=== PATIENT | female | born 1950 | race Native Hawaiian/Other Pacific Islander ===

== ENCOUNTER 2016-09-17 20:17 | Inpatient (IN) | payer MEDICARE, MEDICAID ==
[2016-09-17] MEDS ORDERED: Levalbuterol 1.25 MG/3 ML Inhal Soln UD IH STA ×2 (20:25)
[2016-09-17] MEDS ORDERED: guaiFENesin 200 mg/10 ml Syrup UD PO STA (20:25)
[2016-09-17] MEDS ORDERED: Ipratropium 0.02% Inhal Soln (0.5 mg/2.5 ml) UD IH STA (20:25)
[2016-09-17 20:54] LABS: ADD MANUAL DIFF? NO
--- NOTE | 2016-09-17 20:54 | ED PDOC ---
Arrival/HPI - General Chief Complaint: Respiratory Distress Time Seen by Provider: 09/17/16 20:22 Historian: Dental Billing Specialist (son-in-law) - History of Present Illness Narrative History of Present Illness (Text): 09/17/16 20:51 66 y.o. female whose PMHx includes asthma/COPD, HTN, hyperlipidemia, and hepatitis B, who is here in the ED with complaint of chest pain that is worse when taking a deep breath, associated with mild cough and a feeling consistent with previous asthma attacks. No dizziness or abd pain or n/v or LE pain. She did have a subjective fever earlier at home but not measured. Past Medical History - Infectious Disease Hx of Infectious Diseases: None - Tetanus Immunization Tetanus Immunization: Unknown - Cardiac Hx Cardiac Disorders: Yes Hx Hypertension: Yes - Pulmonary Hx Chronic Obstructive Pulmonary Disease (COPD): Yes - Neurological HX Cerebrovascular Accident: No - HEENT Hx HEENT Disorder: No - Renal Hx Renal Failure: No - Endocrine/Metabolic Hx Diabetes Mellitus Type 1: No Hx Diabetes Mellitus Type 2: No Hx Hypothyroidism: No - Hematological/Oncological Hx Blood Disorders: Yes Hx Hepatitis B: Yes - Integumentary Hx Dermatological Disorder: No - Musculoskeletal/Rheumatological Hx Falls: No - Gastrointestinal Hx Gastroesophageal Reflux: No HX Swallowing Problems: Yes - Genitourinary/Gynecological Hx Genitourinary Disorders: No - Psychiatric Hx Psychophysiologic Disorder: No Hx Substance Use: No - Anesthesia Hx Anesthesia Reactions: No Hx Malignant Hyperthermia: No Family/Social History Family/Social History: Unknown Family HX Smoking Status: Former Smoker Hx Alcohol Use: No Hx Substance Use: No Allergies/Home Meds Allergies/Adverse Reactions: Allergies No Known Allergies Allergy (Verified 06/22/16 01:35) Review of Systems - Review of Systems Constitutional: Fevers (subjective) Eyes: Normal ENT: Normal Respiratory: SOB, Cough (mild) Cardiovascular: Chest Pain Gastrointestinal: absent: Abdominal Pain, Nausea, Vomiting Genitourinary Female: absent: Dysuria Musculoskeletal: Normal Skin: absent: Rash Neurological: absent: Headache, Dizziness, Focal Weakness Physical Exam Vital Signs Temp Pulse Resp BP Pulse Ox 09/17/16 21:39 97.7 F 09/17/16 20:34 98.9 F 100 H 22 147/94 H 98 Temperature: Afebrile Blood Pressure: Normal Pulse: Tachycardic Respiratory Rate: Normal Appearance: Positive for: Well-Appearing, Non-Toxic, Comfortable Pain Distress: None Mental Status: Positive for: Alert and Oriented X 3 - Systems Exam Head: Present: Atraumatic, Normocephalic Pupils: Present: PERRL Conjunctiva: Present: Normal Mouth: Present: Moist Mucous Membranes Pharnyx: Present: Normal. No: ERYTHEMA, EXUDATE Neck: Present: Normal Range of Motion Respiratory/Chest: Present: Wheezes (b/L), Decreased Breath Sounds. No: Good Air Exchange, Respiratory Distress, Accessory Muscle Use Cardiovascular: Present: Normal S1, S2, Tachycardic. No: Murmurs Abdomen: Present: Normal Bowel Sounds. No: Tenderness, Distention, Peritoneal Signs Back: Present: Normal Inspection Upper Extremity: Present: Normal Inspection. No: Cyanosis, Edema Lower Extremity: Present: Normal Inspection. No: Edema Neurological: Present: GCS=15, CN II-XII Intact, Speech Normal Skin: Present: Warm, Dry, Normal Color. No: Rashes Psychiatric: Present: Alert, Oriented x 3, Normal Insight, Normal Concentration Medical Decision Making ED Course and Treatment: 09/17/16 22:57 Patient with history of COPD with sob and wheezing Differential: COPD exacerbation vs. PE vs. ACS 09/17/16 22:58 Patient with noted history who is here in the ED for findings c/w previous COPD exacerbations. Given steroids and nebs but still tachycardic with tachypnea. Labs are nondiagnostic, including negative d-dimer and CE. EKG is unremarkable as is CXR. Patient with abnormal vitals still and reports persistent chest tightness - will place in the hospital on telemetry for further treatment and evaluation of chest pain and copd exacerbation. Spoke with Dr. Johnston, who said to place on the hospitalist service. Case was discussed with Dr. Merino for placement on the hospitalist service. - Lab Interpretations Lab Results: 09/17/16 20:45 09/17/16 20:45 Lab Results 09/17/16 22:27: Urine Color Yellow, Urine Appearance Cloudy, Urine pH 6.5, Ur Specific [place] <= 1.005, Urine Protein Negative, Urine Glucose (UA) Negative, Urine Ketones Negative, Urine Blood Trace-intact H, Urine Nitrate Negative, Urine Bilirubin Negative, Urine Urobilinogen 0.2, Ur Leukocyte Esterase Small H , Urine RBC 1 - 3, Urine WBC 2 - 5, Ur Epithelial Cells 1 - 3 09/17/16 20:45: Sodium 139, Potassium 4.0, Chloride 102, Carbon Dioxide 28, Anion Gap 13, BUN 13, Creatinine 0.7, Est GFR ( Amer) > 60, Est GFR (Non- Af Amer) > 60, Random Glucose 110, Calcium 10.1, Magnesium 2.1, Total Bilirubin 0.7, AST 36, ALT 35, Alkaline Phosphatase 68, Lactate Dehydrogenase 548, Total Creatine Kinase 74, Troponin I < 0.01, NT-Pro-B Natriuret Pep 67.0, Total Protein 8.6 H, Albumin 4.5, Globulin 4.1, Albumin/Globulin Ratio 1.1, Lipase 65 09/17/16 20:45: PT 11.0, INR 1.02, APTT 26.9, D-Dimer, Quantitative 0.36 09/17/16 20:45: WBC 6.4 D, RBC 4.89, Hgb 15.3, Hct 43.8, MCV 89.6, MCH 31.3, MCHC 34.9, RDW 12.5, Plt Count 223, MPV 9.3, Gran % 59.2, Lymph % (Auto) 33.0, [place] % (Auto) 6.4 H, Eos % (Auto) 1.1 L, Baso % (Auto) 0.3, Gran # 3.77, Lymph # 2.1, [place] # 0.4, Eos # 0.1, Baso # 0.02 - RAD Interpretation Radiology Orders: 09/17/16 21:21 CHEST PORTABLE [RAD] Stat - Medication Orders Current Medication Orders: Levofloxacin/Dextrose (Levaquin 750mg) 750 mg in 150 mls @ 100 mls/hr IVPB STAT STA Stop: 09/18/16 00:00 Discontinued Medications Guaifenesin (Robitussin) 400 mg PO ONCE STA Stop: 09/17/16 20:26 Last Admin: 09/17/16 21:00 Dose: 400 mg Ipratropium [place] (Atrovent) 0.5 mg IH STAT STA Stop: 09/17/16 20:26 Last Admin: 09/17/16 21:00 Dose: 0.5 mg Ipratropium [place] (Atrovent) 0.5 mg IH STAT STA Stop: 09/17/16 20:26 Levalbuterol HCl (Xopenex) 1.25 mg IH STAT STA Stop: 09/17/16 20:26 Last Admin: 09/17/16 21:00 Dose: 1.25 mg Levalbuterol HCl (Xopenex) 1.25 mg IH STAT STA Stop: 09/17/16 20:26 Methylprednisolone (Solu-Medrol) 125 mg IVP STAT STA Stop: 09/17/16 20:26 Last Admin: 09/17/16 21:00 Dose: 125 mg Disposition/Present on Arrival - Present on Arrival Any Indicators Present on Arrival: No History of DVT/PE: No History of Uncontrolled Diabetes: No Urinary Catheter: No History Surgical Site Infection Following: None - Disposition Have Diagnosis and Disposition been Completed?: Yes Diagnosis: Chest pain, Acute exacerbation of chronic obstructive pulmonary disease (COPD) Disposition: HOSPITALIZED Disposition Time: 22:40 Patient Plan: Observation, Telemetry Condition: FAIR Discharge Instructions (ExitCare): Chest Pain (ED) Referrals: Marilyn Gregg DO [Primary Care Provider] - Follow up with primary
[2016-09-17 21:08] LABS: ALB/GLOB RATIO 1.1 (1.1-1.8); ALKALINE PHOSPHATASE 68 U/L (38-133); ALT/SGPT 35 U/L (7-56); AST/SGOT 36 U/L (15-39); BILIRUBIN,TOTAL 0.7 mg/dL (0.2-1.3); BLOOD UREA NITROGEN 13 mg/dL (7-21); CALCIUM 10.1 mg/dL (8.4-10.5); CARBON DIOXIDE 28 mmol/L (21-33); CHLORIDE 102 mmol/L (98-107); GFR AFRICAN-AMERICAN > 60; GLUCOSE,RANDOM 110 mg/dL (70-110); LIPASE 65 U/L (23-300); MAGNESIUM 2.1 mg/dL (1.7-2.2); SODIUM 139 mmol/L (132-148); TOTAL PROTEIN 8.6 g/dL (5.8-8.3)
[2016-09-17 21:09] LABS: BASO # 0.02 K/mm3 (0.0-2.0); BASO % 0.3 % (0.0-3.0); EOS # 0.1 (0.0-0.7); EOS % 1.1 % (1.5-5.0); GRAN # 3.77 (1.4-6.5); GRAN % 59.2 % (50.0-68.0); HEMATOCRIT 43.8 % (36.0-48.0); LYMPH # 2.1 (1.2-3.4); MEAN CELL VOLUME 89.6 fL (80.0-105.0); MEAN CORPUSCULAR HEMOGLOBIN 31.3 pg (25.0-35.0); MEAN CORPUSCULAR HGB CONC 34.9 g/dl (31.0-37.0); MEAN PLATELET VOLUME 9.3 fl (7.0-11.0); MONO # 0.4 (0.1-0.6); MONO % 6.4 % (1.0-6.0); PLATELET COUNT 223 10^3/uL (120.0-450.0); RED CELL DISTRIBUTION WIDTH 12.5 % (11.5-14.5); WHITE BLOOD COUNT 6.4 10^3/ul (4.5-11.0)
[2016-09-17 21:18] LABS: TROPONIN I < 0.01 ng/mL
[2016-09-17 21:46] LABS: INR 1.02 (0.93-1.08); PARTIAL THROMBOPLASTIN TIME 26.9 Seconds (23.7-30.8)
[2016-09-17 22:02] LABS: D DIMER 0.36 mg/L FEU (0-0.50)
[2016-09-17] MEDS ORDERED: levoFLOXacin 750 mg in D5W 750 MG/150 ML BAG IVPB STA (22:31)
[2016-09-17 22:46] LABS: PH,URINE 6.5 (4.7-8.0); URINE BILIRUBIN NEGATIVE (NEGATIVE); URINE BLOOD TRACE-INTACT (NEGATIVE); URINE GLUCOSE (UA) NEGATIVE (NEGATIVE); URINE KETONE NEGATIVE (NEGATIVE); URINE LEUKOCYTE ESTERASE SMALL Leu/uL (NEGATIVE); URINE PROTEIN NEGATIVE mg/dL (<30 mg/dL); URINE UROBILINOGEN 0.2 E.U./dL (<1 E.U./dL)
[2016-09-17 22:49] LABS: URINE APPEARANCE CLOUDY (CLEAR); URINE COLOR YELLOW (YELLOW)
[2016-09-17] MEDS: Ipratropium 0.02% Inhal Soln (0.5 mg/2.5 ml) UD IH STA ×2 (23:04→23:06)
[2016-09-17] MEDS ORDERED: Ipratropium 0.02% Inhal Soln (0.5 mg/2.5 ml) UD IH PRN (23:27)
[2016-09-17] MEDS ORDERED: Levalbuterol 1.25 MG/3 ML Inhal Soln UD IH PRN (23:27)
[2016-09-17] MEDS ORDERED: Levalbuterol 1.25 MG/3 ML Inhal Soln UD IH SCH (23:30)
[2016-09-17] MEDS ORDERED: Ipratropium 0.02% Inhal Soln (0.5 mg/2.5 ml) UD IH SCH (23:30)
--- NOTE | 2016-09-18 01:48 | CT ---
EXAM: CT Chest Without Intravenous Contrast CLINICAL HISTORY: 66 years old, female; Signs and symptoms; Shortness of breath; Additional info: SOB and chest pain TECHNIQUE: Axial computed tomography images of the chest without intravenous contrast. This CT exam was performed using one or more of the following dose reduction techniques: automated exposure control, adjustment of the mA and/or kV according to patient size, and/or use of iterative reconstruction technique. MIP reconstructed images were created and reviewed. Coronal and sagittal reformatted images were created and reviewed. EXAM DATE/TIME: 09/17/2016 11:23 PM COMPARISON: CT - ANGIO CHEST PE PROTOCOL 05/16/2016 9:59:36 PM FINDINGS: There are diffuse emphysematous changes similar to prior. Again seen is nonoccluding intraluminal material in the right main bronchi and the bronchus intermedius. Accurate correlation is difficult due to large amount of motion on the current study however it appears decreased. Again seen is a 9 mm nodule in the right lateral lung, abutting the fissure image 89. The 9 mm nodule seen in the right costophrenic sulcus is not well-seen on the current study. There is a stable 5 mm right lung nodule image 49 the current. Small stable mediastinal lymph nodes are noted. No aortic aneurysm. No pleural or pericardial effussions. Stable scarring/platelike atelectasis in the bases. IMPRESSION: No acute findings.
[2016-09-18 02:41] VITALS: BMI 19.5
[2016-09-18] MEDS ORDERED: Pneumococcal 23-Valent Vaccine IM ONE (02:42)
[2016-09-18] MEDS ORDERED: Tuberculin 5 Units/0.1 ml Inj ID STA (05:53)
--- NOTE | 2016-09-18 05:56 | CP.PCM.HP ---
<Jonh Posada - Last Filed: 09/18/16 05:49> History of Present Illness - History of Present Illness History of Present Illness: Jonh Posada D.O. PGY-1, Internal Medicine Resident, Night Float Admission CC: chest tightness, fatigue, SOB for couple of days 66 year old Thai female with a PMH of asthma who presents to [facility] ER on 09/18 with complaints of shortness of breath, chest tightness, and fatigue for multiple days. Patient is mainly Thai speaking and her son is present for translation. Patient over the last couple of days has noticed that she has worsening shortness of breath and chest tightness worse than her usual asthma attacks. Patient states that she also has a dull, 7/10 pain in her chest, around her mediastinum, that has been present since that time, denies other symptoms, denies sputum production, denies alleviating or aggravating factors that she's noticed. Otherwise no sick contacts or recent travel noted. 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 absent: Diaphoresis, Irregular Heart Rhythm, Palpitations, Pedal Edema - Respiratory Respiratory: Dyspnea, Wheezing. absent: Hemoptysis - Gastrointestinal Gastrointestinal: absent: Abdominal Pain, Constipation, Diarrhea, Nausea, Vomiting - Genitourinary Genitourinary: absent: Dysuria, Hematuria - Musculoskeletal Musculoskeletal: absent: Arthralgias, Muscle Weakness, Myalgias - Integumentary Integumentary: absent: Pruritus, Rash, Swelling - Neurological Neurological: absent: Abnormal Gait, Abnormal Hearing, Tingling, Tremor Past Patient History - Infectious Disease Hx of Infectious Diseases: None - Tetanus Immunizations Tetanus Immunization: Unknown - Past Medical History & Family History Past Medical History?: Yes - Past Social History Smoking Status: Never Smoked - CARDIAC Hx Cardiac Disorders: Yes Hx Hypertension: Yes - PULMONARY Hx Chronic Obstructive Pulmonary Disease (COPD): Yes - NEUROLOGICAL HX Cerebrovascular Accident: No - HEENT Hx HEENT Problems: No - RENAL Hx Renal Failure: No - ENDOCRINE/METABOLIC Hx Diabetes Mellitus Type 1: No Hx Diabetes Mellitus Type 2: No Hx Hypothyroidism: No - HEMATOLOGICAL/ONCOLOGICAL Hx Blood Disorders: Yes Hx Hepatitis B: Yes - INTEGUMENTARY Hx Dermatological Problems: No - MUSCULOSKELETAL/RHEUMATOLOGICAL Hx Falls: No - GASTROINTESTINAL Hx Gastroesophageal Reflux: No HX Swallowing Problems: Yes - GENITOURINARY/GYNECOLOGICAL Hx Genitourinary Disorders: No - PSYCHIATRIC Hx Substance Use: No - SURGICAL HISTORY Hx Surgeries: No - ANESTHESIA Hx Anesthesia Reactions: No Hx Malignant Hyperthermia: No Meds Allergies/Adverse Reactions: Allergies Allergy/AdvReac Type Severity Reaction Status Date / Time No Known Allergies Allergy Verified 06/22/16 01:35 Physical Exam - Constitutional Additional comments: well developed, skinny elderly Thai female resting in bed in NAD, son at bedside - Head Exam Head Exam: ATRAUMATIC, NORMOCEPHALIC - Eye Exam Eye Exam: EOMI, PERRL. absent: Conjunctival injection, Scleral icterus - ENT Exam ENT Exam: Mucous Membranes Moist, Normal Oropharynx - Neck Exam Neck exam: Positive for: Full Rom. Negative for: Lymphadenopathy - Respiratory Exam Respiratory Exam: Decreased Breath Sounds, Wheezes (expiratory). absent: Rales , Rhonchi - Cardiovascular Exam Cardiovascular Exam: RRR, +S1, +S2. absent: Diastolic murmur, Gallop, Rubs, Systolic Murmur - GI/Abdominal Exam GI & Abdominal Exam: Normal Bowel Sounds, Soft. absent: Distended, Tenderness - Extremities Exam Extremities exam: Positive for: normal capillary refill, pedal pulses present. Negative for: calf tenderness, pedal edema, tenderness - Back Exam Back exam: absent: paraspinal tenderness, vertebral tenderness - Neurological Exam Neurological exam: Alert, CN II-XII Intact, Oriented x3 - Skin Skin Exam: Dry, Intact, Warm Results - Vital Signs Recent Vital Signs: Last Vital Signs Temp 97.4 F L 09/18/16 05:30 Pulse 100 H 09/18/16 05:30 Resp 19 09/18/16 05:30 BP 104/67 09/18/16 05:30 Pulse Ox 96 09/18/16 05:30 - Labs Result Diagrams: 09/17/16 20:45 09/17/16 20:45 Assessment & Plan - Assessment and Plan (Free Text) Assessment: 66 year old Thai female with a PMH of asthma who presents with complaints of shortness of breath, chest tightness, and fatigue for multiple days. Plan: 1. Shortness of breath with chest tightness Placed in obs Asthma attack vs cardiac origin EKG reviewed by myself, tachycardic Trops negative, will trend Continued home resp meds Repeat EKG in the AM Vitals q4h Given overseas history, will do PPD Q4h xopenex and ipratropium and xopenex Started solumedrol 40 2. HTN Continue home meds DVT/GI ppx: SCDs/famotidine Patient was seen and examined at bedside and case was discussed at length with attending physician. - Date & Time Date: 09/18/16 Time: 01:00 <Darren Merino - Last Filed: 09/18/16 06:38> Results - Vital Signs Recent Vital Signs: Last Vital Signs Temp 97.4 F L 09/18/16 05:30 Pulse 100 H 09/18/16 05:30 Resp 19 09/18/16 05:30 BP 104/67 09/18/16 05:30 Pulse Ox 96 09/18/16 05:30 - Labs Result Diagrams: 09/17/16 20:45 09/17/16 20:45 Attending/Attestation - Attestation I have personally seen and examined this patient.: Yes I have fully participated in the care of the patient.: Yes I have reviewed all pertinent clinical information: Yes Notes (Text): 09/18/16 06:38 Patient was seen in the ER. Agree with history , physical examination ,assessment and plan.
[2016-09-18 07:56] LABS: ADD MANUAL DIFF? NO
[2016-09-18 08:00] LABS: GRAN # 4.26 (1.4-6.5); GRAN % 85.5 % (50.0-68.0); HEMATOCRIT 42.4 % (36.0-48.0); LYMPH # 0.7 (1.2-3.4); LYMPH % 14.5 % (22.0-35.0); MEAN CELL VOLUME 90.4 fL (80.0-105.0); MEAN CORPUSCULAR HEMOGLOBIN 30.9 pg (25.0-35.0); MEAN CORPUSCULAR HGB CONC 34.2 g/dl (31.0-37.0); MEAN PLATELET VOLUME 9.5 fl (7.0-11.0); PLATELET COUNT 246 10^3/uL (120.0-450.0); RED CELL DISTRIBUTION WIDTH 12.8 % (11.5-14.5)
[2016-09-18] MEDS ORDERED: Arformoterol 15 mcg/2 ml Inh Sol IH SCH (08:00)
[2016-09-18] MEDS ORDERED: Budesonide 0.25 mg/2 ml Inhal Susp UD IH SCH (08:00)
[2016-09-18] MEDS: Pantoprazole 20 mg EC Tab PO SCH (08:05)
[2016-09-18] MEDS: Ipratropium 0.02% Inhal Soln (0.5 mg/2.5 ml) UD IH SCH ×4 (08:05→19:47)
[2016-09-18] MEDS: Budesonide 0.5 mg/2 ml Inhal Susp UD IH SCH ×2 (08:05→19:48)
[2016-09-18] MEDS: Levalbuterol 1.25 MG/3 ML Inhal Soln UD IH SCH ×4 (08:05→19:48)
[2016-09-18] MEDS: Arformoterol 15 mcg/2 ml Inh Sol IH SCH ×2 (08:05→19:47)
[2016-09-18 08:13] LABS: ALB/GLOB RATIO 1.1 (1.1-1.8); ALKALINE PHOSPHATASE 52 U/L (38-133); ALT/SGPT 26 U/L (7-56); AST/SGOT 39 U/L (15-39); BILIRUBIN,TOTAL 0.6 mg/dL (0.2-1.3); BLOOD UREA NITROGEN 12 mg/dL (7-21); CALCIUM 10.1 mg/dL (8.4-10.5); CARBON DIOXIDE 19 mmol/L (21-33); CHLORIDE 107 mmol/L (98-107); CHOLESTEROL 229 mg/dL (130-200); GFR AFRICAN-AMERICAN > 60; GLUCOSE,RANDOM 172 mg/dL (70-110); POTASSIUM 3.6 mmol/L (3.6-5.0); SODIUM 143 mmol/L (132-148); TOTAL PROTEIN 8.2 g/dL (5.8-8.3)
[2016-09-18 08:25] LABS: TROPONIN I < 0.01 ng/mL
--- NOTE | 2016-09-18 08:52 | RAD ---
HISTORY: Shortness of breath COMPARISON: 06/17/2016. FINDINGS: LUNGS: The lungs are hyperinflated and there is peribronchial thickening with chronic changes in both lungs. There is no focal consolidation. PLEURA: No significant pleural effusion identified, no pneumothorax apparent. CARDIOVASCULAR: Normal in size. Atherosclerotic aortic arch calcifications are present. . OSSEOUS STRUCTURES: No significant abnormalities. VISUALIZED UPPER ABDOMEN: Normal. OTHER FINDINGS: None. IMPRESSION: COPD. No active pulmonary disease.
[2016-09-18] MEDS: MethylPREDNISolone 40 mg Vial IVP SCH (09:30)
[2016-09-18] MEDS: Tiotropium 18 mcg Cap For Inhalation INH SCH (09:31)
[2016-09-18] MEDS ORDERED: Fluticasone-Salmeterol 250-50mcg Diskus IH SCH (10:00)
[2016-09-18] MEDS ORDERED: Alum-Mag Hydrox-Simethicone Susp (30 mL) PO ONE (10:07)
--- NOTE | 2016-09-18 17:04 | CARD ---
APPROVED REPORT EKG Measurement Heart [id number] <Conclusion> Normal sinus rhythm Normal ECG
--- NOTE | 2016-09-18 17:12 | CARD ---
APPROVED REPORT EKG Measurement Heart [id number] <Conclusion> Sinus tachycardia with premature atrial complexes Nonspecific ST abnormality Abnormal ECG
--- NOTE | 2016-09-18 17:17 | CON ---
DATE: 09/18/2016 REASON FOR CONSULTATION: Sinus tachycardia and shortness of breath. 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 The patient was noted to be tachycardic on the monitor. Persistent chest t ightness was reported. There is no known prior cardiac history. MEDICATIONS: Home medications include alendronate 70 mg orally weekly, Singulair 10 mg at bedtime, a tenolol 12.5 mg once a day, Reglan 10 mg b.i.d., Protonix 20 mg p.o. once a day, Advair 1 inhalation daily, Spiriva 1 inhalation daily and albuterol inhaler q. 3 hours p.r.n. Current hospital medication s include Atrovent nebulizer, Brovana 15 mcg inhalation twice a day, Daliresp 500 mg daily, Pulmicort 0.5 mg inhalation twice a day, Reglan 10 mg p.o. once a day, Singulair 10 mg once a day, Solu-Medrol 40 mg intravenously daily, Spiriva 18 mcg inhalation daily, atenolol 12.5 mg once a day, Xopenex inh aler q. 2 hours p.r.n. PHYSICAL EXAMINATION: GENERAL: The patient is an elderly female who appears emaciated and cachectic. VITAL SIGNS: Blood pressure 100/62, heart rate 80, temperature 98.3, respiration 19. HEENT: Temporal wasting. NECK: No JVD. CHEST: Bilateral rhonchi. HEART: S1, S2 regular. EXTREMITIES: Significant muscle wasting. LABORATORY DATA: CBC: WBC is 5, hemoglobin and hematocrit 14.5 and 42.4, platelet count 246,000. __ ___ was within normal limits. Three sets of troponins are negative. Total cholesterol 229, LDL chol esterol is 137, both are elevated. Lipase within normal limits. PT, PTT and D-dimer are within norm al limits. EKG revealed sinus tachycardia at a rate of 112. Occasional APCs were noted, nonspecific ST segment changes. Chest CT scan without contrast revealed nonoccluding intraluminal material in t he right main bronchi and the bronchus intermedius. correlation is difficult due to a large am ount of motion; however, it appears to be decreased. Again seen a 9 mm nodule in the right lateral tarik ng and a stable 5 mm right lung nodule. Small stable mediastinal lymph nodes are noted. No aortic a neurysm. Chest x-ray revealed overexpanded lungs, vertical heart, prominent central vasculature. No consolidation or effusion. ASSESSMENT: 1. Sinus tachycardia is a physiologic finding to the patient's exacerbation of chronic obstructive l concepcion disease. 2. Consider secondary pulmonary hypertension. 3. Hyperlipidemia. 4. Rule out underlying tuberculosis. 5. Nonocclusive intraluminal material in the right main bronchi and the bronchus intermedius of unce rtain etiology, aspiration should be considered. RECOMMENDATIONS: Continue current Daliresp. Continue current bronchodilators, Singulair, Solu-Medrol , Tenormin. Start Lipitor 10 mg once a day. Obtain an echocardiogram. Dhiraj Estrada MD cc: [id number] TT: 09/18/2016 17:16:26 Confirmation # [id number] Dictation # [id number]
[2016-09-19] MEDS: Ipratropium 0.02% Inhal Soln (0.5 mg/2.5 ml) UD IH SCH ×7 (01:24→23:40)
[2016-09-19] MEDS: Levalbuterol 1.25 MG/3 ML Inhal Soln UD IH SCH ×7 (01:24→23:40)
[2016-09-19 06:48] LABS: ADD MANUAL DIFF? NO
[2016-09-19 07:28] LABS: ALB/GLOB RATIO 1.1 (1.1-1.8); ALKALINE PHOSPHATASE 54 U/L (38-133); ALT/SGPT 28 U/L (7-56); AST/SGOT 26 U/L (15-39); BILIRUBIN,TOTAL 0.7 mg/dL (0.2-1.3); BLOOD UREA NITROGEN 22 mg/dL (7-21); CARBON DIOXIDE 26 mmol/L (21-33); CHLORIDE 105 mmol/L (98-107); GFR AFRICAN-AMERICAN > 60; GLUCOSE,RANDOM 102 mg/dL (70-110); POTASSIUM 4.6 mmol/L (3.6-5.0); SODIUM 139 mmol/L (132-148); TOTAL PROTEIN 7.2 g/dL (5.8-8.3)
[2016-09-19] MEDS: Pantoprazole 20 mg EC Tab PO SCH (07:48)
[2016-09-19 08:12] LABS: BASO # 0.01 K/mm3 (0.0-2.0); BASO % 0.1 % (0.0-3.0); GRAN # 14.52 (1.4-6.5); GRAN % 84.3 % (50.0-68.0); HEMATOCRIT 38.9 % (36.0-48.0); LYMPH # 1.9 (1.2-3.4); LYMPH % 11.1 % (22.0-35.0); MEAN CELL VOLUME 91.1 fL (80.0-105.0); MEAN CORPUSCULAR HEMOGLOBIN 30.9 pg (25.0-35.0); MEAN CORPUSCULAR HGB CONC 33.9 g/dl (31.0-37.0); MEAN PLATELET VOLUME 9.5 fl (7.0-11.0); MONO # 0.8 (0.1-0.6); MONO % 4.5 % (1.0-6.0); PLATELET COUNT 223 10^3/uL (120.0-450.0); RED CELL DISTRIBUTION WIDTH 12.8 % (11.5-14.5)
[2016-09-19 08:27] LABS: WHITE BLOOD COUNT 17.2 10^3/ul (4.5-11.0)
[2016-09-19] MEDS: Tiotropium 18 mcg Cap For Inhalation INH SCH (09:29)
[2016-09-19] MEDS: MethylPREDNISolone 40 mg Vial IVP SCH (09:30)
--- NOTE | 2016-09-19 09:59 | CP.PCM.PN ---
<JimNora - Last Filed: 09/19/16 10:09> Subjective - Date & Time of Evaluation Date of Evaluation: 09/19/16 Time of Evaluation: 09:40 - Subjective Subjective: Pt seen and evaluated at bedside. Denies current SOB and vomiting. Reports eating well with some nausea. Afebrile overnight. Objective - Vital Signs/Intake and Output Vital Signs (last 24 hours): Temp Pulse Resp BP Pulse Ox 97.3 F L 95 H 18 100/57 L 98 09/19/16 06:00 09/19/16 09:28 09/19/16 06:00 09/19/16 09:28 09/19/16 06:00 - Medications Medications: Current Medications Acetaminophen (Tylenol 325mg Tab) 650 mg PO Q6H PRN PRN Reason: Pain, Mild (1-3) Last Admin: 09/18/16 18:37 Dose: 650 mg Arformoterol Tartrate (Brovana) 15 mcg IH [id number] [facility] Last Admin: 09/18/16 19:47 Dose: 15 mcg Atenolol (Tenormin) 12.5 mg PO BID [facility] Last Admin: 09/19/16 09:28 Dose: 12.5 mg Atorvastatin Calcium (Lipitor) 10 mg PO DIN [facility] Last Admin: 09/18/16 17:33 Dose: 10 mg Benzonatate (Tessalon Perles) 100 mg PO TID PRN PRN Reason: Cough and congestion Last Admin: 09/19/16 09:27 Dose: 100 mg Budesonide (Pulmicort Respules) 0.5 mg IH [id number] [facility] Last Admin: 09/18/16 19:48 Dose: 0.5 mg Ipratropium [place] (Atrovent) 0.5 mg IH Q2H PRN PRN Reason: Shortness of Breath Ipratropium [place] (Atrovent) 0.5 mg IH [id number] [facility] Last Admin: 09/19/16 08:11 Dose: Not Given Levalbuterol HCl (Xopenex) 1.25 mg IH Q2 PRN PRN Reason: Shortness of Breath Levalbuterol HCl (Xopenex) 1.25 mg IH [id number] [facility] Last Admin: 09/19/16 04:57 Dose: Not Given Metoclopramide HCl (Reglan) 10 mg PO AC [facility] Last Admin: 09/19/16 07:48 Dose: 10 mg Montelukast Sodium (Singulair) 10 mg PO HS [facility] Last Admin: 09/18/16 21:05 Dose: 10 mg Pantoprazole Sodium (Protonix Ec Tab) 20 mg PO ACB [facility] Last Admin: 09/19/16 07:48 Dose: 20 mg Prednisone (Prednisone Tab) 40 mg PO DAILY [facility] Roflumilast (Daliresp) 500 mcg PO DAILY [facility] Last Admin: 09/19/16 09:27 Dose: 500 mcg Tiotropium [place] (Spiriva) 18 mcg INH DAILY [facility] Last Admin: 09/19/16 09:29 Dose: 18 mcg - Labs Labs: PT 11.0 Seconds (9.9-11.8) 09/17/16 20:45 INR 1.02 (0.93-1.08) 09/17/16 20:45 APTT 26.9 Seconds (23.7-30.8) 09/17/16 20:45 - Constitutional Appears: Non-toxic, No Acute Distress - Head Exam Head Exam: ATRAUMATIC, NORMOCEPHALIC - Eye Exam Eye Exam: EOMI, Normal appearance Pupil Exam: NORMAL ACCOMODATION, PERRL - ENT Exam ENT Exam: Mucous Membranes Moist, Normal Exam - Respiratory Exam Respiratory Exam: NORMAL BREATHING PATTERN. absent: Wheezes - Cardiovascular Exam Cardiovascular Exam: Tachycardia, +S1, +S2 - GI/Abdominal Exam GI & Abdominal Exam: Soft. absent: Tenderness - Extremities Exam Extremities Exam: absent: Pedal Edema, Tenderness - Neurological Exam Neurological Exam: Alert, Awake - Skin Skin Exam: Intact, Normal Color Assessment and Plan - Assessment and Plan (Free Text) Plan: 66 year old Syri[place] female with a PMH of asthma who presents with complaints of shortness of breath, chest tightness, and fatigue for multiple days. 1. Shortness of breath with chest tightness Placed in obs Asthma attack vs cardiac origin EKG NSR tachycardic Trops negative, x3 Continued home resp meds Repeat EKG NS tachycardia 112 with non specific T wave changes Vitals q4h PPD pending, quantaferon gold ordered Pulmonolgy consult Dr. Jewell, help appreciated Cardiology consult Dr. Estrada, help appreciated Echo pending Q4h xopenex and ipratropium and xopenex prednisone 40mg PO QD 2. HTN Continue home meds DVT/GI ppx: heparin 5000u q 12/famotidine/zofran <Alissa Castellon MD - Last Filed: 09/19/16 15:17> Objective - Vital Signs/Intake and Output Vital Signs (last 24 hours): Temp Pulse Resp BP Pulse Ox 97.5 F L 70 20 107/56 L 98 09/19/16 11:57 09/19/16 11:57 09/19/16 11:57 09/19/16 11:57 09/19/16 06:00 - Medications Medications: Current Medications Acetaminophen (Tylenol 325mg Tab) 650 mg PO Q6H PRN PRN Reason: Pain, Mild (1-3) Last Admin: 09/19/16 14:09 Dose: 650 mg Arformoterol Tartrate (Brovana) 15 mcg IH [id number] [facility] Last Admin: 09/19/16 11:45 Dose: 15 mcg Atenolol (Tenormin) 12.5 mg PO BID [facility] Last Admin: 09/19/16 09:28 Dose: 12.5 mg Atorvastatin Calcium (Lipitor) 10 mg PO DIN [facility] Last Admin: 09/18/16 17:33 Dose: 10 mg Benzonatate (Tessalon Perles) 100 mg PO TID PRN PRN Reason: Cough and congestion Last Admin: 09/19/16 14:10 Dose: 100 mg Budesonide (Pulmicort Respules) 0.5 mg IH [id number] [facility] Last Admin: 09/19/16 11:45 Dose: 0.5 mg Heparin Sodium (Porcine) (Heparin) 5,000 units SC Q12 [facility] PRN Reason: Protocol Last Admin: 09/19/16 11:40 Dose: 5,000 units Ipratropium [place] (Atrovent) 0.5 mg IH Q2H PRN PRN Reason: Shortness of Breath Ipratropium [place] (Atrovent) 0.5 mg IH [id number] [facility] Last Admin: 09/19/16 11:44 Dose: 0.5 mg Levalbuterol HCl (Xopenex) 1.25 mg IH Q2 PRN PRN Reason: Shortness of Breath Levalbuterol HCl (Xopenex) 1.25 mg IH [id number] [facility] Last Admin: 09/19/16 04:57 Dose: Not Given Metoclopramide HCl (Reglan) 10 mg PO AC [facility] Last Admin: 09/19/16 11:40 Dose: 10 mg Montelukast Sodium (Singulair) 10 mg PO HS [facility] Last Admin: 09/18/16 21:05 Dose: 10 mg Ondansetron HCl (Zofran Tab) 4 mg PO Q8H PRN PRN Reason: Nausea/Vomiting Pantoprazole Sodium (Protonix Ec Tab) 20 mg PO ACB [facility] Last Admin: 09/19/16 07:48 Dose: 20 mg Prednisone (Prednisone Tab) 40 mg PO DAILY [facility] Roflumilast (Daliresp) 500 mcg PO DAILY [facility] Last Admin: 09/19/16 09:27 Dose: 500 mcg Tiotropium [place] (Spiriva) 18 mcg INH DAILY [facility] Last Admin: 09/19/16 09:29 Dose: 18 mcg - Labs Labs: PT 11.0 Seconds (9.9-11.8) 09/17/16 20:45 INR 1.02 (0.93-1.08) 09/17/16 20:45 APTT 26.9 Seconds (23.7-30.8) 09/17/16 20:45 Attending/Attestation - Attestation I have personally seen and examined this patient.: Yes I have fully participated in the care of the patient.: Yes I have reviewed all pertinent clinical information, including history, physical exam and plan: Yes Notes (Text): Patient was seen and examined with medical planner .Agreed with resident assessment and plan. Patient chest pain is atypical in nature, serial troponins are nomal.Echo showed normal systolic function. Patient is not wheezing, will switch to oral Prednisone. PPD was placed yesterday, will read tomorrow, Pulmonary is consulted. once OK from Pulmonary , patient can be discharged home Management plan was discussed in detail with patient Education was provided.
[2016-09-19] MEDS: Budesonide 0.5 mg/2 ml Inhal Susp UD IH SCH ×2 (11:45→20:05)
[2016-09-19] MEDS: Arformoterol 15 mcg/2 ml Inh Sol IH SCH ×2 (11:45→20:05)
[2016-09-19 12:00] VITALS: RESP 20
--- NOTE | 2016-09-19 12:44 | CARD ---
APPROVED REPORT EXAM: Two-dimensional and M-mode echocardiogram with Doppler and color Doppler. 2D DIMENSIONS Left Atrium (2D)2.3 (1.6-4.0cm)IVSd1.2 (0.7-1.1cm) LVDd3.6 (3.9-5.9cm)PWd1.0 (0.7-1.1cm) LVDs2.3 (2.5-4.0cm)FS (%) 34.5 % LVEF (%)64.5 (>50%) M-Mode DIMENSIONS Aortic Root3.10 (2.2-3.7cm)Aortic Cusp Exc.2.10 (1.5-2.0cm) Aortic Valve AoV Peak Ehlyfdjj55.1cm/sAoV VTI14.8cmAO Peak GR.4mmHg LVOT Peak Hymowmnt03.3cm/sLVOT VTI16.20cmAO Mean GR.2mmHg Mitral Valve MV E Ieujqfwm10.1cm/sMV A Ofcovqvm091.0cm/sE/A ratio0.8 TDI Lateral E' Peak V6.55cm/sMedial E' Peak V6.78cm/sE/Lateral E'13.8 E/Medial E'13.3 Tricuspid Valve TR Peak Cpntrwls631id/sTR Peak Gr.36mmHg LEFT VENTRICLE The left ventricle is normal size. There is borderline concentric left ventricular hypertrophy. The left ventricular function is normal. The left ventricular ejection fraction is within the normal range. There is normal LV segmental wall motion. Transmitral Doppler flow pattern is Grade I-abnormal relaxation pattern. RIGHT VENTRICLE The right ventricle is normal size. There is normal right ventricular wall thickness. The right ventricular systolic function is normal. ATRIA The left atrium size is normal. The right atrium size is normal. AORTIC VALVE The aortic valve is not well visualized. MITRAL VALVE The mitral valve is normal in structure. TRICUSPID VALVE There is mild tricuspid regurgitation. There is mild pulmonary hypertension. GREAT VESSELS The aortic root is normal in size. The IVC is dilated. PERICARDIAL EFFUSION There is no pericardial effusion. <Conclusion> The left ventricle is normal size. There is borderline concentric left ventricular hypertrophy. The left ventricular function is normal. The left ventricular ejection fraction is within the normal range. There is normal LV segmental wall motion. Transmitral Doppler flow pattern is Grade I-abnormal relaxation pattern. There is mild tricuspid regurgitation. There is mild pulmonary hypertension.
--- NOTE | 2016-09-19 19:09 | CON ---
DATE: 09/19/2016 REQUESTING PHYSICIAN: Dr. Castellon. CHIEF COMPLAINT: The patient presented with epigastric pain radiating to the chest with some chest c ongestion and cough. HISTORY OF PRESENT ILLNESS: The patient is a 66-year-old female with a history of chronic obstructiv e pulmonary disease, hypertension, hyperlipidemia and hepatitis B. The patient complained of epigast shannan and chest pain that was associated with cough and stated that it was consistent with her COPD att acks or asthma attacks in the past. The patient at this time still has some epigastric discomfort, b ut no complaints of shortness of breath. No increased cough, no congestion, no chest pain. No nause ousness or vomiting or diarrhea. Note that the history was difficult to obtain because the patient s peaks very little [place]. PAST MEDICAL HISTORY: As above. ALLERGIES: She has no known allergies. CURRENT MEDICATIONS: Can be evaluated as per the nurses' intake form. SOCIAL HISTORY: The patient is a former smoker. No ETOH, no drug abuse. FAMILY HISTORY: Unable to assess. REVIEW OF SYSTEMS: Unable to assess. PHYSICAL EXAMINATION: VITAL SIGNS: Her temperature is 97.5, her pulse is 86, respirations are 20, and BP is 102/67. SKIN: Warm and dry. HEAD: Atraumatic, normocephalic. EYES: Reactive to light. EARS, NOSE AND THROAT: Seem to be within normal limits. NECK: Supple, no JVD, no thyroid enlargement, no lymph nodes. HEART: Regular rate and rhythm. Normal S1, S2. LUNGS: Reveal good breath sounds bilaterally. ABDOMEN: Soft, decreased bowel sounds. No organomegaly noted. GENITALIA AND RECTAL: Deferred. MUSCULOSKELETAL: No joint deformities. EXTREMITIES: Reveal no significant edema. NEUROLOGIC: She seemed to be grossly intact. IMAGING: As far as her x-rays are concerned, the patient had a CT scan of the chest that reveals dif fuse emphysematous changes. It states again seen is a non-occluding intraluminal material in the rig ht main bronchus and in the bronchus intermedius. It says difficult to correlate because of wall mot ion. Again, noted it states that there is a 9 mm nodule in the right lateral lung and a 9 mm nodule seen in the right costophrenic sulcus. There is a stable 5 mm right lung nodule, small stable lymph nodes and a small amount of atelectasis at the bases. LABORATORY DATA: The patient's white count is 17.2, hemoglobin is 13.2, hematocrit 38.9 with platele ts of 223,000. Sodium is 139, potassium 4.6, chloride 105, CO2 of 26 with a BUN of 22, creatinine of 0.6 and a glucose of 102. IMPRESSION: This patient has chronic obstructive pulmonary disease/emphysema and small lower lobe at electasis. She has pulmonary nodules and has nonobstructing material in the right main stem bronchus as well as the bronchus intermedius, possibly secondary to aspiration. The patient has a history of epigastric pain, etiology unclear. She has hypertension, hepatitis B and hyperlipidemia as well. PLAN: We will start Mucomyst and chest PT and continue with Brovana and Atrovent as bronchodilators. The patient is on Daliresp as well for her COPD. She is getting prednisone and Pulmicort as well a s Protonix. The patient is on Singulair as well as Reglan and is getting Tessalon Perles for her cou gh. I feel that the patient should have a repeat CT scan once discharged and followed by her primary care doctor to make sure that the material in the bronchi has cleared. If pulmonary nodules continu ed to be present, the patient should be evaluated with a PET scan as an outpatient. She is to contin ue her bronchodilator therapy and continue Protonix as well. The patient possibly should be evaluate d by GI for possible gastritis or peptic ulcer disease. Alf Jewell MD cc: [id number] TT: 09/19/2016 19:08:59 Confirmation # [id number] Dictation # [id number]
[2016-09-19] MEDS: Acetylcysteine 20% Inhal Soln (4ml) IH SCH (20:05)
[2016-09-20] MEDS: Levalbuterol 1.25 MG/3 ML Inhal Soln UD IH SCH ×3 (04:00→11:49)
[2016-09-20] MEDS: Ipratropium 0.02% Inhal Soln (0.5 mg/2.5 ml) UD IH SCH ×3 (04:00→11:48)
[2016-09-20 06:10] VITALS: O2SAT 94
[2016-09-20 06:45] LABS: ADD MANUAL DIFF? NO
[2016-09-20 06:58] LABS: ALB/GLOB RATIO 1.1 (1.1-1.8); ALKALINE PHOSPHATASE 53 U/L (38-133); ALT/SGPT 35 U/L (7-56); AST/SGOT 27 U/L (15-39); BLOOD UREA NITROGEN 24 mg/dL (7-21); CALCIUM 9.2 mg/dL (8.4-10.5); CARBON DIOXIDE 26 mmol/L (21-33); CHLORIDE 103 mmol/L (98-107); GFR AFRICAN-AMERICAN > 60; GLUCOSE,RANDOM 85 mg/dL (70-110); POTASSIUM 4.3 mmol/L (3.6-5.0); SODIUM 139 mmol/L (132-148); TOTAL PROTEIN 7.3 g/dL (5.8-8.3)
[2016-09-20 07:30] LABS: BASO # 0.01 K/mm3 (0.0-2.0); BASO % 0.1 % (0.0-3.0); GRAN # 10.59 (1.4-6.5); GRAN % 74.8 % (50.0-68.0); HEMATOCRIT 39.8 % (36.0-48.0); LYMPH # 2.7 (1.2-3.4); LYMPH % 19.4 % (22.0-35.0); MEAN CELL VOLUME 91.5 fL (80.0-105.0); MEAN CORPUSCULAR HEMOGLOBIN 30.6 pg (25.0-35.0); MEAN CORPUSCULAR HGB CONC 33.4 g/dl (31.0-37.0); MEAN PLATELET VOLUME 9.6 fl (7.0-11.0); MONO # 0.8 (0.1-0.6); MONO % 5.7 % (1.0-6.0); PLATELET COUNT 230 10^3/uL (120.0-450.0); RED CELL DISTRIBUTION WIDTH 12.8 % (11.5-14.5); WHITE BLOOD COUNT 14.2 10^3/ul (4.5-11.0)
[2016-09-20] MEDS: Acetylcysteine 20% Inhal Soln (4ml) IH SCH (07:40)
[2016-09-20] MEDS: Arformoterol 15 mcg/2 ml Inh Sol IH SCH (07:41)
[2016-09-20] MEDS: Budesonide 0.5 mg/2 ml Inhal Susp UD IH SCH (07:41)
[2016-09-20] MEDS: Pantoprazole 20 mg EC Tab PO SCH (08:24)
[2016-09-20] MEDS ORDERED: cefTRIAXone 1 gm 1 GM/100 ML BAG IVPB SCH (10:00)
[2016-09-20] MEDS: Tiotropium 18 mcg Cap For Inhalation INH SCH (10:03)
--- NOTE | 2016-09-20 11:26 | CP.PCM.DIS ---
<Nora Fernandez - Last Filed: 09/22/16 16:18> Provider - Provider Date of Admission: 09/19/16 07:10 Attending physician: Alissa Castellon MD Primary care physician: Marilyn Gregg DO Consults: Cardiology: Sean Pulmonolgy: Fanta Time Spent in preparation of Discharge (in minutes): 35 Hospital Course - Lab Results Lab Results: Most Recent Lab Values WBC 14.2 10^3/ul (4.5-11.0) H 09/20/16 06:40 RBC 4.35 10^6/uL (3.5-6.1) 09/20/16 06:40 Hgb 13.3 gm/dL (12.0-16.0) 09/20/16 06:40 Hct 39.8 % (36.0-48.0) 09/20/16 06:40 MCV 91.5 fL (80.0-105.0) 09/20/16 06:40 MCH 30.6 pg (25.0-35.0) 09/20/16 06:40 MCHC 33.4 g/dl (31.0-37.0) 09/20/16 06:40 RDW 12.8 % (11.5-14.5) 09/20/16 06:40 Plt Count 230 10^3/uL (120.0-450.0) 09/20/16 06:40 MPV 9.6 fl (7.0-11.0) 09/20/16 06:40 Gran % 74.8 % (50.0-68.0) H 09/20/16 06:40 Lymph % (Auto) 19.4 % (22.0-35.0) L 09/20/16 06:40 [place] % (Auto) 5.7 % (1.0-6.0) 09/20/16 06:40 Eos % (Auto) 0.0 % (1.5-5.0) L 09/20/16 06:40 Baso % (Auto) 0.1 % (0.0-3.0) 09/20/16 06:40 Gran # 10.59 (1.4-6.5) H 09/20/16 06:40 Lymph # 2.7 (1.2-3.4) 09/20/16 06:40 [place] # 0.8 (0.1-0.6) H 09/20/16 06:40 Eos # 0.0 (0.0-0.7) 09/20/16 06:40 Baso # 0.01 K/mm3 (0.0-2.0) 09/20/16 06:40 PT 11.0 Seconds (9.9-11.8) 09/17/16 20:45 INR 1.02 (0.93-1.08) 09/17/16 20:45 APTT 26.9 Seconds (23.7-30.8) 09/17/16 20:45 D-Dimer, Quantitative 0.36 mg/L FEU (0-0.50) 09/17/16 20:45 Sodium 139 mmol/L (132-148) 09/20/16 06:40 Potassium 4.3 mmol/L (3.6-5.0) 09/20/16 06:40 Chloride 103 mmol/L (98-107) 09/20/16 06:40 Carbon Dioxide 26 mmol/L (21-33) 09/20/16 06:40 Anion Gap 14 (10-20) 09/20/16 06:40 BUN 24 mg/dL (7-21) H 09/20/16 06:40 Creatinine 0.7 mg/dL (0.5-1.4) 09/20/16 06:40 Est GFR ( Amer) > 60 09/20/16 06:40 Est GFR (Non-Af Amer) > 60 09/20/16 06:40 Random Glucose 85 mg/dL (70-110) 09/20/16 06:40 Calcium 9.2 mg/dL (8.4-10.5) 09/20/16 06:40 Magnesium 2.1 mg/dL (1.7-2.2) 09/17/16 20:45 Total Bilirubin 1.0 mg/dL (0.2-1.3) 09/20/16 06:40 AST 27 U/L (15-39) 09/20/16 06:40 ALT 35 U/L (7-56) 09/20/16 06:40 Alkaline Phosphatase 53 U/L (38-133) 09/20/16 06:40 Lactate Dehydrogenase 548 U/L (333-699) 09/17/16 20:45 Total Creatine Kinase 74 U/L (35-230) 09/17/16 20:45 Troponin I < 0.01 ng/mL 09/18/16 11:00 NT-Pro-B Natriuret Pep 67.0 pg/mL (0-450) 09/17/16 20:45 Total Protein 7.3 g/dL (5.8-8.3) 09/20/16 06:40 Albumin 3.7 g/dL (3.0-4.8) 09/20/16 06:40 Globulin 3.5 gm/dL 09/20/16 06:40 Albumin/Globulin Ratio 1.1 (1.1-1.8) 09/20/16 06:40 Triglycerides 102 mg/dL (35-160) 09/18/16 06:30 Cholesterol 229 mg/dL (130-200) H 09/18/16 06:30 LDL Cholesterol Direct 137 mg/dL (0-129) H 09/18/16 06:30 HDL Cholesterol 50 mg/dL (29-60) 09/18/16 06:30 Lipase 65 U/L (23-300) 09/17/16 20:45 Urine Color Yellow (YELLOW) 09/17/16 22:27 Urine Appearance Cloudy (CLEAR) 09/17/16 22:27 Urine pH 6.5 (4.7-8.0) 09/17/16 22:27 Ur Specific [place] <= 1.005 (1.005-1.035) 09/17/16 22:27 Urine Protein Negative mg/dL (<30 mg/dL) 09/17/16 22:27 Urine Glucose (UA) Negative mg/dL (NEGATIVE) 09/17/16 22:27 Urine Ketones Negative mg/dL (NEGATIVE) 09/17/16 22:27 Urine Blood Trace-intact (NEGATIVE) H 09/17/16 22:27 Urine Nitrate Negative (NEGATIVE) 09/17/16 22: Urine Bilirubin Negative (NEGATIVE) 09/17/16 22:27 Urine Urobilinogen 0.2 E.U./dL (<1 E.U./dL) 09/17/16 22:27 Ur Leukocyte Esterase Small Eamon/uL (NEGATIVE) H 09/17/16 22:27 Urine RBC 1 - 3 /hpf (0-2) 09/17/16 22:27 Urine WBC 2 - 5 /hpf (0-6) 09/17/16 22:27 Ur Epithelial Cells 1 - 3 /hpf (0-5) 09/17/16 22:27 - Hospital Course Hospital Course: 66 year old Chinese female with a PMH of asthma who [place] [facility] [place] with complaints of shortness of breath, chest tightness, and fatigue for multiple days. EKG NSR with tachycardia. Admitted for chest pain and acute exacerbation of asthma. Negative troponins x 2. On the floor, pt given xopenex, ipratropium and solumedrol IV which was changed to PO methylprednisolone over course of admission and improvement of lung sounds on physical exam. PPD was administered and had a negative result, as read today. Chest CT showed: 8mm nodule in R main bronchus, 9mm in R costal region, no acute findings, non-occluding in r main bronchus and bronchus intermedius, (please see full report). Pulmonology recommended follow up outpt repeat CT for following said nodules. ECHO: normal EF, borerline LVH, mild TR , PTH. Pt discharged home with the following: Please continue your home medications with the following new medications: mucinex tablets 600 mg by mouth every 12 hours, medrol 4mg tabs by mouth with daily tapering dose of 40 mg for the first day, 20 mg once daily for second and third days, 12 mg once daily for the next two days, 8mg once daily for the next two days and 4 mg once daily for the next two days. Omeprazole 20 mg by mouth daily. Lipitor 10mg by mouth with dinner daily. Please follow-up with your primary physician within a week for outpatient chest CT 3 weeks from discharge, to follow-up that there is clearing of non- obstructing material in R main stem bronchus and R bronchus intermedius. Please return to the emergency department for worsening of symptoms. Discharge Exam - Additional Findings Additional findings: - Constitutional Appears: Non-toxic, No Acute Distress - Head Exam Head Exam: ATRAUMATIC, NORMOCEPHALIC - Eye Exam Eye Exam: EOMI, Normal appearance Pupil Exam: NORMAL ACCOMODATION, PERRL - ENT Exam ENT Exam: Mucous Membranes Moist, Normal Exam - Respiratory Exam Respiratory Exam: NORMAL BREATHING PATTERN. absent: Wheezes - Cardiovascular Exam Cardiovascular Exam: No Tachycardia present, +S1, +S2 - GI/Abdominal Exam GI & Abdominal Exam: Soft. absent: Tenderness - Extremities Exam Extremities Exam: absent: Pedal Edema, Tenderness - Neurological Exam Neurological Exam: Alert, Awake - Skin Skin Exam: Intact, Normal Color Discharge Plan - Discharge Medications Prescriptions: Atorvastatin [Lipitor] 10 mg PO DIN #14 tab Guaifenesin [Mucinex] 600 mg PO BID PRN #28 tab.er.12h PRN Reason: Cough Methylprednisolone [Medrol] See Taper PO DAILY #128 tablet Omeprazole 20 mg PO DAILY #14 capsule.dr - Follow Up Plan Condition: FAIR Disposition: HOME/ ROUTINE Instructions: Chest Pain (DC), Chest Pain (GEN), COPD (Chronic Obstructive Pulmonary Disease) (DC), Antibiotic Medication Allergy (DC) Additional Instructions: You are discharged. Please continue your home medications with the following new medications: mucinex tablets 600 mg by mouth every 12 hours, medrol 4mg tabs by mouth with daily tapering dose of 40 mg for the first day, 20 mg once daily for second and third days, 12 mg once daily for the next two days, 8mg once daily for the next two days and 4 mg once daily for the next two days. Omeprazole 20 mg by mouth daily. Lipitor 10 mg by mouth with dinner daily. Please follow-up with your primary physician within a week for outpatient chest CT 3 weeks from discharge, to follow-up that there is clearing of non- obstructing material in R main stem bronchus and R bronchus intermedius. Please return to the emergency department for worsening of symptoms. Nursing: Please do not take antibiotic Rocephin (cefriaxone) you are allergic to this medication. If you begin to experience chest pain, shortness of breath, or if symptoms return or worsen please return to the nearest emergency room or call 911 Referrals: Marilyn Gregg DO [Primary Care Provider] - <Alissa Castellon MD - Last Filed: 09/28/16 07:42> Provider - Provider Date of Admission: 09/19/16 07:10 Attending physician: Alissa Castellon MD Primary care physician: Marilyn Gregg DO Hospital Course - Lab Results Lab Results: Most Recent Lab Values WBC 14.2 10^3/ul (4.5-11.0) H 09/20/16 06:40 RBC 4.35 10^6/uL (3.5-6.1) 09/20/16 06:40 Hgb 13.3 gm/dL (12.0-16.0) 09/20/16 06:40 Hct 39.8 % (36.0-48.0) 09/20/16 06:40 MCV 91.5 fL (80.0-105.0) 09/20/16 06:40 MCH 30.6 pg (25.0-35.0) 09/20/16 06:40 MCHC 33.4 g/dl (31.0-37.0) 09/20/16 06:40 RDW 12.8 % (11.5-14.5) 09/20/16 06:40 Plt Count 230 10^3/uL (120.0-450.0) 09/20/16 06:40 MPV 9.6 fl (7.0-11.0) 09/20/16 06:40 Gran % 74.8 % (50.0-68.0) H 09/20/16 06:40 Lymph % (Auto) 19.4 % (22.0-35.0) L 09/20/16 06:40 [place] % (Auto) 5.7 % (1.0-6.0) 09/20/16 06:40 Eos % (Auto) 0.0 % (1.5-5.0) L 09/20/16 06:40 Baso % (Auto) 0.1 % (0.0-3.0) 09/20/16 06:40 Gran # 10.59 (1.4-6.5) H 09/20/16 06:40 Lymph # 2.7 (1.2-3.4) 09/20/16 06:40 [place] # 0.8 (0.1-0.6) H 09/20/16 06:40 Eos # 0.0 (0.0-0.7) 09/20/16 06:40 Baso # 0.01 K/mm3 (0.0-2.0) 09/20/16 06:40 PT 11.0 Seconds (9.9-11.8) 09/17/16 20:45 INR 1.02 (0.93-1.08) 09/17/16 20:45 APTT 26.9 Seconds (23.7-30.8) 09/17/16 20:45 D-Dimer, Quantitative 0.36 mg/L FEU (0-0.50) 09/17/16 20:45 Sodium 139 mmol/L (132-148) 09/20/16 06:40 Potassium 4.3 mmol/L (3.6-5.0) 09/20/16 06:40 Chloride 103 mmol/L (98-107) 09/20/16 06:40 Carbon Dioxide 26 mmol/L (21-33) 09/20/16 06:40 Anion Gap 14 (10-20) 09/20/16 06:40 BUN 24 mg/dL (7-21) H 09/20/16 06:40 Creatinine 0.7 mg/dL (0.5-1.4) 09/20/16 06:40 Est GFR ( Amer) > 60 09/20/16 06:40 Est GFR (Non-Af Amer) > 60 09/20/16 06:40 Random Glucose 85 mg/dL (70-110) 09/20/16 06:40 Calcium 9.2 mg/dL (8.4-10.5) 09/20/16 06:40 Magnesium 2.1 mg/dL (1.7-2.2) 09/17/16 20:45 Total Bilirubin 1.0 mg/dL (0.2-1.3) 09/20/16 06:40 AST 27 U/L (15-39) 09/20/16 06:40 ALT 35 U/L (7-56) 09/20/16 06:40 Alkaline Phosphatase 53 U/L (38-133) 09/20/16 06:40 Lactate Dehydrogenase 548 U/L (333-699) 09/17/16 20:45 Total Creatine Kinase 74 U/L (35-230) 09/17/16 20:45 Troponin I < 0.01 ng/mL 09/18/16 11:00 NT-Pro-B Natriuret Pep 67.0 pg/mL (0-450) 09/17/16 20:45 Total Protein 7.3 g/dL (5.8-8.3) 09/20/16 06:40 Albumin 3.7 g/dL (3.0-4.8) 09/20/16 06:40 Globulin 3.5 gm/dL 09/20/16 06:40 Albumin/Globulin Ratio 1.1 (1.1-1.8) 09/20/16 06:40 Triglycerides 102 mg/dL (35-160) 09/18/16 06:30 Cholesterol 229 mg/dL (130-200) H 09/18/16 06:30 LDL Cholesterol Direct 137 mg/dL (0-129) H 09/18/16 06:30 HDL Cholesterol 50 mg/dL (29-60) 09/18/16 06:30 Lipase 65 U/L (23-300) 09/17/16 20:45 Urine Color Yellow (YELLOW) 09/17/16 22: Urine Appearance Cloudy (CLEAR) 09/17/16 22:27 Urine pH 6.5 (4.7-8.0) 09/17/16 22:27 Ur Specific [place] <= 1.005 (1.005-1.035) 09/17/16 22:27 Urine Protein Negative mg/dL (<30 mg/dL) 09/17/16 22:27 Urine Glucose (UA) Negative mg/dL (NEGATIVE) 09/17/16 22: Urine Ketones Negative mg/dL (NEGATIVE) 09/17/16 22:27 Urine Blood Trace-intact (NEGATIVE) H 09/17/16 22:27 Urine Nitrate Negative (NEGATIVE) 09/17/16 22: Urine Bilirubin Negative (NEGATIVE) 09/17/16 22:27 Urine Urobilinogen 0.2 E.U./dL (<1 E.U./dL) 09/17/16 22:27 Ur Leukocyte Esterase Small [place]/uL (NEGATIVE) H 09/17/16 22:27 Urine RBC 1 - 3 /hpf (0-2) 09/17/16 22:27 Urine WBC 2 - 5 /hpf (0-6) 09/17/16 22:27 Ur Epithelial Cells 1 - 3 /hpf (0-5) 09/17/16 22:27 TB Test (QFT) Nil 0.01 IU/mL 09/19/16 12:00 TB Test Mitogen - Nil 0.17 IU/mL 09/19/16 12:00 TB Test TB - Nil 0.00 IU/mL 09/19/16 12:00 TB Test (QFT) Indeterminate (Negative) H 09/19/16 12:00 Attending/Attestation - Attestation I have personally seen and examined this patient.: Yes I have fully participated in the care of the patient.: Yes I have reviewed all pertinent clinical information, including history, physical exam and plan: Yes Notes (Text): 09/28/16 07:37 Patient was seen and examined with medical care manager .Agreed with resident assessment and plan. 66 F with PMH of COPD/HTN/ was admiited with COPD exacerbation and atypical chest pain.Patient was admitted in telemetry.Serial troponins were normal.Patient was evaluated by cardiology.Echo showed normal systolic function , no further work up was recommended. COPD was treated with Nebulization and IV Methylprednisolon. Dyspnea has improved. Patient has CT chest that shows some debris in right bronchus, and lung nodule, possible aspiration, tolerating food here,PPD was normal,Patient was evaluated by Pulmonary, repeat CT chest in 4 weeks was recommended.It was discussed in detail with patient with the help of power plant engineer. ,Patient was given Rocephin by resident last night, develop generalized rash , she was has Benadryl, once rash improved, rash improved.Patient Rocephin was added in allergy..
[2016-09-20 11:45] VITALS: TEMP 97.4
[2016-09-20] MEDS ORDERED: DiphenhydrAMINE 50 mg/ml Inj IVP STA (11:54)
[2016-09-20] MEDS ORDERED: DiphenhydrAMINE 50 mg/ml Inj ONE (11:57)
[2016-09-20 17:29] VITALS: BP 112/72; PULSE 82
== END 2016-09-20 18:05 | disposition home or self-care (01) | DRG 191 ==
LOC: ED 20:17 → ERH 23:11 → 2RNO 09-18 01:05 → OBSVTOIN 09-19 07:10
PROVIDERS: ADMIT Internal Medicine; ATTEND Internal Medicine
DX: J44.1 Chronic obstructive pulmonary disease with (acute) exacerbation (principal); J45.901 Unspecified asthma with (acute) exacerbation; R64 Cachexia; I27.2 Other secondary pulmonary hypertension; Z68.1 Body mass index [BMI] 19.9 or less, adult; I10 Essential (primary) hypertension; E78.5 Hyperlipidemia, unspecified; Z87.891 Personal history of nicotine dependence

== ENCOUNTER 2016-10-14 22:01 | Observation (INO) | payer MEDICARE, MEDICAID ==
[2016-10-14 22:12] VITALS: BMI 16.6
--- NOTE | 2016-10-14 22:36 | ED PDOC ---
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 Patient denies any nausea, vomiting, diarrhea, urinary symptoms, fever, or chills. Patient reports she last ate at 12:00 today. Patient also denies any chest pain, shortness of breath , back pain, or any other complaints. PMD: Dr. Efrain Gregg Time/Duration: Other (this afternoon) Symptom Onset: Gradual Symptom Course: Unchanged Activities at Onset: Rest, Light Context: Home Past Medical History - Provider Review Nursing Documentation Reviewed: Yes - Infectious Disease Hx of Infectious Diseases: None - Tetanus Immunization Tetanus Immunization: Unknown - Cardiac Hx Cardiac Disorders: Yes Hx Hypertension: Yes - Pulmonary Hx Chronic Obstructive Pulmonary Disease (COPD): Yes - Neurological HX Cerebrovascular Accident: No - HEENT Hx HEENT Disorder: No - Renal Hx Renal Failure: No - Endocrine/Metabolic Hx Diabetes Mellitus Type 1: No Hx Diabetes Mellitus Type 2: No Hx Hypothyroidism: No - Hematological/Oncological Hx Blood Disorders: Yes Hx Hepatitis B: Yes - Integumentary Hx Dermatological Disorder: No - Musculoskeletal/Rheumatological Hx Falls: No - Gastrointestinal Hx Gastroesophageal Reflux: No HX Swallowing Problems: Yes - Genitourinary/Gynecological Hx Genitourinary Disorders: No - Psychiatric Hx Psychophysiologic Disorder: No Hx Substance Use: No - Anesthesia Hx Anesthesia Reactions: No Hx Malignant Hyperthermia: No Family/Social History - Physician Review Nursing Documentation Reviewed: Yes Family/Social History: No Known Family HX Smoking Status: Never Smoked Hx Alcohol Use: No Hx Substance Use: No Allergies/Home Meds Allergies/Adverse Reactions: Allergies ceftriaxone Allergy (Verified 10/14/16 22:14) RASH Home Medications: Home Meds Medication Instructions Recorded Confirmed Albuterol Sulfate 0.63 mg IH PRN PRN 09/18/16 10/14/16 Alendronate Sodium [Binosto] 70 mg PO QWK 09/18/16 10/15/16 Atenolol [Tenormin] 12.5 mg PO BID 09/18/16 10/14/16 Fluticasone/Salmeterol [Advair 1 each IH DAILY 09/18/16 10/14/16 250-50 Diskus] Metoclopramide [Reglan] 10 mg PO TID 09/18/16 10/14/16 Montelukast [Singulair] 10 mg PO HS 09/18/16 10/14/16 Pantoprazole [Protonix EC Tab] 20 mg PO DAILY 09/18/16 10/14/16 Roflumilast [Daliresp] 500 mcg PO DAILY 09/18/16 10/14/16 Tiotropium [place] Inhaler 1 inhaler INH DAILY 09/18/16 10/14/16 [Spiriva Inhalation Handihaler Device] Review of Systems - Physician Review All systems were reviewed & negative as marked: Yes - Review of Systems Constitutional: Normal. absent: Fevers Eyes: Normal ENT: Normal Respiratory: Normal. absent: SOB, Cough Cardiovascular: Normal. absent: Chest Pain Gastrointestinal: Abdominal Pain. absent: Diarrhea, Nausea, Vomiting Genitourinary Female: Normal. absent: Dysuria, Frequency, Hematuria, Urine Output Changes Musculoskeletal: Normal. absent: Back Pain, Neck Pain Skin: Normal. absent: Rash Neurological: Normal. absent: Headache, Dizziness Endocrine: Normal Hemo/Lymphatic: Normal Psychiatric: Normal Physical Exam Vital Signs Reviewed: Yes Vital Signs Temp Pulse Resp BP Pulse Ox 10/15/16 04:03 65 17 109/68 97 10/15/16 02:55 76 17 114/62 94 L 10/14/16 22:12 97.5 F L 78 18 148/84 96 Temperature: Afebrile Blood Pressure: Normal Pulse: Regular Respiratory Rate: Normal Appearance: Positive for: Well-Appearing, Non-Toxic, Comfortable Pain Distress: None Mental Status: Positive for: Alert and Oriented X 3 - Systems Exam Head: Present: Atraumatic, Normocephalic Pupils: Present: PERRL Extroacular Muscles: Present: EOMI Conjunctiva: Present: Normal Mouth: Present: Moist Mucous Membranes Neck: Present: Normal Range of Motion Respiratory/Chest: Present: Clear to Auscultation, Good Air Exchange. No: Respiratory Distress, Accessory Muscle Use Cardiovascular: Present: Regular Rate and Rhythm, Normal S1, S2. No: Murmurs Abdomen: Present: Tenderness (Epigastric/upper abdominal tenderness), Normal Bowel Sounds. No: Distention, Peritoneal Signs Back: Present: Normal Inspection Upper Extremity: Present: Normal Inspection. No: Cyanosis, Edema Lower Extremity: Present: Normal Inspection. No: Edema Neurological: Present: GCS=15, CN II-XII Intact, Speech Normal Skin: Present: Warm, Dry, Normal Color. No: Rashes Psychiatric: Present: Alert, Oriented x 3, Normal Insight, Normal Concentration Medical Decision Making ED Course and Treatment: 10/14/16 22:33 Impression: 66 year old female complaining of epigastric pain since this afternoon. Plan: -- US Gallbladder and Pancreas -- EKG -- Chest X-ray -- Labs, cardiac enzymes, lipase -- IV flyids -- Pepcid -- Protonix -- Toradol -- Reassess and disposition Prior Visits: Notes and results from previous visits were reviewed. Progress Notes: Reviewed EKG, NSR at [address]-segment elevations or depressions, no T-wave inversions, normal intervals. 10/14/16 23:17 Reviewed radiology, Chest X-ray shows no active disease. 10/15/16 00:30 Reviewed sono, US Gallbladder and Pancreas shows: Unremarkable sonographic evaluation of the right upper quadrant, as detailed above. Limited evaluation of the pancreas, secondary to overlying bowel gas. 10/15/16 03:[address] Abdomen and Pelvis shows: - No evidence of significant acute process on this unenhanced exam. - See above for remaining findings. 10/15/16 03:[address] Johnston, who requests pt go to hospitalist service. 10/15/16 03:45 Case discussed with medical detailist correction officer reformatory, who is aware and agrees with plan. 10/15/16 03:[address] Merino, who is aware and agrees with plan. Accepts pt in to hospitalist service. [facility] will go to [facility] observation for abdominal pain. - Lab Interpretations Lab Results: 10/14/16 22:50 10/14/16 22:50 Lab Results 10/14/16 22:50: WBC 6.5 D, RBC 4.34, Hgb 13.7, Hct 40.2, MCV 92.6, MCH 31.6, MCHC 34.1, RDW 13.2, Plt Count 193, MPV 9.6 10/14/16 22:50: Sodium 136, Potassium 3.9, Chloride 104, Carbon Dioxide 27, Anion Gap 9 L, BUN 29 H, Creatinine 0.6, Est GFR ( Amer) > 60, Est GFR ( Non-Af Amer) > 60, Random Glucose 98, Calcium 9.2, Total Bilirubin 0.5, AST 29, ALT 41, Alkaline Phosphatase 71, Lactate Dehydrogenase 452, Total Creatine Kinase 39, Troponin I < 0.01, Total Protein 6.8, Albumin 3.6, Globulin 3.3, Albumin/Globulin Ratio 1.1, Lipase 85 10/14/16 22:50: PT 10.0, INR 0.93, APTT 24.4 I have reviewed the lab results: Yes - RAD Interpretation Narrative RAD Interpretations (Text): US Gallbladder and Pancreas shows: Liver: Unremarkable in echogenicity and size measuring 15 cm in longitudinal dimension. No mass. No intrahepatic bile duct dilation. Gallbladder: No acute findings. No gallstones. Common bile duct: No stones. No dilation, measuring 5 mm. Pancreas: Visualization of the pancreas is limited by overlying bowel gas. Right kidney: No acute findings. No obstructing stones. No solid mass. No hydronephrosis. An extrarenal pelvis is detected, correlating with prior CT from 2016. The abdominal aorta is non-aneurysmal. The IVC is patent. IMPRESSION: Unremarkable sonographic evaluation of the right upper quadrant, as detailed above. Limited evaluation of the pancreas, secondary to overlying bowel gas. CT Abdomen and Pelvis shows: LIMITATIONS: Exam is somewhat limited by mild streak/motion artifact. LOWER THORAX: No infiltrate seen in the lung bases. ABDOMEN: LIVER: No acute abnormality of the liver identified. GALLBLADDER AND BILE DUCTS: No CT evidence of acute cholecystitis. No evidence of significant biliary ductal dilatation. PANCREAS: No CT evidence of acute pancreatitis. SPLEEN: No acute abnormality of the spleen identified. ADRENALS: No acute abnormality of the adrenal glands identified. KIDNEYS AND URETERS: Bilateral extrarenal pelvises again seen. No acute abnormality of the kidneys identified. STOMACH AND BOWEL: Multiple scattered, thin, linear densities seen in the bowel lumen, most likely representing some type of ingested food material, such as a fish bones. There is no evidence of significant associated bowel obstruction or perforation. Retained stool noted throughout the colon. Bowel is otherwise unremarkable in appearance, allowing for motion. No acute abnormality of the stomach or duodenum identified. No evidence of bowel obstruction. APPENDIX: Appendix is seen, and is within normal limits in appearance. PELVIS: BLADDER: No acute abnormality of the bladder identified. REPRODUCTIVE: No acute abnormality of the reproductive organs is seen. ABDOMEN and PELVIS: INTRAPERITONEAL SPACE: No evidence of free intraperitoneal air or fluid. BONES/JOINTS: Bony structures appear demineralized. SOFT TISSUES: No acute abnormality of the visualized soft tissues is seen. VASCULATURE: No evidence of abdominal aortic aneurysm. No evidence of periaortic hemorrhage. LYMPH NODES: No evidence of diffuse lymphadenopathy. IMPRESSION: - No evidence of significant acute process on this unenhanced exam. - See above for remaining findings. Radiology Orders: 10/14/16 22:34 CHEST PORTABLE [RAD] Stat 10/14/16 22:37 GALLBLADDER & PANCREAS [US] Stat 10/15/16 00:58 ABD & PELVIS W/O PO OR IV CONT [CT] Stat Child Adolescent Psychiatrist: ED Physician, Radiologist - EKG Interpretation Interpreted by ED Physician: Yes Type: 12 lead EKG - Medication Orders Current Medication Orders: Arformoterol Tartrate (Brovana) 15 mcg IH DAILY@0800 [facility] Atenolol (Tenormin) 12.5 mg PO BID [facility] Atorvastatin Calcium (Lipitor) 10 mg PO DIN [facility] Budesonide (Pulmicort Respules) 0.5 mg IH DAILY@0800 [facility] Guaifenesin (Robitussin) 100 mg PO Q4H PRN PRN Reason: Cough Sodium Chloride (Sodium Chloride 0.9%) 1,000 mls @ 100 mls/hr IV .Q10H [facility] Last Admin: 10/14/16 22:58 Dose: 100 mls/hr Ketorolac Tromethamine (Toradol) 15 mg IVP Q8 [facility] Last Admin: 10/15/16 05:38 Dose: 15 mg Levalbuterol HCl (Xopenex) 0.63 mg IH [id number] PRN PRN Reason: Shortness of Breath Metoclopramide HCl (Reglan) 10 mg PO TID [facility] Montelukast Sodium (Singulair) 10 mg PO HS [facility] Pantoprazole Sodium (Protonix Ec Tab) 20 mg PO DAILY [facility] Roflumilast (Daliresp) 500 mcg PO DAILY [facility] Tiotropium [place] (Spiriva) 18 mcg INH DAILY [facility] Discontinued Medications Famotidine (Pepcid) 20 mg IVP STAT STA Stop: 10/14/16 22:35 Last Admin: 10/14/16 22:58 Dose: 20 mg Ketorolac Tromethamine (Toradol) 30 mg IVP ONCE ONE Stop: 10/14/16 22:35 Last Admin: 10/14/16 23:03 Dose: 30 mg Non-Formulary Medication (Albuterol Sulfate [Albuterol Sulfate]) 0.63 mg IH PRN PRN PRN Reason: Shortness of Breath Pantoprazole Sodium (Protonix Inj) 40 mg IVP ONCE STA Stop: 10/14/16 22:35 Last Admin: 10/14/16 22:57 Dose: 40 mg Pneumococcal Polyvalent Vaccine (Pneumovax 23 Vaccine) 0.5 ml IM .ONCE ONE Stop: 10/15/16 06:02 - Scribe Statement The provider has reviewed the documentation as recorded by the Sharadibleonard Olivera All medical record entries made by the Sharadibleonard were at my direction and personally dictated by me. I have reviewed the chart and agree that the record accurately reflects my personal performance of the history, physical exam, medical decision making, and the department course for this patient. I have also personally directed, reviewed, and agree with the discharge instructions and disposition. Disposition/Present on Arrival - Present on Arrival Any Indicators Present on Arrival: No History of DVT/PE: No History of Uncontrolled Diabetes: No Urinary Catheter: No History of Decub. Ulcer: No History Surgical Site Infection Following: None - Disposition Have Diagnosis and Disposition been Completed?: Yes Diagnosis: Abdominal pain Disposition: HOSPITALIZED Disposition Time: 03:55 Patient Plan: Observation Patient Problems: Current Active Problems Problem Status Onset Abdominal pain Chronic Condition: STABLE
[2016-10-14] MEDS: Sodium Chloride 0.9% 1,000 ML IV SCH (22:58)
[2016-10-14 23:05] LABS: HEMATOCRIT 40.2 % (36.0-48.0); MEAN CELL VOLUME 92.6 fL (80.0-105.0); MEAN CORPUSCULAR HEMOGLOBIN 31.6 pg (25.0-35.0); MEAN CORPUSCULAR HGB CONC 34.1 g/dl (31.0-37.0); MEAN PLATELET VOLUME 9.6 fl (7.0-11.0); RED CELL DISTRIBUTION WIDTH 13.2 % (11.5-14.5); WHITE BLOOD COUNT 6.5 10^3/ul (4.5-11.0)
[2016-10-14 23:17] LABS: INR 0.93 (0.93-1.08); PARTIAL THROMBOPLASTIN TIME 24.4 Seconds (23.7-30.8)
[2016-10-14 23:20] LABS: ALB/GLOB RATIO 1.1 (1.1-1.8); ALKALINE PHOSPHATASE 71 U/L (38-133); ALT/SGPT 41 U/L (7-56); AST/SGOT 29 U/L (15-39); BILIRUBIN,TOTAL 0.5 mg/dL (0.2-1.3); BLOOD UREA NITROGEN 29 mg/dL (7-21); CALCIUM 9.2 mg/dL (8.4-10.5); CARBON DIOXIDE 27 mmol/L (21-33); GFR AFRICAN-AMERICAN > 60; GLUCOSE,RANDOM 98 mg/dL (70-110); LIPASE 85 U/L (23-300); POTASSIUM 3.9 mmol/L (3.6-5.0); SODIUM 136 mmol/L (132-148); TOTAL PROTEIN 6.8 g/dL (5.8-8.3)
[2016-10-14 23:22] LABS: CHLORIDE 104 mmol/L (98-107)
[2016-10-14 23:31] LABS: TROPONIN I < 0.01 ng/mL
--- NOTE | 2016-10-15 00:13 | US ---
EXAM: US Abdomen Limited, Right Upper Quadrant CLINICAL HISTORY: 66 years old, female; Pain; Abdominal pain; Generalized TECHNIQUE: Real-time ultrasound of the right upper quadrant with image documentation. COMPARISON: CT - ABD PELVIS W/O PO OR IV CONT 05/16/2016 5:59:03 PM FINDINGS: Liver: Unremarkable in echogenicity and size measuring 15 cm in longitudinal dimension. No mass. No intrahepatic bile duct dilation. Gallbladder: No acute findings. No gallstones. Common bile duct: No stones. No dilation, measuring 5 mm. Pancreas: Visualization of the pancreas is limited by overlying bowel gas. Right kidney: No acute findings. No obstructing stones. No solid mass. No hydronephrosis. An extrarenal pelvis is detected, correlating with prior CT from 2016. The abdominal aorta is non-aneurysmal. The IVC is patent. IMPRESSION: Unremarkable sonographic evaluation of the right upper quadrant, as detailed above. Limited evaluation of the pancreas, secondary to overlying bowel gas.
--- NOTE | 2016-10-15 03:19 | CT ---
EXAM: CT Abdomen and Pelvis Without Intravenous Contrast CLINICAL HISTORY: 66 years old, female; Pain; Abdominal pain; Generalized TECHNIQUE: Axial computed tomography images of the abdomen and pelvis without intravenous contrast. This CT exam was performed using one or more of the following dose reduction techniques: automated exposure control, adjustment of the mA and/or kV according to patient size, and/or use of iterative reconstruction technique. Coronal and sagittal reformatted images were created and reviewed. EXAM DATE/TIME: 10/15/2016 12:58 AM COMPARISON: Prior CT abdomen and pelvis of 05/16/2016 FINDINGS: LIMITATIONS: Exam is somewhat limited by mild streak/motion artifact. LOWER THORAX: No infiltrate seen in the lung bases. ABDOMEN: LIVER: No acute abnormality of the liver identified. GALLBLADDER AND BILE DUCTS: No CT evidence of acute cholecystitis. No evidence of significant biliary ductal dilatation. PANCREAS: No CT evidence of acute pancreatitis. SPLEEN: No acute abnormality of the spleen identified. ADRENALS: No acute abnormality of the adrenal glands identified. KIDNEYS AND URETERS: Bilateral extrarenal pelvises again seen. No acute abnormality of the kidneys identified. STOMACH AND BOWEL: Multiple scattered, thin, linear densities seen in the bowel lumen, most likely representing some type of ingested food material, such as a fish bones. There is no evidence of significant associated bowel obstruction or perforation. Retained stool noted throughout the colon. Bowel is otherwise unremarkable in appearance, allowing for motion. No acute abnormality of the stomach or duodenum identified. No evidence of bowel obstruction. APPENDIX: Appendix is seen, and is within normal limits in appearance. PELVIS: BLADDER: No acute abnormality of the bladder identified. REPRODUCTIVE: No acute abnormality of the reproductive organs is seen. ABDOMEN and PELVIS: INTRAPERITONEAL SPACE: No evidence of free intraperitoneal air or fluid. BONES/JOINTS: Bony structures appear demineralized. SOFT TISSUES: No acute abnormality of the visualized soft tissues is seen. VASCULATURE: No evidence of abdominal aortic aneurysm. No evidence of periaortic hemorrhage. LYMPH NODES: No evidence of diffuse lymphadenopathy. IMPRESSION: - No evidence of significant acute process on this unenhanced exam. - See above for remaining findings.
[2016-10-15] MEDS ORDERED: ALBUTEROL SULFATE 0.63 MG IH PRN (04:44)
--- NOTE | 2016-10-15 05:13 | CP.PCM.HP ---
<Nessa Gonzales - Last Filed: 10/15/16 06:47> History of Present Illness - History of Present Illness History of Present Illness: PGY-1 h&p 66 yo female with PMH of asthma, COPD, HTN, HLD, and hepatitis B presents to ED with abd pain that began yesterday afternoon. Patient speak predominantly Kinyarwanda, shoe ironer was used. Patients that the pain is located a epigastric region. She state that she took her home medication but they did not help with the pain. She denies having similar pain in the past. She describes the pain . Patient states she had fish and vegetables for lunch, stating that the food is consistent with her normal diet. She denies nausea, vomiting , d/c, last BM was yesterday. She also reports cough with yellow sputum production for past 5- 6 days. She states her SOB and back pain is chronic. She denies fever, chills, headache, urinary symptoms. PMH: asthma, COPD, HTN, HLD, and hepatitis B, PSH: denies SH: smoked about a half a pack a day for more than 30 years, denies alcohol or drug use FH: unknown Meds: reviewed Allergies: NKDA Present on Admission - Present on Admission Any Indicators Present on Admission: No Review of Systems - Constitutional Constitutional: absent: Chills, Fatigue, Fever - EENT Nose/Mouth/Throat: absent: Nasal Congestion, Nasal Discharge, Sore Throat - Cardiovascular Cardiovascular: Dyspnea. absent: Chest Pain, Diaphoresis - Respiratory Respiratory: Cough, Dyspnea. absent: Hemoptysis - Gastrointestinal Gastrointestinal: Abdominal Pain. absent: Constipation, Diarrhea, Nausea, Vomiting - Genitourinary Genitourinary: absent: Difficulty Urinating, Dysuria, Hematuria - Musculoskeletal Musculoskeletal: absent: Arthralgias, Muscle Weakness, Myalgias - Integumentary Integumentary: Pruritus. absent: Rash, Skin Ulcer, Sores, Wounds - Neurological Neurological: Dizziness. absent: Numbness, Focal Weakness, Syncope, Tingling - Hematologic/Lymphatic Hematologic: absent: Easy Bleeding, Easy Bruising Past Patient History - Infectious Disease Hx of Infectious Diseases: None - Tetanus Immunizations Tetanus Immunization: Unknown - Past Medical History & Family History Past Medical History?: Yes - Past Social History Smoking Status: Former Smoker Alcohol: None Drugs: Denies - CARDIAC Hx Cardiac Disorders: Yes Hx Hypertension: Yes - PULMONARY Hx Chronic Obstructive Pulmonary Disease (COPD): Yes - NEUROLOGICAL HX Cerebrovascular Accident: No - HEENT Hx HEENT Problems: No - RENAL Hx Renal Failure: No - ENDOCRINE/METABOLIC Hx Diabetes Mellitus Type 1: No Hx Diabetes Mellitus Type 2: No Hx Hypothyroidism: No - HEMATOLOGICAL/ONCOLOGICAL Hx Blood Disorders: Yes Hx Hepatitis B: Yes - INTEGUMENTARY Hx Dermatological Problems: No - MUSCULOSKELETAL/RHEUMATOLOGICAL Hx Falls: No - GASTROINTESTINAL Hx Gastroesophageal Reflux: No HX Swallowing Problems: Yes - GENITOURINARY/GYNECOLOGICAL Hx Genitourinary Disorders: No - PSYCHIATRIC Hx Psychophysiologic Disorder: No Hx Substance Use: No - SURGICAL HISTORY Hx Surgeries: No - ANESTHESIA Hx Anesthesia Reactions: No Hx Malignant Hyperthermia: No Meds Allergies/Adverse Reactions: Allergies Allergy/AdvReac Type Severity Reaction Status Date / Time ceftriaxone Allergy RASH Verified 10/14/16 22:14 Physical Exam - Constitutional Appears: Well, No Acute Distress - Head Exam Head Exam: ATRAUMATIC, NORMOCEPHALIC - Eye Exam Eye Exam: Normal appearance - ENT Exam ENT Exam: Mucous Membranes Moist - Respiratory Exam Respiratory Exam: Clear to Auscultation Bilateral, NORMAL BREATHING PATTERN. absent: Decreased Breath Sounds, Rales, Rhonchi, Wheezes, Respiratory Distress - Cardiovascular Exam Cardiovascular Exam: REGULAR RHYTHM, +S1, +S2. absent: Tachycardia, Diastolic murmur, Systolic Murmur - GI/Abdominal Exam GI & Abdominal Exam: Normal Bowel Sounds, Soft, Tenderness (mild, epigatric ). absent: Distended, Firm, Guarding - Extremities Exam Extremities exam: Positive for: normal inspection. Negative for: pedal edema - Neurological Exam Neurological exam: Alert, Oriented x3 - Skin Skin Exam: Dry, Intact, Normal Color, Warm Results - Vital Signs Recent Vital Signs: Last Vital Signs Temp 97.5 F L 10/14/16 22:12 Pulse 65 10/15/16 04:03 Resp 17 10/15/16 04:03 BP 109/68 10/15/16 04:03 Pulse Ox 97 10/15/16 04:03 - Labs Result Diagrams: 10/14/16 22:50 10/14/16 22:50 Assessment & Plan - Assessment and Plan (Free Text) Assessment: 66 yo female with PMH of asthma, COPD, HTN, HLD, and hepatitis B presents to ED with abd pain and productive cough. Plan: 1. abd pain - CT abd showed multiple scattered, linear densities in bowel lumen, no acute process - gallbladder US was unremarkable - IVF @100 - toradol prn - GI consult 2. productive cough - cxr- no active disease, official read pending - robtussin PRN - cont all home medication ppx DVT- SCDs, activity as tolerated GI- protonix <Trista Merinoimchavivien - Last Filed: 10/15/16 20:00> Results - Vital Signs Recent Vital Signs: Last Vital Signs Temp 97.8 F 10/15/16 16:01 Pulse 60 10/15/16 16:01 Resp 18 10/15/16 16:01 BP 98/64 L 10/15/16 16:01 Pulse Ox 95 10/15/16 16:01 - Labs Result Diagrams: 10/14/16 22:50 10/14/16 22:50 Attending/Attestation - Attestation I have personally seen and examined this patient.: Yes I have fully participated in the care of the patient.: Yes I have reviewed all pertinent clinical information: Yes Notes (Text): 10/15/16 20:00 Patient was seen when she was in bed # 1 in the ER. Agree with history, physical examination, assessment and plan.
[2016-10-15] MEDS ORDERED: Levalbuterol 0.63 MG/3 ML Inhal Soln UD IH PRN (05:51)
[2016-10-15] MEDS ORDERED: Pneumococcal 23-Valent Vaccine IM ONE (06:01)
[2016-10-15 06:30] VITALS: RESP 18
[2016-10-15] MEDS: Budesonide 0.5 mg/2 ml Inhal Susp UD IH SCH (07:45)
[2016-10-15] MEDS: Arformoterol 15 mcg/2 ml Inh Sol IH SCH (07:45)
--- NOTE | 2016-10-15 08:37 | RAD ---
HISTORY: epigastric pain COMPARISON: 09/17/2016 FINDINGS: LUNGS: The lungs are hyperinflated and there is peribronchial thickening with chronic changes in both lungs. There is no lobar pneumonia. PLEURA: No significant pleural effusion identified, no pneumothorax apparent. CARDIOVASCULAR: Normal. OSSEOUS STRUCTURES: No significant abnormalities. VISUALIZED UPPER ABDOMEN: Normal. OTHER FINDINGS: None. IMPRESSION: No active pulmonary disease. COPD.
[2016-10-15] MEDS: Tiotropium 18 mcg Cap For Inhalation INH SCH (09:30)
[2016-10-15] MEDS: Pantoprazole 20 mg EC Tab PO SCH (09:30)
[2016-10-15] MEDS: guaiFENesin 100 mg/5 ml Syrup UD PO PRN ×2 (09:35→20:19)
[2016-10-15] MEDS ORDERED: Non Formulary Medication (Omeprazole [Omeprazole] 20 MG) PO SCH (10:00)
[2016-10-15] MEDS: Sodium Chloride 0.9% 1,000 ML IV SCH ×2 (12:00→23:00)
--- NOTE | 2016-10-15 13:25 | CP.PCM.CON ---
<Josesito Stacy - Last Filed: 10/15/16 13:13> History of Present Illness - History of Present Illness History of Present Illness: PGY4 GI Fellow Consult Note Patient is a 66yo Chinese-speaking female with PMHx significant for chronic HBV infection, not on therapy presently, COPD on chronic methylprednisolone, hyperlipidemia who presented to the ED with abdominal pain. [employer] administrator [id number] was utilized during history/examination. The patient is a very poor historian and has a history of nonadherence to outpatient therapy and follow up. She states that for the past 24 hours she has been suffering with a stabbing 10/10 epigastric pain that began suddenly yesterday afternoon. She cannot identify any clear precipitating causes and denies any alleviating/ exacerbating factors. She denies any change in bowel habits and does not note any hematochezia/melena. A CT A/P does reveal multiple densities, the most prominent being in the proximal/mid small bowel measuring approximately 4cm in length. She denies any nicolas foreign body ingestions but does admit to a diet heavy in fish. Patient cannot be sure she did not ingest fish bones. Currently, she is not nauseated and has not vomited. Separately, she has chronic HBV infection with viral load of 2,620,000 in April 2016. She has been previously seen by another spa manager who prescribed Viread (Tenofovir) given her chronic steroid use. She has not been taking this medication. Admits to occasional pruritus but denies any jaundice/ scleral icterus, new rashes/lesions or abdominal distention. PMHx: See HPI PSHx: Denies FHx: Discussed with patient and she denies any significant family history Social: Quit smoking, former 1/2ppd smoker >30yrs; denies EtOH or illicit drug use Endo: EGD - 02/2016 - Gastritis, H pylori negative Review of Systems - Constitutional Constitutional: absent: Anorexia, Chills, Fever - EENT Eyes: absent: Change in Vision Nose/Mouth/Throat: absent: Sore Throat - Cardiovascular Cardiovascular: absent: Chest Pain, Dyspnea, Edema - Respiratory Respiratory: Cough. absent: Dyspnea, Excessive Mucous Production - Gastrointestinal Gastrointestinal: Abdominal Pain. absent: Bloating, Constipation, Cramping, Diarrhea, Dyspepsia, Dysphagia, Heartburn, Hematemesis, Hematochezia, Melena, Nausea, Vomiting - Genitourinary Genitourinary: absent: Dysuria, Urinary Frequency, Urinary Urgency - Musculoskeletal Musculoskeletal: absent: Back Pain, Neck Pain - Integumentary Integumentary: absent: New Lesions, Rash - Neurological Neurological: absent: Dizziness, Numbness, Focal Weakness - Psychiatric Psychiatric: absent: Anxiety, Depression - Endocrine Endocrine: absent: Polydipsia, Polyphagia, Polyuria - Hematologic/Lymphatic Hematologic: absent: Easy Bleeding, Easy Bruising, Lymphadenopathy Past Patient History - Infectious Disease Hx of Infectious Diseases: None - Tetanus Immunizations Tetanus Immunization: Unknown - Past Medical History & Family History Past Medical History?: Yes - Past Social History Smoking Status: Never Smoked - CARDIAC Hx Cardiac Disorders: Yes Hx Hypertension: Yes - PULMONARY Hx Chronic Obstructive Pulmonary Disease (COPD): Yes - NEUROLOGICAL HX Cerebrovascular Accident: No - HEENT Hx HEENT Problems: No - RENAL Hx Renal Failure: No - ENDOCRINE/METABOLIC Hx Diabetes Mellitus Type 1: No Hx Diabetes Mellitus Type 2: No Hx Hypothyroidism: No - HEMATOLOGICAL/ONCOLOGICAL Hx Blood Disorders: Yes Hx Hepatitis B: Yes - INTEGUMENTARY Hx Dermatological Problems: No - MUSCULOSKELETAL/RHEUMATOLOGICAL Hx Falls: No - GASTROINTESTINAL Hx Gastroesophageal Reflux: No HX Swallowing Problems: Yes - GENITOURINARY/GYNECOLOGICAL Hx Genitourinary Disorders: No - PSYCHIATRIC Hx Psychophysiologic Disorder: No Hx Substance Use: No - SURGICAL HISTORY Hx Surgeries: No - ANESTHESIA Hx Anesthesia Reactions: No Hx Malignant Hyperthermia: No Meds Allergies/Adverse Reactions: Allergies Allergy/AdvReac Type Severity Reaction Status Date / Time ceftriaxone Allergy RASH Verified 10/14/16 22:14 - Medications Medications: Current Medications Arformoterol Tartrate (Brovana) 15 mcg IH DAILY@0800 [facility] Last Admin: 10/15/16 07:45 Dose: 15 mcg Atenolol (Tenormin) 12.5 mg PO BID [facility] Last Admin: 10/15/16 09:29 Dose: 12.5 mg Atorvastatin Calcium (Lipitor) 10 mg PO DIN [facility] Budesonide (Pulmicort Respules) 0.5 mg IH DAILY@0800 [facility] Last Admin: 10/15/16 07:45 Dose: 0.5 mg Guaifenesin (Robitussin) 100 mg PO Q4H PRN PRN Reason: Cough Last Admin: 10/15/16 09:35 Dose: 100 mg Sodium Chloride (Sodium Chloride 0.9%) 1,000 mls @ 100 mls/hr IV .Q10H [facility] Last Admin: 10/14/16 22:58 Dose: 100 mls/hr Ketorolac Tromethamine (Toradol) 15 mg IVP Q8 [facility] Last Admin: 10/15/16 05:38 Dose: 15 mg Levalbuterol HCl (Xopenex) 0.63 mg IH [id number] PRN PRN Reason: Shortness of Breath Metoclopramide HCl (Reglan) 10 mg PO TID [facility] Last Admin: 10/15/16 09:30 Dose: 10 mg Montelukast Sodium (Singulair) 10 mg PO HS [facility] Pantoprazole Sodium (Protonix Ec Tab) 20 mg PO DAILY [facility] Last Admin: 10/15/16 09:30 Dose: 20 mg Roflumilast (Daliresp) 500 mcg PO DAILY [facility] Last Admin: 10/15/16 09:29 Dose: 500 mcg Tenofovir Disoproxil Fumarate (Viread) 300 mg PO DAILY [facility] Tiotropium [place] (Spiriva) 18 mcg INH DAILY [facility] Last Admin: 10/15/16 09:30 Dose: 18 mcg Physical Exam - Constitutional Appears: Non-toxic, No Acute Distress - Eye Exam Eye Exam: EOMI, PERRL - ENT Exam ENT Exam: Mucous Membranes Moist - Respiratory Exam Respiratory Exam: Clear to Auscultation Bilateral. absent: Rales, Rhonchi, Wheezes - Cardiovascular Exam Cardiovascular Exam: RRR, +S1, +S2 - GI/Abdominal Exam GI & Abdominal Exam: Normal Bowel Sounds, Soft, Tenderness (mild epigastric). absent: Distended, Firm, Guarding, Organomegaly, Rigid - Extremities Exam Extremities exam: Positive for: normal inspection. Negative for: pedal edema - Neurological Exam Neurological exam: Alert, Oriented x3 - Psychiatric Exam Psychiatric exam: Normal Affect, Normal Mood - Skin Skin Exam: Dry, Warm Results - Vital Signs Recent Vital Signs: Last Vital Signs Temp 97.9 F 10/15/16 08:13 Pulse 66 10/15/16 08:13 Resp 18 10/15/16 08:13 BP 116/73 10/15/16 09:29 Pulse Ox 97 10/15/16 08:13 - Labs Result Diagrams: 10/14/16 22:50 10/14/16 22:50 Assessment & Plan - Assessment and Plan (Free Text) Assessment: Patient is a 66yo Chinese-speaking female with PMHx significant for chronic HBV infection, not on therapy presently, COPD on chronic methylprednisolone, hyperlipidemia who presented to the ED with abdominal pain. -Abdominal pain -Foreign bodies noted on CT imaging -Chronic HBV infection -COPD with chronic steroid use -Constipation -Poor adherence to medical therapy Plan: -CT scan reviewed with radiology -Multiple densities noted, likely out of reach for endoscopic intervention -Conservative management for now; serial abdominal examinations, NPO except medication, recommend repeat CT A/P without contrast tomorrow morning -Recommend surgical evaluation for foreign bodies -Initiate Tenofovir 300mg PO QD given chronic immunosuppression -Consider discontinuation of chronic steroid use -Fleet enema x1 - Date & Time Date: 10/15/16 Time: 10:30 <Zoran Gongora - Last Filed: 10/15/16 13:58> Meds - Medications Medications: Current Medications Arformoterol Tartrate (Brovana) 15 mcg IH DAILY@0800 [facility] Last Admin: 10/15/16 07:45 Dose: 15 mcg Atenolol (Tenormin) 12.5 mg PO BID [facility] Last Admin: 10/15/16 09:29 Dose: 12.5 mg Atorvastatin Calcium (Lipitor) 10 mg PO DIN [facility] Budesonide (Pulmicort Respules) 0.5 mg IH DAILY@0800 [facility] Last Admin: 10/15/16 07:45 Dose: 0.5 mg Guaifenesin (Robitussin) 100 mg PO Q4H PRN PRN Reason: Cough Last Admin: 10/15/16 09:35 Dose: 100 mg Sodium Chloride (Sodium Chloride 0.9%) 1,000 mls @ 100 mls/hr IV .Q10H [facility] Last Admin: 10/14/16 22:58 Dose: 100 mls/hr Ketorolac Tromethamine (Toradol) 15 mg IVP Q8 [facility] Last Admin: 10/15/16 13:17 Dose: 15 mg Levalbuterol HCl (Xopenex) 0.63 mg IH [id number] PRN PRN Reason: Shortness of Breath Metoclopramide HCl (Reglan) 10 mg PO TID [facility] Last Admin: 10/15/16 13:18 Dose: 10 mg Montelukast Sodium (Singulair) [address] [facility] Pantoprazole Sodium (Protonix Ec Tab) 20 mg PO DAILY [facility] Last Admin: 10/15/16 09:30 Dose: 20 mg Roflumilast (Daliresp) 500 mcg PO DAILY [facility] Last Admin: 10/15/16 09:29 Dose: 500 mcg Tenofovir Disoproxil Fumarate (Viread) 300 mg PO DAILY [facility] Last Admin: 10/15/16 13:18 Dose: 300 mg Tiotropium [place] (Spiriva) 18 mcg INH DAILY [facility] Last Admin: 10/15/16 09:30 Dose: 18 mcg Results - Vital Signs Recent Vital Signs: Last Vital Signs Temp 97.9 F 10/15/16 08:13 Pulse 66 10/15/16 08:13 Resp 18 10/15/16 08:13 BP 116/73 10/15/16 09:29 Pulse Ox 97 10/15/16 08:13 - Labs Result Diagrams: 10/14/16 22:50 10/14/16 22:50 Attending/Attestation - Attestation I have personally seen and examined this patient.: Yes I have fully participated in the care of the patient.: Yes I have reviewed all pertinent clinical information: Yes Notes (Text): Patient seen and examined with GI fellow. Agree with his note as documented above with the following additions/exceptions. This is a 66 year old female with h/o HBV (not adherent to therapy, last VL 2016 >2million, normal AST/ALT), COPD/asthma who is admitted with abdominal pain. She is noted to have linear hyperdensities on non contrast CT scan (?artifactual versus bones--she does admit to diet heavy in fish). Largest measuring 3-4cm in mid small bowel. She has no signs/symptoms of peritonitis/bowel obstruction. No fever or leukocytosis. Recommend surgical consultation. Conservative management for now , IVF hydration, pain control as needed. Serial abdominal examinations. Repeat non contrast CT in 24 hours. Repeat HBV VL and restart viread given chronic immunosuppression with steroids. 10/15/16 13:56
--- NOTE | 2016-10-15 15:47 | CP.PCM.CON ---
History of Present Illness - History of Present Illness History of Present Illness: General Surgery Consult Note for Dr. Marinelli: 66 yo female with PMHx of asthma, COPD, HTN, HLD, and hepatitis B presented to ED with abdominal pain since 5pm last evening. Hx obtained with shelter director. Pt describes the pain as dull and the most intense in the R epigastric region. Patient had rice, fish and vegetables for dinner, which is her regular diet. Pt reports the pain is 9 out of 10 and has never had something like this before. Since admission, pt got fleet enema and had 3 bowel movements, which were soft and denies any blood. She denies N/V and admits she feels hungry. PMH: asthma, COPD, HTN, HLD, and hepatitis B PSH: denies FH: unknown Meds: MAR reviewed Allergies: NKDA Review of Systems - Review of Systems Review of Systems: as per HPI otherwise negative Past Patient History - Infectious Disease Hx of Infectious Diseases: None - Tetanus Immunizations Tetanus Immunization: Unknown - Past Medical History & Family History Past Medical History?: Yes - Past Social History Smoking Status: Never Smoked - CARDIAC Hx Cardiac Disorders: Yes Hx Hypertension: Yes - PULMONARY Hx Chronic Obstructive Pulmonary Disease (COPD): Yes - NEUROLOGICAL HX Cerebrovascular Accident: No - HEENT Hx HEENT Problems: No - RENAL Hx Renal Failure: No - ENDOCRINE/METABOLIC Hx Diabetes Mellitus Type 1: No Hx Diabetes Mellitus Type 2: No Hx Hypothyroidism: No - HEMATOLOGICAL/ONCOLOGICAL Hx Blood Disorders: Yes Hx Hepatitis B: Yes - INTEGUMENTARY Hx Dermatological Problems: No - MUSCULOSKELETAL/RHEUMATOLOGICAL Hx Falls: No - GASTROINTESTINAL Hx Gastroesophageal Reflux: No HX Swallowing Problems: Yes - GENITOURINARY/GYNECOLOGICAL Hx Genitourinary Disorders: No - PSYCHIATRIC Hx Psychophysiologic Disorder: No Hx Substance Use: No - SURGICAL HISTORY Hx Surgeries: No - ANESTHESIA Hx Anesthesia Reactions: No Hx Malignant Hyperthermia: No Meds Allergies/Adverse Reactions: Allergies Allergy/AdvReac Type Severity Reaction Status Date / Time ceftriaxone Allergy RASH Verified 10/14/16 22:14 - Medications Medications: Current Medications Arformoterol Tartrate (Brovana) 15 mcg IH DAILY@0800 [facility] Last Admin: 10/15/16 07:45 Dose: 15 mcg Atenolol (Tenormin) 12.5 mg PO BID [facility] Last Admin: 10/15/16 09:29 Dose: 12.5 mg Atorvastatin Calcium (Lipitor) 10 mg PO DIN [facility] Budesonide (Pulmicort Respules) 0.5 mg IH DAILY@0800 [facility] Last Admin: 10/15/16 07:45 Dose: 0.5 mg Guaifenesin (Robitussin) 100 mg PO Q4H PRN PRN Reason: Cough Last Admin: 10/15/16 09:35 Dose: 100 mg Sodium Chloride (Sodium Chloride 0.9%) 1,000 mls @ 100 mls/hr IV .Q10H [facility] Last Admin: 10/15/16 12:00 Dose: 100 mls/hr Ketorolac Tromethamine (Toradol) 15 mg IVP Q8 [facility] Last Admin: 10/15/16 13:17 Dose: 15 mg Levalbuterol HCl (Xopenex) 0.63 mg IH [id number] PRN PRN Reason: Shortness of Breath Metoclopramide HCl (Reglan) 10 mg PO TID [facility] Last Admin: 10/15/16 13:18 Dose: 10 mg Montelukast Sodium (Singulair) 10 mg PO HS [facility] Pantoprazole Sodium (Protonix Ec Tab) 20 mg PO DAILY [facility] Last Admin: 10/15/16 09:30 Dose: 20 mg Roflumilast (Daliresp) 500 mcg PO DAILY [facility] Last Admin: 10/15/16 09:29 Dose: 500 mcg Tenofovir Disoproxil Fumarate (Viread) 300 mg PO DAILY [facility] Last Admin: 10/15/16 13:18 Dose: 300 mg Tiotropium [place] (Spiriva) 18 mcg INH DAILY [facility] Last Admin: 10/15/16 09:30 Dose: 18 mcg Physical Exam - Constitutional Appears: No Acute Distress - Head Exam Head Exam: ATRAUMATIC, NORMAL INSPECTION - Eye Exam Eye Exam: EOMI, Normal appearance, PERRL Pupil Exam: NORMAL ACCOMODATION, PERRL - ENT Exam ENT Exam: Mucous Membranes Moist, Normal Exam - Neck Exam Neck exam: Positive for: Normal Inspection - Respiratory Exam Respiratory Exam: NORMAL BREATHING PATTERN. absent: Rales, Wheezes - Cardiovascular Exam Cardiovascular Exam: REGULAR RHYTHM, +S1, +S2 - GI/Abdominal Exam GI & Abdominal Exam: Normal Bowel Sounds, Soft, Tenderness (R epigastric) - Extremities Exam Extremities exam: Positive for: normal inspection. Negative for: pedal edema, tenderness - Neurological Exam Neurological exam: Alert, CN II-XII Intact, Normal Gait, Oriented x3, Reflexes Normal - Psychiatric Exam Psychiatric exam: Normal Affect, Normal Mood - Skin Skin Exam: Dry, Intact, Normal Color, Warm Results - Vital Signs Recent Vital Signs: Last Vital Signs Temp 97.9 F 10/15/16 08:13 Pulse 66 10/15/16 08:13 Resp 18 10/15/16 08:13 BP 116/73 10/15/16 09:29 Pulse Ox 97 10/15/16 08:13 - Labs Result Diagrams: 10/14/16 22:50 10/14/16 22:50 Assessment & Plan - Assessment and Plan (Free Text) Assessment: 66F w/ PMHx of asthma, COPD, HTN, HLD, and hepatitis B c/o epigastric pain due to possible fish bone ingestion Plan: -obstructive X-ray series in AM -clear liquid diet, advance as tolerated -serial abdominal exams -unless clinical exam worsens, no surgical intervention necessary at this time -D/W Dr. Marinelli
--- NOTE | 2016-10-15 16:22 | CARD ---
APPROVED REPORT EKG Measurement Heart [id number] CT 142P80 [id number] <Conclusion> Normal sinus rhythm Normal ECG
[2016-10-16] MEDS: guaiFENesin 100 mg/5 ml Syrup UD PO PRN ×2 (05:10→14:04)
[2016-10-16 07:49] LABS: ADD MANUAL DIFF? NO
[2016-10-16 07:53] LABS: BASO # 0.01 K/mm3 (0.0-2.0); BASO % 0.2 % (0.0-3.0); EOS # 0.1 (0.0-0.7); EOS % 1.6 % (1.5-5.0); GRAN # 3.13 (1.4-6.5); GRAN % 48.7 % (50.0-68.0); HEMATOCRIT 39.8 % (36.0-48.0); LYMPH # 2.8 (1.2-3.4); LYMPH % 42.9 % (22.0-35.0); MEAN CELL VOLUME 93.4 fL (80.0-105.0); MEAN CORPUSCULAR HEMOGLOBIN 30.8 pg (25.0-35.0); MEAN CORPUSCULAR HGB CONC 32.9 g/dl (31.0-37.0); MEAN PLATELET VOLUME 9.7 fl (7.0-11.0); MONO # 0.4 (0.1-0.6); MONO % 6.6 % (1.0-6.0); PLATELET COUNT 181 10^3/uL (120.0-450.0); RED CELL DISTRIBUTION WIDTH 13.5 % (11.5-14.5); WHITE BLOOD COUNT 6.4 10^3/ul (4.5-11.0)
[2016-10-16] MEDS: Budesonide 0.5 mg/2 ml Inhal Susp UD IH SCH (07:54)
[2016-10-16] MEDS: Arformoterol 15 mcg/2 ml Inh Sol IH SCH (07:54)
[2016-10-16 08:16] LABS: ALB/GLOB RATIO 1.1 (1.1-1.8); ALKALINE PHOSPHATASE 47 U/L (38-133); ALT/SGPT 54 U/L (7-56); AST/SGOT 37 U/L (15-39); BILIRUBIN,TOTAL 0.9 mg/dL (0.2-1.3); BLOOD UREA NITROGEN 13 mg/dL (7-21); CALCIUM 8.7 mg/dL (8.4-10.5); CARBON DIOXIDE 26 mmol/L (21-33); CHLORIDE 109 mmol/L (98-107); GFR AFRICAN-AMERICAN > 60; GLUCOSE,RANDOM 76 mg/dL (70-110); POTASSIUM 3.7 mmol/L (3.6-5.0); SODIUM 139 mmol/L (132-148); TOTAL PROTEIN 6.4 g/dL (5.8-8.3)
--- NOTE | 2016-10-16 08:29 | CT ---
PROCEDURE: CT Abdomen and Pelvis without Oral or IV contrast. HISTORY: eval foreign object COMPARISON: CT and pelvis without oral or IV contrast performed 10/15/16 TECHNIQUE: Contiguous axial images of the abdomen and pelvis. No oral or IV contrast administered. Coronal and Sagittal reformats generated and reviewed. Radiation dose: Total exam DLP = 221.26 mGy-cm. This CT exam was performed using one or more of the following dose reduction techniques: Automated exposure control, adjustment of the mA and/or kV according to patient size, and/or use of iterative reconstruction technique. FINDINGS: There is limited evaluation of the solid organs without the administration of IV contrast. LOWER THORAX: Bibasilar atelectasis. Trace pleural effusions. No visible pneumothorax. Small hiatal hernia/ distal esophageal wall thickening. LIVER: Unremarkable unenhanced appearance. GALLBLADDER AND BILE DUCTS: Unremarkable unenhanced appearance. PANCREAS: Unremarkable unenhanced appearance. SPLEEN: Unremarkable unenhanced appearance. ADRENALS: Unremarkable unenhanced appearance. KIDNEYS AND URETERS: Bilateral extrarenal pelves. No hydronephrosis or obstructing renal calculus. BLADDER: The urinary bladder appears unremarkable. REPRODUCTIVE: Uterus is present. APPENDIX: Limited visualization of the presumed appendix appears within normal limits of caliber. No secondary signs of acute appendicitis. BOWEL: The stomach is nondistended. Lack of oral contrast limits evaluation for bowel pathology. 2 thin linear densities seen in the bowel lumen (right colon), most likely representing some type of ingested food material, such as a fish bones. There is no evidence of significant associated bowel obstruction or perforation. Retained stool noted throughout the colon. Bowel is otherwise unremarkable in appearance, allowing for motion. No acute abnormality of the stomach or duodenum identified. No evidence of bowel obstruction. PERITONEUM: No significant free fluid. No definite free air. LYMPH NODES: No bulky lymphadenopathy identified. VASCULATURE: Scattered atherosclerotic calcifications. No aortic aneurysm. BONES: Osseous demineralization. Degenerative changes. OTHER FINDINGS: None. IMPRESSION: 2 thin linear densities seen in the bowel lumen (right colon), most likely representing some type of ingested food material, such as a fish bones. There is no evidence of significant associated bowel obstruction or perforation. Bibasilar atelectasis. Trace pleural effusions.
--- NOTE | 2016-10-16 08:31 | CP.PCM.PN ---
<VictoriaakashJosesito reyes - Last Filed: 10/16/16 08:26> Subjective - Date & Time of Evaluation Date of Evaluation: 10/16/16 Time of Evaluation: 06:45 - Subjective Subjective: PGY4 GI Fellow Progress Note Patient seen and examined bedside this morning. [employer] [place] language interpreter [id number] used during encounter. The patient admits to persistent abdominal pain. No nausea, vomiting and is tolerating diet. She also complains of a productive cough. 12 system ROS performed and negative except where stated. Objective - Vital Signs/Intake and Output Vital Signs (last 24 hours): Temp Pulse Resp BP Pulse Ox 97.8 F 60 18 98/64 L 95 10/15/16 16:01 10/15/16 19:00 10/15/16 16:01 10/15/16 19:00 10/15/16 16:01 Intake and Output: 10/16/16 10/16/16 06:59 18:59 Intake Total 780 Balance 780 - Medications Medications: Current Medications Arformoterol Tartrate (Brovana) 15 mcg IH DAILY@0800 [facility] Last Admin: 10/16/16 07:54 Dose: 15 mcg Atenolol (Tenormin) 12.5 mg PO BID [facility] Last Admin: 10/15/16 19:00 Dose: Not Given Atorvastatin Calcium (Lipitor) 10 mg PO DIN [facility] Last Admin: 10/15/16 17:23 Dose: 10 mg Budesonide (Pulmicort Respules) 0.5 mg IH DAILY@0800 [facility] Last Admin: 10/16/16 07:54 Dose: 0.5 mg Guaifenesin (Robitussin) 100 mg PO Q4H PRN PRN Reason: Cough Last Admin: 10/16/16 05:10 Dose: 100 mg Sodium Chloride (Sodium Chloride 0.9%) 1,000 mls @ 100 mls/hr IV .Q10H [facility] Last Admin: 10/15/16 23:00 Dose: 100 mls/hr Ketorolac Tromethamine (Toradol) 15 mg IVP Q8 [facility] Last Admin: 10/16/16 05:10 Dose: 15 mg Levalbuterol HCl (Xopenex) 0.63 mg IH [id number] PRN PRN Reason: Shortness of Breath Metoclopramide HCl (Reglan) 10 mg PO TID [facility] Last Admin: 10/15/16 17:20 Dose: 10 mg Montelukast Sodium (Singulair) 10 mg PO HS [facility] Last Admin: 10/15/16 21:14 Dose: 10 mg Pantoprazole Sodium (Protonix Ec Tab) 20 mg PO DAILY [facility] Last Admin: 10/15/16 09:30 Dose: 20 mg Roflumilast (Daliresp) 500 mcg PO DAILY [facility] Last Admin: 10/15/16 09:29 Dose: 500 mcg Tenofovir Disoproxil Fumarate (Viread) 300 mg PO DAILY [facility] Last Admin: 10/15/16 13:18 Dose: 300 mg Tiotropium [place] (Spiriva) 18 mcg INH DAILY [facility] Last Admin: 10/15/16 09:30 Dose: 18 mcg - Labs Labs: 10/16/16 07:00 10/16/16 07:00 PT 10.0 Seconds (9.9-11.8) 10/14/16 22:50 INR 0.93 (0.93-1.08) 10/14/16 22:50 APTT 24.4 Seconds (23.7-30.8) 10/14/16 22:50 - Constitutional Appears: Non-toxic, No Acute Distress - Eye Exam Eye Exam: EOMI, PERRL - ENT Exam ENT Exam: Mucous Membranes Moist - Respiratory Exam Respiratory Exam: Rales. absent: Clear to Ausculation Bilateral, Rhonchi, Wheezes - Cardiovascular Exam Cardiovascular Exam: RRR, +S1, +S2 - GI/Abdominal Exam GI & Abdominal Exam: Soft, Tenderness (epigastric, mild), Normal Bowel Sounds. absent: Distended, Firm, Guarding, Rigid, Organomegaly - Extremities Exam Extremities Exam: Normal Inspection. absent: Pedal Edema - Neurological Exam Neurological Exam: Alert, Awake, Oriented x3 - Psychiatric Exam Psychiatric exam: Normal Affect, Normal Mood - Skin Skin Exam: Dry, Warm Assessment and Plan - Assessment and Plan (Free Text) Assessment: Patient is a 66yo Eritrean-speaking female with PMHx significant for chronic HBV infection, not on therapy presently, COPD on chronic methylprednisolone, hyperlipidemia who presented to the ED with abdominal pain. -Abdominal pain -Foreign bodies noted on CT imaging -Chronic HBV infection -COPD with chronic steroid use -Constipation -Poor adherence to medical therapy Plan: -Awaiting repeat non-contrast CT imaging -Obstructive plain film series performed this morning as well -Continue conservative management pending findings of above -Passed multiple BM with fleet enema -Continue Tenofovir 300mg PO QD given chronic immunosuppression -HBV viral load pending -Eval by primary medical service for ongoing cough/congestion <Darrick Blackburn - Last Filed: 10/16/16 13:08> Objective - Vital Signs/Intake and Output Vital Signs (last 24 hours): Temp Pulse Resp BP Pulse Ox 97.9 F 61 18 122/63 97 10/16/16 06:00 10/16/16 09:45 10/16/16 06:00 10/16/16 09:45 10/16/16 06:00 Intake and Output: 10/16/16 10/16/16 06:59 18:59 Intake Total 780 Balance 780 - Medications Medications: Current Medications Arformoterol Tartrate (Brovana) 15 mcg IH DAILY@0800 [facility] Last Admin: 10/16/16 07:54 Dose: 15 mcg Atenolol (Tenormin) 12.5 mg PO BID [facility] Last Admin: 10/16/16 09:45 Dose: 12.5 mg Atorvastatin Calcium (Lipitor) 10 mg PO DIN [facility] Last Admin: 10/15/16 17:23 Dose: 10 mg Budesonide (Pulmicort Respules) 0.5 mg IH DAILY@0800 [facility] Last Admin: 10/16/16 07:54 Dose: 0.5 mg Guaifenesin (Robitussin) 100 mg PO Q4H PRN PRN Reason: Cough Last Admin: 10/16/16 05:10 Dose: 100 mg Sodium Chloride (Sodium Chloride 0.9%) 1,000 mls @ 100 mls/hr IV .Q10H [facility] Last Admin: 10/16/16 11:36 Dose: Not Given Ketorolac Tromethamine (Toradol) 15 mg IVP Q8 [facility] Last Admin: 10/16/16 05:10 Dose: 15 mg Levalbuterol HCl (Xopenex) 0.63 mg IH [id number] PRN PRN Reason: Shortness of Breath Metoclopramide HCl (Reglan) 10 mg PO TID [facility] Last Admin: 10/16/16 09:51 Dose: 10 mg Montelukast Sodium (Singulair) 10 mg PO HS [facility] Last Admin: 10/15/16 21:14 Dose: 10 mg Pantoprazole Sodium (Protonix Ec Tab) 20 mg PO DAILY [facility] Last Admin: 10/16/16 09:46 Dose: 20 mg Roflumilast (Daliresp) 500 mcg PO DAILY [facility] Last Admin: 10/16/16 09:45 Dose: 500 mcg Tenofovir Disoproxil Fumarate (Viread) 300 mg PO DAILY [facility] Last Admin: 10/16/16 09:46 Dose: 300 mg Tiotropium [place] (Spiriva) 18 mcg INH DAILY [facility] Last Admin: 10/16/16 09:44 Dose: 18 mcg - Labs Labs: 10/16/16 07:00 10/16/16 07:00 PT 10.0 Seconds (9.9-11.8) 10/14/16 22:50 INR 0.93 (0.93-1.08) 10/14/16 22:50 APTT 24.4 Seconds (23.7-30.8) 10/14/16 22:50 Attending/Attestation - Attestation I have personally seen and examined this patient.: Yes I have fully participated in the care of the patient.: Yes I have reviewed all pertinent clinical information, including history, physical exam and plan: Yes Notes (Text): 10/16/16 13:03 I have seen and examined patient with GI fellow. No acute events overnight, she still continues to endorse generalized abdominal pain but denies nausea, vomiting, diarrhea, fever/chills. Tolerating PO liquids without difficulty. Chronic HBV COPD Abdominal pain, repeat imaging suggestive of radiolucent linear foreign body in right colon, previous imaging showed foreign body in small bowel. ?fishbone given clinical history of recent fish consumption. - Since potential bones have passed ileocecal valve, there is less risk for colonic trauma and perforation - Would therefore advance diet slowly as tolerated and continue to observe - Repeat AXR tomorrow - Tenofovir has already been started, eAg negative with prior high viral load, awaiting additional HBV studies. No evidence of liver lesions on imaging, though not dedicated liver studies. - LFTs normal, continue to monitor
--- NOTE | 2016-10-16 09:27 | RAD ---
HISTORY: abdominal pain, swallowed fish bone COMPARISON: No prior. FINDINGS: BOWEL: There is nonspecific bowel gas pattern. There is no evidence of bowel dilatation. There is no free intraperitoneal air. There is no radiopaque foreign body. BONES: Normal. OTHER FINDINGS: The visualized lungs are clear. IMPRESSION: Nonspecific bowel gas pattern. No free intraperitoneal air. No evidence of radiopaque foreign body.
--- NOTE | 2016-10-16 09:36 | CP.PCM.PN ---
Subjective - Date & Time of Evaluation Date of Evaluation: 10/16/16 Time of Evaluation: 07:00 - Subjective Subjective: Surgery: Dr. Marinelli Pt S&E. Pt continues to have epigastric pain. +flatus and BM. - N/V. Objective - Vital Signs/Intake and Output Vital Signs (last 24 hours): Temp Pulse Resp BP Pulse Ox 97.9 F 61 18 122/63 97 10/16/16 06:00 10/16/16 06:00 10/16/16 06:00 10/16/16 06:00 10/16/16 06:00 Intake and Output: 10/16/16 10/16/16 06:59 18:59 Intake Total 780 Balance 780 - Medications Medications: Current Medications Arformoterol Tartrate (Brovana) 15 mcg IH DAILY@0800 [facility] Last Admin: 10/16/16 07:54 Dose: 15 mcg Atenolol (Tenormin) 12.5 mg PO BID [facility] Last Admin: 10/15/16 19:00 Dose: Not Given Atorvastatin Calcium (Lipitor) 10 mg PO DIN [facility] Last Admin: 10/15/16 17:23 Dose: 10 mg Budesonide (Pulmicort Respules) 0.5 mg IH DAILY@0800 [facility] Last Admin: 10/16/16 07:54 Dose: 0.5 mg Guaifenesin (Robitussin) 100 mg PO Q4H PRN PRN Reason: Cough Last Admin: 10/16/16 05:10 Dose: 100 mg Sodium Chloride (Sodium Chloride 0.9%) 1,000 mls @ 100 mls/hr IV .Q10H [facility] Last Admin: 10/15/16 23:00 Dose: 100 mls/hr Ketorolac Tromethamine (Toradol) 15 mg IVP Q8 [facility] Last Admin: 10/16/16 05:10 Dose: 15 mg Levalbuterol HCl (Xopenex) 0.63 mg IH [id number] PRN PRN Reason: Shortness of Breath Metoclopramide HCl (Reglan) 10 mg PO TID [facility] Last Admin: 10/15/16 17:20 Dose: 10 mg Montelukast Sodium (Singulair) 10 mg PO HS [facility] Last Admin: 10/15/16 21:14 Dose: 10 mg Pantoprazole Sodium (Protonix Ec Tab) 20 mg PO DAILY [facility] Last Admin: 10/15/16 09:30 Dose: 20 mg Roflumilast (Daliresp) 500 mcg PO DAILY [facility] Last Admin: 10/15/16 09:29 Dose: 500 mcg Tenofovir Disoproxil Fumarate (Viread) 300 mg PO DAILY [facility] Last Admin: 10/15/16 13:18 Dose: 300 mg Tiotropium [place] (Spiriva) 18 mcg INH DAILY [facility] Last Admin: 10/15/16 09:30 Dose: 18 mcg - Labs Labs: 10/16/16 07:00 10/16/16 07:00 PT 10.0 Seconds (9.9-11.8) 10/14/16 22:50 INR 0.93 (0.93-1.08) 10/14/16 22:50 APTT 24.4 Seconds (23.7-30.8) 10/14/16 22:50 - Head Exam Head Exam: ATRAUMATIC, NORMAL INSPECTION - ENT Exam ENT Exam: Mucous Membranes Moist - Respiratory Exam Respiratory Exam: NORMAL BREATHING PATTERN - Cardiovascular Exam Cardiovascular Exam: REGULAR RHYTHM, +S1, +S2. absent: Bradycardia, Tachycardia - GI/Abdominal Exam GI & Abdominal Exam: Soft, Tenderness (epigastric), Normal Bowel Sounds - Extremities Exam Extremities Exam: Normal Inspection. absent: Pedal Edema Assessment and Plan - Assessment and Plan (Free Text) Assessment: 66F w/ abdominal pain Plan: -f/u CT -continue diet per GI -no surgical intervention necessary at this time -d/w Dr.Miller Banks PGY1
[2016-10-16] MEDS: Tiotropium 18 mcg Cap For Inhalation INH SCH (09:44)
[2016-10-16] MEDS: Pantoprazole 20 mg EC Tab PO SCH (09:46)
[2016-10-16] MEDS: Sodium Chloride 0.9% 1,000 ML IV SCH (11:36)
[2016-10-16 16:38] VITALS: BP 115/65; PULSE 60; TEMP 98.3; O2SAT 100
--- NOTE | 2016-10-16 18:46 | CP.PCM.DIS ---
<Az Mathis - Last Filed: 10/25/16 20:46> Provider - Provider Date of Admission: 10/15/16 03:52 Attending physician: Alissa Castellon MD Primary care physician: Marilyn Gregg DO Consults: GI: Alexey Surgery: Marinelli Time Spent in preparation of Discharge (in minutes): 45 Hospital Course - Lab Results Lab Results: Most Recent Lab Values WBC 6.4 10^3/ul (4.5-11.0) 10/16/16 07:00 RBC 4.26 10^6/uL (3.5-6.1) 10/16/16 07:00 Hgb 13.1 gm/dL (12.0-16.0) 10/16/16 07:00 Hct 39.8 % (36.0-48.0) 10/16/16 07:00 MCV 93.4 fL (80.0-105.0) 10/16/16 07:00 MCH 30.8 pg (25.0-35.0) 10/16/16 07:00 MCHC 32.9 g/dl (31.0-37.0) 10/16/16 07:00 RDW 13.5 % (11.5-14.5) 10/16/16 07:00 Plt Count 181 10^3/uL (120.0-450.0) 10/16/16 07:00 MPV 9.7 fl (7.0-11.0) 10/16/16 07:00 Gran % 48.7 % (50.0-68.0) L 10/16/16 07:00 Lymph % (Auto) 42.9 % (22.0-35.0) H 10/16/16 07:00 Clarke % (Auto) 6.6 % (1.0-6.0) H 10/16/16 07:00 Eos % (Auto) 1.6 % (1.5-5.0) 10/16/16 07:00 Baso % (Auto) 0.2 % (0.0-3.0) 10/16/16 07:00 Gran # 3.13 (1.4-6.5) 10/16/16 07:00 Lymph # 2.8 (1.2-3.4) 10/16/16 07:00 Clarke # 0.4 (0.1-0.6) 10/16/16 07:00 Eos # 0.1 (0.0-0.7) 10/16/16 07:00 Baso # 0.01 K/mm3 (0.0-2.0) 10/16/16 07:00 PT 10.0 Seconds (9.9-11.8) 10/14/16 22:50 INR 0.93 (0.93-1.08) 10/14/16 22:50 APTT 24.4 Seconds (23.7-30.8) 10/14/16 22:50 Sodium 139 mmol/L (132-148) 10/16/16 07:00 Potassium 3.7 mmol/L (3.6-5.0) 10/16/16 07:00 Chloride 109 mmol/L (98-107) H 10/16/16 07:00 Carbon Dioxide 26 mmol/L (21-33) 10/16/16 07:00 Anion Gap 8 (10-20) L 10/16/16 07:00 BUN 13 mg/dL (7-21) 10/16/16 07:00 Creatinine 0.6 mg/dL (0.5-1.4) 10/16/16 07:00 Est GFR ( Amer) > 60 10/16/16 07:00 Est GFR (Non-Af Amer) > 60 10/16/16 07:00 Random Glucose 76 mg/dL (70-110) 10/16/16 07:00 Calcium 8.7 mg/dL (8.4-10.5) 10/16/16 07:00 Total Bilirubin 0.9 mg/dL (0.2-1.3) 10/16/16 07:00 AST 37 U/L (15-39) 10/16/16 07:00 ALT 54 U/L (7-56) 10/16/16 07:00 Alkaline Phosphatase 47 U/L (38-133) 10/16/16 07:00 Lactate Dehydrogenase 452 U/L (333-699) 10/14/16 22:50 Total Creatine Kinase 39 U/L (35-230) 10/14/16 22:50 Troponin I < 0.01 ng/mL 10/14/16 22:50 Total Protein 6.4 g/dL (5.8-8.3) 10/16/16 07:00 Albumin 3.4 g/dL (3.0-4.8) 10/16/16 07:00 Globulin 3.1 gm/dL 10/16/16 07:00 Albumin/Globulin Ratio 1.1 (1.1-1.8) 10/16/16 07:00 Lipase 85 U/L (23-300) 10/14/16 22:50 Alpha Fetoprotein 1.6 ng/mL (0.0-7.5) 10/16/16 07:00 - Hospital Course Hospital Course: Upon Admission: 66yo F with PMHx of Asthma, COPD, HTN, HLD, Hep B here for evaluation of Abdominal pain. CT Abd with evidence of foreign body in small bowel. Patient reports recent fish consumption with possible fish bone ingestion. GI consult was obtained who recommended conservative management, surgical evaluation. Patient was started on Tenofovir for Hep B and chronic immunosuppression. Surgery consult was obtained and recommended repeat imaging to confirm passage of foreign body. CT Abd/Pelvis was obtained the next morning which showed passage of foreign body, no free air. Patient c/o cough which was worse in the AM. This was likely due to GERD and the patient was started on PPI and educated on using pillows at night and ways on decreasing aspiration risk. Speech and swallow eval was also obtained, who recommended having family inspect food prior to intake to ensure no foreign body ingestion due to decreased patient vision. Patient's abdominal pain improved and she was cleared for discharge with close out-patient follow up. 1. Abdominal Pain 2. Cough Upon Discharge: Patient is cleared for discharge as per Dr. Castellon 1. Follow up with your Primary care physician in 3 days. 2. Follow up with the GI doctor within one week. Dr. Antoine. Call for appointment 3. Have family help inspect meals to ensure no foreign material. Soft, heart healthy diet recommended 4. Use pillows at night to help decrease aspiration risk. 5. Resume home meds as per new list 6. Take new medications as directed. 7. Return to the ER with any concerning symptoms New Prescriptions: 1. Tenofovir 300mg PO Daily #30/3 2. Protonix 40mg PO daily #30/3 3. Robitussin prn cough Discharge Exam - Head Exam Head Exam: ATRAUMATIC, NORMAL INSPECTION, NORMOCEPHALIC - Eye Exam Eye Exam: EOMI, Normal appearance, PERRL. absent: Scleral icterus Pupil Exam: PERRL - ENT Exam ENT Exam: Mucous Membranes Moist - Respiratory Exam Respiratory Exam: Clear to PA & Lateral, UNREMARKABLE. absent: Accessory Muscle Use, Rhonchi, Wheezes, Respiratory Distress, Stridor - Cardiovascular Exam Cardiovascular Exam: RRR, +S1, +S2. absent: JVD - GI/Abdominal Exam GI & Abdominal Exam: Normal Bowel Sounds, Soft, Unremarkable. absent: Distended , Firm, Guarding, Rebound, Rigid, Tenderness - Extremities Exam Extremities exam: normal inspection - Back Exam Back exam: NORMAL INSPECTION - Neurological Exam Neurological exam: Alert, Normal Gait, Oriented x3 - Psychiatric Exam Psychiatric exam: Normal Affect, Normal Mood - Skin Skin Exam: Dry, Intact, Normal Color, Warm Discharge Plan - Discharge Medications Prescriptions: guaiFENesin [Robitussin] 100 mg PO Q4H PRN #1 bottle PRN Reason: Cough Pantoprazole Sodium [Protonix] 40 mg PO DAILY #30 ect Tenofovir [Viread] 300 mg PO DAILY #30 tab - Follow Up Plan Condition: STABLE Disposition: HOME/ ROUTINE Instructions: Acute Abdominal Pain (DC), Foreign Body Ingestion (GEN) Additional Instructions: Patient is cleared for discharge as per Dr. Castellon 1. Follow up with your Primary care physician in 3 days. 2. Follow up with the GI doctor within one week. Dr. Antoine. Call for appointment 3. Have family help inspect meals to ensure no foreign material. Soft, heart healthy diet recommended 4. Use pillows at night to help decrease aspiration risk. 5. Resume home meds as per new list 6. Take new medications as directed. 7. Return to the ER with any concerning symptoms New Prescriptions: 1. Tenofovir 300mg PO Daily #30/3 2. Protonix 40mg PO daily #30/3 3. Robitussin prn cough Referrals: Marilyn Gregg DO [Primary Care Provider] - Lupillo Antoine MD [Staff Provider] - <Alissa Castellon MD - Last Filed: 10/27/16 07:52> Provider - Provider Date of Admission: 10/15/16 03:52 Attending physician: Alissa Castellon MD Primary care physician: Marilyn Gregg DO Hospital Course - Lab Results Lab Results: Most Recent Lab Values WBC 6.4 10^3/ul (4.5-11.0) 10/16/16 07:00 RBC 4.26 10^6/uL (3.5-6.1) 10/16/16 07:00 Hgb 13.1 gm/dL (12.0-16.0) 10/16/16 07:00 Hct 39.8 % (36.0-48.0) 10/16/16 07:00 MCV 93.4 fL (80.0-105.0) 10/16/16 07:00 MCH 30.8 pg (25.0-35.0) 10/16/16 07:00 MCHC 32.9 g/dl (31.0-37.0) 10/16/16 07:00 RDW 13.5 % (11.5-14.5) 10/16/16 07:00 Plt Count 181 10^3/uL (120.0-450.0) 10/16/16 07:00 MPV 9.7 fl (7.0-11.0) 10/16/16 07:00 Gran % 48.7 % (50.0-68.0) L 10/16/16 07:00 Lymph % (Auto) 42.9 % (22.0-35.0) H 10/16/16 07:00 Clarke % (Auto) 6.6 % (1.0-6.0) H 10/16/16 07:00 Eos % (Auto) 1.6 % (1.5-5.0) 10/16/16 07:00 Baso % (Auto) 0.2 % (0.0-3.0) 10/16/16 07:00 Gran # 3.13 (1.4-6.5) 10/16/16 07:00 Lymph # 2.8 (1.2-3.4) 10/16/16 07:00 Clarke # 0.4 (0.1-0.6) 10/16/16 07:00 Eos # 0.1 (0.0-0.7) 10/16/16 07:00 Baso # 0.01 K/mm3 (0.0-2.0) 10/16/16 07:00 PT 10.0 Seconds (9.9-11.8) 10/14/16 22:50 INR 0.93 (0.93-1.08) 10/14/16 22:50 APTT 24.4 Seconds (23.7-30.8) 10/14/16 22:50 Sodium 139 mmol/L (132-148) 10/16/16 07:00 Potassium 3.7 mmol/L (3.6-5.0) 10/16/16 07:00 Chloride 109 mmol/L (98-107) H 10/16/16 07:00 Carbon Dioxide 26 mmol/L (21-33) 10/16/16 07:00 Anion Gap 8 (10-20) L 10/16/16 07:00 BUN 13 mg/dL (7-21) 10/16/16 07:00 Creatinine 0.6 mg/dL (0.5-1.4) 10/16/16 07:00 Est GFR ( Amer) > 60 10/16/16 07:00 Est GFR (Non-Af Amer) > 60 10/16/16 07:00 Random Glucose 76 mg/dL (70-110) 10/16/16 07:00 Calcium 8.7 mg/dL (8.4-10.5) 10/16/16 07:00 Total Bilirubin 0.9 mg/dL (0.2-1.3) 10/16/16 07:00 AST 37 U/L (15-39) 10/16/16 07:00 ALT 54 U/L (7-56) 10/16/16 07:00 Alkaline Phosphatase 47 U/L (38-133) 10/16/16 07:00 Lactate Dehydrogenase 452 U/L (333-699) 10/14/16 22:50 Total Creatine Kinase 39 U/L (35-230) 10/14/16 22:50 Troponin I < 0.01 ng/mL 10/14/16 22:50 Total Protein 6.4 g/dL (5.8-8.3) 10/16/16 07:00 Albumin 3.4 g/dL (3.0-4.8) 10/16/16 07:00 Globulin 3.1 gm/dL 10/16/16 07:00 Albumin/Globulin Ratio 1.1 (1.1-1.8) 10/16/16 07:00 Lipase 85 U/L (23-300) 10/14/16 22:50 Alpha Fetoprotein 1.6 ng/mL (0.0-7.5) 10/16/16 07:00 Attending/Attestation - Attestation I have personally seen and examined this patient.: Yes I have fully participated in the care of the patient.: Yes I have reviewed all pertinent clinical information, including history, physical exam and plan: Yes Notes (Text): 10/27/16 07:51 Patient was seen and examined with medical care administrator .Agreed with resident assessment and plan. Patient is tolerating diet, does has epigatric tenderness, on PPI, if no improvement, will need EGD as out patient as per GI.Patient COPD is stable, at base line. Management plan was discussed in detail with patient Education was provided.
[2016-10-20 00:41] LABS: HEPATITIS B VIRUS DNA 2.32 log IU/mL (<1.30)
== END 2016-10-16 16:50 | disposition home or self-care (01) ==
LOC: ED 22:01 → ERH 10-15 03:52 → 3RSO 10-15 05:10
PROVIDERS: ADMIT Internal Medicine; ATTEND Internal Medicine
DX: R10.13 Epigastric pain (principal); J44.9 Chronic obstructive pulmonary disease, unspecified; I10 Essential (primary) hypertension; B18.1 Chronic viral hepatitis B without delta-agent; E78.5 Hyperlipidemia, unspecified; J45.909 Unspecified asthma, uncomplicated; K59.00 Constipation, unspecified; Z87.891 Personal history of nicotine dependence; Z79.52 Long term (current) use of systemic steroids
CPT/HCPCS: 36415; 71010; 74020; 74176; 76705; 80053; 82105; 82550; 83615; 83690; 84484; 85025; 85027; 85610; 85730; 87517; 92610; 93005; 94640; 96361; 96374; 96375; 96376; 99284; C9113; G0378; G8996; G8997; G8998; J1885; J7040

== ENCOUNTER 2016-10-24 16:25 | Inpatient (IN) | payer MEDICARE, MEDICAID ==
[2016-10-24 16:26] VITALS: BMI 16.6
[2016-10-24] MEDS ORDERED: levoFLOXacin 500 mg in D5W 500 MG/100 ML BAG IVPB STA (16:53)
[2016-10-24] MEDS ORDERED: Albuterol-Ipratrop 3 mg / 0.5 (3 ml) UD IH STA (16:53)
[2016-10-24] MEDS ORDERED: Sodium Chloride 0.9% 500 ML IV ONE (16:53)
--- NOTE | 2016-10-24 16:58 | ED PDOC ---
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 She has had a headache. Nausea and vomiting began today. Fever. There is chest discomfort. No abdominal pain. No diarrhea. No travel. Patient is tachycardic and tachypnea And appears ill. Past Medical History - Infectious Disease Hx of Infectious Diseases: None - Tetanus Immunization Tetanus Immunization: Unknown - Cardiac Hx Hypertension: Yes - Pulmonary Hx Chronic Obstructive Pulmonary Disease (COPD): Yes - Neurological HX Cerebrovascular Accident: No - HEENT Hx HEENT Disorder: No - Renal Hx Renal Failure: No - Endocrine/Metabolic Hx Diabetes Mellitus Type 1: No Hx Diabetes Mellitus Type 2: No Hx Hypothyroidism: No - Hematological/Oncological Hx Blood Disorders: Yes Hx Hepatitis B: Yes - Integumentary Hx Dermatological Disorder: No - Musculoskeletal/Rheumatological Hx Falls: No - Gastrointestinal Hx Gastroesophageal Reflux: No HX Swallowing Problems: Yes - Genitourinary/Gynecological Hx Genitourinary Disorders: No - Psychiatric Hx Psychophysiologic Disorder: No Hx Substance Use: No - Anesthesia Hx Anesthesia Reactions: No Hx Malignant Hyperthermia: No Family/Social History - Physician Review Nursing Documentation Reviewed: Yes Family/Social History: Unknown Family HX Smoking Status: Former Smoker (Quit smoking 5 years ago) Hx Alcohol Use: No Hx Substance Use: No Allergies/Home Meds Allergies/Adverse Reactions: Allergies ceftriaxone Allergy (Verified 10/24/16 16:33) RASH Home Medications: Home Meds Medication Instructions Recorded Confirmed Albuterol Sulfate 0.63 mg IH PRN PRN 09/18/16 10/24/16 Alendronate Sodium [Binosto] 70 mg PO QWK 09/18/16 10/24/16 Atenolol [Tenormin] 12.5 mg PO BID 09/18/16 10/24/16 Fluticasone/Salmeterol [Advair 1 each IH DAILY 09/18/16 10/24/16 250-50 Diskus] Montelukast [Singulair] 10 mg PO HS 09/18/16 10/24/16 Roflumilast [Daliresp] 500 mcg PO DAILY 09/18/16 10/24/16 Tiotropium [place] Inhaler 1 inhaler INH DAILY 09/18/16 10/24/16 [Spiriva Inhalation Handihaler Device] Cefuroxime Axetil [Cefuroxime] 1 tab PO BID 10/24/16 10/24/16 Review of Systems - Review of Systems Systems not reviewed;Unavailable: Acuity of Condition Physical Exam Vital Signs Temp Pulse Resp BP Pulse Ox 10/24/16 20:26 118 H 111/64 10/24/16 19:48 98.5 F 123 H 19 109/65 98 10/24/16 18:50 120 H 20 122/67 98 10/24/16 18:38 130 H 22 132/63 97 10/24/16 17:28 98.3 F 122 H 24 126/76 99 10/24/16 17:11 98.8 F 10/24/16 16:40 24 10/24/16 16:28 98.2 F 137 H 25 H 136/68 97 Temperature: Afebrile Blood Pressure: Normal Pulse: Tachycardic Respiratory Rate: Tachypneic Appearance: Positive for: Well-Appearing, Non-Toxic, Ill-Appearing, Unkept, Uncomfortable Pain Distress: None Mental Status: Positive for: other (Awake alert cooperative and uncomfortable) - Systems Exam Head: Present: Atraumatic, Normocephalic Pupils: Present: PERRL Extroacular Muscles: Present: EOMI Conjunctiva: Present: Normal Mouth: Present: Moist Mucous Membranes Pharnyx: No: ERYTHEMA, EXUDATE, TONSILS ENLARGED Neck: Present: Normal Range of Motion. No: MIDLINE TENDERNESS, Paraspinal Tenderness Respiratory/Chest: Present: Respiratory Distress, Accessory Muscle Use, Wheezes , Decreased Breath Sounds, Rales, Retracting, Rhonchi, Tachypneic Cardiovascular: Present: Regular Rate and Rhythm, Tachycardic Abdomen: Present: Normal Bowel Sounds. No: Tenderness, Distention, Peritoneal Signs, Rebound, Guarding Back: Present: Normal Inspection. No: CVA Tenderness, Midline Tenderness, Paraspinal Tenderness Upper Extremity: Present: Normal Inspection. No: Cyanosis, Edema Lower Extremity: Present: Normal Inspection. No: Edema Neurological: Present: GCS=15, CN II-XII Intact, Speech Normal, Motor Func Grossly Intact Skin: Present: Warm, Dry, Normal Color. No: Rashes Psychiatric: Present: Alert Medical Decision Making ED Course and Treatment: 10/24/16 16:57 EKG shows sinus tachycardia rate approximately [address] or T-wave changes similar to EKG of 10/14/2016 10/24/16 19:54 Discussed with for possible ICU admission. He will treat the patient in the emergency department and make that disposition. 10/24/16 20:31 was here and evaluated the patient and declines ICU admission. He will admit to telemetry for the hospitalist. - Lab Interpretations Lab Results: 10/24/16 16:45 10/24/16 16:45 Lab Results 10/24/16 17:50: Urine Color Yellow, Urine Appearance Sl cloudy, Urine pH 6.5, Ur Specific [place] 1.010, Urine Protein Negative, Urine Glucose (UA) Negative, Urine Ketones Negative, Urine Blood Trace-intact H, Urine Nitrate Negative, Urine Bilirubin Negative, Urine Urobilinogen 0.2, Ur Leukocyte Esterase Large H , Urine RBC 2 - 5, Urine WBC 15 - 20, Ur Epithelial Cells 4 - 5, Urine Bacteria Mod 10/24/16 17:45: pCO2 36, pO2 86.0, HCO3 19.0 L, ABG pH 7.33 L, ABG Total CO2 20.1 L, ABG O2 Saturation 98.5 H, ABG O2 Content 15.2, ABG Base Excess -6.3 L, ABG Hemoglobin 11.2 L, ABG Carboxyhemoglobin 1.7 H, POC ABG HHb (Measured) 1.5, ABG Methemoglobin 1.0, ABG O2 Capacity 15.4 L, Hgb O2 Saturation 95.8, FiO2 21.0 10/24/16 16:45: Sodium 139, Chloride 103, Potassium 4.6, Carbon Dioxide 28, Anion Gap 13, BUN 9, Creatinine 0.7, Est GFR ( Amer) > 60, Est GFR (Non- Af Amer) > 60, Random Glucose 132 H, Calcium 9.7, Total Bilirubin 0.5, AST 40 H , ALT 37, Alkaline Phosphatase 51, Lactate Dehydrogenase 500, Total Creatine Kinase 53, Troponin I < 0.01, NT-Pro-B Natriuret Pep 29.7, Total Protein 7.5, Albumin 4.0, Globulin 3.5, Albumin/Globulin Ratio 1.1, Lipase 72 10/24/16 16:45: pO2 33, VBG pH 7.27 L, VBG pCO2 65.0 H, VBG HCO3 30.8 H, VBG Total CO2 32.9 H, VBG O2 Sat (Calc) 63.0, VBG Base Excess 1.9, VBG Potassium 4.8 , Sodium 139.0, Chloride 107.0, Glucose 125 H, Lactate 2.7 H, FiO2 21.0, Venous Blood Potassium 4.8 10/24/16 16:45: PT 10.2, INR 0.94, APTT 25.9, D-Dimer, Quantitative 0.29 10/24/16 16:45: WBC 6.4, RBC 4.45, Hgb 14.1, Hct 41.5, MCV 93.3, MCH 31.7, MCHC 34.0, RDW 12.6, Plt Count 201, MPV 9.6, Gran % 58.0, Lymph % (Auto) 34.6, Becker % (Auto) 6.0, Eos % (Auto) 1.1 L, Baso % (Auto) 0.3, Gran # 3.68, Lymph # 2.2, Becker # 0.4, Eos # 0.1, Baso # 0.02 - RAD Interpretation Radiology Orders: 10/24/16 16:52 CHEST PORTABLE [RAD] Stat 10/24/16 20:27 ABD & PELVIS IV CONTRAST ONLY [CT] Stat Chest 1 view shows no infiltrate effusion cardiomegaly or pneumothorax Childbirth Educator: ED Physician - Medication Orders Current Medication Orders: Sodium Chloride (Sodium Chloride 0.9%) 2,000 mls @ 500 mls/hr IV ONCE ONE Stop: 10/24/16 21:29 Last Admin: 10/24/16 17:49 Dose: Sodium Chloride (Sodium Chloride 0.9%) 1,000 mls @ 100 mls/hr IV .Q10H ELISEO Morphine Sulfate (Morphine) 4 mg IVP Q3H PRN PRN Reason: Pain, severe (8-10) Discontinued Medications Albuterol/Ipratropium (Duoneb 3 Mg/0.5 Mg (3 Ml) Ud) 3 ml IH ONCE STA Stop: 10/24/16 16:54 Last Admin: 10/24/16 17:05 Dose: 3 ml Sodium Chloride (Sodium Chloride 0.9%) 500 mls @ 500 mls/hr IV ONCE ONE Stop: 10/24/16 17:52 Last Admin: 10/24/16 17:09 Dose: 500 mls/hr Levofloxacin/Dextrose (Levaquin 500mg) 500 mg in 100 mls @ 100 mls/hr IVPB STAT STA Stop: 10/24/16 17:52 Last Admin: 10/24/16 17:10 Dose: 100 mls/hr Sodium Chloride 1,500 ml/ IV (SUPPLIES) 1,500 mls @ 2,721.54 mls/hr IV ONCE ONE PRN Reason: 60 ML/KG/HR Stop: 10/24/16 17:41 Last Admin: 10/24/16 17:30 Dose: 2,721.54 mls/hr Morphine Sulfate (Morphine) 2 mg IVP STAT STA Stop: 10/24/16 20:27 Ondansetron HCl (Zofran Inj) 4 mg IVP ONCE ONE Stop: 10/24/16 16:54 Last Admin: 10/24/16 17:10 Dose: 4 mg Disposition/Present on Arrival - Present on Arrival Any Indicators Present on Arrival: No History of DVT/PE: No History of Uncontrolled Diabetes: No Urinary Catheter: No History of Decub. Ulcer: No History Surgical Site Infection Following: None - Disposition Have Diagnosis and Disposition been Completed?: Yes Diagnosis: Sepsis, Tachycardia, Acute exacerbation of chronic obstructive pulmonary disease (COPD), Urinary tract infection, Bronchitis Disposition: HOSPITALIZED Disposition Time: 07:30 Patient Plan: Admission, Telemetry Patient Problems: Current Active Problems Problem Status Onset Acute exacerbation of chronic obstructive pulmonary disease (COPD) Acute Bronchitis Acute Sepsis Acute Tachycardia Acute Urinary tract infection Acute Condition: CRITICAL Discharge Instructions (ExitCare): Sepsis (ED)
[2016-10-24 17:17] LABS: ADD MANUAL DIFF? NO
[2016-10-24 17:22] LABS: BASO # 0.02 K/mm3 (0.0-2.0); BASO % 0.3 % (0.0-3.0); EOS # 0.1 (0.0-0.7); EOS % 1.1 % (1.5-5.0); GRAN # 3.68 (1.4-6.5); HEMATOCRIT 41.5 % (36.0-48.0); LYMPH # 2.2 (1.2-3.4); LYMPH % 34.6 % (22.0-35.0); MEAN CELL VOLUME 93.3 fL (80.0-105.0); MEAN CORPUSCULAR HEMOGLOBIN 31.7 pg (25.0-35.0); MEAN PLATELET VOLUME 9.6 fl (7.0-11.0); MONO # 0.4 (0.1-0.6); PLATELET COUNT 201 10^3/uL (120.0-450.0); RED CELL DISTRIBUTION WIDTH 12.6 % (11.5-14.5); WHITE BLOOD COUNT 6.4 10^3/ul (4.5-11.0)
--- NOTE | 2016-10-24 17:23 | RAD ---
HISTORY: Shortness of breath. COMPARISON: 10/14/2016. FINDINGS: LUNGS: Hyperinflation, manifestations of COPD. No active pulmonary disease. PLEURA: No significant pleural effusion identified, no pneumothorax apparent. CARDIOVASCULAR: No radiographic findings to suggest acute or significant cardiovascular disease. OSSEOUS STRUCTURES: No significant abnormalities. VISUALIZED UPPER ABDOMEN: Normal. OTHER FINDINGS: None. IMPRESSION: No active disease. No significant interval change compared to the prior examination(s).
[2016-10-24 17:25] LABS: VENOUS BLOOD GAS BASE EXCESS 1.9 mmol/L (0.0-2.0); VENOUS BLOOD PH 7.27 (7.32-7.43)
[2016-10-24] MEDS ORDERED: Sodium Chloride 0.9% 2,000 ML IV ONE (17:30)
[2016-10-24 17:33] LABS: ALB/GLOB RATIO 1.1 (1.1-1.8); ALKALINE PHOSPHATASE 51 U/L (38-133); ALT/SGPT 37 U/L (7-56); AST/SGOT 40 U/L (15-39); BILIRUBIN,TOTAL 0.5 mg/dL (0.2-1.3); BLOOD UREA NITROGEN 9 mg/dL (7-21); CALCIUM 9.7 mg/dL (8.4-10.5); CARBON DIOXIDE 28 mmol/L (21-33); CHLORIDE 103 mmol/L (98-107); GFR AFRICAN-AMERICAN > 60; GLUCOSE,RANDOM 132 mg/dL (70-110); LIPASE 72 U/L (23-300); POTASSIUM 4.6 mmol/L (3.6-5.0); SODIUM 139 mmol/L (132-148); TOTAL PROTEIN 7.5 g/dL (5.8-8.3)
[2016-10-24 17:38] LABS: INR 0.94 (0.93-1.08); PARTIAL THROMBOPLASTIN TIME 25.9 Seconds (23.7-30.8)
[2016-10-24 17:39] LABS: D DIMER 0.29 mg/L FEU (0-0.50)
[2016-10-24 17:53] LABS: ARTERIAL BLOOD GAS O2 CAPACITY 15.4 mL/dl (16-24); ARTERIAL BLOOD GAS O2 CONTENT 15.2 ML/dl (15-23); ARTERIAL BLOOD GAS PH 7.33 (7.35-7.45); ARTERIAL BLOOD HGB O2 SAT 95.8 % (95.0-98.0); CARBOXYHEMOGLOBIN 1.7 % (0.5-1.5); HHB 1.5 % (0-5)
[2016-10-24 18:14] LABS: PH,URINE 6.5 (4.7-8.0); URINE BILIRUBIN NEGATIVE (NEGATIVE); URINE BLOOD TRACE-INTACT (NEGATIVE); URINE GLUCOSE (UA) NEGATIVE (NEGATIVE); URINE KETONE NEGATIVE (NEGATIVE); URINE LEUKOCYTE ESTERASE LARGE Leu/uL (NEGATIVE); URINE PROTEIN NEGATIVE mg/dL (<30 mg/dL); URINE UROBILINOGEN 0.2 E.U./dL (<1 E.U./dL)
[2016-10-24 18:15] LABS: URINE APPEARANCE SL CLOUDY (CLEAR); URINE COLOR YELLOW (YELLOW)
[2016-10-24 18:33] LABS: URINE BACTERIA MOD (NEG); URINE WBC 15 - 20 /hpf (0-6)
[2016-10-24 19:00] LABS: TROPONIN I < 0.01 ng/mL
[2016-10-24 20:24] LABS: VENOUS BLOOD GAS BASE EXCESS -2.4 mmol/L (0.0-2.0); VENOUS BLOOD PH 7.35 (7.32-7.43)
[2016-10-24] MEDS ORDERED: Morphine 4 mg/ml ISec IVP PRN ×2 (20:26→21:51)
[2016-10-24] MEDS ORDERED: Morphine 2 mg/ml ISec IVP STA (20:26)
[2016-10-24] MEDS: Sodium Chloride 0.9% 1,000 ML IV SCH (20:36)
[2016-10-24] MEDS ORDERED: Iohexol 350 MG/100 ML VIAL ONE (20:52)
--- NOTE | 2016-10-24 21:24 | CP.PCM.HP ---
History of Present Illness - History of Present Illness History of Present Illness: CC: Abdominal pain x 2 days HPI: 66 y/o female with a PMHx COPD, Htn, Dyslipidemia, OA, Hepatitis B comes to the ED with the complaint of epigastric abdominal pain for the past 2 days. Patient reports a sharp stabbing sensation in her upper epigastric area which has not improved and remained constant over the past 2 days so she asked her daughter to bring her in to the ED. Patient also reports multiple episodes of nonbilious nonbloody vomitus as well. She states being diaphoretic at times and feeling chills at other times; denies fevers, diarrhea, headache, light headedness, dizziness, palpitations, or shortness of breath. she does also report some chest discomfort in the center of her chest after vomiting which has improved since she's been in the ED. She reports having a dry cough with an occasional clear sputum production as well. Patient speaks Greek and her daughter was not present at bedside, so language line was used for translation PMHx: Htn COPD OA Hepatitis B ( Recently admitted to the hospital 10/15/16 for foreign body ingestion of fish bones. She was monitored and no intervention was performed and she was discharged home.) Allergies: Ceftriaxone Fam Hx: reviewed and noncontributory Soc Hx: previous history of 1 ppd x 30yrs; denies etoh use; lives at home with her family Home Meds: Spiriva Advair 250/50 Lipitor 10 Robitussin prn Singulair Atenolol 12.5mg po bid Alendronate Qweekly Daliresp Tenofovir Protonix Present on Admission - Present on Admission Any Indicators Present on Admission: No Review of Systems - Review of Systems Review of Systems: As per HPI otherwise negative for a 12 point ROS Past Patient History - Infectious Disease Hx of Infectious Diseases: None - Tetanus Immunizations Tetanus Immunization: Unknown - Past Medical History & Family History Past Medical History?: Yes - Past Social History Smoking Status: Former Smoker (Quit smoking 5 years ago) Alcohol: None Drugs: Denies Home Situation {Lives}: With Family - CARDIAC Hx Hypertension: Yes - PULMONARY Hx Chronic Obstructive Pulmonary Disease (COPD): Yes - NEUROLOGICAL HX Cerebrovascular Accident: No - HEENT Hx HEENT Problems: No - RENAL Hx Renal Failure: No - ENDOCRINE/METABOLIC Hx Diabetes Mellitus Type 1: No Hx Diabetes Mellitus Type 2: No Hx Hypothyroidism: No - HEMATOLOGICAL/ONCOLOGICAL Hx Blood Disorders: Yes Hx Hepatitis B: Yes - INTEGUMENTARY Hx Dermatological Problems: No - MUSCULOSKELETAL/RHEUMATOLOGICAL Hx Falls: No - GASTROINTESTINAL Hx Gastroesophageal Reflux: No HX Swallowing Problems: Yes - GENITOURINARY/GYNECOLOGICAL Hx Genitourinary Disorders: No - PSYCHIATRIC Hx Psychophysiologic Disorder: No Hx Substance Use: No - SURGICAL HISTORY Hx Surgeries: No - ANESTHESIA Hx Anesthesia Reactions: No Hx Malignant Hyperthermia: No Meds Allergies/Adverse Reactions: Allergies Allergy/AdvReac Type Severity Reaction Status Date / Time ceftriaxone Allergy RASH Verified 10/24/16 16:33 Physical Exam - Constitutional Appears: Well, Non-toxic - Head Exam Head Exam: ATRAUMATIC, NORMOCEPHALIC - Eye Exam Eye Exam: EOMI - ENT Exam ENT Exam: Mucous Membranes Dry - Neck Exam Neck exam: Positive for: Full Rom. Negative for: Tenderness - Respiratory Exam Respiratory Exam: Rhonchi, Wheezes (bilateral expiratory wheezes and ronchi), NORMAL BREATHING PATTERN. absent: Decreased Breath Sounds, Respiratory Distress - Cardiovascular Exam Cardiovascular Exam: Tachycardia, +S1, +S2 - GI/Abdominal Exam GI & Abdominal Exam: Soft, Tenderness (diffusely tender to palpation; greatest in the epigastric area). absent: Guarding, Rebound - Rectal Exam Rectal Exam: Deferred - Extremities Exam Extremities exam: Positive for: normal inspection - Back Exam Back exam: CVA tenderness (L), NORMAL INSPECTION - Neurological Exam Neurological exam: Alert, Oriented x3 - Psychiatric Exam Psychiatric exam: Normal Affect, Normal Mood - Skin Skin Exam: Dry, Intact, Normal Color, Warm Results - Vital Signs Recent Vital Signs: Last Vital Signs Temp 98.4 F 10/24/16 20:51 Pulse 113 H 10/24/16 20:56 Resp 19 10/24/16 20:51 BP 111/64 10/24/16 20:51 Pulse Ox 100 10/24/16 20:51 - Labs Result Diagrams: 10/24/16 16:45 10/24/16 16:45 - EKG Data EKG Interpreted by: Myself (ST @ 134 bpm; no ST elevations or depression noted) - Imaging and Cardiology CT scan - abdomen Status: Pending (possible colitis; non-acute findings), Report reviewed by me Assessment & Plan - Assessment and Plan (Free Text) Assessment: 66 y/o female with a PMHx COPD, Htn, OA, Hep B and recent foreign body ingestion of fish bones returns to the ED with a 2 day history of abdominal pain. At this time she has acute cystitis; will further work her up given recent ingestion of fish bones and obtain a CT Scan of her abdomen and admit her to telemetry for further monitoring and care. Plan: 1) Abdominal pain - will obtain a CT of her abd/pelvis to assess whether the patient may have ingested more foreign bodies or has some remaining from previously; will treat with morphine 2mg IVP Q3 prn pain for now. 2) Acute cystitis - will continue with levaquin IV since it was already given in the ED; follow up urine cultures and CT Abd/pelvis to evaluate for any renal/ bladder involvement; zofran prn n/v 3) COPD - stable; will c/w duoneb Q6h prn, robitussin for cough and consider adding solumedrol if the patient experiences hypoxia due to chronically being on steroids 4) Hep B - c/w tenofovir for now, if abdominal pain/n/v persist, will put it on hold as these are all also common side effects 5) Htn - c/w po tenormin 5) GI/DVT ppx - protonix po daily/SCD's I was initially asked to evaluate the patient for the ICU, however she does not require aggressive ICU level care. I disagree with the ED Physician's assessment of the patient being in critical condition as she has maintained a normotensive blood pressure throughout her stay in the ED, remains AAOx3 and only complains of moderate abdominal pain. She does not even classify as having met SIRS criteria, let alone Sepsis, which is why I was asked to see the patient. She does remain tachycardic and I suspect this is due to a combination of factors including the patient not being treated adequately for pain control and still requiring some IVF hydration. She will be admitted to telemetry for further care and monitoring after a CT Abd/pelvis is performed to ensure she does not have any ominous sequela of her recent foreign body ingestion. I will follow up the CT abd/pelvis findings.
[2016-10-24] MEDS ORDERED: Albuterol-Ipratrop 3 mg / 0.5 (3 ml) UD IH PRN (21:44)
--- NOTE | 2016-10-24 21:48 | CT ---
EXAM: CT Abdomen and Pelvis With Intravenous Contrast CLINICAL HISTORY: 66 years old, female; Pain; Abdominal pain; Patient HX: Possible perforation/foreign bodies/renal stone TECHNIQUE: Axial computed tomography images of the abdomen and pelvis with intravenous contrast. This CT exam was performed using one or more of the following dose reduction techniques: automated exposure control, adjustment of the mA and/or kV according to patient size, and/or use of iterative reconstruction technique. Coronal and sagittal reformatted images were created and reviewed. CONTRAST: 96 mL of PMNIPAQUE 350 administered intravenously. COMPARISON: CT - ABD PELVIS W/O PO OR IV CONT 10/16/2016 7:28:58 AM FINDINGS: Limitations: Motion artifact - mild. Lower thorax: Mild peripheral atelectasis/scarring. Mild mucous plugging RIGHT lower lobe. ABDOMEN: Liver: Unremarkable. No mass. Gallbladder and bile ducts: No calcified stones. No ductal dilation. Pancreas: No ductal dilation. No mass. Spleen: No splenomegaly. Adrenals: No mass. Kidneys and ureters: No mass. Bilateral extrarenal pelves. No hydronephrosis. Stomach and bowel: Apparent mild mural thickening of ascending, transverse, descending, sigmoid colon. No associated inflammatory stranding. No obstruction. Appendix: Normal caliber. No inflammation. PELVIS: Bladder: Unremarkable. Reproductive: Unremarkable as visualized. ABDOMEN and PELVIS: Intraperitoneal space: No significant fluid collection. No free air. Bones/joints: Mild degenerative changes of spine. No acute fracture. Soft tissues: Unremarkable. Vasculature: Minimal atherosclerotic disease. No aneurysm. Lymph nodes: No pathologically enlarged lymph nodes. IMPRESSION: 1. Possible colitis. Clinical correlation is needed. 2. Incidental/non-acute findings are described above.
[2016-10-24] MEDS ORDERED: Promethazine/Cod 6.25mg-10mg/5ml Syr UD PO PRN (21:51)
[2016-10-25] MEDS: Sodium Chloride 0.9% 1,000 ML IV SCH ×2 (06:40→14:43)
[2016-10-25 07:28] LABS: ADD MANUAL DIFF? NO
[2016-10-25 07:33] LABS: BASO # 0.01 K/mm3 (0.0-2.0); BASO % 0.2 % (0.0-3.0); EOS # 0.1 (0.0-0.7); EOS % 1.5 % (1.5-5.0); LYMPH # 1.8 (1.2-3.4); LYMPH % 32.7 % (22.0-35.0); MEAN CELL VOLUME 93.9 fL (80.0-105.0); MEAN PLATELET VOLUME 9.2 fl (7.0-11.0); MONO # 0.4 (0.1-0.6); MONO % 7.6 % (1.0-6.0); PLATELET COUNT 184 10^3/uL (120.0-450.0); RED CELL DISTRIBUTION WIDTH 12.8 % (11.5-14.5); WHITE BLOOD COUNT 5.5 10^3/ul (4.5-11.0)
[2016-10-25 07:45] LABS: ALB/GLOB RATIO 1.1 (1.1-1.8); ALKALINE PHOSPHATASE 44 U/L (38-133); ALT/SGPT 39 U/L (7-56); AST/SGOT 28 U/L (15-39); BILIRUBIN,TOTAL 0.4 mg/dL (0.2-1.3); BLOOD UREA NITROGEN 5 mg/dL (7-21); CALCIUM 8.3 mg/dL (8.4-10.5); CARBON DIOXIDE 24 mmol/L (21-33); CHLORIDE 111 mmol/L (95-110); GFR AFRICAN-AMERICAN > 60; GLUCOSE,RANDOM 82 mg/dL (70-110); POTASSIUM 3.4 mmol/L (3.6-5.0); SODIUM 142 mmol/L (132-148); TOTAL PROTEIN 6.3 g/dL (5.8-8.3)
[2016-10-25] MEDS: Pantoprazole 40 mg EC Tab PO SCH (09:39)
[2016-10-25] MEDS: levoFLOXacin 750 mg in D5W 150 ML BAG IVPB SCH (09:44)
--- NOTE | 2016-10-25 10:06 | CARD ---
APPROVED REPORT EKG Measurement Heart [id number] <Conclusion> Sinus tachycardia No change except the rate is faster
[2016-10-25] MEDS ORDERED: Potassium Chloride 20 mEq ER Tab PO ONE (11:04)
--- NOTE | 2016-10-25 11:07 | CP.PCM.PN ---
<Benson Huerta - Last Filed: 10/25/16 11:16> Subjective - Date & Time of Evaluation Date of Evaluation: 10/25/16 Time of Evaluation: 11:05 - Subjective Subjective: Medicine progress note. Attending: Dr. Fountain Pt seen and examined at bedside. No acute distress. Pt does complain of non productive cough. She has no appetite currently, will sometimes have chest discomfort. No fevers, will change diet to clear liquid. Objective - Vital Signs/Intake and Output Vital Signs (last 24 hours): Temp Pulse Resp BP Pulse Ox 97.6 F 67 18 107/68 100 10/25/16 06:00 10/25/16 06:00 10/25/16 06:00 10/25/16 06:00 10/25/16 06:00 Intake and Output: 10/25/16 10/25/16 06:59 18:59 Intake Total 1140 Balance 1140 - Medications Medications: Current Medications Acetaminophen (Tylenol 325mg Tab) 650 mg PO Q6H PRN PRN Reason: Fever >100.4 F Last Admin: 10/25/16 00:17 Dose: 650 mg Albuterol/Ipratropium (Duoneb 3 Mg/0.5 Mg (3 Ml) Ud) 3 ml IH Q6H PRN PRN Reason: Shortness of Breath Atenolol (Tenormin) 12.5 mg PO BID [facility] Last Admin: 10/25/16 09:43 Dose: 12.5 mg Atorvastatin Calcium (Lipitor) 10 mg PO DIN [facility] Sodium Chloride (Sodium Chloride 0.9%) 1,000 mls @ 75 mls/hr IV .[id number] [facility] Metronidazole (Flagyl) 500 mg in 100 mls @ 100 mls/hr IVPB Q8 ELISEO PRN Reason: Protocol Levofloxacin/Dextrose (Levaquin 750mg) 750 mg IVPB DAILY [facility] Last Admin: 10/25/16 09:44 Dose: 750 mg Morphine Sulfate (Morphine) 3 mg IVP Q3H PRN PRN Reason: Pain, severe (8-10) Ondansetron HCl (Zofran Inj) 4 mg IVP Q6H PRN PRN Reason: Nausea/Vomiting Last Admin: 10/25/16 00:17 Dose: 4 mg Pantoprazole Sodium (Protonix Ec Tab) 40 mg PO DAILY [facility] Last Admin: 10/25/16 09:39 Dose: 40 mg Potassium Chloride (K-Dur 20 Meq Er Tab) 20 meq PO ONCE ONE Stop: 10/25/16 11:05 Promethazine HCl/Codeine (Phenergan/Codeine Oral Syrup) 5 ml PO Q6H PRN PRN Reason: Cough Tenofovir Disoproxil Fumarate (Viread) 300 mg PO DAILY [facility] Last Admin: 10/25/16 09:39 Dose: 300 mg - Labs Labs: 10/25/16 07:26 10/25/16 07:26 PT 10.2 Seconds (9.9-11.8) 10/24/16 16:45 INR 0.94 (0.93-1.08) 10/24/16 16:45 APTT 25.9 Seconds (23.7-30.8) 10/24/16 16:45 - Constitutional Appears: Non-toxic, No Acute Distress - Head Exam Head Exam: ATRAUMATIC, NORMAL INSPECTION, NORMOCEPHALIC - Eye Exam Eye Exam: EOMI - ENT Exam ENT Exam: Mucous Membranes Moist - Neck Exam Neck Exam: Full ROM, Normal Inspection - Respiratory Exam Respiratory Exam: Rhonchi, Wheezes. absent: Respiratory Distress - Cardiovascular Exam Cardiovascular Exam: +S1, +S2 - GI/Abdominal Exam GI & Abdominal Exam: Soft, Tenderness, Normal Bowel Sounds Additional comments: Moderate Tenderness in epigastric area. - Extremities Exam Extremities Exam: Full ROM, Normal Inspection - Back Exam Back Exam: NORMAL INSPECTION - Neurological Exam Neurological Exam: Alert, Awake, Oriented x3 - Psychiatric Exam Psychiatric exam: Flat Affect - Skin Skin Exam: Dry, Intact, Normal Color, Warm Assessment and Plan - Assessment and Plan (Free Text) Assessment: This is a 66 yo female with past medical hx of HTN, COPD, OA, hepatitis B presenting with cc of epigastric/abd pain with vomiting 1. Abdominal pain secondary to colitis -continue morphine 3 q 3 -continue NS 100 cc/hr -ct abdomen/pelvis shows colitis with ascending transverse, descending, sigmoid involvement -will add flagyl tid IV -blood, urine, sputum cultures pending -dc tele -due to some chest discomfort, will f/u cardiac enzymes as well 2. Cystitis/UTI -continue levaquin 750 mg daily 3. COPD -continue duonebs q 6 4. hx of Hep B -tenofovir 300 daily 5. hx of HLD -continue lipitor 10 daily 6. hx of HTN -continue atenolol 12.5 bid 7. GI/DVT ppx -zofran 4 q 6 -protonix [address] Fountain <Silvana Fountain - Last Filed: 10/25/16 13:34> Objective - Vital Signs/Intake and Output Vital Signs (last 24 hours): Temp Pulse Resp BP Pulse Ox 98.6 F 82 18 108/67 100 10/25/16 12:00 10/25/16 12:00 10/25/16 12:00 10/25/16 12:00 10/25/16 06:00 - Medications Medications: Current Medications Acetaminophen (Tylenol 325mg Tab) 650 mg PO Q6H PRN PRN Reason: Fever >100.4 F Last Admin: 10/25/16 00:17 Dose: 650 mg Albuterol/Ipratropium (Duoneb 3 Mg/0.5 Mg (3 Ml) Ud) 3 ml IH Q6H PRN PRN Reason: Shortness of Breath Arformoterol Tartrate (Brovana) 15 mcg IH [id number] [facility] Atenolol (Tenormin) 12.5 mg PO BID [facility] Last Admin: 10/25/16 09:43 Dose: 12.5 mg Atorvastatin Calcium (Lipitor) 10 mg PO DIN [facility] Budesonide (Pulmicort Respules) 0.25 mg IH [id number] [facility] Sodium Chloride (Sodium Chloride 0.9%) 1,000 mls @ 75 mls/hr IV .[id number] [facility] Metronidazole (Flagyl) 500 mg in 100 mls @ 100 mls/hr IVPB Q8 ELISEO PRN Reason: Protocol Levofloxacin/Dextrose (Levaquin 750mg) 750 mg IVPB DAILY [facility] Last Admin: 10/25/16 09:44 Dose: 750 mg Montelukast Sodium (Singulair) 10 mg PO HS [facility] Morphine Sulfate (Morphine) 3 mg IVP Q3H PRN PRN Reason: Pain, severe (8-10) Last Admin: 10/25/16 11:46 Dose: 3 mg Ondansetron HCl (Zofran Inj) 4 mg IVP Q6H PRN PRN Reason: Nausea/Vomiting Last Admin: 10/25/16 00:17 Dose: 4 mg Pantoprazole Sodium (Protonix Ec Tab) 40 mg PO DAILY [facility] Last Admin: 10/25/16 09:39 Dose: 40 mg Tenofovir Disoproxil Fumarate (Viread) 300 mg PO DAILY [facility] Last Admin: 10/25/16 09:39 Dose: 300 mg - Labs Labs: PT 10.2 Seconds (9.9-11.8) 10/24/16 16:45 INR 0.94 (0.93-1.08) 10/24/16 16:45 APTT 25.9 Seconds (23.7-30.8) 10/24/16 16:45 Attending/Attestation - Attestation I have personally seen and examined this patient.: Yes I have fully participated in the care of the patient.: Yes I have reviewed all pertinent clinical information, including history, physical exam and plan: Yes Notes (Text): 10/25/16 13:29 Patient seen and examined at bedside. Danish speaking and translation used. She reports two primary complaints, abdominal pain which has been ongoing for 7- 10 days but she feels slightly better today morning. Reports one episode of diarrhea and 1 vomiting at home. Secondly, she has been experiencing ongoing cough with some difficulty breathing for few weeks. She felt warm and sweaty at home but did not record her temperature.Admits to poor appetite. Overall poor historian. Plan to re-start her COPD medications, widen her empiric antibiotic coverage to cover and GI source and quintanilla-culture her as well. Previous admissions and notes reviewed. Repeat CT Chest with contrast, maintain aspiration precautions. Obtain GI input considering her ongoing abdominal symptoms with colitis on imaging and recent history of foreign body ingestion as well. Reviewed and agree with the plan outlined by the resident.
[2016-10-25] MEDS: metroNIDAZOLE IV 500 mg/100 ml 500 MG/100 ML BAG IVPB SCH ×2 (14:42→21:02)
[2016-10-25] MEDS ORDERED: Iodixanol 320 MG/ML 100 ML BOTTLE IV ONE (17:38)
[2016-10-25] MEDS: Arformoterol 15 mcg/2 ml Inh Sol IH SCH (20:12)
[2016-10-25] MEDS: Budesonide 0.25 mg/2 ml Inhal Susp UD IH SCH (20:12)
[2016-10-26] MEDS: Sodium Chloride 0.9% 1,000 ML IV SCH ×2 (00:47→18:05)
[2016-10-26] MEDS: metroNIDAZOLE IV 500 mg/100 ml 500 MG/100 ML BAG IVPB SCH ×2 (05:00→13:01)
[2016-10-26 06:21] LABS: ADD MANUAL DIFF? NO
[2016-10-26 06:30] LABS: BASO # 0.02 K/mm3 (0.0-2.0); BASO % 0.3 % (0.0-3.0); EOS # 0.1 (0.0-0.7); EOS % 0.8 % (1.5-5.0); GRAN # 3.66 (1.4-6.5); GRAN % 58.9 % (50.0-68.0); HEMATOCRIT 35.4 % (36.0-48.0); LYMPH % 31.6 % (22.0-35.0); MEAN CELL VOLUME 93.4 fL (80.0-105.0); MEAN CORPUSCULAR HEMOGLOBIN 31.1 pg (25.0-35.0); MEAN CORPUSCULAR HGB CONC 33.3 g/dl (31.0-37.0); MEAN PLATELET VOLUME 9.4 fl (7.0-11.0); MONO # 0.5 (0.1-0.6); MONO % 8.4 % (1.0-6.0); PLATELET COUNT 179 10^3/uL (120.0-450.0); RED CELL DISTRIBUTION WIDTH 12.7 % (11.5-14.5); WHITE BLOOD COUNT 6.2 10^3/ul (4.5-11.0)
[2016-10-26 07:01] LABS: ALB/GLOB RATIO 1.1 (1.1-1.8); ALKALINE PHOSPHATASE 40 U/L (38-133); ALT/SGPT 41 U/L (7-56); AST/SGOT 37 U/L (15-39); BILIRUBIN,TOTAL 0.6 mg/dL (0.2-1.3); BLOOD UREA NITROGEN 6 mg/dL (7-21); CALCIUM 8.7 mg/dL (8.4-10.5); CARBON DIOXIDE 23 mmol/L (21-33); CHLORIDE 109 mmol/L (98-107); GFR AFRICAN-AMERICAN > 60; GLUCOSE,RANDOM 79 mg/dL (70-110); MAGNESIUM 1.8 mg/dL (1.7-2.2); PHOSPHOROUS 2.3 mg/dL (2.5-4.5); POTASSIUM 3.6 mmol/L (3.6-5.0); SODIUM 138 mmol/L (132-148)
[2016-10-26] MEDS: Budesonide 0.25 mg/2 ml Inhal Susp UD IH SCH ×2 (08:21→20:39)
[2016-10-26] MEDS: Arformoterol 15 mcg/2 ml Inh Sol IH SCH ×2 (08:21→20:39)
--- NOTE | 2016-10-26 08:34 | CT ---
PROCEDURE: CT Chest with contrast HISTORY: cough, dyspnea COMPARISON: None. TECHNIQUE: Contiguous axial images were obtained through the chest with intravenous contrast enhancement. Sagittal and coronal reconstructions were performed. IV contrast: Radiation dose (DLP): mGy-cm. This CT exam was performed using one or more of the following dose reduction techniques: Automated exposure control, adjustment of the mA and/or kV according to patient size, and/or use of iterative reconstruction technique. FINDINGS: LUNGS: Minimal bibasilar pleural effusions, right greater than left with scattered atelectatic changes, right greater than left with an 8 millimeter pleural based nodule along the right lateral lung base. Scattered emphysema. MEDIASTINUM: Unremarkable thoracic aorta. No aneurysm or dissection. Normal sized heart. Main pulmonary artery unremarkable. No vascular congestion. No lymphadenopathy. PLEURA: See above. BONES: No fracture. No destructive lesion. UPPER ABDOMEN: Grossly unremarkable. OTHER FINDINGS: None. IMPRESSION: No evidence of pulmonary embolism. Small bilateral pleural effusions with subsegmental atelectatic changes and an 8 millimeter pleural based nodule in the right lateral lung base. Recommend six-month CT scan chest followup.
[2016-10-26] MEDS ORDERED: Potassium & Sodium Phosphate PO ONE (08:51)
[2016-10-26] MEDS: Pantoprazole 40 mg EC Tab PO SCH (09:23)
[2016-10-26] MEDS ORDERED: guaiFENesin 100 mg/5 ml Syrup UD PO PRN (09:24)
[2016-10-26] MEDS: levoFLOXacin 750 mg in D5W 150 ML BAG IVPB SCH (09:25)
--- NOTE | 2016-10-26 09:27 | CP.PCM.CON ---
<Claudia Mena - Last Filed: 10/26/16 11:08> History of Present Illness - History of Present Illness History of Present Illness: Gastroenterology Fellow/PGY4 Consult Note 66 year old female with past medical history of COPD, Hyperlipidemia, Hypertension, and chronic Hepatitis B, Genotype C, VL >2million 04/2016, prior noncompliance, and recent re-initiation of Tenofovir on 10/15/16 after recent discharge 10/16/16 for abdominal pain with GI consultation and diagnosis of fish bone ingestion without bowel perforation, and repeat CT A/P confirming evacuation of most of the bones. Patient is presenting with similar diffuse, constant, abdominal pain, pain scale 10/10 on admission, currently improved to 7 /10. Associated two food vomitus episodes on day prior to admission. Denies diarrhea, constipation, fever, chill, sweats, hematochezia, or hematemesis. Notes two small, soft, formed stools yesterday. Tolerating clear liquids. Prior EGD 02/2010 showed mild chronic Gastritis, H. pylori negative. No prior colonoscopy. Family-denies colon cancer, stomach cancer Social- 05/18 ppd x >30 years, quit 7-8 years ago, denies alcohol or illicit drug use Surgery- none Review of Systems - Review of Systems Review of Systems: A 12-point review of systems negative except for as above Past Patient History - Infectious Disease Hx of Infectious Diseases: None - Tetanus Immunizations Tetanus Immunization: Unknown - Past Medical History & Family History Past Medical History?: Yes - Past Social History Smoking Status: Former Smoker - CARDIAC Hx Cardiac Disorders: No - PULMONARY Hx Respiratory Disorders: Yes Hx Chronic Obstructive Pulmonary Disease (COPD): Yes - NEUROLOGICAL Hx Neurological Disorder: No - HEENT Hx HEENT Problems: No - RENAL Hx Chronic Kidney Disease: Yes (kidney stones) - ENDOCRINE/METABOLIC Hx Endocrine Disorders: No - HEMATOLOGICAL/ONCOLOGICAL Hx Blood Disorders: Yes Hx Hepatitis B: Yes - INTEGUMENTARY Hx Dermatological Problems: No - MUSCULOSKELETAL/RHEUMATOLOGICAL Hx Musculoskeletal Disorders: Yes Hx Back Pain: Yes Hx Falls: No - GASTROINTESTINAL Hx Gastrointestinal Disorders: No - GENITOURINARY/GYNECOLOGICAL Hx Genitourinary Disorders: No - PSYCHIATRIC Hx Psychophysiologic Disorder: No - SURGICAL HISTORY Hx Surgeries: No - ANESTHESIA Hx Anesthesia Reactions: No Hx Malignant Hyperthermia: No Meds Allergies/Adverse Reactions: Allergies Allergy/AdvReac Type Severity Reaction Status Date / Time ceftriaxone Allergy RASH Verified 10/24/16 16:33 - Medications Medications: Current Medications Acetaminophen (Tylenol 325mg Tab) 650 mg PO Q6H PRN PRN Reason: Fever >100.4 F Last Admin: 10/25/16 00:17 Dose: 650 mg Albuterol/Ipratropium (Duoneb 3 Mg/0.5 Mg (3 Ml) Ud) 3 ml IH Q6H PRN PRN Reason: Shortness of Breath Arformoterol Tartrate (Brovana) 15 mcg IH [id number] [facility] Last Admin: 10/26/16 08:21 Dose: 15 mcg Atenolol (Tenormin) 12.5 mg PO BID [facility] Last Admin: 10/25/16 17:48 Dose: 12.5 mg Atorvastatin Calcium (Lipitor) 10 mg PO DIN [facility] Last Admin: 10/25/16 17:48 Dose: 10 mg Budesonide (Pulmicort Respules) 0.25 mg IH [id number] [facility] Last Admin: 10/26/16 08:21 Dose: 0.25 mg Sodium Chloride (Sodium Chloride 0.9%) 1,000 mls @ 75 mls/hr IV .[id number] [facility] Last Admin: 10/26/16 00:47 Dose: 75 mls/hr Metronidazole (Flagyl) 500 mg in 100 mls @ 100 mls/hr IVPB Q8 ELISEO PRN Reason: Protocol Last Admin: 10/26/16 05:00 Dose: 100 mls/hr Levofloxacin/Dextrose (Levaquin 750mg) 750 mg IVPB DAILY [facility] Last Admin: 10/25/16 09:44 Dose: 750 mg Montelukast Sodium (Singulair) 10 mg PO HS [facility] Last Admin: 10/25/16 21:02 Dose: 10 mg Morphine Sulfate (Morphine) 3 mg IVP Q3H PRN PRN Reason: Pain, severe (8-10) Last Admin: 10/25/16 11:46 Dose: 3 mg Ondansetron HCl (Zofran Inj) 4 mg IVP Q6H PRN PRN Reason: Nausea/Vomiting Last Admin: 10/25/16 00:17 Dose: 4 mg Pantoprazole Sodium (Protonix Ec Tab) 40 mg PO DAILY [facility] Last Admin: 06/11/17 09:39 Dose: 40 mg Tenofovir Disoproxil Fumarate (Viread) 300 mg PO DAILY [facility] Last Admin: 10/25/16 09:39 Dose: 300 mg Physical Exam - Constitutional Appears: Non-toxic, No Acute Distress - Head Exam Head Exam: ATRAUMATIC, NORMOCEPHALIC - Eye Exam Eye Exam: EOMI, PERRL Pupil Exam: PERRL. absent: Miosis, Mydriatic - ENT Exam ENT Exam: Mucous Membranes Moist, Normal Oropharynx - Neck Exam Neck exam: Positive for: Full Rom, Normal Inspection - Respiratory Exam Respiratory Exam: Clear to Auscultation Bilateral. absent: Rales, Rhonchi, Wheezes - Cardiovascular Exam Cardiovascular Exam: RRR, +S1, +S2. absent: Gallop, Rubs - GI/Abdominal Exam GI & Abdominal Exam: Normal Bowel Sounds, Soft, Tenderness. absent: Distended, Firm, Guarding, Organomegaly, Rebound, Rigid Additional comments: diffuse discomfort to palpation - Extremities Exam Extremities exam: Positive for: full ROM. Negative for: pedal edema - Neurological Exam Neurological exam: Alert - Psychiatric Exam Psychiatric exam: Normal Affect, Normal Mood - Skin Skin Exam: Dry, Intact, Normal Color, Warm Results - Vital Signs Recent Vital Signs: Last Vital Signs Temp 98.8 F 10/26/16 05:23 Pulse 67 10/26/16 05:23 Resp 20 10/26/16 05:23 BP 106/64 10/26/16 05:23 Pulse Ox 98 10/26/16 05:23 - Labs Result Diagrams: 10/26/16 05:30 10/26/16 05:30 Labs: Laboratory Results - last 24 hr 10/25/16 10/26/16 10/26/16 17:50 05:30 05:30 WBC 6.2 RBC 3.79 Hgb 11.8 L Hct 35.4 L MCV 93.4 MCH 31.1 MCHC 33.3 RDW 12.7 Plt Count 179 MPV 9.4 Gran % 58.9 Lymph % (Auto) 31.6 Jewell % (Auto) 8.4 H Eos % (Auto) 0.8 L Baso % (Auto) 0.3 Gran # 3.66 Lymph # 2.0 Jewell # 0.5 Eos # 0.1 Baso # 0.02 Sodium 138 Potassium 3.6 Chloride 109 H Carbon Dioxide 23 Anion Gap 10 BUN 6 L Creatinine 0.6 Est GFR ( Amer) > 60 Est GFR (Non-Af Amer) > 60 Random Glucose 79 Calcium 8.7 Phosphorus 2.3 L Magnesium 1.8 Total Bilirubin 0.6 AST 37 ALT 41 Alkaline Phosphatase 40 Troponin I < 0.01 D Total Protein 6.0 Albumin 3.1 Globulin 2.9 Albumin/Globulin Ratio 1.1 Assessment & Plan - Assessment and Plan (Free Text) Assessment: 66 year old female with past medical history of COPD, Hyperlipidemia, Hypertension, and chronic Hepatitis B, Genotype C, VL >2million 04/2016, prior noncompliance, and recent re-initiation of Tenofovir on 10/15/16 after recent discharge 10/16/16 for abdominal pain with GI consultation and diagnosis of fish bone ingestion without bowel perforation, and repeat CT A/P confirming evacuation of most of the bones. Re-admission for similar diffuse abdominal pain with CT A/P IV contrast showing mild mural thickening of ascending, descending, transverse, and sigmoid colon. Active treatment of pancolitis and cystitis. Prior EGD 02/2010 showed mild chronic Gastritis, H. pylori negative. No prior colonoscopy. Plan: >like inflammatory changes secondary to recent ingestion and evacuation of multiple fish bones >rule out infectious diarrhea >Cdiff, stool culture, fecal leukocytes ordered >continue Flagyl >on Levofloxacin- cystitis >serial abdominal exams >will follow clinical course >will benefit from elective outpatient colonoscopy in 6-8 weeks <Lupillo Antoine - Last Filed: 10/26/16 12:07> Meds - Medications Medications: Current Medications Acetaminophen (Tylenol 325mg Tab) 650 mg PO Q6H PRN PRN Reason: Fever >100.4 F Last Admin: 10/25/16 00:17 Dose: 650 mg Albuterol/Ipratropium (Duoneb 3 Mg/0.5 Mg (3 Ml) Ud) 3 ml IH Q6H PRN PRN Reason: Shortness of Breath Arformoterol Tartrate (Brovana) 15 mcg IH [id number] [facility] Last Admin: 10/26/16 08:21 Dose: 15 mcg Atenolol (Tenormin) 12.5 mg PO BID [facility] Last Admin: 10/26/16 09:23 Dose: 12.5 mg Atorvastatin Calcium (Lipitor) 10 mg PO DIN [facility] Last Admin: 10/25/16 17:48 Dose: 10 mg Budesonide (Pulmicort Respules) 0.25 mg IH [id number] [facility] Last Admin: 10/26/16 08:21 Dose: 0.25 mg Guaifenesin (Robitussin) 100 mg PO Q4H PRN PRN Reason: Cough Last Admin: 10/26/16 09:38 Dose: 100 mg Sodium Chloride (Sodium Chloride 0.9%) 1,000 mls @ 75 mls/hr IV .[id number] [facility] Last Admin: 10/26/16 00:47 Dose: 75 mls/hr Metronidazole (Flagyl) 500 mg in 100 mls @ 100 mls/hr IVPB Q8 ELISEO PRN Reason: Protocol Last Admin: 10/26/16 05:00 Dose: 100 mls/hr Levofloxacin (Levaquin) 750 mg PO DAILY [facility] Last Admin: 10/26/16 11:28 Dose: 750 mg Montelukast Sodium (Singulair) 10 mg PO HS [facility] Last Admin: 10/25/16 21:02 Dose: 10 mg Morphine Sulfate (Morphine) 3 mg IVP Q3H PRN PRN Reason: Pain, severe (8-10) Last Admin: 10/25/16 11:46 Dose: 3 mg Ondansetron HCl (Zofran Inj) 4 mg IVP Q6H PRN PRN Reason: Nausea/Vomiting Last Admin: 10/25/16 00:17 Dose: 4 mg Pantoprazole Sodium (Protonix Ec Tab) 40 mg PO DAILY [facility] Last Admin: 10/26/16 09:23 Dose: 40 mg Tenofovir Disoproxil Fumarate (Viread) 300 mg PO DAILY [facility] Last Admin: 10/26/16 09:23 Dose: 300 mg Results - Vital Signs Recent Vital Signs: Last Vital Signs Temp 98.8 F 10/26/16 05:23 Pulse 67 10/26/16 09:23 Resp 20 10/26/16 05:23 BP 106/64 10/26/16 09:23 Pulse Ox 98 10/26/16 05:23 - Labs Result Diagrams: 10/26/16 05:30 10/26/16 05:30 Labs: Laboratory Results - last 24 hr 10/25/16 10/26/16 10/26/16 17:50 05:30 05:30 WBC 6.2 RBC 3.79 Hgb 11.8 L Hct 35.4 L MCV 93.4 MCH 31.1 MCHC 33.3 RDW 12.7 Plt Count 179 MPV 9.4 Gran % 58.9 Lymph % (Auto) 31.6 Jewell % (Auto) 8.4 H Eos % (Auto) 0.8 L Baso % (Auto) 0.3 Gran # 3.66 Lymph # 2.0 Jewell # 0.5 Eos # 0.1 Baso # 0.02 Sodium 138 Potassium 3.6 Chloride 109 H Carbon Dioxide 23 Anion Gap 10 BUN 6 L Creatinine 0.6 Est GFR ( Amer) > 60 Est GFR (Non-Af Amer) > 60 Random Glucose 79 Calcium 8.7 Phosphorus 2.3 L Magnesium 1.8 Total Bilirubin 0.6 AST 37 ALT 41 Alkaline Phosphatase 40 Troponin I < 0.01 D Total Protein 6.0 Albumin 3.1 Globulin 2.9 Albumin/Globulin Ratio 1.1 Attending/Attestation - Attestation I have personally seen and examined this patient.: Yes I have fully participated in the care of the patient.: Yes I have reviewed all pertinent clinical information: Yes Notes (Text): 10/26/16 12:04 66 year old female with h/o COPD, HTN, HLD, HBV recently admitted with abdominal pain after ingestion of fish bones, now readdmitted with pain. 1. Abdominal pain 2. Colitis 3. Chronic hepatitis B Plan: -colitis possibly 2/2 foreign body, which appears to have passed -r/o infectious colitis with stool studies -continue antibiotics -hydration -outpatient colonoscopy in 6-8 weeks -continue tenofovir for hbv
[2016-10-26] MEDS ORDERED: levoFLOXacin 750 MG TAB PO SCH (10:00)
--- NOTE | 2016-10-26 11:01 | CP.PCM.PN ---
<Benson Huerta - Last Filed: 10/26/16 11:46> Subjective - Date & Time of Evaluation Date of Evaluation: 10/26/16 Time of Evaluation: 11:00 - Subjective Subjective: Med progress note. Attending: Dr. De La Cruz Pt seen and examined at bedside. No acute distress. Pt still has cough, but no rhonchi on exam. Pt only speaks afghan. No fevers, chills, vomiting, diarrhea. GI work up in progress. Objective - Vital Signs/Intake and Output Vital Signs (last 24 hours): Temp Pulse Resp BP Pulse Ox 98.8 F 67 20 106/64 98 10/26/16 05:23 10/26/16 09:23 10/26/16 05:23 10/26/16 09:23 10/26/16 05:23 Intake and Output: 10/26/16 10/26/16 06:59 18:59 Intake Total 1530 Output Total 3 Balance 1527 - Medications Medications: Current Medications Acetaminophen (Tylenol 325mg Tab) 650 mg PO Q6H PRN PRN Reason: Fever >100.4 F Last Admin: 10/25/16 00:17 Dose: 650 mg Albuterol/Ipratropium (Duoneb 3 Mg/0.5 Mg (3 Ml) Ud) 3 ml IH Q6H PRN PRN Reason: Shortness of Breath Arformoterol Tartrate (Brovana) 15 mcg IH [id number] [facility] Last Admin: 10/26/16 08:21 Dose: 15 mcg Atenolol (Tenormin) 12.5 mg PO BID [facility] Last Admin: 10/26/16 09:23 Dose: 12.5 mg Atorvastatin Calcium (Lipitor) 10 mg PO DIN [facility] Last Admin: 10/25/16 17:48 Dose: 10 mg Budesonide (Pulmicort Respules) 0.25 mg IH [id number] [facility] Last Admin: 10/26/16 08:21 Dose: 0.25 mg Guaifenesin (Robitussin) 100 mg PO Q4H PRN PRN Reason: Cough Last Admin: 10/26/16 09:38 Dose: 100 mg Sodium Chloride (Sodium Chloride 0.9%) 1,000 mls @ 75 mls/hr IV .[id number] [facility] Last Admin: 10/26/16 00:47 Dose: 75 mls/hr Metronidazole (Flagyl) 500 mg in 100 mls @ 100 mls/hr IVPB Q8 ELISEO PRN Reason: Protocol Last Admin: 10/26/16 05:00 Dose: 100 mls/hr Levofloxacin (Levaquin) 750 mg PO DAILY [facility] Montelukast Sodium (Singulair) 10 mg PO HS [facility] Last Admin: 10/25/16 21:02 Dose: 10 mg Morphine Sulfate (Morphine) 3 mg IVP Q3H PRN PRN Reason: Pain, severe (8-10) Last Admin: 10/25/16 11:46 Dose: 3 mg Ondansetron HCl (Zofran Inj) 4 mg IVP Q6H PRN PRN Reason: Nausea/Vomiting Last Admin: 10/25/16 00:17 Dose: 4 mg Pantoprazole Sodium (Protonix Ec Tab) 40 mg PO DAILY [facility] Last Admin: 10/26/16 09:23 Dose: 40 mg Tenofovir Disoproxil Fumarate (Viread) 300 mg PO DAILY [facility] Last Admin: 10/26/16 09:23 Dose: 300 mg - Labs Labs: 10/26/16 05:30 10/26/16 05:30 PT 10.2 Seconds (9.9-11.8) 10/24/16 16:45 INR 0.94 (0.93-1.08) 10/24/16 16:45 APTT 25.9 Seconds (23.7-30.8) 10/24/16 16:45 - Constitutional Appears: Non-toxic, No Acute Distress - Head Exam Head Exam: ATRAUMATIC, NORMAL INSPECTION, NORMOCEPHALIC - Eye Exam Eye Exam: EOMI - ENT Exam ENT Exam: Mucous Membranes Moist - Neck Exam Neck Exam: Full ROM, Normal Inspection - Respiratory Exam Respiratory Exam: NORMAL BREATHING PATTERN. absent: Rales, Rhonchi, Respiratory Distress - Cardiovascular Exam Cardiovascular Exam: +S1, +S2 - GI/Abdominal Exam GI & Abdominal Exam: Tenderness Additional comments: Tenderness epigastric area - Extremities Exam Extremities Exam: Full ROM, Normal Inspection - Back Exam Back Exam: NORMAL INSPECTION - Neurological Exam Neurological Exam: Alert, Awake - Psychiatric Exam Psychiatric exam: Flat Affect - Skin Skin Exam: Dry, Intact, Normal Color, Warm Assessment and Plan - Assessment and Plan (Free Text) Assessment: This is a 66 yo female with past medical hx of HTN, COPD, OA, hepatitis B presenting with cc of epigastric/abd pain with vomiting 1. Abdominal pain secondary to colitis -continue morphine 3 q 3 -continue NS 75 cc/hr -ct abdomen/pelvis shows colitis with ascending transverse, descending, sigmoid involvement -will add flagyl tid IV -blood, urine, sputum cultures pending -dc tele -due to some chest discomfort, will f/u cardiac enzymes as well -cardiac enzymes have been neg -will f/u stool studies including c diff -will benefit from outpatient colonoscopy 2. Cystitis/UTI -continue levaquin 750 mg daily>> changed to PO 3. COPD -continue duonebs q 6 -will add brovana -continue pulmicort -continue singulair 10 daily -chest ct shows small b/l pleural effusions, nodule (please see full report) 4. hx of Hep B -tenofovir 300 daily 5. hx of HLD -continue lipitor 10 daily 6. hx of HTN -continue atenolol 12.5 bid 7. GI/DVT ppx -zofran 4 q 6 -protonix [address] De La Cruz <Joel De La Cruz - Last Filed: 10/27/16 17:15> Objective - Vital Signs/Intake and Output Vital Signs (last 24 hours): Temp Pulse Resp BP Pulse Ox 98 F 73 18 110/67 96 10/27/16 16:00 10/27/16 16:00 10/27/16 16:00 10/27/16 16:00 10/27/16 16:00 Intake and Output: 10/27/16 10/27/16 06:59 18:59 Intake Total 2019 300 Balance 2019 300 - Medications Medications: Current Medications Acetaminophen (Tylenol 325mg Tab) 650 mg PO Q6H PRN PRN Reason: Fever >100.4 F Last Admin: 10/26/16 13:04 Dose: 650 mg Albuterol/Ipratropium (Duoneb 3 Mg/0.5 Mg (3 Ml) Ud) 3 ml IH Q6H PRN PRN Reason: Shortness of Breath Arformoterol Tartrate (Brovana) 15 mcg IH [id number] [facility] Last Admin: 10/27/16 08:26 Dose: 15 mcg Atenolol (Tenormin) 12.5 mg PO BID [facility] Last Admin: 10/27/16 10:04 Dose: 12.5 mg Atorvastatin Calcium (Lipitor) 10 mg PO DIN [facility] Last Admin: 10/26/16 18:04 Dose: 10 mg Budesonide (Pulmicort Respules) 0.25 mg IH [id number] [facility] Last Admin: 10/27/16 08:30 Dose: 0.25 mg Guaifenesin (Robitussin) 100 mg PO Q4H PRN PRN Reason: Cough Last Admin: 10/26/16 09:38 Dose: 100 mg Sodium Chloride (Sodium Chloride 0.9%) 1,000 mls @ 100 mls/hr IV .Q10H [facility] Last Admin: 10/27/16 05:57 Dose: 100 mls/hr Metronidazole (Flagyl) 500 mg PO Q8 ELISEO PRN Reason: Protocol Last Admin: 10/27/16 14:13 Dose: 500 mg Montelukast Sodium (Singulair) 10 mg PO HS [facility] Last Admin: 10/26/16 22:16 Dose: 10 mg Morphine Sulfate (Morphine) 3 mg IVP Q3H PRN PRN Reason: Pain, severe (8-10) Last Admin: 10/25/16 11:46 Dose: 3 mg Ondansetron HCl (Zofran Inj) 4 mg IVP Q6H PRN PRN Reason: Nausea/Vomiting Last Admin: 10/25/16 00:17 Dose: 4 mg Pantoprazole Sodium (Protonix Ec Tab) 40 mg PO DAILY [facility] Last Admin: 10/27/16 10:04 Dose: 40 mg Sucralfate (Carafate Oral Susp) 1 gm PO BID [facility] Last Admin: 10/27/16 10:09 Dose: 1 gm Tenofovir Disoproxil Fumarate (Viread) 300 mg PO DAILY [facility] Last Admin: 10/27/16 10:09 Dose: 300 mg - Labs Labs: 10/27/16 06:00 10/27/16 06:59 PT 10.2 Seconds (9.9-11.8) 10/24/16 16:45 INR 0.94 (0.93-1.08) 10/24/16 16:45 APTT 25.9 Seconds (23.7-30.8) 10/24/16 16:45 Attending/Attestation - Attestation I have personally seen and examined this patient.: Yes I have fully participated in the care of the patient.: Yes I have reviewed all pertinent clinical information, including history, physical exam and plan: Yes Notes (Text): 10/27/16 17:13 Attending note; Patient seen and examined with resident. Patient is a 66-year-old female with a history of hepatitis B and treatment, chronic gastritis, COPD is admitted with abdominal pain. CT showed mild colitis. C. difficile is positive. Started on by mouth Flagyl. COPD; stable. Needs follow-up as outpatient. Case discussed with GI in detail. Possible discharge home if clinically stable.
[2016-10-27] MEDS: Sodium Chloride 0.9% 1,000 ML IV SCH (05:57)
--- NOTE | 2016-10-27 06:59 | CP.PCM.PN ---
<Jaquelin Riojas - Last Filed: 10/27/16 11:51> Subjective - Date & Time of Evaluation Date of Evaluation: 10/27/16 Time of Evaluation: 06:57 - Subjective Subjective: GI progress note Pt is seen and examined at bedside. No acute events overnight per nurse. Pres[employer] Benefit Specialist is used to communicate with patient. Patient is noted to have 2 bowel movements overnight loose in nature. She is still complaining of epigastric abdominal pain. Patient is tolerating diet. 12 point ROS are negative except for the above mentioned. Objective - Vital Signs/Intake and Output Vital Signs (last 24 hours): Temp Pulse Resp BP Pulse Ox 98 F 64 19 123/62 98 10/26/16 12:00 10/26/16 18:05 10/26/16 12:00 10/26/16 18:05 10/26/16 05:23 Intake and Output: 10/26/16 10/27/16 18:59 06:59 Intake Total 420 Balance 420 - Medications Medications: Current Medications Acetaminophen (Tylenol 325mg Tab) 650 mg PO Q6H PRN PRN Reason: Fever >100.4 F Last Admin: 10/26/16 13:04 Dose: 650 mg Albuterol/Ipratropium (Duoneb 3 Mg/0.5 Mg (3 Ml) Ud) 3 ml IH Q6H PRN PRN Reason: Shortness of Breath Arformoterol Tartrate (Brovana) 15 mcg IH [id number] [facility] Last Admin: 10/26/16 20:39 Dose: 15 mcg Atenolol (Tenormin) 12.5 mg PO BID [facility] Last Admin: 10/26/16 18:05 Dose: 12.5 mg Atorvastatin Calcium (Lipitor) 10 mg PO DIN [facility] Last Admin: 10/26/16 18:04 Dose: 10 mg Budesonide (Pulmicort Respules) 0.25 mg IH [id number] [facility] Last Admin: 10/26/16 20:39 Dose: 0.25 mg Guaifenesin (Robitussin) 100 mg PO Q4H PRN PRN Reason: Cough Last Admin: 10/26/16 09:38 Dose: 100 mg Sodium Chloride (Sodium Chloride 0.9%) 1,000 mls @ 100 mls/hr IV .Q10H [facility] Last Admin: 06/13/17 05:57 Dose: 100 mls/hr Metronidazole (Flagyl) 500 mg PO Q8 [facility] PRN Reason: Protocol Last Admin: 10/27/16 05:55 Dose: 500 mg Montelukast Sodium (Singulair) 10 mg PO HS [facility] Last Admin: 10/26/16 22:16 Dose: 10 mg Morphine Sulfate (Morphine) 3 mg IVP Q3H PRN PRN Reason: Pain, severe (8-10) Last Admin: 10/25/16 11:46 Dose: 3 mg Ondansetron HCl (Zofran Inj) 4 mg IVP Q6H PRN PRN Reason: Nausea/Vomiting Last Admin: 10/25/16 00:17 Dose: 4 mg Pantoprazole Sodium (Protonix Ec Tab) 40 mg PO DAILY [facility] Last Admin: 10/26/16 09:23 Dose: 40 mg Tenofovir Disoproxil Fumarate (Viread) 300 mg PO DAILY [facility] Last Admin: 10/26/16 09:23 Dose: 300 mg - Labs Labs: 10/26/16 05:30 10/26/16 05:30 PT 10.2 Seconds (9.9-11.8) 10/24/16 16:45 INR 0.94 (0.93-1.08) 10/24/16 16:45 APTT 25.9 Seconds (23.7-30.8) 10/24/16 16:45 - Constitutional Appears: Non-toxic, No Acute Distress - Head Exam Head Exam: ATRAUMATIC - ENT Exam ENT Exam: Mucous Membranes Moist - Respiratory Exam Respiratory Exam: Clear to Ausculation Bilateral. absent: Accessory Muscle Use , Rales, Rhonchi, Wheezes, Respiratory Distress - Cardiovascular Exam Cardiovascular Exam: REGULAR RHYTHM, +S1, +S2. absent: Gallop, Rubs, Murmur - GI/Abdominal Exam GI & Abdominal Exam: Soft, Normal Bowel Sounds. absent: Distended, Firm, Guarding, Rigid, Tenderness, Organomegaly - Extremities Exam Extremities Exam: absent: Pedal Edema, Tenderness - Neurological Exam Neurological Exam: Alert, Awake - Skin Skin Exam: Dry, Intact, Normal Color, Warm Assessment and Plan - Assessment and Plan (Free Text) Assessment: 66 year old female with h/o COPD, HTN, HLD, HBV Genotype C currently on tenofovir had recent admission with abdominal pain after ingestion of fish bones on 10/16/16, now re-admitted with diffuse abdominal pain. 1. Pancolitis likely due to recent passage of foreign body vs. c diff infection - C diff antigen positive, toxin negative. Patient on isolation. - WBC count WNL, pt afebrile during admission - Currently on flagyl - IV hydration - Outpatient colonoscopy and endoscopy in 6-8 weeks 2. Chronic hepatitis B - Continue tenofovir 3. Cystitis - UA positive on presentation - Urine cultures negative. Procal is also negative - Currently on levaquin. - Continue management per primary medicine team Case discussed with attending, Dr. Antoine. <Lupillo Antoine - Last Filed: 10/27/16 12:11> Objective - Vital Signs/Intake and Output Vital Signs (last 24 hours): Temp Pulse Resp BP Pulse Ox 97.6 F 78 20 120/78 96 10/27/16 08:32 10/27/16 10:04 10/27/16 08:32 10/27/16 10:04 10/27/16 08:32 Intake and Output: 10/27/16 10/27/16 06:59 18:59 Intake Total 2019 Balance 2020 - Medications Medications: Current Medications Acetaminophen (Tylenol 325mg Tab) 650 mg PO Q6H PRN PRN Reason: Fever >100.4 F Last Admin: 10/26/16 13:04 Dose: 650 mg Albuterol/Ipratropium (Duoneb 3 Mg/0.5 Mg (3 Ml) Ud) 3 ml IH Q6H PRN PRN Reason: Shortness of Breath Arformoterol Tartrate (Brovana) 15 mcg IH [id number] [facility] Last Admin: 10/27/16 08:26 Dose: 15 mcg Atenolol (Tenormin) 12.5 mg PO BID [facility] Last Admin: 10/27/16 10:04 Dose: 12.5 mg Atorvastatin Calcium (Lipitor) 10 mg PO DIN [facility] Last Admin: 10/26/16 18:04 Dose: 10 mg Budesonide (Pulmicort Respules) 0.25 mg IH [id number] [facility] Last Admin: 10/27/16 08:30 Dose: 0.25 mg Guaifenesin (Robitussin) 100 mg PO Q4H PRN PRN Reason: Cough Last Admin: 10/26/16 09:38 Dose: 100 mg Sodium Chloride (Sodium Chloride 0.9%) 1,000 mls @ 100 mls/hr IV .Q10H [facility] Last Admin: 10/27/16 05:57 Dose: 100 mls/hr Metronidazole (Flagyl) 500 mg PO Q8 [facility] PRN Reason: Protocol Last Admin: 10/27/16 05:55 Dose: 500 mg Montelukast Sodium (Singulair) 10 mg PO HS [facility] Last Admin: 10/26/16 22:16 Dose: 10 mg Morphine Sulfate (Morphine) 3 mg IVP Q3H PRN PRN Reason: Pain, severe (8-10) Last Admin: 10/25/16 11:46 Dose: 3 mg Ondansetron HCl (Zofran Inj) 4 mg IVP Q6H PRN PRN Reason: Nausea/Vomiting Last Admin: 10/25/16 00:17 Dose: 4 mg Pantoprazole Sodium (Protonix Ec Tab) 40 mg PO DAILY [facility] Last Admin: 10/27/16 10:04 Dose: 40 mg Sucralfate (Carafate Oral Susp) 1 gm PO BID [facility] Last Admin: 10/27/16 10:09 Dose: 1 gm Tenofovir Disoproxil Fumarate (Viread) 300 mg PO DAILY [facility] Last Admin: 10/27/16 10:09 Dose: 300 mg - Labs Labs: 10/27/16 06:00 10/27/16 06:59 PT 10.2 Seconds (9.9-11.8) 10/24/16 16:45 INR 0.94 (0.93-1.08) 10/24/16 16:45 APTT 25.9 Seconds (23.7-30.8) 10/24/16 16:45 Attending/Attestation - Attestation I have personally seen and examined this patient.: Yes I have fully participated in the care of the patient.: Yes I have reviewed all pertinent clinical information, including history, physical exam and plan: Yes Notes (Text): 10/27/16 12:09 66 year old female with abdominal pain, colitis, and diarrhea. 1. Clostridium difficile diarrhea 2. Colitis 3. Abdominal pain Plan: -agree with treatment for C. diff, with either flagyl or vancomycin for 10-14 days -continue PPI for abdominal pain/dyspepsia -advised to get outpatient egd/colonoscopy in 6-8 weeks -diet as tolerated -ok to discharge from GI standpoint
[2016-10-27 07:16] LABS: ADD MANUAL DIFF? NO; BASO # 0.02 K/mm3 (0.0-2.0); BASO % 0.3 % (0.0-3.0); EOS % 0.5 % (1.5-5.0); GRAN # 3.57 (1.4-6.5); HEMATOCRIT 35.4 % (36.0-48.0); LYMPH # 1.7 (1.2-3.4); LYMPH % 29.6 % (22.0-35.0); MEAN CELL VOLUME 90.1 fL (80.0-105.0); MEAN CORPUSCULAR HEMOGLOBIN 30.5 pg (25.0-35.0); MEAN CORPUSCULAR HGB CONC 33.9 g/dl (31.0-37.0); MEAN PLATELET VOLUME 9.5 fl (7.0-11.0); MONO # 0.4 (0.1-0.6); MONO % 7.6 % (1.0-6.0); PLATELET COUNT 181 10^3/uL (120.0-450.0); RED CELL DISTRIBUTION WIDTH 12.4 % (11.5-14.5); WHITE BLOOD COUNT 5.8 10^3/ul (4.5-11.0)
[2016-10-27 07:45] LABS: ALB/GLOB RATIO 1.1 (1.1-1.8); ALKALINE PHOSPHATASE 38 U/L (38-133); ALT/SGPT 39 U/L (7-56); AST/SGOT 35 U/L (15-39); BILIRUBIN,TOTAL 0.9 mg/dL (0.2-1.3); BLOOD UREA NITROGEN 5 mg/dL (7-21); CALCIUM 8.7 mg/dL (8.4-10.5); CARBON DIOXIDE 22 mmol/L (21-33); CHLORIDE 108 mmol/L (98-107); GFR AFRICAN-AMERICAN > 60; GLUCOSE,RANDOM 75 mg/dL (70-110); MAGNESIUM 1.7 mg/dL (1.7-2.2); PHOSPHOROUS 2.7 mg/dL (2.5-4.5); POTASSIUM 3.4 mmol/L (3.6-5.0); SODIUM 138 mmol/L (132-148); TOTAL PROTEIN 6.1 g/dL (5.8-8.3)
[2016-10-27] MEDS: Arformoterol 15 mcg/2 ml Inh Sol IH SCH (08:26)
[2016-10-27] MEDS: Budesonide 0.25 mg/2 ml Inhal Susp UD IH SCH (08:30)
[2016-10-27 08:34] VITALS: O2SAT 96
[2016-10-27] MEDS ORDERED: Potassium Chloride 20 mEq ER Tab PO ONE (09:54)
[2016-10-27] MEDS: Pantoprazole 40 mg EC Tab PO SCH (10:04)
[2016-10-27] MEDS: Sucralfate 1 gm/10 ml Oral Susp UD PO SCH ×2 (10:09→18:33)
--- NOTE | 2016-10-27 15:21 | CP.PCM.DIS ---
<Benson Huerta - Last Filed: 10/27/16 15:25> Provider - Provider Date of Admission: 10/25/16 12:27 Attending physician: Joel De La Cruz MD Consults: Bri Antoine Time Spent in preparation of Discharge (in minutes): 45 Hospital Course - Lab Results Lab Results: Most Recent Lab Values WBC 5.8 10^3/ul (4.5-11.0) 10/27/16 06:00 RBC 3.93 10^6/uL (3.5-6.1) 10/27/16 06:00 Hgb 12.0 gm/dL (12.0-16.0) 10/27/16 06:00 Hct 35.4 % (36.0-48.0) L 10/27/16 06:00 MCV 90.1 fL (80.0-105.0) 10/27/16 06:00 MCH 30.5 pg (25.0-35.0) 10/27/16 06:00 MCHC 33.9 g/dl (31.0-37.0) 10/27/16 06:00 RDW 12.4 % (11.5-14.5) 10/27/16 06:00 Plt Count 181 10^3/uL (120.0-450.0) 10/27/16 06:00 MPV 9.5 fl (7.0-11.0) 10/27/16 06:00 Gran % 62.0 % (50.0-68.0) 10/27/16 06:00 Lymph % (Auto) 29.6 % (22.0-35.0) 10/27/16 06:00 [place] % (Auto) 7.6 % (1.0-6.0) H 10/27/16 06:00 Eos % (Auto) 0.5 % (1.5-5.0) L 10/27/16 06:00 Baso % (Auto) 0.3 % (0.0-3.0) 10/27/16 06:00 Gran # 3.57 (1.4-6.5) 10/27/16 06:00 Lymph # 1.7 (1.2-3.4) 10/27/16 06:00 [place] # 0.4 (0.1-0.6) 10/27/16 06:00 Eos # 0.0 (0.0-0.7) 10/27/16 06:00 Baso # 0.02 K/mm3 (0.0-2.0) 10/27/16 06:00 PT 10.2 Seconds (9.9-11.8) 10/24/16 16:45 INR 0.94 (0.93-1.08) 10/24/16 16:45 APTT 25.9 Seconds (23.7-30.8) 10/24/16 16:45 D-Dimer, Quantitative 0.29 mg/L FEU (0-0.50) 10/24/16 16:45 pCO2 36 mm/Hg (35-45) 10/24/16 17:45 pO2 61 mm/Hg (30-55) H 10/24/16 20:15 HCO3 19.0 mmol/L (21-28) L 10/24/16 17:45 ABG pH 7.33 (7.35-7.45) L 10/24/16 17:45 ABG Total CO2 20.1 mmol.L (22-28) L 10/24/16 17:45 ABG O2 Saturation 98.5 % (95-98) H 10/24/16 17:45 ABG O2 Content 15.2 ML/dl (15-23) 10/24/16 17:45 ABG Base Excess -6.3 mmol/L (-2.0-3.0) L 10/24/16 17:45 ABG Hemoglobin 11.2 g/dL (11.7-17.4) L 10/24/16 17:45 ABG Carboxyhemoglobin 1.7 % (0.5-1.5) H 10/24/16 17:45 POC ABG HHb (Measured) 1.5 % (0-5) 10/24/16 17:45 ABG Methemoglobin 1.0 % (0.0-3.0) 10/24/16 17:45 ABG O2 Capacity 15.4 mL/dl (16-24) L 10/24/16 17:45 VBG pH 7.35 (7.32-7.43) 10/24/16 20:15 VBG pCO2 42.0 (40-60) 10/24/16 20:15 VBG HCO3 23.2 mmol/l (21-28) 10/24/16 20:15 VBG Total CO2 24.5 mmol.L (22-28) 10/24/16 20:15 VBG O2 Sat (Calc) 94.7 % (40-65) H 10/24/16 20:15 VBG Base Excess -2.4 mmol/L (0.0-2.0) L 10/24/16 20:15 VBG Potassium 3.8 mmol/L (3.6-5.2) 10/24/16 20:15 Hgb O2 Saturation 95.8 % (95.0-98.0) 10/24/16 17:45 Sodium 144.0 mmol/L (132-148) 10/24/16 20:15 Chloride 113.0 mmol/L (98-107) H 10/24/16 20:15 Glucose 111 mg/dl (65-105) H 10/24/16 20:15 Lactate 2.4 mmol/L (0.7-2.1) H 10/24/16 20:15 FiO2 21.0 % 10/24/16 20:15 Sodium 138 mmol/L (132-148) 10/27/16 06:59 Potassium 3.4 mmol/L (3.6-5.0) L 10/27/16 06:59 Chloride 108 mmol/L (98-107) H 10/27/16 06:59 Carbon Dioxide 22 mmol/L (21-33) 10/27/16 06:59 Anion Gap 11 (10-20) 10/27/16 06:59 BUN 5 mg/dL (7-21) L 10/27/16 06:59 Creatinine 0.6 mg/dL (0.5-1.4) 10/27/16 06:59 Est GFR ( Amer) > 60 10/27/16 06:59 Est GFR (Non-Af Amer) > 60 10/27/16 06:59 Random Glucose 75 mg/dL (70-110) 10/27/16 06:59 Calcium 8.7 mg/dL (8.4-10.5) 10/27/16 06:59 Phosphorus 2.7 mg/dL (2.5-4.5) 10/27/16 06:59 Magnesium 1.7 mg/dL (1.7-2.2) 10/27/16 06:59 Total Bilirubin 0.9 mg/dL (0.2-1.3) 10/27/16 06:59 AST 35 U/L (15-39) 10/27/16 06:59 ALT 39 U/L (7-56) 10/27/16 06:59 Alkaline Phosphatase 38 U/L (38-133) 10/27/16 06:59 Lactate Dehydrogenase 500 U/L (333-699) 10/24/16 16:45 Total Creatine Kinase 53 U/L (35-230) 10/24/16 16:45 Troponin I < 0.01 ng/mL D 10/25/16 17:50 C-React Prot High Sens 3.58 mg/L (1.00-3.00) H 10/25/16 11:10 NT-Pro-B Natriuret Pep 29.7 pg/mL (0-450) 10/24/16 16:45 Total Protein 6.1 g/dL (5.8-8.3) 10/27/16 06:59 Albumin 3.2 g/dL (3.0-4.8) 10/27/16 06:59 Globulin 2.9 gm/dL 10/27/16 06:59 Albumin/Globulin Ratio 1.1 (1.1-1.8) 10/27/16 06:59 Lipase 72 U/L (23-300) 10/24/16 16:45 Procalcitonin < 0.05 NG/ML (0.19-0.49) L 10/26/16 09:30 Venous Blood Potassium 3.8 mmol/L (3.6-5.2) 10/24/16 20:15 Urine Color Yellow (YELLOW) 10/24/16 17:50 Urine Appearance Sl cloudy (CLEAR) 10/24/16 17:50 Urine pH 6.5 (4.7-8.0) 10/24/16 17:50 Ur Specific [place] 1.010 (1.005-1.035) 10/24/16 17:50 Urine Protein Negative mg/dL (<30 mg/dL) 10/24/16 17:50 Urine Glucose (UA) Negative mg/dL (NEGATIVE) 10/24/16 17:50 Urine Ketones Negative mg/dL (NEGATIVE) 10/24/16 17:50 Urine Blood Trace-intact (NEGATIVE) H 10/24/16 17:50 Urine Nitrate Negative (NEGATIVE) 10/24/16 17:50 Urine Bilirubin Negative (NEGATIVE) 10/24/16 17:50 Urine Urobilinogen 0.2 E.U./dL (<1 E.U./dL) 10/24/16 17:50 Ur Leukocyte Esterase Large Eamon/uL (NEGATIVE) H 10/24/16 17:50 Urine RBC 2 - 5 /hpf (0-2) 10/24/16 17:50 Urine WBC 15 - 20 /hpf (0-6) 10/24/16 17:50 Ur Epithelial Cells 4 - 5 /hpf (0-5) 10/24/16 17:50 Urine Bacteria Mod (NEG) 10/24/16 17:50 - Hospital Course Hospital Course: Attending: Dr. De La Cruz Admit date 10/24/16 DC date 10/27/16 Discharge dx 1. C diff colitis 2. UTI 3. COPD 4. Hep B 5. HLD 6. HTN Procedures- none No complications Consults 1. Pulm- [place] 2.GI- [place] HPI: see h/p Labs: see lab data Hospital course 66 year old female with a PMHx COPD, Htn, Dyslipidemia, OA, Hepatitis B comes to the ED with the complaint of epigastric abdominal pain for the past 2 days. Patient reports a sharp stabbing sensation in her upper epigastric area which has not improved and remained constant over the past 2 days so she asked her daughter to bring her in to the ED. Patient also reports multiple episodes of nonbilious nonbloody vomitus as well. She states being diaphoretic at times and feeling chills at other times; denies fevers, diarrhea, headache, light headedness, dizziness, palpitations, or shortness of breath. she does also report some chest discomfort in the center of her chest after vomiting which has improved since she's been in the ED. She reports having a dry cough with an occasional clear sputum production as well. 1. Abdominal pain secondary to colitis -morphine 3 q 3 -NS 75 cc/hr -ct abdomen/pelvis shows colitis with ascending transverse, descending, sigmoid involvement -will add flagyl tid IV -blood, urine, sputum cultures negative -tele initially, then discontinued -due to some chest discomfort, will f/u cardiac enzymes as well -cardiac enzymes have been neg -will f/u stool studies including c diff -will benefit from outpatient colonoscopy -c diff was positive, started on oral vanco 2. Cystitis/UTI -continue levaquin 750 mg daily>> changed to PO 3. COPD -duonebs q 6 -brovana -pulmicort -singulair 10 daily -chest ct shows small b/l pleural effusions, nodule (please see full report) 4. hx of Hep B -tenofovir 300 daily 5. hx of HLD -continue lipitor 10 daily 6. hx of HTN -continue atenolol 12.5 bid 7. GI/DVT ppx -zofran 4 q 6 -protonix 40 daily DC instructions Please return if condition worsens. Please f/u with pulm and PMD. Please take PO vanco 250 mg tid for 14 addn days. Please take all meds as prescribed. DC meds 1. albuterol 2. atenolol 3. lipitor 4. advair 5. robitussin 6. singulair 7. protonix 8. daliresp 9. viread 10. spiriva 11. vancomycin - Date & Time of H&P Date of H&P: 10/24/16 Time of H&P: 21:05 Discharge Exam - Head Exam Head Exam: ATRAUMATIC Discharge Plan - Discharge Medications Prescriptions: Vancomycin HCl [Vancocin HCl] 250 mg PO TID #42 capsule - Follow Up Plan Condition: CRITICAL Disposition: HOME/ ROUTINE Instructions: Clostridium Difficile Infection (GEN) Additional Instructions: 1. Follow-up with PMD Dr. Gregg in 3 days. 2. Follow-up with pulmonary . 3. Follow-up with GI Dr. Antoine for repeat endoscopy/colonoscopy. Continue Protonix. 4. Complete by mouth vancomycin for C. difficile colitis. Contact precautions. <Joel De La Cruz - Last Filed: 10/27/16 17:18> Provider - Provider Date of Admission: 10/25/16 12:27 Attending physician: Joel De La Cruz MD Hospital Course - Lab Results Lab Results: Most Recent Lab Values WBC 5.8 10^3/ul (4.5-11.0) 10/27/16 06:00 RBC 3.93 10^6/uL (3.5-6.1) 10/27/16 06:00 Hgb 12.0 gm/dL (12.0-16.0) 10/27/16 06:00 Hct 35.4 % (36.0-48.0) L 10/27/16 06:00 MCV 90.1 fL (80.0-105.0) 10/27/16 06:00 MCH 30.5 pg (25.0-35.0) 10/27/16 06:00 MCHC 33.9 g/dl (31.0-37.0) 10/27/16 06:00 RDW 12.4 % (11.5-14.5) 10/27/16 06:00 Plt Count 181 10^3/uL (120.0-450.0) 10/27/16 06:00 MPV 9.5 fl (7.0-11.0) 10/27/16 06:00 Gran % 62.0 % (50.0-68.0) 10/27/16 06:00 Lymph % (Auto) 29.6 % (22.0-35.0) 10/27/16 06:00 [place] % (Auto) 7.6 % (1.0-6.0) H 10/27/16 06:00 Eos % (Auto) 0.5 % (1.5-5.0) L 10/27/16 06:00 Baso % (Auto) 0.3 % (0.0-3.0) 10/27/16 06:00 Gran # 3.57 (1.4-6.5) 10/27/16 06:00 Lymph # 1.7 (1.2-3.4) 10/27/16 06:00 [place] # 0.4 (0.1-0.6) 10/27/16 06:00 Eos # 0.0 (0.0-0.7) 10/27/16 06:00 Baso # 0.02 K/mm3 (0.0-2.0) 10/27/16 06:00 PT 10.2 Seconds (9.9-11.8) 10/24/16 16:45 INR 0.94 (0.93-1.08) 10/24/16 16:45 APTT 25.9 Seconds (23.7-30.8) 10/24/16 16:45 D-Dimer, Quantitative 0.29 mg/L FEU (0-0.50) 10/24/16 16:45 pCO2 36 mm/Hg (35-45) 10/24/16 17:45 pO2 61 mm/Hg (30-55) H 10/24/16 20:15 HCO3 19.0 mmol/L (21-28) L 10/24/16 17:45 ABG pH 7.33 (7.35-7.45) L 10/24/16 17:45 ABG Total CO2 20.1 mmol.L (22-28) L 10/24/16 17:45 ABG O2 Saturation 98.5 % (95-98) H 10/24/16 17:45 ABG O2 Content 15.2 ML/dl (15-23) 10/24/16 17:45 ABG Base Excess -6.3 mmol/L (-2.0-3.0) L 10/24/16 17:45 ABG Hemoglobin 11.2 g/dL (11.7-17.4) L 10/24/16 17:45 ABG Carboxyhemoglobin 1.7 % (0.5-1.5) H 10/24/16 17:45 POC ABG HHb (Measured) 1.5 % (0-5) 10/24/16 17:45 ABG Methemoglobin 1.0 % (0.0-3.0) 10/24/16 17:45 ABG O2 Capacity 15.4 mL/dl (16-24) L 10/24/16 17:45 VBG pH 7.35 (7.32-7.43) 10/24/16 20:15 VBG pCO2 42.0 (40-60) 10/24/16 20:15 VBG HCO3 23.2 mmol/l (21-28) 10/24/16 20:15 VBG Total CO2 24.5 mmol.L (22-28) 10/24/16 20:15 VBG O2 Sat (Calc) 94.7 % (40-65) H 10/24/16 20:15 VBG Base Excess -2.4 mmol/L (0.0-2.0) L 10/24/16 20:15 VBG Potassium 3.8 mmol/L (3.6-5.2) 10/24/16 20:15 Hgb O2 Saturation 95.8 % (95.0-98.0) 10/24/16 17:45 Sodium 144.0 mmol/L (132-148) 10/24/16 20:15 Chloride 113.0 mmol/L (98-107) H 10/24/16 20:15 Glucose 111 mg/dl (65-105) H 10/24/16 20:15 Lactate 2.4 mmol/L (0.7-2.1) H 10/24/16 20:15 FiO2 21.0 % 10/24/16 20:15 Sodium 138 mmol/L (132-148) 10/27/16 06:59 Potassium 3.4 mmol/L (3.6-5.0) L 10/27/16 06:59 Chloride 108 mmol/L (98-107) H 10/27/16 06:59 Carbon Dioxide 22 mmol/L (21-33) 10/27/16 06:59 Anion Gap 11 (10-20) 10/27/16 06:59 BUN 5 mg/dL (7-21) L 10/27/16 06:59 Creatinine 0.6 mg/dL (0.5-1.4) 10/27/16 06:59 Est GFR ( Amer) > 60 10/27/16 06:59 Est GFR (Non-Af Amer) > 60 10/27/16 06:59 Random Glucose 75 mg/dL (70-110) 10/27/16 06:59 Calcium 8.7 mg/dL (8.4-10.5) 10/27/16 06:59 Phosphorus 2.7 mg/dL (2.5-4.5) 10/27/16 06:59 Magnesium 1.7 mg/dL (1.7-2.2) 10/27/16 06:59 Total Bilirubin 0.9 mg/dL (0.2-1.3) 10/27/16 06:59 AST 35 U/L (15-39) 10/27/16 06:59 ALT 39 U/L (7-56) 10/27/16 06:59 Alkaline Phosphatase 38 U/L (38-133) 10/27/16 06:59 Lactate Dehydrogenase 500 U/L (333-699) 10/24/16 16:45 Total Creatine Kinase 53 U/L (35-230) 10/24/16 16:45 Troponin I < 0.01 ng/mL D 10/25/16 17:50 C-React Prot High Sens 3.58 mg/L (1.00-3.00) H 10/25/16 11:10 NT-Pro-B Natriuret Pep 29.7 pg/mL (0-450) 10/24/16 16:45 Total Protein 6.1 g/dL (5.8-8.3) 10/27/16 06:59 Albumin 3.2 g/dL (3.0-4.8) 10/27/16 06:59 Globulin 2.9 gm/dL 10/27/16 06:59 Albumin/Globulin Ratio 1.1 (1.1-1.8) 10/27/16 06:59 Lipase 72 U/L (23-300) 10/24/16 16:45 Procalcitonin < 0.05 NG/ML (0.19-0.49) L 10/26/16 09:30 Venous Blood Potassium 3.8 mmol/L (3.6-5.2) 10/24/16 20:15 Urine Color Yellow (YELLOW) 10/24/16 17:50 Urine Appearance Sl cloudy (CLEAR) 10/24/16 17:50 Urine pH 6.5 (4.7-8.0) 10/24/16 17:50 Ur Specific [place] 1.010 (1.005-1.035) 10/24/16 17:50 Urine Protein Negative mg/dL (<30 mg/dL) 10/24/16 17:50 Urine Glucose (UA) Negative mg/dL (NEGATIVE) 10/24/16 17:50 Urine Ketones Negative mg/dL (NEGATIVE) 10/24/16 17:50 Urine Blood Trace-intact (NEGATIVE) H 10/24/16 17:50 Urine Nitrate Negative (NEGATIVE) 10/24/16 17:50 Urine Bilirubin Negative (NEGATIVE) 10/24/16 17:50 Urine Urobilinogen 0.2 E.U./dL (<1 E.U./dL) 10/24/16 17:50 Ur Leukocyte Esterase Large Eamon/uL (NEGATIVE) H 10/24/16 17:50 Urine RBC 2 - 5 /hpf (0-2) 10/24/16 17:50 Urine WBC 15 - 20 /hpf (0-6) 10/24/16 17:50 Ur Epithelial Cells 4 - 5 /hpf (0-5) 10/24/16 17:50 Urine Bacteria Mod (NEG) 10/24/16 17:50 Attending/Attestation - Attestation I have personally seen and examined this patient.: Yes I have fully participated in the care of the patient.: Yes I have reviewed all pertinent clinical information, including history, physical exam and plan: Yes Notes (Text): 10/27/16 17:15 Attending note; Patient seen and examined with resident. Patient is a 66-year-old female with a history of hepatitis B and treatment, chronic gastritis, COPD is admitted with abdominal pain. CT showed mild colitis. C. difficile is positive. Patient will be discharged home with by mouth vancomycin. Patient needs follow-up with GI Dr. Antoine for outpatient EGD and colonoscopy. Continue Protonix. COPD; stable. Needs follow-up as outpatient. Follow-up with pulmonary as outpatient. Case discussed with GI in detail. Follow-up with PMD Dr. Gregg. Diagnosis and plan discussed with family in detail. Diagnosis; Gastritis C. difficile colitis Hepatitis B COPD
[2016-10-27 16:51] VITALS: BP 110/67; PULSE 73; RESP 18; TEMP 98
== END 2016-10-27 19:07 | disposition home or self-care (01) | DRG 372 ==
LOC: ED 16:25 → ERH 20:28 → 2RNO 22:50 → OBSVTOIN 10-25 12:27 → 5RSO 10-26 13:43
PROVIDERS: ADMIT Hospitalist; ATTEND Internal Medicine
DX: A04.7 Enterocolitis due to Clostridium difficile (principal); J44.1 Chronic obstructive pulmonary disease with (acute) exacerbation; N30.00 Acute cystitis without hematuria; J90 Pleural effusion, not elsewhere classified; B18.1 Chronic viral hepatitis B without delta-agent; I10 Essential (primary) hypertension; E78.5 Hyperlipidemia, unspecified; M19.90 Unspecified osteoarthritis, unspecified site; K29.50 Unspecified chronic gastritis without bleeding; Z87.891 Personal history of nicotine dependence

== ENCOUNTER 2016-11-08 21:44 | Observation (INO) | payer MEDICARE, MEDICAID ==
[2016-11-08 21:57] VITALS: BMI 19.5
[2016-11-08] MEDS ORDERED: Morphine 2 mg/ml ISec IVP STA (22:11)
[2016-11-08] MEDS ORDERED: Sodium Chloride 0.9% 1,000 ML IV STA (22:11)
--- NOTE | 2016-11-08 22:44 | ED PDOC ---
Arrival/HPI - General Chief Complaint: Abdominal Pain Time Seen by Provider: 11/08/16 21:54 Historian: Patient, Parent - History of Present Illness Narrative History of Present Illness (Text): 11/08/16 22:17 66 year old female, whose past medical history includes COPD, hypertension, dislipidemia, OA, and hepatitis B, who presents to the ED accompanied by her son complaining of upper abdominal pain since 16:00 yesterday. Patient also reports associated diarrhea. Son notes patient was recently discharged from the hospital 2 weeks prior. Patient denies any fever, chills, chest pain, urinary symptoms, back pain, neck pain, headache, dizziness, or any other complaints. PMD: Dr. Gregg Time/Duration: 24 hours (Began yesterday at 16:00 ) Symptom Onset: Gradual Symptom Course: Unchanged Activities at Onset: Rest, Light Context: Home Past Medical History - Provider Review Nursing Documentation Reviewed: Yes - Infectious Disease Hx of Infectious Diseases: None - Tetanus Immunization Tetanus Immunization: Unknown - Reproductive Menopause: Yes - Cardiac Hx Cardiac Disorders: No - Pulmonary Hx Respiratory Disorders: Yes Hx Chronic Obstructive Pulmonary Disease (COPD): Yes - Neurological Hx Neurological Disorder: No - HEENT Hx HEENT Disorder: No - Renal Hx Renal Disorder: Yes (kidney stones) - Endocrine/Metabolic Hx Endocrine Disorders: No - Hematological/Oncological Hx Blood Disorders: Yes Hx Hepatitis B: Yes - Integumentary Hx Dermatological Disorder: No - Musculoskeletal/Rheumatological Hx Musculoskeletal Disorders: Yes Hx Back Pain: Yes Hx Falls: No - Gastrointestinal Hx Gastrointestinal Disorders: No - Genitourinary/Gynecological Hx Genitourinary Disorders: No - Psychiatric Hx Psychophysiologic Disorder: No Hx Substance Use: No - Anesthesia Hx Anesthesia Reactions: No Hx Malignant Hyperthermia: No Family/Social History - Physician Review Nursing Documentation Reviewed: Yes Family/Social History: Unknown Family HX Smoking Status: Former Smoker Hx Alcohol Use: No Hx Substance Use: No Allergies/Home Meds Allergies/Adverse Reactions: Allergies ceftriaxone Allergy (Verified 11/08/16 21:57) RASH Home Medications: Home Meds Medication Instructions Recorded Confirmed Albuterol Sulfate 0.63 mg IH PRN PRN 09/18/16 11/08/16 Roflumilast [Daliresp] 500 mcg PO DAILY 09/18/16 11/08/16 Tiotropium Jolo Inhaler 1 inhaler INH DAILY 09/18/16 11/08/16 [Spiriva Inhalation Handihaler Device] Review of Systems - Physician Review All systems were reviewed & negative as marked: Yes - Review of Systems Constitutional: absent: Fevers Cardiovascular: absent: Chest Pain Gastrointestinal: Abdominal Pain, Diarrhea. absent: Vomiting Genitourinary Female: absent: Dysuria, Frequency, Hematuria, Urine Output Changes Musculoskeletal: absent: Back Pain, Neck Pain Neurological: absent: Headache, Dizziness Physical Exam Vital Signs Reviewed: Yes Vital Signs Temp Pulse Resp BP Pulse Ox 11/09/16 01:03 88 18 132/74 99 11/08/16 21:57 97.6 F 90 18 137/77 95 11/08/16 21:56 97.6 F 90 18 137/77 95 Temperature: Afebrile Blood Pressure: Normal Pulse: Regular Respiratory Rate: Normal Appearance: Positive for: Well-Appearing, Non-Toxic, Comfortable Pain Distress: None Mental Status: Positive for: Alert and Oriented X 3 - Systems Exam Head: Present: Atraumatic, Normocephalic Pupils: Present: PERRL Extroacular Muscles: Present: EOMI Conjunctiva: Present: Normal Mouth: Present: Moist Mucous Membranes Neck: Present: Normal Range of Motion Respiratory/Chest: Present: Wheezes, Decreased Breath Sounds Cardiovascular: Present: Regular Rate and Rhythm, Normal S1, S2. No: Murmurs Abdomen: Present: Normal Bowel Sounds. No: Tenderness, Distention, Peritoneal Signs Back: Present: Normal Inspection Upper Extremity: Present: Normal Inspection. No: Cyanosis, Edema Lower Extremity: Present: Normal Inspection. No: Edema Neurological: Present: GCS=15, CN II-XII Intact, Speech Normal Skin: Present: Warm, Dry, Normal Color. No: Rashes Psychiatric: Present: Alert, Oriented x 3, Normal Insight, Normal Concentration Medical Decision Making ED Course and Treatment: 11/08/16 22:17 Impression: 66 year old female complaining of abdominal pain and diarrhea. Differential Diagnosis included but are not limited to: Plan: -- CT Abdomen and Pelvis -- EKG -- Labs -- urinalysis -- Morphine -- Zofran -- IV fluids -- Reassess and disposition Prior Visits: Notes and results from previous visits were reviewed. On 10/24/16, patient presents to the emergency department with a cough, was discharged 10/27/16. Progress Notes: EKG: Ordered, reviewed, and independently interpreted the EKG. Rate : 80 BPM Rhythm : NSR Interpretation : No ST/T wave changes. Comparison : No acute change from previous EKG on 10/24/2016. 11/09/16 23:[address] Johnston, requests pt go to hospitalist service. 11/09/16 00:32 Reviewed radiology, CT Abdomen and Pelvis shows: 1. Mild colitis vs underdistention. Favor underdistention. Clinical correlation is needed. 2. Liver lesion, indeterminate. Recommend nonemergent MRI. 3. Incidental/non-acute findings are described above. 11/09/16 00:33 Case discussed with territory sales manager medical, who is aware and agrees with plan. 11/09/16 00:[address] Merino, who is aware and agrees with plan. Accepts patient into hospitalist service. Pt will go to [facility] observation for colitis. Pt is no acute distress. Discussed results and hospital observation with pt and family, who are aware and verbalize understanding. - Lab Interpretations Lab Results: 11/08/16 22:47 11/08/16 22:47 Lab Results 11/08/16 22:47: Sodium 138, Potassium 4.0, Chloride 106, Carbon Dioxide 24, Anion Gap 12, BUN 10, Creatinine 0.7, Est GFR ( Amer) > 60, Est GFR (Non- Af Amer) > 60, Random Glucose 102, Calcium 9.5, Total Bilirubin 0.4, AST 50 H, ALT 53, Alkaline Phosphatase 76, Lactate Dehydrogenase 541, Total Creatine Kinase 67, Troponin I < 0.01, Total Protein 7.5, Albumin 4.0, Globulin 3.5, Albumin/Globulin Ratio 1.1, Amylase 108, Lipase 130 11/08/16 22:47: Urine Color Light yellow, Urine Appearance Clear, Urine pH 6.5, Ur Specific [place] <= 1.005, Urine Protein Negative, Urine Glucose (UA) Negative, Urine Ketones Negative, Urine Blood Trace-lysed H, Urine Nitrate Negative, Urine Bilirubin Negative, Urine Urobilinogen 0.2, Ur Leukocyte Esterase Moderate H, Urine RBC 0 - 2, Urine WBC 2 - 5, Ur Epithelial Cells 0 - 2 11/08/16 22:47: PT 10.7, INR 0.99, APTT 25.2 11/08/16 22:47: WBC 7.6 D, RBC 4.37, Hgb 13.6, Hct 40.0, MCV 91.5, MCH 31.1, MCHC 34.0, RDW 12.7, Plt Count 288, MPV 9.0, Gran % 44.6 L, Lymph % (Auto) 43.1 H, [place] % (Auto) 10.1 H, Eos % (Auto) 1.8, Baso % (Auto) 0.4, Gran # 3.40, Lymph # 3.3, [place] # 0.8 H, Eos # 0.1, Baso # 0.03 I have reviewed the lab results: Yes - RAD Interpretation Narrative RAD Interpretations (Text): CT Abdomen and Pelvis shows: Limitations: Motion artifact - mild. Lower thorax: Minimal atelectasis/scarring. ABDOMEN: Liver: 0.9 x 1.2 x 1.0 cm enhancing lesion within LEFT lobe. Gallbladder and bile ducts: No calcified stones. No ductal dilation. Pancreas: No ductal dilation. No mass. Spleen: No splenomegaly. Adrenals: No mass. Kidneys and ureters: No mass. Bilateral extrarenal pelvises. No hydronephrosis. Stomach and bowel: Underdistention of stomach, limiting evaluation. Segmental areas of mild mural thickening vs underdistention of large bowel. No associated inflammatory stranding. Appendix: Normal caliber. No inflammation. PELVIS: Bladder: Unremarkable. Reproductive: Unremarkable as visualized. ABDOMEN and PELVIS: Intraperitoneal space: No significant fluid collection. No free air. Bones/joints: No acute fracture. Mild degenerative changes of spine. Soft tissues: Probable sebaceous cysts within anterior pelvic wall. Vasculature: Minimal atherosclerotic disease. No aneurysm. Lymph nodes: No pathologically enlarged lymph nodes. IMPRESSION: 1. Mild colitis vs underdistention. Favor underdistention. Clinical correlation is needed. 2. Liver lesion, indeterminate. Recommend nonemergent MRI. 3. Incidental/non-acute findings are described above. Radiology Orders: 11/08/16 23:23 ABD & PELVIS IV CONTRAST ONLY [CT] Stat Vat Tender: Radiologist - EKG Interpretation Interpreted by ED Physician: Yes Type: 12 lead EKG - Medication Orders Current Medication Orders: Acetaminophen (Tylenol 325mg Tab) 650 mg PO Q6H PRN PRN Reason: Fever >100.4 F Albuterol Sulfate (Albuterol 0.083% Inhal [place] (2.5 Mg/3 Ml) Ud) 2.5 mg IH Q2H PRN PRN Reason: Shortness of Breath Atenolol (Tenormin) 12.5 mg PO BID [facility] Last Admin: 11/09/16 17:55 Dose: 12.5 mg Atorvastatin Calcium (Lipitor) 10 mg PO DIN [facility] Last Admin: 11/09/16 17:51 Dose: 10 mg Famotidine (Pepcid) 20 mg PO BID [facility] Last Admin: 11/09/16 17:52 Dose: 20 mg Metronidazole (Flagyl) 500 mg in 100 mls @ 100 mls/hr IVPB Q8 ELISEO PRN Reason: Protocol Last Admin: 11/09/16 22:00 Dose: 100 mls/hr Sodium Chloride (Sodium Chloride 0.9%) 1,000 mls @ 100 mls/hr IV .Q10H [facility] Last Admin: 11/09/16 20:45 Dose: 100 mls/hr Lactobacillus Acidophilus (Bacid Acidophilus) 1 cap PO BID [facility] Last Admin: 11/09/16 17:51 Dose: 1 cap Pantoprazole Sodium (Protonix Ec Tab) 40 mg PO 0600 [facility] Roflumilast (Daliresp) 500 mcg PO DAILY [facility] Last Admin: 11/09/16 09:25 Dose: 500 mcg Tenofovir Disoproxil Fumarate (Viread) 300 mg PO DAILY [facility] Last Admin: 11/09/16 09:25 Dose: 300 mg Tiotropium Jolo (Spiriva) 18 mcg INH DAILY [facility] Last Admin: 11/09/16 09:25 Dose: 18 mcg Vancomycin HCl (Vancocin 25 Mg/Ml (Oral Use)) 250 mg PO QID [facility] PRN Reason: Protocol Last Admin: 11/09/16 22:30 Dose: 250 mg Discontinued Medications Al Hydrox/Mg Hydrox/Simethicone (Maalox Plus 30 Ml) 30 ml PO ONCE ONE Stop: 11/09/16 18:57 Last Admin: 11/09/16 20:01 Dose: 30 ml Atenolol (Tenormin) 25 mg PO BID [facility] Sodium Chloride (Sodium Chloride 0.9%) 1,000 mls @ 80 mls/hr IV .[id number] STA Stop: 11/09/16 10:40 Last Admin: 11/08/16 22:42 Dose: 80 mls/hr Iohexol (Omnipaque 350 100 Ml) Confirm Administered Dose 350 mg .ROUTE .STK-MED ONE Stop: 11/08/16 23:38 Morphine Sulfate (Morphine) 2 mg IVP STAT STA Stop: 11/08/16 22:12 Last Admin: 11/08/16 22:45 Dose: 2 mg Ondansetron HCl (Zofran Inj) 4 mg IVP STAT STA Stop: 11/08/16 22:12 Last Admin: 11/08/16 22:45 Dose: 4 mg Pantoprazole Sodium (Protonix Ec Tab) 40 mg PO DAILY ELISEO Last Admin: 11/09/16 09:25 Dose: 40 mg - Scribe Statement The provider has reviewed the documentation as recorded by the Mary Burns training under Rocío Olivera All medical record entries made by the Sharadibleonard were at my direction and personally dictated by me. I have reviewed the chart and agree that the record accurately reflects my personal performance of the history, physical exam, medical decision making, and the department course for this patient. I have also personally directed, reviewed, and agree with the discharge instructions and disposition. Disposition/Present on Arrival - Present on Arrival Any Indicators Present on Arrival: No History of DVT/PE: No History of Uncontrolled Diabetes: No Urinary Catheter: No History of Decub. Ulcer: No History Surgical Site Infection Following: None - Disposition Have Diagnosis and Disposition been Completed?: Yes Diagnosis: Abdominal pain Disposition: HOSPITALIZED Disposition Time: 00:35 Condition: GOOD
[2016-11-08 22:53] LABS: ADD MANUAL DIFF? NO
[2016-11-08 22:56] LABS: BASO # 0.03 K/mm3 (0.0-2.0); BASO % 0.4 % (0.0-3.0); EOS # 0.1 (0.0-0.7); EOS % 1.8 % (1.5-5.0); GRAN % 44.6 % (50.0-68.0); LYMPH # 3.3 (1.2-3.4); LYMPH % 43.1 % (22.0-35.0); MEAN CELL VOLUME 91.5 fL (80.0-105.0); MEAN CORPUSCULAR HEMOGLOBIN 31.1 pg (25.0-35.0); MONO # 0.8 (0.1-0.6); MONO % 10.1 % (1.0-6.0); PLATELET COUNT 288 10^3/uL (120.0-450.0); RED CELL DISTRIBUTION WIDTH 12.7 % (11.5-14.5); WHITE BLOOD COUNT 7.6 10^3/ul (4.5-11.0)
[2016-11-08 22:57] LABS: PH,URINE 6.5 (4.7-8.0); URINE APPEARANCE CLEAR (CLEAR); URINE BILIRUBIN NEGATIVE (NEGATIVE); URINE BLOOD TRACE-LYSED (NEGATIVE); URINE COLOR LIGHT YELLOW (YELLOW); URINE GLUCOSE (UA) NEGATIVE (NEGATIVE); URINE KETONE NEGATIVE (NEGATIVE); URINE LEUKOCYTE ESTERASE MODERATE Leu/uL (NEGATIVE); URINE PROTEIN NEGATIVE mg/dL (<30 mg/dL); URINE UROBILINOGEN 0.2 E.U./dL (<1 E.U./dL)
[2016-11-08 23:08] LABS: INR 0.99 (0.93-1.08); PARTIAL THROMBOPLASTIN TIME 25.2 Seconds (23.7-30.8)
[2016-11-08 23:11] LABS: ALB/GLOB RATIO 1.1 (1.1-1.8); ALKALINE PHOSPHATASE 76 U/L (38-133); ALT/SGPT 53 U/L (7-56); AMYLASE 108 U/L (35-125); AST/SGOT 50 U/L (15-39); BILIRUBIN,TOTAL 0.4 mg/dL (0.2-1.3); BLOOD UREA NITROGEN 10 mg/dL (7-21); CALCIUM 9.5 mg/dL (8.4-10.5); CARBON DIOXIDE 24 mmol/L (21-33); CHLORIDE 106 mmol/L (98-107); GFR AFRICAN-AMERICAN > 60; GLUCOSE,RANDOM 102 mg/dL (70-110); LIPASE 130 U/L (23-300); SODIUM 138 mmol/L (132-148); TOTAL PROTEIN 7.5 g/dL (5.8-8.3)
[2016-11-08 23:22] LABS: TROPONIN I < 0.01 ng/mL
[2016-11-08] MEDS ORDERED: Iohexol 350 MG/100 ML VIAL ONE (23:37)
[2016-11-08 23:45] LABS: URINE EPITHELIAL CELLS 0 - 2 /hpf (0-5); URINE RBC 0 - 2 /hpf (0-2)
--- NOTE | 2016-11-09 00:19 | CT ---
EXAM: CT Abdomen and Pelvis With Intravenous Contrast CLINICAL HISTORY: 66 years old, female; Pain; Abdominal pain; Generalized; Additional info: Abd pain TECHNIQUE: Axial computed tomography images of the abdomen and pelvis with intravenous contrast. This CT exam was performed using one or more of the following dose reduction techniques: automated exposure control, adjustment of the mA and/or kV according to patient size, and/or use of iterative reconstruction technique. Coronal and sagittal reformatted images were created and reviewed. CONTRAST: 96 mL of OMNI 350 administered intravenously. COMPARISON: CT - ABD PELVIS IV CONTRAST ONLY 10/24/2016 8:57:03 PM FINDINGS: Limitations: Motion artifact - mild. Lower thorax: Minimal atelectasis/scarring. ABDOMEN: Liver: 0.9 x 1.2 x 1.0 cm enhancing lesion within LEFT lobe. Gallbladder and bile ducts: No calcified stones. No ductal dilation. Pancreas: No ductal dilation. No mass. Spleen: No splenomegaly. Adrenals: No mass. Kidneys and ureters: No mass. Bilateral extrarenal pelvises. No hydronephrosis. Stomach and bowel: Underdistention of stomach, limiting evaluation. Segmental areas of mild mural thickening vs underdistention of large bowel. No associated inflammatory stranding. Appendix: Normal caliber. No inflammation. PELVIS: Bladder: Unremarkable. Reproductive: Unremarkable as visualized. ABDOMEN and PELVIS: Intraperitoneal space: No significant fluid collection. No free air. Bones/joints: No acute fracture. Mild degenerative changes of spine. Soft tissues: Probable sebaceous cysts within anterior pelvic wall. Vasculature: Minimal atherosclerotic disease. No aneurysm. Lymph nodes: No pathologically enlarged lymph nodes. IMPRESSION: 1. Mild colitis vs underdistention. Favor underdistention. Clinical correlation is needed. 2. Liver lesion, indeterminate. Recommend nonemergent MRI. 3. Incidental/non-acute findings are described above.
[2016-11-09] MEDS ORDERED: Albuterol 0.083% Inhal Sol (2.5 mg/3 mL) UD IH PRN (00:35)
--- NOTE | 2016-11-09 00:43 | CP.PCM.HP ---
<LashaeEyaldavid,Manfred - Last Filed: 11/09/16 01:07> History of Present Illness - History of Present Illness History of Present Illness: CC: Diarrhea and abdominal pain 66 y/o female with a PMHx COPD, Htn, Dyslipidemia, OA, Hepatitis B comes to the ED with a history of diarrhea and abdominal pain since discharge from the hospital when she was diagnosed for c diff colitis. She states she has had 2 episodes of diarrhea daily since leaving the hospital. She denies all other symptoms; no blood in stool, no fevers/chills, BESS, chest pain, SOB, N/V, dysuria /freq/urg, or lower extremity pain/swelling. Patient states that her diarrhea has been getting better but has not gone away. PMHx:Htn COPD OA Hepatitis B, recently here for C. Diff colitis d/c on oral vanco only Allergies:Ceftriaxone Fam Hx: reviewed and noncontributory Soc Hx: previous history of 1 ppd x 30yrs; denies etoh use; lives at home with her family Home Meds: Spiriva Advair 250/50 Lipitor 10 Robitussin prn Singulair Atenolol 12.5mg po bid Alendronate Qweekly Daliresp Tenofovir Protonix Present on Admission - Present on Admission Any Indicators Present on Admission: No History of DVT/PE: No History of Uncontrolled Diabetes: No Urinary Catheter: No Decubitus Ulcer Present: No Past Patient History - Infectious Disease Hx of Infectious Diseases: None - Tetanus Immunizations Tetanus Immunization: Unknown - Past Medical History & Family History Past Medical History?: Yes - Past Social History Smoking Status: Former Smoker - CARDIAC Hx Cardiac Disorders: No - PULMONARY Hx Respiratory Disorders: Yes Hx Chronic Obstructive Pulmonary Disease (COPD): Yes - NEUROLOGICAL Hx Neurological Disorder: No - HEENT Hx HEENT Problems: No - RENAL Hx Chronic Kidney Disease: Yes (kidney stones) - ENDOCRINE/METABOLIC Hx Endocrine Disorders: No - HEMATOLOGICAL/ONCOLOGICAL Hx Blood Disorders: Yes Hx Hepatitis B: Yes - INTEGUMENTARY Hx Dermatological Problems: No - MUSCULOSKELETAL/RHEUMATOLOGICAL Hx Musculoskeletal Disorders: Yes Hx Back Pain: Yes Hx Falls: No - GASTROINTESTINAL Hx Gastrointestinal Disorders: No - GENITOURINARY/GYNECOLOGICAL Hx Genitourinary Disorders: No - PSYCHIATRIC Hx Psychophysiologic Disorder: No Hx Substance Use: No - SURGICAL HISTORY Hx Surgeries: No - ANESTHESIA Hx Anesthesia Reactions: No Hx Malignant Hyperthermia: No Meds Allergies/Adverse Reactions: Allergies Allergy/AdvReac Type Severity Reaction Status Date / Time ceftriaxone Allergy RASH Verified 11/08/16 21:57 Physical Exam - Constitutional Appears: Well, Non-toxic - Eye Exam Eye Exam: EOMI - ENT Exam ENT Exam: Mucous Membranes Moist - Neck Exam Neck exam: Positive for: Full Rom. Negative for: Lymphadenopathy - Respiratory Exam Respiratory Exam: Clear to Auscultation Bilateral, NORMAL BREATHING PATTERN. absent: Rales, Rhonchi, Wheezes Additional comments: enlarged AP diameter of chest - Cardiovascular Exam Cardiovascular Exam: REGULAR RHYTHM, +S1, +S2 - GI/Abdominal Exam GI & Abdominal Exam: Normal Bowel Sounds, Soft. absent: Tenderness (has just received morphine prior to exam) - Extremities Exam Extremities exam: Positive for: full ROM, normal inspection. Negative for: calf tenderness, pedal edema - Back Exam Back exam: NORMAL INSPECTION. absent: CVA tenderness (L), CVA tenderness (R) - Neurological Exam Neurological exam: Alert, Oriented x3 - Psychiatric Exam Psychiatric exam: Normal Affect - Skin Skin Exam: Warm Results - Vital Signs Recent Vital Signs: Last Vital Signs Temp 97.6 F 11/08/16 21:57 Pulse 90 11/08/16 21:57 Resp 18 11/08/16 21:57 BP 137/77 11/08/16 21:57 Pulse Ox 95 11/08/16 21:57 - Labs Result Diagrams: 11/08/16 22:47 11/08/16 22:47 Labs: Laboratory Results - last 24 hr 11/08/16 11/08/16 11/08/16 22:47 22:47 22:47 WBC 7.6 D RBC 4.37 Hgb 13.6 Hct 40.0 MCV 91.5 MCH 31.1 MCHC 34.0 RDW 12.7 Plt Count 288 MPV 9.0 Gran % 44.6 L Lymph % (Auto) 43.1 H [place] % (Auto) 10.1 H Eos % (Auto) 1.8 Baso % (Auto) 0.4 Gran # 3.40 Lymph # 3.3 [place] # 0.8 H Eos # 0.1 Baso # 0.03 PT 10.7 INR 0.99 APTT 25.2 Sodium Potassium Chloride Carbon Dioxide Anion Gap BUN Creatinine Est GFR ( Amer) Est GFR (Non-Af Amer) Random Glucose Calcium Total Bilirubin AST ALT Alkaline Phosphatase Lactate Dehydrogenase Total Creatine Kinase Troponin I Total Protein Albumin Globulin Albumin/Globulin Ratio Amylase Lipase Urine Color Light yellow Urine Appearance Clear Urine pH 6.5 Ur Specific [place] <= 1.005 Urine Protein Negative Urine Glucose (UA) Negative Urine Ketones Negative Urine Blood Trace-lysed H Urine Nitrate Negative Urine Bilirubin Negative Urine Urobilinogen 0.2 Ur Leukocyte Esterase Moderate H Urine RBC 0 - 2 Urine WBC 2 - 5 Ur Epithelial Cells 0 - 2 11/08/16 22:47 WBC RBC Hgb Hct MCV MCH MCHC RDW Plt Count MPV Gran % Lymph % (Auto) [place] % (Auto) Eos % (Auto) Baso % (Auto) Gran # Lymph # [place] # Eos # Baso # PT INR APTT Sodium 138 Potassium 4.0 Chloride 106 Carbon Dioxide 24 Anion Gap 12 BUN 10 Creatinine 0.7 Est GFR ( Amer) > 60 Est GFR (Non-Af Amer) > 60 Random Glucose 102 Calcium 9.5 Total Bilirubin 0.4 AST 50 H ALT 53 Alkaline Phosphatase 76 Lactate Dehydrogenase 541 Total Creatine Kinase 67 Troponin I < 0.01 Total Protein 7.5 Albumin 4.0 Globulin 3.5 Albumin/Globulin Ratio 1.1 Amylase 108 Lipase 130 Urine Color Urine Appearance Urine pH Ur Specific [place] Urine Protein Urine Glucose (UA) Urine Ketones Urine Blood Urine Nitrate Urine Bilirubin Urine Urobilinogen Ur Leukocyte Esterase Urine RBC Urine WBC Ur Epithelial Cells Assessment & Plan - Assessment and Plan (Free Text) Assessment: 66yo F admitted for C. Diff Colitis C. Diff Colitis -SIRS criteria not met -f/u blood cultures, vbg lactate -CT scan showed signs of ongoing colitis; patient still complaining of multiple episodes of diarrhea -f/u stool cultures -contact precautions -IV metro Q8H and Oral Vanco QID -ID Consult; Dr. Clayton, appreciate reqs; this is the patients 3rd time being treated for C. Diff -probiotic BID -IVF 100ml/hr NS for extra fluid losses COPD -c/w home meds -Albuterol prn as needed Htn -c/w atenolol BID Dyslipidemia -c/w lipitor 10mg HS Hepatitis B -c/w Tenofovir Proph Pepcid/Protonix SCD OOB encouraged Heart Healthy Diet Case discussed with Dr. Angelique Moon PGY1 Night Float Decision To Admit - Pt Status Changed To: Hospital Disposition Of: Inpatient Admission - Admit Certification Admit to Inpatient:: After my assessment, the patient will require hospitalization for at least two midnights. This is because of the severity of symptoms shown, intensity of services needed, and/or the medical risk in this patient being treated as an outpatient. - . Bed Request Type: Med/Surg Admitting Physician: Darren Merino <Darren Merino - Last Filed: 11/09/16 03:35> Results - Vital Signs Recent Vital Signs: Last Vital Signs Temp 97.6 F 11/08/16 21:57 Pulse 88 11/09/16 01:03 Resp 18 11/09/16 01:03 BP 132/74 11/09/16 01:03 Pulse Ox 99 11/09/16 01:03 - Labs Result Diagrams: 11/08/16 22:47 11/08/16 22:47 Attending/Attestation - Attestation I have personally seen and examined this patient.: Yes I have fully participated in the care of the patient.: Yes I have reviewed all pertinent clinical information: Yes Notes (Text): 11/09/16 03:34 Patient was seen and examined when she was in -02. Agree with history , physical examination, assessment and plan.
[2016-11-09] MEDS: metroNIDAZOLE IV 500 mg/100 ml 500 MG/100 ML BAG IVPB SCH ×4 (00:51→22:00)
[2016-11-09] MEDS: Sodium Chloride 0.9% 1,000 ML IV SCH ×2 (00:52→20:45)
[2016-11-09] MEDS: Lactobacillus Acidophilus 500 MU Cap PO SCH ×3 (05:00→17:51)
[2016-11-09 07:39] LABS: ALB/GLOB RATIO 1.2 (1.1-1.8); ALKALINE PHOSPHATASE 62 U/L (38-133); ALT/SGPT 47 U/L (7-56); AST/SGOT 37 U/L (15-39); BILIRUBIN,TOTAL 0.4 mg/dL (0.2-1.3); BLOOD UREA NITROGEN 7 mg/dL (7-21); CALCIUM 8.8 mg/dL (8.4-10.5); CARBON DIOXIDE 24 mmol/L (21-33); CHLORIDE 107 mmol/L (98-107); GFR AFRICAN-AMERICAN > 60; GLUCOSE,RANDOM 82 mg/dL (70-110); POTASSIUM 3.8 mmol/L (3.6-5.0); SODIUM 140 mmol/L (132-148); TOTAL PROTEIN 6.5 g/dL (5.8-8.3)
[2016-11-09 08:00] VITALS: O2SAT 97
[2016-11-09] MEDS: Tiotropium 18 mcg Cap For Inhalation INH SCH (09:25)
[2016-11-09] MEDS: Vancomycin 25 MG/ML PO SCH ×4 (09:26→22:30)
[2016-11-09] MEDS ORDERED: Pantoprazole 40 mg EC Tab PO SCH (10:00)
[2016-11-09 11:21] LABS: VENOUS BLOOD GAS BASE EXCESS 0.5 mmol/L (0.0-2.0)
--- NOTE | 2016-11-09 12:01 | CP.PCM.CON ---
<Claudia Kat - Last Filed: 11/09/16 12:08> History of Present Illness - History of Present Illness History of Present Illness: Gastroenterology Fellow/PGY4 Consult Note 66 year old female with past medical history of COPD, Hyperlipidemia, Hypertension, and chronic Hepatitis B, Genotype C, VL >2million 04/2016, on Tenofovir since 10/15/16, recent admission 10/2016 for fish bone ingestion with colitis, and most recent discharge 10/27/16 for Cdiff colitis presenting with persistent left sided abdominal pain. Patient admits to compliance to vancomycin therapy on discharge planned for 14 days. She notes daily simultaneous diarrhea and urination of at least 3-4 episodes. ER presentation due to severe left sided abdominal pain, pain scale 10/10 associated with ten episodes of non-watery diarrhea. Associated poor appetite. Denies fever, chill, sweats, nausea, vomiting, hematochezia, melena, hematemesis, or unintentional weight loss. Notes two small, soft, formed stools yesterday. Tolerating clear liquids. Prior EGD 02/2010 showed mild chronic Gastritis, H. pylori negative. No prior colonoscopy. Family-denies colon cancer, stomach cancer Social- / ppd x >30 years, quit 7-8 years ago, denies alcohol or illicit drug use Surgery- none Review of Systems - Review of Systems Review of Systems: A 12-point review of systems negative except for as above Past Patient History - Infectious Disease Hx of Infectious Diseases: None - Tetanus Immunizations Tetanus Immunization: Unknown - Past Medical History & Family History Past Medical History?: Yes - Past Social History Smoking Status: Former Smoker - CARDIAC Hx Hypertension: Yes - PULMONARY Hx Asthma: Yes Hx Chronic Obstructive Pulmonary Disease (COPD): Yes - NEUROLOGICAL Hx Neurological Disorder: No - HEENT Hx HEENT Problems: No - RENAL Hx Chronic Kidney Disease: Yes (kidney stones) - ENDOCRINE/METABOLIC Hx Endocrine Disorders: No - HEMATOLOGICAL/ONCOLOGICAL Hx Blood Disorders: Yes Hx Hepatitis B: Yes - INTEGUMENTARY Hx Dermatological Problems: No - MUSCULOSKELETAL/RHEUMATOLOGICAL Hx Arthritis: Yes Hx Falls: No Hx Osteoarthritis: Yes Hx Unsteady Gait: Yes (uses walker) - GASTROINTESTINAL Hx Gastrointestinal Disorders: No - GENITOURINARY/GYNECOLOGICAL Hx Genitourinary Disorders: No - PSYCHIATRIC Hx Psychophysiologic Disorder: No Hx Substance Use: No - SURGICAL HISTORY Hx Surgeries: No - ANESTHESIA Hx Anesthesia Reactions: No Hx Malignant Hyperthermia: No Meds Allergies/Adverse Reactions: Allergies Allergy/AdvReac Type Severity Reaction Status Date / Time ceftriaxone Allergy RASH Verified 11/08/16 21:57 - Medications Medications: Current Medications Acetaminophen (Tylenol 325mg Tab) 650 mg PO Q6H PRN PRN Reason: Fever >100.4 F Albuterol Sulfate (Albuterol 0.083% Inhal Clara (2.5 Mg/3 Ml) Ud) 2.5 mg IH Q2H PRN PRN Reason: Shortness of Breath Atenolol (Tenormin) 12.5 mg PO BID [facility] Last Admin: 11/09/16 09:26 Dose: 12.5 mg Atorvastatin Calcium (Lipitor) 10 mg PO DIN [facility] Famotidine (Pepcid) 20 mg PO BID [facility] Last Admin: 11/09/16 09:25 Dose: 20 mg Metronidazole (Flagyl) 500 mg in 100 mls @ 100 mls/hr IVPB Q8 ELISE[facility] PRN Reason: Protocol Last Admin: 11/09/16 06:06 Dose: 100 mls/hr Sodium Chloride (Sodium Chloride 0.9%) 1,000 mls @ 100 mls/hr IV .Q10H [facility] Last Admin: 11/09/16 00:52 Dose: 100 mls/hr Lactobacillus Acidophilus (Bacid Acidophilus) 1 cap PO BID [facility] Last Admin: 11/09/16 09:25 Dose: 1 cap Pantoprazole Sodium (Protonix Ec Tab) 40 mg PO DAILY [facility] Last Admin: 11/09/16 09:25 Dose: 40 mg Roflumilast (Daliresp) 500 mcg PO DAILY [facility] Last Admin: 11/09/16 09:25 Dose: 500 mcg Tenofovir Disoproxil Fumarate (Viread) 300 mg PO DAILY [facility] Last Admin: 11/09/16 09:25 Dose: 300 mg Tiotropium [place] (Spiriva) 18 mcg INH DAILY [facility] Last Admin: 11/09/16 09:25 Dose: 18 mcg Vancomycin HCl (Vancocin 25 Mg/Ml (Oral Use)) 250 mg PO QID [facility] PRN Reason: Protocol Last Admin: 11/09/16 09:26 Dose: 250 mg Physical Exam - Constitutional Appears: Non-toxic, No Acute Distress - Head Exam Head Exam: ATRAUMATIC, NORMOCEPHALIC - Eye Exam Eye Exam: EOMI, PERRL Pupil Exam: PERRL. absent: Miosis, Mydriatic - ENT Exam ENT Exam: Mucous Membranes Moist, Normal Oropharynx - Neck Exam Neck exam: Positive for: Full Rom, Normal Inspection - Respiratory Exam Respiratory Exam: Clear to Auscultation Bilateral. absent: Rales, Rhonchi, Wheezes - Cardiovascular Exam Cardiovascular Exam: RRR, +S1, +S2. absent: Gallop, Rubs - GI/Abdominal Exam GI & Abdominal Exam: Normal Bowel Sounds, Soft, Tenderness. absent: Distended, Firm, Guarding, Organomegaly, Rebound, Rigid Additional comments: left sided vicente-abdomen discomfort - Extremities Exam Extremities exam: Positive for: normal inspection. Negative for: pedal edema - Neurological Exam Neurological exam: Alert - Psychiatric Exam Psychiatric exam: Normal Affect, Normal Mood - Skin Skin Exam: Dry, Intact, Normal Color, Warm Results - Vital Signs Recent Vital Signs: Last Vital Signs Temp 97.8 F 11/09/16 07:30 Pulse 76 11/09/16 07:30 Resp 18 11/09/16 07:30 BP 114/70 11/09/16 09:26 Pulse Ox 97 11/09/16 07:30 - Labs Result Diagrams: 11/08/16 22:47 11/09/16 07:15 Labs: Laboratory Results - last 24 hr 11/09/16 11/09/16 07:15 11:00 pO2 79 H VBG pH 7.40 VBG pCO2 41.0 VBG HCO3 25.4 VBG Total CO2 26.7 VBG O2 Sat (Calc) 98.0 H VBG Base Excess 0.5 VBG Potassium 3.5 L Glucose 84 Lactate 1.6 FiO2 21.0 Sodium 140 140.0 Potassium 3.8 Chloride 107 109.0 H Carbon Dioxide 24 Anion Gap 13 BUN 7 Creatinine 0.7 Est GFR ( Amer) > 60 Est GFR (Non-Af Amer) > 60 Random Glucose 82 Calcium 8.8 Total Bilirubin 0.4 AST 37 ALT 47 Alkaline Phosphatase 62 Total Protein 6.5 Albumin 3.5 Globulin 3.0 Albumin/Globulin Ratio 1.2 Venous Blood Potassium 3.5 L Assessment & Plan - Assessment and Plan (Free Text) Assessment: 66 year old female with past medical history of COPD, Hyperlipidemia, Hypertension, and chronic Hepatitis B, Genotype C, VL >2million 04/2016, on Tenofovir since 10/15/16, recent admission 10/2016 for fish bone ingestion with colitis, and most recent discharge 10/27/16 for Cdiff colitis presenting with persistent left sided abdominal pain. Active treatment of persistent diarrhea with presumed ongoing Cdiff colitis. Prior EGD 02/2010 showed mild chronic Gastritis, H. pylori negative. No prior colonoscopy. Plan: >pending Cdiff, stool culture, fecal leukocytes >continue vancomycin, Flagyl >ID managing >supportive care: PPI, pain control, IVFs >heart healthy diet >recommendation for elective colonoscopy in 6-8 weeks as previously planned on last discharge >liver lesion left lobe 0.9x1.2x1.0cm- will plan for future non-emergent MRI/ CT triple phase for further evaluation >will follow clinical course <Lupillo Antoine - Last Filed: 11/09/16 14:14> Meds - Medications Medications: Current Medications Acetaminophen (Tylenol 325mg Tab) 650 mg PO Q6H PRN PRN Reason: Fever >100.4 F Albuterol Sulfate (Albuterol 0.083% Inhal Clara (2.5 Mg/3 Ml) Ud) 2.5 mg IH Q2H PRN PRN Reason: Shortness of Breath Atenolol (Tenormin) 12.5 mg PO BID [facility] Last Admin: 11/09/16 09:26 Dose: 12.5 mg Atorvastatin Calcium (Lipitor) 10 mg PO DIN [facility] Famotidine (Pepcid) 20 mg PO BID [facility] Last Admin: 11/09/16 09:25 Dose: 20 mg Metronidazole (Flagyl) 500 mg in 100 mls @ 100 mls/hr IVPB Q8 ELISEO PRN Reason: Protocol Last Admin: 11/09/16 13:50 Dose: 100 mls/hr Sodium Chloride (Sodium Chloride 0.9%) 1,000 mls @ 100 mls/hr IV .Q10H [facility] Last Admin: 11/09/16 00:52 Dose: 100 mls/hr Lactobacillus Acidophilus (Bacid Acidophilus) 1 cap PO BID [facility] Last Admin: 11/09/16 09:25 Dose: 1 cap Pantoprazole Sodium (Protonix Ec Tab) 40 mg PO DAILY [facility] Last Admin: 11/09/16 09:25 Dose: 40 mg Roflumilast (Daliresp) 500 mcg PO DAILY [facility] Last Admin: 11/09/16 09:25 Dose: 500 mcg Tenofovir Disoproxil Fumarate (Viread) 300 mg PO DAILY [facility] Last Admin: 11/09/16 09:25 Dose: 300 mg Tiotropium [place] (Spiriva) 18 mcg INH DAILY [facility] Last Admin: 11/09/16 09:25 Dose: 18 mcg Vancomycin HCl (Vancocin 25 Mg/Ml (Oral Use)) 250 mg PO QID [facility] PRN Reason: Protocol Last Admin: 11/09/16 13:50 Dose: 250 mg Results - Vital Signs Recent Vital Signs: Last Vital Signs Temp 97.8 F 11/09/16 07:30 Pulse 76 11/09/16 07:30 Resp 18 11/09/16 07:30 BP 114/70 11/09/16 09:26 Pulse Ox 97 11/09/16 07:30 - Labs Result Diagrams: 11/08/16 22:47 11/09/16 07:15 Labs: Laboratory Results - last 24 hr 11/09/16 11/09/16 07:15 11:00 pO2 79 H VBG pH 7.40 VBG pCO2 41.0 VBG HCO3 25.4 VBG Total CO2 26.7 VBG O2 Sat (Calc) 98.0 H VBG Base Excess 0.5 VBG Potassium 3.5 L Glucose 84 Lactate 1.6 FiO2 21.0 Sodium 140 140.0 Potassium 3.8 Chloride 107 109.0 H Carbon Dioxide 24 Anion Gap 13 BUN 7 Creatinine 0.7 Est GFR ( Amer) > 60 Est GFR (Non-Af Amer) > 60 Random Glucose 82 Calcium 8.8 Total Bilirubin 0.4 AST 37 ALT 47 Alkaline Phosphatase 62 Total Protein 6.5 Albumin 3.5 Globulin 3.0 Albumin/Globulin Ratio 1.2 Venous Blood Potassium 3.5 L Attending/Attestation - Attestation I have personally seen and examined this patient.: Yes I have fully participated in the care of the patient.: Yes I have reviewed all pertinent clinical information: Yes Notes (Text): 11/09/16 14:11 66 year old female with h/o COPD, HLD, HTN, and chronic Hepatitis B, recent admission 10/2016 for fish bone ingestion with colitis, and C. diff colitis admitted with recurrent abdominal pain and diarrhea. 1. Abdominal pain 2. Diarrhea 3. History of Clostridium difficile 4. Liver lesion Plan: -await stool studies -continue empiric therapy for C. diff, ID following -diet as tolerated -supportive care -PPI daily -pain meds as needed -outpatient colonoscopy in 6-8 weeks recommended -elective MRI recommended for liver lesion per CT
--- NOTE | 2016-11-09 14:24 | CARD ---
APPROVED REPORT EKG Measurement Heart [id number] MI [id number] <Conclusion> Normal sinus rhythm Normal ECG
--- NOTE | 2016-11-09 17:50 | CON ---
DATE: 11/09/2016 CHIEF COMPLAINT: Weakness times several days. HISTORY OF PRESENT ILLNESS: A 66-year-old female with past medical history significant for chronic o bstructive lung disease, hypertension, dyslipidemia, kidney stones, who has had multiple admissions, and this admission admitted with a diagnosis of colitis. The patient, through a health nurse, stated t hat she is doing better. In the Emergency Room, she was seen by Dr. Curry who states the patient a lso had hepatitis and admitted, accompanied by her son, complained of upper abdominal pain since the day of admission associated with diarrhea. The patient had recently been discharged from the [facility]. There had been no nausea or vomiting, no chest pain, no neck pain. PAST MEDICAL HISTORY: Significant for chronic obstructive lung disease, hypertension, arthritis, dys lipidemia, kidney stone, hepatitis B. PAST SURGICAL HISTORY: Noncontributory. ALLERGIES: THE PATIENT IS ALLERGIC TO CEFTRIAXONE. SOCIAL HISTORY: She is from [place]. MEDICATIONS: Reveals the patient at home to be on tenofovir. PHYSICAL EXAMINATION: GENERAL: The patient is in bed with a temperature of 97, blood pressure is 114/70, respiratory rate of 18, heart rate of 90. HEENT: Unremarkable. NECK: Supple. LUNGS: Have decreased breath sounds. HEART: Normal S1, S2. ABDOMEN: Mild tenderness. No rebound, no guarding, no masses. LABORATORY EXAMINATION: Reveals a white count of 7.6, hemoglobin of 13, platelets of 288; 44% granul ocytosis, 43% lymphocytosis, 10% monocytosis Coagulation is noted. BUN of 7, creatinine of 0.7. Uri nalysis is noted. Microbiology reveals the patient's stool for C. diff antigen and toxin is negative . Dr. Antoine's consultation is reviewed. He states the patient had a recent admission in October with a fish bone ingestion with colitis. Dr. Merino's history and physical examination is noted and the pat ient had a history of pseudomembranous colitis. CAT scan of the abdomen and pelvis reveals the patie nt has mild colitis versus under distention, favoring under distention. ASSESSMENT AND PLAN: A 66-year-old female with chronic obstructive lung disease, hypertension, kidne y stones, hepatitis B, arthritis, who is admitted with gastrointestinal symptoms; although in recent hospitalization in 10/25, patient had a positive antigen but not a toxin and no salmonella, shigella or campylobacter was identified at the time. With a negative antigen and negative toxin for Clostrid ium difficile would make pseudomembranous colitis very likely. The patient did have an upper esophag ogastroduodenoscopy with a biopsy. Pathology report from the gastric biopsy is reviewed. Chronic ga stritis is what is seen. If abdominal cramps and diarrhea persist, would recommend a colonoscopy to rule out collagenous colitis and microcolitis. Will continue the present course at this time and fol low closely with you. Manfred Aburto MD cc: [phone] TT: 11/09/2016 17:49:32 Confirmation # [id number] Dictation # [id number] mn
[2016-11-09] MEDS ORDERED: Alum-Mag Hydrox-Simethicone Susp (30 mL) PO ONE (18:56)
[2016-11-10] MEDS ORDERED: Pantoprazole 40 mg EC Tab PO SCH (01:30)
[2016-11-10] MEDS: metroNIDAZOLE IV 500 mg/100 ml 500 MG/100 ML BAG IVPB SCH (05:51)
[2016-11-10 06:59] LABS: ADD MANUAL DIFF? NO
[2016-11-10 07:07] LABS: BASO # 0.02 K/mm3 (0.0-2.0); BASO % 0.3 % (0.0-3.0); EOS # 0.1 (0.0-0.7); EOS % 1.5 % (1.5-5.0); GRAN # 3.58 (1.4-6.5); GRAN % 59.2 % (50.0-68.0); HEMATOCRIT 38.3 % (36.0-48.0); LYMPH # 1.8 (1.2-3.4); LYMPH % 30.2 % (22.0-35.0); MEAN CELL VOLUME 90.5 fL (80.0-105.0); MEAN CORPUSCULAR HEMOGLOBIN 30.3 pg (25.0-35.0); MEAN CORPUSCULAR HGB CONC 33.4 g/dl (31.0-37.0); MEAN PLATELET VOLUME 8.7 fl (7.0-11.0); MONO # 0.5 (0.1-0.6); MONO % 8.8 % (1.0-6.0); PLATELET COUNT 248 10^3/uL (120.0-450.0); RED CELL DISTRIBUTION WIDTH 12.8 % (11.5-14.5); WHITE BLOOD COUNT 6.1 10^3/ul (4.5-11.0)
[2016-11-10 07:30] LABS: ALB/GLOB RATIO 1.1 (1.1-1.8); ALKALINE PHOSPHATASE 61 U/L (38-133); ALT/SGPT 44 U/L (7-56); AST/SGOT 39 U/L (15-39); BILIRUBIN,TOTAL 0.4 mg/dL (0.2-1.3); BLOOD UREA NITROGEN 9 mg/dL (7-21); CALCIUM 8.8 mg/dL (8.4-10.5); CARBON DIOXIDE 23 mmol/L (21-33); CHLORIDE 108 mmol/L (98-107); GFR AFRICAN-AMERICAN > 60; GLUCOSE,RANDOM 84 mg/dL (70-110); POTASSIUM 3.5 mmol/L (3.6-5.0); SODIUM 139 mmol/L (132-148); TOTAL PROTEIN 6.2 g/dL (5.8-8.3)
--- NOTE | 2016-11-10 07:38 | CP.PCM.PN ---
<Jaquelin Riojas - Last Filed: 11/10/16 11:22> Subjective - Date & Time of Evaluation Date of Evaluation: 11/10/16 Time of Evaluation: 07:35 - Subjective Subjective: GI progress note Pt is seen and examined at bedside. Freezer Tunnel Operator machine is used for communication. Patient had two watery bowel movements overnight. She states her diarrhea is improving. She is still c/o abd pain 7/10 in severity. She is c/ o of decreased appetite and has not eaten anything overnight. Denies having any fevers, chills, dysuria. 12 point ROS are negative except for the above mentioned. Objective - Vital Signs/Intake and Output Vital Signs (last 24 hours): Temp Pulse Resp BP Pulse Ox 98.2 F 60 16 106/64 97 11/09/16 16:39 11/09/16 16:39 11/09/16 16:39 11/09/16 17:55 11/09/16 16:39 Intake and Output: 11/10/16 11/10/16 06:59 18:59 Intake Total 360 Balance 360 - Medications Medications: Current Medications Acetaminophen (Tylenol 325mg Tab) 650 mg PO Q6H PRN PRN Reason: Fever >100.4 F Albuterol Sulfate (Albuterol 0.083% Inhal Clara (2.5 Mg/3 Ml) Ud) 2.5 mg IH Q2H PRN PRN Reason: Shortness of Breath Atenolol (Tenormin) 12.5 mg PO BID [facility] Last Admin: 11/09/16 17:55 Dose: 12.5 mg Atorvastatin Calcium (Lipitor) 10 mg PO DIN [facility] Last Admin: 11/09/16 17:51 Dose: 10 mg Famotidine (Pepcid) 20 mg PO BID [facility] Last Admin: 11/09/16 17:52 Dose: 20 mg Metronidazole (Flagyl) 500 mg in 100 mls @ 100 mls/hr IVPB Q8 ELISEO PRN Reason: Protocol Last Admin: 11/10/16 05:51 Dose: 100 mls/hr Sodium Chloride (Sodium Chloride 0.9%) 1,000 mls @ 100 mls/hr IV .Q10H [facility] Last Admin: 11/09/16 20:45 Dose: 100 mls/hr Lactobacillus Acidophilus (Bacid Acidophilus) 1 cap PO BID [facility] Last Admin: 11/09/16 17:51 Dose: 1 cap Pantoprazole Sodium (Protonix Ec Tab) 40 mg PO 0600 [facility] Last Admin: 11/10/16 05:52 Dose: 40 mg Roflumilast (Daliresp) 500 mcg PO DAILY [facility] Last Admin: 11/09/16 09:25 Dose: 500 mcg Tenofovir Disoproxil Fumarate (Viread) 300 mg PO DAILY [facility] Last Admin: 11/09/16 09:25 Dose: 300 mg Tiotropium [place] (Spiriva) 18 mcg INH DAILY [facility] Last Admin: 11/09/16 09:25 Dose: 18 mcg Vancomycin HCl (Vancocin 25 Mg/Ml (Oral Use)) 250 mg PO QID [facility] PRN Reason: Protocol Last Admin: 11/09/16 22:30 Dose: 250 mg - Labs Labs: 11/10/16 06:45 11/10/16 06:45 PT 10.7 Seconds (9.9-11.8) 11/08/16 22:47 INR 0.99 (0.93-1.08) 11/08/16 22:47 APTT 25.2 Seconds (23.7-30.8) 11/08/16 22:47 - Constitutional Appears: Non-toxic, No Acute Distress - Head Exam Head Exam: ATRAUMATIC - ENT Exam ENT Exam: Mucous Membranes Moist - Respiratory Exam Respiratory Exam: Wheezes (expiratory ). absent: Accessory Muscle Use, Respiratory Distress - Cardiovascular Exam Cardiovascular Exam: REGULAR RHYTHM, +S1, +S2. absent: Gallop, Rubs, Murmur - GI/Abdominal Exam GI & Abdominal Exam: Soft, Normal Bowel Sounds. absent: Distended, Firm, Guarding, Rigid, Tenderness, Organomegaly - Extremities Exam Extremities Exam: absent: Pedal Edema, Tenderness - Neurological Exam Neurological Exam: Alert, Awake, Oriented x3 - Psychiatric Exam Psychiatric exam: Normal Affect, Normal Mood - Skin Skin Exam: Dry, Intact, Normal Color, Warm Assessment and Plan - Assessment and Plan (Free Text) Assessment: 66 year old female with past medical history of COPD, Hyperlipidemia, Hypertension, and chronic Hepatitis B, Genotype C, VL >2million 04/2016, on Tenofovir since 10/15/16, recent admission 10/2016 for fish bone ingestion with colitis, and most recent discharge 10/27/16 for Cdiff colitis presenting with persistent left sided abdominal pain and diarrhea. Active treatment with vancomycin anf flagyl for persistent diarrhea with presumed ongoing Cdiff colitis. CT abd/pelvis with IV contrast showed mild colitis vs. under distention ; liver lesions. Prior EGD 02/2010 showed mild chronic Gastritis, H. pylori negative. No prior colonoscopy. Plan: >negative c.diff antigen and toxin. negative stool leukocytes. Ova and parasite pending >Continue vancomycin. will d/c flagyl due to consistent watery stools >ID managing >supportive care: PPI, pain control, IVFs >heart healthy diet >recommendation for elective colonoscopy in 6-8 weeks as previously planned on last discharge >Recommend elective MRI for liver lesions at a future date >recommend daily probiotic Align. >recommend PPI qd x 2 weeks upon discharge >recommend imodium prn for diarrhea upoc discharge Case will be discussed with attending <Lupillo Antoine - Last Filed: 11/10/16 11:51> Objective - Vital Signs/Intake and Output Vital Signs (last 24 hours): Temp Pulse Resp BP Pulse Ox 97.6 F 66 20 97/64 L 97 11/10/16 07:30 11/10/16 10:24 11/10/16 07:30 11/10/16 10:24 11/10/16 07:30 Intake and Output: 11/10/16 11/10/16 06:59 18:59 Intake Total 360 Balance 360 - Medications Medications: Current Medications Acetaminophen (Tylenol 325mg Tab) 650 mg PO Q6H PRN PRN Reason: Fever >100.4 F Albuterol Sulfate (Albuterol 0.083% Inhal [place] (2.5 Mg/3 Ml) Ud) 2.5 mg IH Q2H PRN PRN Reason: Shortness of Breath Atorvastatin Calcium (Lipitor) 10 mg PO DIN [facility] Last Admin: 11/09/16 17:51 Dose: 10 mg Sodium Chloride (Sodium Chloride 0.9%) 1,000 mls @ 100 mls/hr IV .Q10H [facility] Last Admin: 11/10/16 10:27 Dose: 100 mls/hr Lactobacillus Acidophilus (Bacid Acidophilus) 1 cap PO BID [facility] Last Admin: 11/10/16 10:25 Dose: 1 cap Loperamide HCl (Imodium) 4 mg PO DAILY [facility] Pantoprazole Sodium (Protonix Ec Tab) 40 mg PO 0600 [facility] Last Admin: 11/10/16 05:52 Dose: 40 mg Roflumilast (Daliresp) 500 mcg PO DAILY [facility] Last Admin: 11/10/16 10:21 Dose: 500 mcg Tenofovir Disoproxil Fumarate (Viread) 300 mg PO DAILY [facility] Last Admin: 11/10/16 10:20 Dose: 300 mg Tiotropium [place] (Spiriva) 18 mcg INH DAILY [facility] Last Admin: 11/10/16 10:19 Dose: 18 mcg - Labs Labs: 11/10/16 06:45 11/10/16 06:45 PT 10.7 Seconds (9.9-11.8) 11/08/16 22:47 INR 0.99 (0.93-1.08) 11/08/16 22:47 APTT 25.2 Seconds (23.7-30.8) 11/08/16 22:47 Attending/Attestation - Attestation I have personally seen and examined this patient.: Yes I have fully participated in the care of the patient.: Yes I have reviewed all pertinent clinical information, including history, physical exam and plan: Yes Notes (Text): 11/10/16 11:50 66 year old female with h/o COPD, HLD, HTN, and chronic Hepatitis B, recent admission 10/2016 for fish bone ingestion with colitis, and C. diff colitis admitted with recurrent abdominal pain and diarrhea. 1. Abdominal pain 2. Diarrhea 3. History of Clostridium difficile 4. Liver lesion Plan: -stool negative for C. diff -defer decision re: antibiotics to ID -recommend a probiotic daily indefinitely -diet as tolerated -supportive care -continue PPI daily -immodium as needed -pain meds as needed -outpatient egd/colonoscopy in 6-8 weeks recommended -elective MRI recommended for liver lesion per CT
[2016-11-10 08:04] VITALS: RESP 20; TEMP 97.6
[2016-11-10] MEDS ORDERED: Potassium Chloride 20 mEq ER Tab PO ONE (09:02)
[2016-11-10] MEDS: Tiotropium 18 mcg Cap For Inhalation INH SCH (10:19)
[2016-11-10] MEDS: Lactobacillus Acidophilus 500 MU Cap PO SCH (10:25)
[2016-11-10] MEDS: Sodium Chloride 0.9% 1,000 ML IV SCH (10:27)
[2016-11-10] MEDS: Vancomycin 25 MG/ML PO SCH (10:28)
[2016-11-10 10:29] VITALS: BP 97/64; PULSE 66
[2016-11-10] MEDS ORDERED: Loperamide Hydrochloride 1 mg/5 ml Cup PO SCH (11:30)
--- NOTE | 2016-11-10 16:05 | CP.PCM.DIS ---
<MarlinRd - Last Filed: 11/10/16 15:59> Provider - Provider Date of Admission: 11/09/16 00:33 Attending physician: Joel De La Cruz MD Primary care physician: Marilyn Gregg DO Consults: GI - Dr. Hein Time Spent in preparation of Discharge (in minutes): 35 Diagnosis - Discharge Diagnosis (1) Abdominal pain Status: Chronic Hospital Course - Lab Results Lab Results: Micro Results 11/09/16 12:30 Stool Ova and Parasite Concentrate Exam - Final 11/09/16 12:30 Stool C. difficile Antigen & Toxin A,B (M - Final 11/09/16 01:12 Blood-Venous Blood Culture - Preliminary NO GROWTH AFTER 24 HOURS 11/09/16 00:45 Blood-Venous Blood Culture - Preliminary NO GROWTH AFTER 24 HOURS Most Recent Lab Values WBC 6.1 10^3/ul (4.5-11.0) 11/10/16 06:45 RBC 4.23 10^6/uL (3.5-6.1) 11/10/16 06:45 Hgb 12.8 gm/dL (12.0-16.0) 11/10/16 06:45 Hct 38.3 % (36.0-48.0) 11/10/16 06:45 MCV 90.5 fL (80.0-105.0) 11/10/16 06:45 MCH 30.3 pg (25.0-35.0) 11/10/16 06:45 MCHC 33.4 g/dl (31.0-37.0) 11/10/16 06:45 RDW 12.8 % (11.5-14.5) 11/10/16 06:45 Plt Count 248 10^3/uL (120.0-450.0) 11/10/16 06:45 MPV 8.7 fl (7.0-11.0) 11/10/16 06:45 Gran % 59.2 % (50.0-68.0) 11/10/16 06:45 Lymph % (Auto) 30.2 % (22.0-35.0) 11/10/16 06:45 Crook % (Auto) 8.8 % (1.0-6.0) H 11/10/16 06:45 Eos % (Auto) 1.5 % (1.5-5.0) 11/10/16 06:45 Baso % (Auto) 0.3 % (0.0-3.0) 11/10/16 06:45 Gran # 3.58 (1.4-6.5) 11/10/16 06:45 Lymph # 1.8 (1.2-3.4) 11/10/16 06:45 Crook # 0.5 (0.1-0.6) 11/10/16 06:45 Eos # 0.1 (0.0-0.7) 11/10/16 06:45 Baso # 0.02 K/mm3 (0.0-2.0) 11/10/16 06:45 PT 10.7 Seconds (9.9-11.8) 11/08/16 22:47 INR 0.99 (0.93-1.08) 11/08/16 22:47 APTT 25.2 Seconds (23.7-30.8) 11/08/16 22:47 pO2 79 mm/Hg (30-55) H 11/09/16 11:00 VBG pH 7.40 (7.32-7.43) 11/09/16 11:00 VBG pCO2 41.0 (40-60) 11/09/16 11:00 VBG HCO3 25.4 mmol/l (21-28) 11/09/16 11:00 VBG Total CO2 26.7 mmol.L (22-28) 11/09/16 11:00 VBG O2 Sat (Calc) 98.0 % (40-65) H 11/09/16 11:00 VBG Base Excess 0.5 mmol/L (0.0-2.0) 11/09/16 11:00 VBG Potassium 3.5 mmol/L (3.6-5.2) L 11/09/16 11:00 Sodium 140.0 mmol/L (132-148) 11/09/16 11:00 Chloride 109.0 mmol/L (98-107) H 11/09/16 11:00 Glucose 84 mg/dl (65-105) 11/09/16 11:00 Lactate 1.6 mmol/L (0.7-2.1) 11/09/16 11:00 FiO2 21.0 % 11/09/16 11:00 Sodium 139 mmol/L (132-148) 11/10/16 06:45 Potassium 3.5 mmol/L (3.6-5.0) L 11/10/16 06:45 Chloride 108 mmol/L (98-107) H 11/10/16 06:45 Carbon Dioxide 23 mmol/L (21-33) 11/10/16 06:45 Anion Gap 12 (10-20) 11/10/16 06:45 BUN 9 mg/dL (7-21) 11/10/16 06:45 Creatinine 0.7 mg/dL (0.5-1.4) 11/10/16 06:45 Est GFR ( Amer) > 60 11/10/16 06:45 Est GFR (Non-Af Amer) > 60 11/10/16 06:45 Random Glucose 84 mg/dL (70-110) 11/10/16 06:45 Calcium 8.8 mg/dL (8.4-10.5) 11/10/16 06:45 Magnesium 1.9 mg/dL (1.7-2.2) 11/10/16 06:45 Total Bilirubin 0.4 mg/dL (0.2-1.3) 11/10/16 06:45 AST 39 U/L (15-39) 11/10/16 06:45 ALT 44 U/L (7-56) 11/10/16 06:45 Alkaline Phosphatase 61 U/L (38-133) 11/10/16 06:45 Lactate Dehydrogenase 541 U/L (333-699) 11/08/16 22:47 Total Creatine Kinase 67 U/L (35-230) 11/08/16 22:47 Troponin I < 0.01 ng/mL 11/08/16 22:47 Total Protein 6.2 g/dL (5.8-8.3) 11/10/16 06:45 Albumin 3.3 g/dL (3.0-4.8) 11/10/16 06:45 Globulin 2.9 gm/dL 11/10/16 06:45 Albumin/Globulin Ratio 1.1 (1.1-1.8) 11/10/16 06:45 Amylase 108 U/L (35-125) 11/08/16 22:47 Lipase 130 U/L (23-300) 11/08/16 22:47 Venous Blood Potassium 3.5 mmol/L (3.6-5.2) L 11/09/16 11:00 Urine Color Light yellow (YELLOW) 11/08/16 22:47 Urine Appearance Clear (CLEAR) 11/08/16 22:47 Urine pH 6.5 (4.7-8.0) 11/08/16 22:47 Ur Specific Liberty <= 1.005 (1.005-1.035) 11/08/16 22:47 Urine Protein Negative mg/dL (<30 mg/dL) 11/08/16 22:47 Urine Glucose (UA) Negative mg/dL (NEGATIVE) 11/08/16 22: Urine Ketones Negative mg/dL (NEGATIVE) 11/08/16 22: Urine Blood Trace-lysed (NEGATIVE) H 11/08/16 22:47 Urine Nitrate Negative (NEGATIVE) 11/08/16 22:47 Urine Bilirubin Negative (NEGATIVE) 11/08/16:47 Urine Urobilinogen 0.2 E.U./dL (<1 E.U./dL) 11/08/16 22:47 Ur Leukocyte Esterase Moderate Eamon/uL (NEGATIVE) H 11/08/16 22:47 Urine RBC 0 - 2 /hpf (0-2) 11/08/16 22:47 Urine WBC 2 - 5 /hpf (0-6) 11/08/16 22:47 Ur Epithelial Cells 0 - 2 /hpf (0-5) 11/08/16 22:47 Stool Leukocytes, Qual Negative (NEGATIVE) 11/09/16 12:30 - Hospital Course Hospital Course: This is a 66 y/o female with a PMHx COPD, Htn, Dyslipidemia, OA, Hepatitis B comes to the ED with a history of diarrhea and abdominal pain since discharge from the hospital when she was diagnosed for c diff colitis. She states she has had 2 episodes of diarrhea daily since leaving the hospital. She denies all other symptoms; no blood in stool, no fevers/chills, BESS, chest pain, SOB, N/V, dysuria/freq/urg, or lower extremity pain/swelling. Patient states that her diarrhea has been getting better but has not gone away. The patient was admitted for intractable abdominal pain. CT revealed mild colitis vs underdistention as well as a liver lesion with recommended f/u MRI. GI was consulted who recommended the patient f/u with Dr. Hein as an outpatient for colonoscopy as well as for MRI of the abdomen to further evaluate patient's liver lesion. Infections Disease evaluated the patient who determined it is unlikely the patient does not have pseudomembranous colitis. ID recommends outpatient colonoscopy as well. The patient is discharged on Protonix 40mg daily for 2 weeks as well as with Imodium for diarrhea. Patient and family were instructed on the importance to f/u with Dr. Hein in his office for further evaluation and eventual colonoscopy and MRI of the abdomen. Discharge Exam - Head Exam Head Exam: ATRAUMATIC - Eye Exam Eye Exam: EOMI, PERRL - ENT Exam ENT Exam: Mucous Membranes Moist - Respiratory Exam Respiratory Exam: Clear to PA & Lateral, NORMAL BREATHING PATTERN. absent: Rales, Rhonchi - Cardiovascular Exam Cardiovascular Exam: REGULAR RHYTHM, +S1, +S2 - GI/Abdominal Exam GI & Abdominal Exam: Normal Bowel Sounds, Soft, Tenderness (mild epigastric ). absent: Distended, Firm, Guarding - Extremities Exam Extremities exam: full ROM, normal inspection, pedal pulses present - Neurological Exam Neurological exam: Alert, CN II-XII Intact, Oriented x3 - Psychiatric Exam Psychiatric exam: Normal Affect, Normal Mood - Skin Skin Exam: Dry, Warm Discharge Plan - Discharge Medications Prescriptions: Loperamide [Imodium] 2 mg PO BID PRN #10 cap PRN Reason: diarrhea Pantoprazole [Protonix EC Tab] 40 mg PO 0600 #30 ect - Follow Up Plan Condition: GOOD Disposition: HOME/ ROUTINE Instructions: Giardiasis (DC), Sepsis (GEN), Abdominal Pain (ED) Additional Instructions: 1. Follow up with PMD Dr. Gregg in 3 days. 2. Needs colonoscopy /EGD with Dr. hein in 6 to 8 weeks. 3. Continue protonix. 4. Follow up with pulmonary per PMD or Dr. vaca. Referrals: Marilyn Gregg DO [Primary Care Provider] - Lupillo Hein MD [Staff Provider] - <Joel De La Cruz - Last Filed: 11/10/16 16:16> Provider - Provider Date of Admission: 11/09/16 00:33 Attending physician: Joel De La Cruz MD Primary care physician: Marilyn Gregg DO Hospital Course - Lab Results Lab Results: Micro Results 11/09/16 12:30 Stool Ova and Parasite Concentrate Exam - Final 11/09/16 12:30 Stool C. difficile Antigen & Toxin A,B (M - Final 11/09/16 01:12 Blood-Venous Blood Culture - Preliminary NO GROWTH AFTER 24 HOURS 11/09/16 00:45 Blood-Venous Blood Culture - Preliminary NO GROWTH AFTER 24 HOURS Most Recent Lab Values WBC 6.1 10^3/ul (4.5-11.0) 11/10/16 06:45 RBC 4.23 10^6/uL (3.5-6.1) 11/10/16 06:45 Hgb 12.8 gm/dL (12.0-16.0) 11/10/16 06:45 Hct 38.3 % (36.0-48.0) 11/10/16 06:45 MCV 90.5 fL (80.0-105.0) 11/10/16 06:45 MCH 30.3 pg (25.0-35.0) 11/10/16 06:45 MCHC 33.4 g/dl (31.0-37.0) 11/10/16 06:45 RDW 12.8 % (11.5-14.5) 11/10/16 06:45 Plt Count 248 10^3/uL (120.0-450.0) 11/10/16 06:45 MPV 8.7 fl (7.0-11.0) 11/10/16 06:45 Gran % 59.2 % (50.0-68.0) 11/10/16 06:45 Lymph % (Auto) 30.2 % (22.0-35.0) 11/10/16 06:45 Crook % (Auto) 8.8 % (1.0-6.0) H 11/10/16 06:45 Eos % (Auto) 1.5 % (1.5-5.0) 11/10/16 06:45 Baso % (Auto) 0.3 % (0.0-3.0) 11/10/16 06:45 Gran # 3.58 (1.4-6.5) 11/10/16 06:45 Lymph # 1.8 (1.2-3.4) 11/10/16 06:45 Crook # 0.5 (0.1-0.6) 11/10/16 06:45 Eos # 0.1 (0.0-0.7) 11/10/16 06:45 Baso # 0.02 K/mm3 (0.0-2.0) 11/10/16 06:45 PT 10.7 Seconds (9.9-11.8) 11/08/16 22:47 INR 0.99 (0.93-1.08) 11/08/16 22:47 APTT 25.2 Seconds (23.7-30.8) 11/08/16 22:47 pO2 79 mm/Hg (30-55) H 11/09/16 11:00 VBG pH 7.40 (7.32-7.43) 11/09/16 11:00 VBG pCO2 41.0 (40-60) 11/09/16 11:00 VBG HCO3 25.4 mmol/l (21-28) 11/09/16 11:00 VBG Total CO2 26.7 mmol.L (22-28) 11/09/16 11:00 VBG O2 Sat (Calc) 98.0 % (40-65) H 11/09/16 11:00 VBG Base Excess 0.5 mmol/L (0.0-2.0) 11/09/16 11:00 VBG Potassium 3.5 mmol/L (3.6-5.2) L 11/09/16 11:00 Sodium 140.0 mmol/L (132-148) 11/09/16 11:00 Chloride 109.0 mmol/L (98-107) H 11/09/16 11:00 Glucose 84 mg/dl (65-105) 11/09/16 11:00 Lactate 1.6 mmol/L (0.7-2.1) 11/09/16 11:00 FiO2 21.0 % 11/09/16 11:00 Sodium 139 mmol/L (132-148) 11/10/16 06:45 Potassium 3.5 mmol/L (3.6-5.0) L 11/10/16 06:45 Chloride 108 mmol/L (98-107) H 11/10/16 06:45 Carbon Dioxide 23 mmol/L (21-33) 11/10/16 06:45 Anion Gap 12 (10-20) 11/10/16 06:45 BUN 9 mg/dL (7-21) 11/10/16 06:45 Creatinine 0.7 mg/dL (0.5-1.4) 11/10/16 06:45 Est GFR ( Amer) > 60 11/10/16 06:45 Est GFR (Non-Af Amer) > 60 11/10/16 06:45 Random Glucose 84 mg/dL (70-110) 11/10/16 06:45 Calcium 8.8 mg/dL (8.4-10.5) 11/10/16 06:45 Magnesium 1.9 mg/dL (1.7-2.2) 11/10/16 06:45 Total Bilirubin 0.4 mg/dL (0.2-1.3) 11/10/16 06:45 AST 39 U/L (15-39) 11/10/16 06:45 ALT 44 U/L (7-56) 11/10/16 06:45 Alkaline Phosphatase 61 U/L (38-133) 11/10/16 06:45 Lactate Dehydrogenase 541 U/L (333-699) 11/08/16 22:47 Total Creatine Kinase 67 U/L (35-230) 11/08/16 22:47 Troponin I < 0.01 ng/mL 11/08/16 22:47 Total Protein 6.2 g/dL (5.8-8.3) 11/10/16 06:45 Albumin 3.3 g/dL (3.0-4.8) 11/10/16 06:45 Globulin 2.9 gm/dL 11/10/16 06:45 Albumin/Globulin Ratio 1.1 (1.1-1.8) 11/10/16 06:45 Amylase 108 U/L (35-125) 11/08/16 22:47 Lipase 130 U/L (23-300) 11/08/16 22:47 Venous Blood Potassium 3.5 mmol/L (3.6-5.2) L 11/09/16 11:00 Urine Color Light yellow (YELLOW) 11/08/16 22:47 Urine Appearance Clear (CLEAR) 11/08/16 22:47 Urine pH 6.5 (4.7-8.0) 11/08/16 22:47 Ur Specific Liberty <= 1.005 (1.005-1.035) 11/08/16 22:47 Urine Protein Negative mg/dL (<30 mg/dL) 11/08/16 22:47 Urine Glucose (UA) Negative mg/dL (NEGATIVE) 11/08/16 22:47 Urine Ketones Negative mg/dL (NEGATIVE) 11/08/16 22:47 Urine Blood Trace-lysed (NEGATIVE) H 11/08/16 22:47 Urine Nitrate Negative (NEGATIVE) 11/08/16 22:47 Urine Bilirubin Negative (NEGATIVE) 11/08/16 22:47 Urine Urobilinogen 0.2 E.U./dL (<1 E.U./dL) 11/08/16 22:47 Ur Leukocyte Esterase Moderate Eamon/uL (NEGATIVE) H 11/08/16 22:47 Urine RBC 0 - 2 /hpf (0-2) 11/08/16 22:47 Urine WBC 2 - 5 /hpf (0-6) 11/08/16 22:47 Ur Epithelial Cells 0 - 2 /hpf (0-5) 11/08/16 22:47 Stool Leukocytes, Qual Negative (NEGATIVE) 11/09/16 12:30 Attending/Attestation - Attestation I have personally seen and examined this patient.: Yes I have fully participated in the care of the patient.: Yes I have reviewed all pertinent clinical information, including history, physical exam and plan: Yes Notes (Text): 11/10/16 16:13 Attending note; Patient seen and examined with resident. Patient is a 66-year-old female with a past medical history of gastritis, C. difficile, hepatitis B, COPD is admitted with abdominal pain. CT showed nonspecific distention versus colitis. GI evaluation appreciated. C. difficile is negative. Anti-biotics discontinued. ID evaluation appreciated. Patient is tolerating diet. Nonspecific abdominal discomfort. Needs EGD/colonoscopy in 6-8 weeks as per GI. COPD; stable. Follow up with pulmonary as outpatient. Diagnosis; Abdominal discomfort Colitis COPD
--- NOTE | 2016-11-10 20:01 | CP.PCM.PN ---
Subjective - Date & Time of Evaluation Date of Evaluation: 11/10/16 Time of Evaluation: 07:00 - Subjective Subjective: DOING WELL STILL WEAK Objective - Vital Signs/Intake and Output Vital Signs (last 24 hours): Temp Pulse Resp BP Pulse Ox 97.6 F 66 20 97/64 L 97 11/10/16 07:30 11/10/16 10:24 11/10/16 07:30 11/10/16 10:24 11/10/16 07:30 Intake and Output: 11/10/16 11/11/16 18:59 06:59 Intake Total 620 Output Total 3 Balance 617 - Labs Labs: 11/10/16 06:45 11/10/16 06:45 PT 10.7 Seconds (9.9-11.8) 11/08/16 22:47 INR 0.99 (0.93-1.08) 11/08/16 22:47 APTT 25.2 Seconds (23.7-30.8) 11/08/16 22:47 - Constitutional Appears: Well - Head Exam Head Exam: ATRAUMATIC, NORMAL INSPECTION, NORMOCEPHALIC - Eye Exam Eye Exam: EOMI, Normal appearance, PERRL Pupil Exam: NORMAL ACCOMODATION, PERRL - ENT Exam ENT Exam: Mucous Membranes Moist, Normal Exam - Neck Exam Neck Exam: Full ROM, Normal Inspection. absent: Lymphadenopathy - Respiratory Exam Respiratory Exam: Clear to Ausculation Bilateral, NORMAL BREATHING PATTERN - Cardiovascular Exam Cardiovascular Exam: REGULAR RHYTHM, +S1, +S2. absent: Murmur - GI/Abdominal Exam GI & Abdominal Exam: Soft, Normal Bowel Sounds. absent: Tenderness - Rectal Exam Rectal Exam: NORMAL INSPECTION - Exam Exam: Circumcision, NORMAL INSPECTION External exam: NORMAL EXTERNAL EXAM Speculum exam: NORMAL SPECULUM EXAM Bimanual exam: NORMAL BIMANUAL EXAM - Extremities Exam Extremities Exam: Full ROM, Normal Capillary Refill, Normal Inspection. absent : Joint Swelling, Pedal Edema - Back Exam Back Exam: NORMAL INSPECTION - Neurological Exam Neurological Exam: Alert, Awake, CN II-XII Intact, Normal Gait, Oriented x3 - Psychiatric Exam Psychiatric exam: Normal Affect, Normal Mood - Skin Skin Exam: Dry, Intact, Normal Color, Warm Assessment and Plan - Assessment and Plan (Free Text) Assessment: COLITIS Plan: OUT PT GI WORK UP D/W PMD
== END 2016-11-10 16:58 | disposition home or self-care (01) ==
LOC: ED 21:44 → ERH 11-09 00:33 → 5RNO 11-09 02:12
PROVIDERS: ADMIT Internal Medicine; ATTEND Internal Medicine
DX: A04.7 Enterocolitis due to Clostridium difficile (principal); B18.1 Chronic viral hepatitis B without delta-agent; E78.5 Hyperlipidemia, unspecified; I10 Essential (primary) hypertension; J44.9 Chronic obstructive pulmonary disease, unspecified; K29.50 Unspecified chronic gastritis without bleeding; M19.90 Unspecified osteoarthritis, unspecified site; Z87.442 Personal history of urinary calculi; Z87.891 Personal history of nicotine dependence; R26.81 Unsteadiness on feet; Z88.1 Allergy status to other antibiotic agents
CPT/HCPCS: 36415; 74177; 80053; 81001; 82150; 82550; 82803; 83615; 83690; 83735; 84484; 85025; 85610; 85730; 87040; 87086; 87177; 87209; 87324; 89055; 93005; 96365; 96366; 96375; 96376; 97116; 97161; 97530; 99285; G0378; G8978; G8979; J2270; J2405; J7040; Q9967

== ENCOUNTER 2016-12-26 21:58 | Observation (INO) | payer MEDICARE, MEDICAID ==
[2016-12-26 21:58] VITALS: BMI 19.5
--- NOTE | 2016-12-26 22:52 | ED PDOC ---
Arrival/HPI - History of Present Illness Time/Duration: 24 hours Symptom Onset: Sudden Symptom Course: Worsening Severity Level: 8 Context: Home <Jaquelin Riojas - Last Filed: 12/27/16 02:03> <Abhay Case - Last Filed: 12/27/16 02:04> - General Chief Complaint: Abdominal Pain Time Seen by Provider: 12/26/16 22:33 - History of Present Illness Narrative History of Present Illness (Text): 12/26/16 22:52 66 y/o F with past medical history of COPD, hepatitis B presents for epigastric pain that began yesterday. Patient's daughter is in room and translate for patient. Patient was sitting when pain began all of a sudden. Pain does not radiate anywhere specific. Patient also c/o F/C and dysuria. Patient denies having any N/v/D/C, CP or SOB. (Jaquelin Riojas) Past Medical History - Provider Review Nursing Documentation Reviewed: Yes - Travel History Have you recently traveled outside [place] w/in the past 3 mons?: No - Infectious Disease Hx of Infectious Diseases: None - Tetanus Immunization Tetanus Immunization: Unknown - Reproductive Menopause: Yes - Cardiac Hx Cardiac Disorders: No - Pulmonary Hx Respiratory Disorders: Yes Hx Chronic Obstructive Pulmonary Disease (COPD): Yes - Neurological Hx Neurological Disorder: No - HEENT Hx HEENT Disorder: No - Renal Hx Renal Disorder: Yes (kidney stones) - Endocrine/Metabolic Hx Endocrine Disorders: No - Hematological/Oncological Hx Blood Disorders: Yes Hx Hepatitis B: Yes - Integumentary Hx Dermatological Disorder: No - Musculoskeletal/Rheumatological Hx Musculoskeletal Disorders: Yes Hx Back Pain: Yes Hx Falls: No - Gastrointestinal Hx Gastrointestinal Disorders: No - Genitourinary/Gynecological Hx Genitourinary Disorders: No - Psychiatric Hx Psychophysiologic Disorder: No Hx Substance Use: No - Anesthesia Hx Anesthesia: No Hx Anesthesia Reactions: No Hx Malignant Hyperthermia: No <Jaquelin Riojas - Last Filed: 12/27/16 02:03> Family/Social History - Physician Review Nursing Documentation Reviewed: Yes Family/Social History: Unknown Family HX Smoking Status: Former Smoker Hx Alcohol Use: No Hx Substance Use: No <Jaquelin Riojas - Last Filed: 12/27/16 02:03> Allergies/Home Meds <Jaquelin Riojas - Last Filed: 12/27/16 02:03> <EvieAbhay - Last Filed: 12/27/16 02:04> Allergies/Adverse Reactions: Allergies ceftriaxone Allergy (Verified 12/26/16 22:22) RASH Home Medications: Home Meds Medication Instructions Recorded Confirmed RX: Roflumilast [Daliresp] 500 mcg PO DAILY 09/18/16 12/26/16 RX: Tiotropium [place] Inhaler 1 inhaler INH DAILY 09/18/16 12/26/16 [Spiriva Inhalation Handihaler Device] Review of Systems - Review of Systems Constitutional: Normal. absent: Fatigue, Fevers Eyes: Normal. absent: Vision Changes, Eye Pain ENT: Normal. absent: Hearing Changes, Sore Throat, Rhinorrhea Respiratory: Normal. absent: SOB, Cough, Sputum, Wheezing Cardiovascular: Normal. absent: Chest Pain, Edema, Calf Pain Gastrointestinal: Abdominal Pain (epigastric). absent: Constipation, Diarrhea, Nausea, Vomiting, Appetite Changes, Hematochezia, Hematemesis Genitourinary Female: Dysuria. absent: Frequency Musculoskeletal: Normal. absent: Arthralgias, Back Pain, Neck Pain Skin: Normal. absent: Rash, Pruritis, Skin Lesions, Laceration Neurological: Normal. absent: Headache, Dizziness Endocrine: Normal. absent: Diaphoresis, Polyuria Hemo/Lymphatic: Normal. absent: Adenopathy Psychiatric: Normal. absent: Anxiety, Depression <Jaquelin Riojas - Last Filed: 12/27/16 02:03> Physical Exam Temperature: Afebrile Blood Pressure: Normal Pulse: Tachycardic Respiratory Rate: Normal Appearance: Positive for: Uncomfortable Pain Distress: Moderate Mental Status: Positive for: Alert and Oriented X 3 - Systems Exam Head: Present: Atraumatic, Normocephalic Pupils: Present: PERRL Mouth: Present: Dry Respiratory/Chest: Present: Clear to Auscultation, Good Air Exchange. No: Respiratory Distress, Accessory Muscle Use, Wheezes, Rales, Rhonchi Cardiovascular: Present: Regular Rate and Rhythm, Normal S1, S2. No: Murmurs, Rub, Gallop, Muffled Abdomen: Present: Tenderness, Normal Bowel Sounds, Guarding. No: Distention, Peritoneal Signs, Rebound, McBurney's Point Tender, Rovsing's Sign Present, Mass /Organomegaly Back: Present: CVA Tenderness (B/L) Lower Extremity: Present: Normal Inspection. No: Edema, CALF TENDERNESS Neurological: Present: GCS=15 Skin: Present: Warm, Dry, Normal Color. No: Rashes Psychiatric: Present: Alert, Oriented x 3, Normal Insight, Normal Concentration <BeulahJaquelin - Last Filed: 12/27/16 02:03> Medical Decision Making - EKG Interpretation Interpreted by ED Physician: Yes Type: 12 lead EKG <Jaquelin Riojas - Last Filed: 12/27/16 02:03> - Lab Interpretations I have reviewed the lab results: Yes - EKG Interpretation Interpreted by ED Physician: Yes Type: 12 lead EKG <Abhay Case - Last Filed: 12/27/16 02:04> ED Course and Treatment: 12/26/16 23:01 66 y/o F presents for epigastric pain that began yesterday. Will check CBC, CMP, lipase, cardiac enzymes, EKG, Ct abd/pelvis Patient will be given toradol 15 mg IM and NS 1 L bolus. 12/27/16 02:03 Dr. Case spoke with Dr. Merino who accepts patient under hospitalists service. (Jaquelin Riojas) Impression: Pt seen and evaluated with medical device sales representative. Pt, whose past medical history includes COPD and hepatitis B, presented for epigastric pain since yesterday. Aware and agree with HPI, clinical findings, plan, and management. Plan: -- CT Abdomen and Pelvis -- EKG -- Chest X-ray -- Labs, cardiac enzymes, lipase -- Urinalysis, urine cultures -- Toradol -- Reassess and disposition 12/27/16 02:01 Case discusssed with medical device sales representative section plotter operator, who is aware and agrees. Case discussed with Dr. Merino, who is aware and agrees with plan. Accepts pt in to hospitalist service. (Abhay Case) - Lab Interpretations Lab Results: 12/27/16 01:05 12/27/16 01:05 Lab Results 12/27/16 01:05: Sodium 137, Potassium 3.6, Chloride 104, Carbon Dioxide 24, Anion Gap 13, BUN 13, Creatinine 0.7, Est GFR ( Amer) > 60, Est GFR (Non- Af Amer) > 60, Random Glucose 107, Calcium 9.4, Total Bilirubin 0.8, AST 31, ALT 23, Alkaline Phosphatase 74, Lactate Dehydrogenase 346, Total Creatine Kinase 33 L, Troponin I < 0.01, Total Protein 6.7, Albumin 3.7, Globulin 3.0, Albumin/Globulin Ratio 1.2, Lipase 105 12/27/16 01:05: WBC 9.4 D, RBC 4.26, Hgb 13.1, Hct 37.8, MCV 88.7, MCH 30.8, MCHC 34.7, RDW 12.5, Plt Count 231, MPV 8.9 - RAD Interpretation Radiology Orders: 12/26/16 22:54 ABD & PELVIS W/O PO OR IV CONT [CT] Stat CHEST PORTABLE [RAD] Stat - EKG Interpretation EKG Interpretation (Text): 12/26/16 23:03 NSR with HR of 101. No St changes, normal intervals and normal axis (Jaquelin Riojas ) - Medication Orders Current Medication Orders: Discontinued Medications Ketorolac Tromethamine (Toradol) 15 mg IM STAT STA Stop: 12/26/16 22:57 Last Admin: 12/26/16 23:07 Dose: 15 mg Pantoprazole Sodium (Protonix Inj) 40 mg IVP STAT STA Stop: 12/27/16 00:20 Last Admin: 12/27/16 01:24 Dose: 40 mg - PA / PLAN EXAMINER / Resident Statement SHYANNE has reviewed & agrees with the documentation as recorded. SHYANNE has examined the patient and agrees with the treatment plan. <Abhay Case - Last Filed: 12/27/16 02:04> Disposition/Present on Arrival - Present on Arrival Any Indicators Present on Arrival: No History of DVT/PE: No History of Uncontrolled Diabetes: No Urinary Catheter: No History of Decub. Ulcer: No History Surgical Site Infection Following: None - Disposition Have Diagnosis and Disposition been Completed?: Yes Patient Plan: Observation <Jaquelin Riojas - Last Filed: 12/27/16 02:03> - Present on Arrival Any Indicators Present on Arrival: No History of DVT/PE: No History of Uncontrolled Diabetes: No Urinary Catheter: No History of Decub. Ulcer: No History Surgical Site Infection Following: None - Disposition Have Diagnosis and Disposition been Completed?: Yes Disposition Time: 02:02 Patient Plan: Observation <Abhay Case - Last Filed: 12/27/16 02:04> - Disposition Diagnosis: Intractable abdominal pain Disposition: HOSPITALIZED Patient Problems: Current Active Problems Problem Status Onset Intractable abdominal pain Acute Forms: [facility] ([place])
--- NOTE | 2016-12-27 00:44 | CT ---
EXAM: CT Abdomen and Pelvis Without Intravenous Contrast CLINICAL HISTORY: 66 years old, female; Pain; Abdominal pain; Acute; Additional info: Epigastric pain TECHNIQUE: Axial computed tomography images of the abdomen and pelvis without intravenous contrast. All CT scans at this facility use one or more dose reduction techniques, viz.: automated exposure control; ma/kV adjustment per patient size (including targeted exams where dose is matched to indication; i.e. head); or iterative reconstruction technique. Coronal and sagittal reformatted images were created and reviewed. COMPARISON: CT - ABD PELVIS IV CONTRAST ONLY 11/08/2016 11:45:35 PM FINDINGS: Lower thorax: Interstitial thickening within the bilateral lung bases, without consolidation. ABDOMEN: Liver: The liver is enlarged, and demonstrates a 10 mm focus of decreased attenuation within segment 4, unchanged from 11/08/2016 Gallbladder and bile ducts: The gallbladder is decompressed, without calcified stones. No intra-extrahepatic biliary ductal dilation. Pancreas: Limited evaluation secondary to the lack of intravenous contrast. Spleen: No acute findings. Adrenals: No acute findings. Kidneys and ureters: No obstructing stones. No hydronephrosis. PELVIS: Bladder: No acute findings. Reproductive: No acute findings. Appendix: The appendix is of normal-caliber (series 2, image 95; series 601, image 56). ABDOMEN and PELVIS: Stomach and bowel: The stomach demonstrates mural thickening, likely secondary to under distention. Peritoneum: No acute findings. Lymph nodes: Limited evaluation without intravenous contrast. Vasculature: No aortic aneurysm. Bones: No acute fracture. IMPRESSION: Hepatomegaly. Stable lesion within segment 4. Mural thickening within the stomach, likely secondary to under distention.
[2016-12-27 01:33] LABS: HEMOGLOBIN 13.1 g/dL (12.0-16.0); MEAN CELL VOLUME 88.7 fl (80.0-105.0); MEAN CORPUSCULAR HEMOGLOBIN 30.8 pg (25.0-35.0); MEAN CORPUSCULAR HGB CONC 34.7 g/dl (31.0-37.0); MEAN PLATELET VOLUME 8.9 fl (7.0-11.0); RBC 4.26 10^6/uL (3.5-6.1); RED CELL DISTRIBUTION WIDTH 12.5 % (11.5-14.5); WHITE BLOOD COUNT 9.4 10^3/ul (4.5-11.0)
[2016-12-27 01:42] LABS: ALB/GLOB RATIO 1.2 (1.1-1.8); ALBUMIN 3.7 g/dL (3.0-4.8); ALT/SGPT 23 U/L (7-56); AST/SGOT 31 U/L (15-39); BLOOD UREA NITROGEN 13 mg/dL (7-21); CALCIUM 9.4 mg/dL (8.4-10.5); GFR AFRICAN-AMERICAN > 60; GFR NON-AFRICAN AMERICAN > 60; LIPASE 105 U/L (23-300)
[2016-12-27 01:58] LABS: TROPONIN I < 0.01 ng/mL
--- NOTE | 2016-12-27 04:59 | CP.PCM.HP ---
<Queta Linares - Last Filed: 12/27/16 13:23> History of Present Illness - History of Present Illness History of Present Illness: 66 yo female PMHx COPD, HTN, Dyslipidemia, OA, Hepatitis B presents with abdominal pain for 2 days. Patient has been to [facility] multiple times for similar complaints. She reports abdominal pain started in the afternoon 2 days ago when she was resting with no associated diarrhea, constipation, nausea, or vomiting. She reports the pain was located in the middle of her abdomen and was intermittent. She described it as a sharp pain 8/10 in intensity and could not identify any exacerbating or alleviating factors. She also complained of dysuria , burning on urination, and foul smelling urine. She reported pruritus all over with no associated skin changes. Patient admitted to fever, chills, headache, dizziness, SOB, nonproductive cough, abd pain, leg pain, and back pain. She denied change in vision, change in hearing, sore throat, palpitations, nausea, vomiting, bowel complaints, hematemesis, hematochezia/melanotic stool, leg swelling, easy bruising/bleeding, recent travel, sick contacts, change in weight. PMD: patient does not know name PMHx: COPD, HTN, Dyslipidemia, OA, Hepatitis B PSurgHx: denies Family Hx: denies Social Hx: smokes 1pack every 2 days for several decades, denies EtOH and drug use, lives at home with her children Meds: patient does not know name Allergies: ceftriaxone ROS: Denies: change in vision, change in hearing, sore throat, palpitations, nausea, vomiting, bowel complaints, hematemesis, hematochezia/melanotic stool, leg swelling, easy bruising/bleeding, recent travel, sick contacts, change in weight. Admits to: fever, chills, headache, dizziness, SOB, nonproductive cough, abd pain, dysuria, leg pain, and back pain Present on Admission - Present on Admission Any Indicators Present on Admission: No Review of Systems - Constitutional Constitutional: As Per HPI, Chills, Fever - EENT Eyes: As Per HPI. absent: Blurred Vision Ears: As Per HPI. absent: Dizziness Nose/Mouth/Throat: As Per HPI. absent: Sore Throat - Cardiovascular Cardiovascular: As Per HPI. absent: Chest Pain, Palpitations - Respiratory Respiratory: As Per HPI, Cough, Dyspnea - Gastrointestinal Gastrointestinal: As Per HPI, Abdominal Pain. absent: Constipation, Diarrhea, Nausea, Vomiting - Genitourinary Genitourinary: As Per HPI, Dysuria. absent: Hematuria - Musculoskeletal Musculoskeletal: As Per HPI, Myalgias. absent: Numbness, Tingling - Integumentary Integumentary: As Per HPI. absent: Rash - Neurological Neurological: As Per HPI, Dizziness. absent: Tingling - Psychiatric Psychiatric: As Per HPI. absent: Anxiety, Depression - Endocrine Endocrine: As Per HPI. absent: Polydipsia, Polyphagia, Polyuria - Hematologic/Lymphatic Hematologic: As Per HPI. absent: Easy Bleeding, Easy Bruising, Lymphadenopathy Past Patient History - Infectious Disease Hx of Infectious Diseases: None - Tetanus Immunizations Tetanus Immunization: Unknown - Past Medical History & Family History Past Medical History?: Yes - Past Social History Smoking Status: Former Smoker - CARDIAC Hx Cardiac Disorders: No - PULMONARY Hx Respiratory Disorders: Yes Hx Chronic Obstructive Pulmonary Disease (COPD): Yes - NEUROLOGICAL Hx Neurological Disorder: No - HEENT Hx HEENT Problems: No - RENAL Hx Chronic Kidney Disease: Yes (kidney stones) - ENDOCRINE/METABOLIC Hx Endocrine Disorders: No - HEMATOLOGICAL/ONCOLOGICAL Hx Blood Disorders: Yes Hx Hepatitis B: Yes - INTEGUMENTARY Hx Dermatological Problems: No - MUSCULOSKELETAL/RHEUMATOLOGICAL Hx Musculoskeletal Disorders: Yes Hx Back Pain: Yes Hx Falls: No - GASTROINTESTINAL Hx Gastrointestinal Disorders: No - GENITOURINARY/GYNECOLOGICAL Hx Genitourinary Disorders: No - PSYCHIATRIC Hx Psychophysiologic Disorder: No Hx Substance Use: No - SURGICAL HISTORY Hx Surgeries: No - ANESTHESIA Hx Anesthesia: No Hx Anesthesia Reactions: No Hx Malignant Hyperthermia: No Meds Allergies/Adverse Reactions: Allergies Allergy/AdvReac Type Severity Reaction Status Date / Time ceftriaxone Allergy RASH Verified 12/26/16 22:22 Physical Exam - Constitutional Appears: Non-toxic, No Acute Distress - Head Exam Head Exam: ATRAUMATIC, NORMAL INSPECTION, NORMOCEPHALIC - Eye Exam Eye Exam: EOMI, Normal appearance. absent: Conjunctival injection, Scleral icterus - ENT Exam ENT Exam: Mucous Membranes Dry - Neck Exam Neck exam: Positive for: Full Rom - Respiratory Exam Respiratory Exam: Clear to Auscultation Bilateral, NORMAL BREATHING PATTERN. absent: Rales, Rhonchi, Wheezes - Cardiovascular Exam Cardiovascular Exam: REGULAR RHYTHM, RRR, +S1, +S2 - GI/Abdominal Exam GI & Abdominal Exam: Normal Bowel Sounds, Soft, Tenderness. absent: Firm, Guarding - Extremities Exam Extremities exam: Positive for: normal inspection, pedal pulses present. Negative for: pedal edema - Back Exam Back exam: CVA tenderness (L), CVA tenderness (R). absent: rash noted - Neurological Exam Neurological exam: Alert, Oriented x3 - Psychiatric Exam Psychiatric exam: Normal Affect, Normal Mood - Skin Skin Exam: Dry, Intact Results - Vital Signs Recent Vital Signs: Last Vital Signs Temp 98.6 F 12/26/16 22:16 Pulse 84 12/27/16 03:43 Resp 16 12/27/16 03:43 BP 106/64 12/27/16 03:43 Pulse Ox 95 12/27/16 03:43 - Labs Result Diagrams: 12/27/16 01:05 12/27/16 01:05 Assessment & Plan - Assessment and Plan (Free Text) Assessment: 66 yo female PMHx COPD, HTN, Dyslipidemia, OA, Hepatitis B presents with abdominal pain for 2 days Plan: Abdominal pain - likely colitis vs pyelonephritis - f/u CT Abd/pelvis - f/u UA and urine culture - f/u blood culture - Cipro and Flagyl - GI Dr. Craig consulted - ID Dr. Clayton consulted Hx of HTN - Atenolol 12.5 mg po bid Hx of COPD - Spiriva 18mcg inh daily - Roflumilast 500mcg po daily - CXR 12/26 : no active disease Hx of HLD - Lipitor 10mg po hs - f/u lipid panel Hx of Hep B - Tenofovir 300mg po daily GI ppx: Protonix 40mg po daily VTE ppx: Lovenox 40mg sc daily Diet: HHD, NS @ 100cc/hr Discussed with Dr. Angelique Linares PGY2 <Darren Merino - Last Filed: 12/27/16 22:56> Results - Vital Signs Recent Vital Signs: Last Vital Signs Temp 98.9 F 12/27/16 07:55 Pulse 65 12/27/16 17:25 Resp 18 12/27/16 07:55 BP 104/61 12/27/16 17:25 Pulse Ox 94 L 12/27/16 07:55 - Labs Result Diagrams: 12/27/16 01:05 12/27/16 01:05 Labs: Laboratory Results - last 24 hr 12/27/16 12/27/16 13:55 17:40 Triglycerides 183 H Cholesterol 163 LDL Cholesterol Direct 106 HDL Cholesterol 30 Urine Color Light yellow Urine Appearance Clear Urine pH 6.0 Ur Specific [place] 1.010 Urine Protein Negative Urine Glucose (UA) Negative Urine Ketones Negative Urine Blood Trace-lysed H Urine Nitrate Negative Urine Bilirubin Negative Urine Urobilinogen 0.2 Ur Leukocyte Esterase Trace H Urine RBC 0 - 2 Urine WBC Negative Ur Epithelial Cells 0 - 2 Urine Bacteria Mod Attending/Attestation - Attestation I have personally seen and examined this patient.: Yes I have fully participated in the care of the patient.: Yes I have reviewed all pertinent clinical information: Yes Notes (Text): 12/27/16 22:56 Agree with history,physical examination, assessment and plan. Patient was seen when she was in the ER.
[2016-12-27] MEDS ORDERED: metroNIDAZOLE IV 500 mg/100 ml 500 MG/100 ML BAG IVPB SCH (06:45)
[2016-12-27] MEDS: Sodium Chloride 0.9% 1,000 ML IV SCH ×2 (06:52→17:19)
--- NOTE | 2016-12-27 09:01 | RAD ---
HISTORY: Epigastric pain. Technique: Portable study performed @ 23:35. COMPARISON: 10/24/2016. FINDINGS: LUNGS: No active pulmonary disease. PLEURA: No significant pleural effusion identified, no pneumothorax apparent. CARDIOVASCULAR: No radiographic findings to suggest acute or significant cardiovascular disease. OSSEOUS STRUCTURES: No significant abnormalities. VISUALIZED UPPER ABDOMEN: Normal. OTHER FINDINGS: None. IMPRESSION: No active disease. No significant interval change compared to the prior examination(s). No preliminary report provided by emergency department personnel.
[2016-12-27] MEDS: Tiotropium 18 mcg Cap For Inhalation INH SCH (09:53)
[2016-12-27] MEDS: Enoxaparin 40 mg Syringe SC SCH (09:56)
[2016-12-27] MEDS ORDERED: Ciprofloxacin 400mg/200ml D5W 400 MG/200 ML BAG IVPB SCH (10:00)
--- NOTE | 2016-12-27 13:57 | CARD ---
APPROVED REPORT EKG Measurement Heart [id number] <Conclusion> Sinus tachycardia Otherwise normal ECG
[2016-12-27 14:08] LABS: HDL CHOLESTEROL 30 mg/dL (29-60)
[2016-12-27] MEDS: Lidocaine 5% Patch TD PRN (14:14)
[2016-12-27] MEDS ORDERED: Lidocaine 5% Patch TD SCH (14:15)
[2016-12-27 14:19] LABS: LDL CHOLESTEROL 106 mg/dL (0-129)
[2016-12-27 18:05] LABS: URINE BILIRUBIN NEGATIVE (NEGATIVE); URINE BLOOD TRACE-LYSED (NEGATIVE); URINE GLUCOSE (UA) NEGATIVE (NEGATIVE); URINE LEUKOCYTE ESTERASE TRACE Leu/uL (NEGATIVE); URINE NITRATE NEGATIVE (NEGATIVE); URINE PROTEIN NEGATIVE mg/dL (<30 mg/dL); URINE UROBILINOGEN 0.2 E.U./dL (<1 E.U./dL)
[2016-12-27 18:22] LABS: URINE APPEARANCE CLEAR (CLEAR); URINE COLOR LIGHT YELLOW (YELLOW)
[2016-12-27 18:25] LABS: URINE EPITHELIAL CELLS 0 - 2 /hpf (0-5); URINE RBC 0 - 2 /hpf (0-2); URINE WBC NEGATIVE /hpf (0-6)
[2016-12-27 18:26] LABS: URINE BACTERIA MOD (NEG)
--- NOTE | 2016-12-28 02:33 | CON ---
GASTROENTEROLOGY CONSULTATION DATE: 12/27/2016 REQUESTING PHYSICIAN: Dr. Castellon. REASON FOR CONSULTATION: I have been asked to see this 66-year-old non Kosovan speaking [place] female who comes to the hospital with a one day history of diffuse abdominal pain. History is obtained from the chart. The patient apparently has had abdominal pain for one day. There is no associated nausea, vomiting, diarrhea, chest pain, fevers, chills, shortness of breath or dysuria. The patient apparently also has back pain now. She has a history of hepatitis B which is being treated with tenofovir. A CT scan of the abdomen and pelvis performed in the emergency room showed hepatomegaly and a stable liver lesion which was diagnosed approximately 6 months ago. The liver lesion has not changed in size and it is approximately 10 x 0.9 x 0.9 mm. The patient has had multiple [facility] [place] admissions over the last 6 months for fish bone ingestion associated with colitis and pseudomembranous colitis. Again, she denies any nausea or vomiting. PAST MEDICAL HISTORY: Is as above. She has a history of hepatitis B, liver lesion, colitis and COPD. FAMILY HISTORY: Noncontributory. SOCIAL HISTORY: There is no history of alcohol use. She quit cigarette smoking many years ago. She immigrated from [place] several years ago. REVIEW OF SYSTEMS: A 14-point review of systems is unobtainable due to language barrier. PHYSICAL EXAMINATION: GENERAL: A middle aged female lying in bed, eating lunch, in no acute distress. VITAL SIGNS: Reveal temperature of 98.9, blood pressure 100/61, heart rate 92. HEENT: Reveal sclerae to be white, conjunctivae pink. NECK: Supple. HEART: Exam reveals a regular rate and rhythm. LUNGS: Chest reveal lungs to be clear. ABDOMEN: Soft. Mild diffuse tenderness. No rebound. No guarding. EXTREMITIES: Show no edema. LABORATORY DATA: Reveal white blood cell count 9.4 and hemoglobin 13.1. Chemistries reveal normal electrolytes. IMPRESSION: A 66-year-old female with one day of abdominal pain with known hepatitis B, known stable liver lesion with a CT scan of the abdomen and pelvis showing hepatomegaly, above described liver lesion and nonspecific mural thickening of the stomach most likely secondary to under distention of the stomach. Etiology of her abdominal pain is unclear, but the patient appears to be comfortable at this time. RECOMMENDATIONS: 1. Continue PPI. 2. If the patient continues to improve, she can be discharged home with outpatient followup. Venkat Craig MD
[2016-12-28] MEDS ORDERED: Pantoprazole 40 mg EC Tab PO SCH ×2 (06:00)
[2016-12-28] MEDS: Sodium Chloride 0.9% 1,000 ML IV SCH (06:09)
[2016-12-28 06:55] LABS: BASO # 0.02 K/mm3 (0.0-2.0); BASO % 0.2 % (0.0-3.0); EOS # 0.1 (0.0-0.7); GRAN # 4.87 (1.4-6.5); GRAN % 60.1 % (50.0-68.0); HEMOGLOBIN 12.5 g/dL (12.0-16.0); LYMPH # 2.5 (1.2-3.4); LYMPH % 30.8 % (22.0-35.0); MEAN CELL VOLUME 90.4 fl (80.0-105.0); MEAN CORPUSCULAR HEMOGLOBIN 29.9 pg (25.0-35.0); MEAN CORPUSCULAR HGB CONC 33.1 g/dl (31.0-37.0); MEAN PLATELET VOLUME 9.3 fl (7.0-11.0); MONO # 0.6 (0.1-0.6); MONO % 7.9 % (1.0-6.0); PLATELET COUNT 240 10^3/uL (120.0-450.0); RBC 4.18 10^6/uL (3.5-6.1); RED CELL DISTRIBUTION WIDTH 12.4 % (11.5-14.5); WHITE BLOOD COUNT 8.1 10^3/ul (4.5-11.0)
[2016-12-28 07:02] LABS: ALT/SGPT 24 U/L (7-56); AST/SGOT 23 U/L (15-39); BLOOD UREA NITROGEN 11 mg/dL (7-21); CALCIUM 8.6 mg/dL (8.4-10.5); MAGNESIUM 1.8 mg/dL (1.7-2.2)
[2016-12-28 07:18] LABS: ALB/GLOB RATIO 1.1 (1.1-1.8); ALBUMIN 3.5 g/dL (3.0-4.8); GFR AFRICAN-AMERICAN > 60; GFR NON-AFRICAN AMERICAN > 60
[2016-12-28 08:12] VITALS: RESP 19; O2SAT 96
[2016-12-28] MEDS: Lidocaine 5% Patch TD PRN (09:27)
[2016-12-28] MEDS: Tiotropium 18 mcg Cap For Inhalation INH SCH (09:28)
[2016-12-28] MEDS: Enoxaparin 40 mg Syringe SC SCH (09:28)
--- NOTE | 2016-12-28 13:49 | CP.PCM.PN ---
Subjective - Date & Time of Evaluation Date of Evaluation: 12/28/16 Time of Evaluation: 13:46 - Subjective Subjective: Medicine Progress Note: Pt seen and examined at bedside. Pt denies any acute overnight events. Pt states he feels better and has improved and equal strength b/l UE. Pt states that his BP normally runs high at home and is intermittent with his medication use. Pt denies n/v/d, fever, chills, vertigo, and abdominal pain. Objective - Vital Signs/Intake and Output Vital Signs (last 24 hours): Temp Pulse Resp BP Pulse Ox 98.5 F 64 19 102/60 96 12/28/16 08:00 12/28/16 08:00 12/28/16 08:00 12/28/16 09:28 12/28/16 08:00 Intake and Output: 12/28/16 12/28/16 06:59 18:59 Intake Total 120 Output Total 400 Balance -280 - Medications Medications: Current Medications Acetaminophen (Tylenol 325mg Tab) 650 mg PO Q6H PRN PRN Reason: Pain, moderate (4-7) Last Admin: 12/28/16 06:11 Dose: 650 mg Atenolol (Tenormin) 12.5 mg PO BID [facility] Last Admin: 12/28/16 09:28 Dose: Not Given Atorvastatin Calcium (Lipitor) 10 mg PO DIN [facility] Last Admin: 12/27/16 17:19 Dose: 10 mg Enoxaparin Sodium (Lovenox) 40 mg SC DAILY [facility] PRN Reason: Protocol Last Admin: 12/28/16 09:28 Dose: 40 mg Sodium Chloride (Sodium Chloride 0.9%) 1,000 mls @ 100 mls/hr IV .Q10H [facility] Last Admin: 12/28/16 06:09 Dose: 100 mls/hr Lidocaine (Lidoderm) 1 ea TD DAILY PRN PRN Reason: Pain, moderate (4-7) Last Admin: 12/28/16 09:27 Dose: 1 ea Ondansetron HCl (Zofran Inj) 4 mg IVP Q6H PRN PRN Reason: Nausea/Vomiting Pantoprazole Sodium (Protonix Ec Tab) 40 mg PO 0600 [facility] Last Admin: 12/28/16 06:08 Dose: 40 mg Roflumilast (Daliresp) 500 mcg PO DAILY [facility] Last Admin: 12/28/16 09:28 Dose: 500 mcg Tenofovir Disoproxil Fumarate (Viread) 300 mg PO DAILY [facility] Last Admin: 12/28/16 09:28 Dose: 300 mg Tiotropium [place] (Spiriva) 18 mcg INH DAILY [facility] Last Admin: 12/28/16 09:28 Dose: 18 mcg - Labs Labs: 12/28/16 06:30 12/28/16 06:30 - Constitutional Appears: No Acute Distress - Head Exam Head Exam: ATRAUMATIC, NORMOCEPHALIC - Eye Exam Eye Exam: EOMI, Normal appearance, PERRL - ENT Exam ENT Exam: Mucous Membranes Moist - Neck Exam Neck Exam: Full ROM. absent: Lymphadenopathy, Tenderness, Thyromegaly - Respiratory Exam Respiratory Exam: Clear to Ausculation Bilateral. absent: Rales, Rhonchi, Wheezes - Cardiovascular Exam Cardiovascular Exam: RRR, +S1, +S2. absent: Gallop, Rubs, Murmur - GI/Abdominal Exam GI & Abdominal Exam: Soft. absent: Distended, Guarding, Tenderness, Rebound - Neurological Exam Neurological Exam: Alert, Awake, CN II-XII Intact, Oriented x3 - Psychiatric Exam Psychiatric exam: Normal Affect - Skin Skin Exam: Dry, Intact, Normal Color, Warm Assessment and Plan - Assessment and Plan (Free Text) Assessment: 66 yo female PMHx COPD, HTN, Dyslipidemia, OA, Hepatitis B admitted for evaluation and treatment for recurrent abdominal pain
[2016-12-28] MEDS ORDERED: Gadodiamide 287 MG/ML VIAL (15ML) IV ONE (13:58)
--- NOTE | 2016-12-28 15:16 | MRI ---
PROCEDURE: MRI Abdomen with and without contrast HISTORY: Follow-up liver lesion COMPARISON: CT scan 11/08/2016. TECHNIQUE: Multisequence, multiplanar MR images of the abdomen with and without gadolinium contrast enhancement. FINDINGS: LIVER: There is a small 10 mm enhancing lesion in the medial segment of the left lobe of the liver. This is moderately hyperintense on T2 imaging as seen on image 29 series 7. There is also moderate amount of enhancement. This most likely represents a hemangioma. Please note this lesion is 10 mm in size NOT 10 cm as was indicated in the order history GALLBLADDER: Unremarkable. SPLEEN: Unremarkable. PANCREAS: Unremarkable. ADRENALS: Unremarkable. KIDNEYS: Unremarkable. AORTA: No aneurysm. ASCITES: None. PERITONEUM: Unremarkable. LYMPH NODES: Unremarkable. OTHER FINDINGS: None. IMPRESSION: Stable appearance of 10 mm enhancing lesion in the medial segment left lobe of the liver. Probable hemangioma.
[2016-12-28 15:31] VITALS: BP 104/61; PULSE 65; TEMP 98.7
--- NOTE | 2016-12-28 15:49 | CP.PCM.DIS ---
<TOBIAS MURPHY - Last Filed: 12/28/16 15:45> Provider - Provider Date of Admission: 12/27/16 02:02 Attending physician: Joel De La Cruz MD Primary care physician: Marilyn Gregg DO Consults: Gastroenterology: Dr Craig Time Spent in preparation of Discharge (in minutes): 45 Hospital Course - Lab Results Lab Results: Micro Results 12/27/16 17:40 Urine Urine Culture - Final No Growth (<1,000 CFU/ML) Most Recent Lab Values WBC 8.1 10^3/ul (4.5-11.0) 12/28/16 06:30 RBC 4.18 10^6/uL (3.5-6.1) 12/28/16 06:30 Hgb 12.5 g/dL (12.0-16.0) 12/28/16 06:30 Hct 37.8 % (36.0-48.0) 12/28/16 06:30 MCV 90.4 fl (80.0-105.0) 12/28/16 06:30 MCH 29.9 pg (25.0-35.0) 12/28/16 06:30 MCHC 33.1 g/dl (31.0-37.0) 12/28/16 06:30 RDW 12.4 % (11.5-14.5) 12/28/16 06:30 Plt Count 240 10^3/uL (120.0-450.0) 12/28/16 06:30 MPV 9.3 fl (7.0-11.0) 12/28/16 06:30 Gran % 60.1 % (50.0-68.0) 12/28/16 06:30 Lymph % (Auto) 30.8 % (22.0-35.0) 12/28/16 06:30 [place] % (Auto) 7.9 % (1.0-6.0) H 12/28/16 06:30 Eos % (Auto) 1.0 % (1.5-5.0) L 12/28/16 06:30 Baso % (Auto) 0.2 % (0.0-3.0) 12/28/16 06:30 Gran # 4.87 (1.4-6.5) 12/28/16 06:30 Lymph # 2.5 (1.2-3.4) 12/28/16 06:30 [place] # 0.6 (0.1-0.6) 12/28/16 06:30 Eos # 0.1 (0.0-0.7) 12/28/16 06:30 Baso # 0.02 K/mm3 (0.0-2.0) 12/28/16 06:30 Sodium 141 mmol/L (132-148) 12/28/16 06:30 Potassium 3.8 mmol/L (3.6-5.0) 12/28/16 06:30 Chloride 108 mmol/L (95-110) 12/28/16 06:30 Carbon Dioxide 22 mmol/L (21-33) 12/28/16 06:30 Anion Gap 15 (10-20) 12/28/16 06:30 BUN 11 mg/dL (7-21) 12/28/16 06:30 Creatinine 0.6 mg/dL (0.5-1.4) 12/28/16 06:30 Est GFR ( Amer) > 60 12/28/16 06:30 Est GFR (Non-Af Amer) > 60 12/28/16 06:30 Random Glucose 96 mg/dL (70-110) 12/28/16 06:30 Hemoglobin A1c 5.2 % (4.2-6.5) 12/27/16 13:55 Calcium 8.6 mg/dL (8.4-10.5) 12/28/16 06:30 Phosphorus 2.8 mg/dL (2.5-4.5) 12/28/16 06:30 Magnesium 1.8 mg/dL (1.7-2.2) 12/28/16 06:30 Total Bilirubin 0.6 mg/dL (0.2-1.3) 12/28/16 06:30 AST 23 U/L (15-39) 12/28/16 06:30 ALT 24 U/L (7-56) 12/28/16 06:30 Alkaline Phosphatase 64 U/L (38-133) 12/28/16 06:30 Lactate Dehydrogenase 346 U/L (333-699) 12/27/16 01:05 Total Creatine Kinase 33 U/L (35-230) L 12/27/16 01:05 Troponin I < 0.01 ng/mL 12/27/16 01:05 Total Protein 6.6 g/dL (5.8-8.3) 12/28/16 06:30 Albumin 3.5 g/dL (3.0-4.8) 12/28/16 06:30 Globulin 3.1 gm/dL 12/28/16 06:30 Albumin/Globulin Ratio 1.1 (1.1-1.8) 12/28/16 06:30 Triglycerides 183 mg/dL (35-160) H 12/27/16 13:55 Cholesterol 163 mg/dL (130-200) 12/27/16 13:55 LDL Cholesterol Direct 106 mg/dL (0-129) 12/27/16 13:55 HDL Cholesterol 30 mg/dL (29-60) 12/27/16 13:55 Lipase 105 U/L (23-300) 12/27/16 01:05 Urine Color Light yellow (YELLOW) 12/27/16 17:40 Urine Appearance Clear (CLEAR) 12/27/16 17:40 Urine pH 6.0 (4.7-8.0) 12/27/16 17:40 Ur Specific [place] 1.010 (1.005-1.035) 12/27/16 17:40 Urine Protein Negative mg/dL (<30 mg/dL) 12/27/16 17:40 Urine Glucose (UA) Negative mg/dL (NEGATIVE) 12/27/16 17:40 Urine Ketones Negative mg/dL (NEGATIVE) 12/27/16 17:40 Urine Blood Trace-lysed (NEGATIVE) H 12/27/16 17:40 Urine Nitrate Negative (NEGATIVE) 12/27/16 17:40 Urine Bilirubin Negative (NEGATIVE) 12/27/16 17:40 Urine Urobilinogen 0.2 E.U./dL (<1 E.U./dL) 12/27/16 17:40 Ur Leukocyte Esterase Trace Eamon/uL (NEGATIVE) H 12/27/16 17:40 Urine RBC 0 - 2 /hpf (0-2) 12/27/16 17:40 Urine WBC Negative /hpf (0-6) 12/27/16 17:40 Ur Epithelial Cells 0 - 2 /hpf (0-5) 12/27/16 17:40 Urine Bacteria Mod (NEG) 12/27/16 17:40 - Hospital Course Hospital Course: 66 yo female PMHx COPD, HTN, Dyslipidemia, OA, Hepatitis B presents with abdominal pain for 2 days. Patient has been to [facility] multiple times for similar complaints. She reports abdominal pain started in the afternoon 2 days ago when she was resting with no associated diarrhea, constipation, nausea, or vomiting. She reports the pain was located in the middle of her abdomen and was intermittent. She described it as a sharp pain 8/10 in intensity and could not identify any exacerbating or alleviating factors. She also complained of dysuria , burning on urination, and foul smelling urine. She reported pruritus all over with no associated skin changes. Patient admitted to fever, chills, headache, dizziness, SOB, nonproductive cough, abd pain, leg pain, and back pain. In the ED, basic labs and imaging was ordered. Labs and UA were unremarkable. EKG showed NSR. CT abdomen showed hepatomegaly with a stable lesion within segment 4. Pt was admitted for intractable abdominal pain, in which she has been admitted several times in the past for. On second day of admission, pt states pain was decreased with medication, but abdominal pain was persistent overnight and radiated to back. GI was consulted and abdominal MRI was ordered, which showed 10 mm lesion to meidal lobe of left liver, probably hemangioma. GI recommended discharge pt home with PPI. It was recommended to patient to follow up with GI out-patient for possible endoscopy. Discharge Exam - Head Exam Head Exam: ATRAUMATIC, NORMAL INSPECTION, NORMOCEPHALIC - Eye Exam Eye Exam: EOMI, PERRL Pupil Exam: NORMAL ACCOMODATION - ENT Exam ENT Exam: Mucous Membranes Moist - Neck Exam Neck exam: Full Rom - Respiratory Exam Respiratory Exam: Clear to PA & Lateral. absent: Rales, Rhonchi, Wheezes - Cardiovascular Exam Cardiovascular Exam: RRR, +S1, +S2. absent: Diastolic murmur, Gallop, Rubs, Systolic Murmur - GI/Abdominal Exam GI & Abdominal Exam: Soft, Tenderness (epigastric). absent: Distended, Firm, Guarding, Rebound - Neurological Exam Neurological exam: Alert, CN II-XII Intact, Oriented x3 - Psychiatric Exam Psychiatric exam: Normal Affect, Normal Mood - Skin Skin Exam: Dry, Intact, Normal Color, Warm Discharge Plan - Discharge Medications Prescriptions: Ondansetron HCl [Zofran] 4 mg PO Q6H PRN #30 tablet PRN Reason: Nausea/Vomiting Pantoprazole [Protonix EC Tab] 40 mg PO 0600 #30 ect - Follow Up Plan Condition: STABLE Disposition: HOME/ ROUTINE Instructions: Acute Abdominal Pain (DC), Abdominal Pain (ED) Additional Instructions: - Follow up with Dr. Antoine within 2 weeks - Follow up with PMD in 2-3 days - Takes medications as prescribed - Return if symptoms worsen after outpatient follow up Referrals: Marilyn Gregg DO [Primary Care Provider] - Lupillo Antoine MD [Staff Provider] - <Joel De La Cruz - Last Filed: 12/28/16 16:46> Provider - Provider Date of Admission: 12/27/16 02:02 Attending physician: Joel De La Cruz MD Primary care physician: Marilyn Gregg DO Hospital Course - Lab Results Lab Results: Micro Results 12/27/16 15:30 Blood-Venous Blood Culture - Preliminary NO GROWTH AFTER 24 HOURS 12/27/16 15:00 Blood-Venous Blood Culture - Preliminary NO GROWTH AFTER 24 HOURS 12/27/16 17:40 Urine Urine Culture - Final No Growth (<1,000 CFU/ML) Most Recent Lab Values WBC 8.1 10^3/ul (4.5-11.0) 12/28/16 06:30 RBC 4.18 10^6/uL (3.5-6.1) 12/28/16 06:30 Hgb 12.5 g/dL (12.0-16.0) 12/28/16 06:30 Hct 37.8 % (36.0-48.0) 12/28/16 06:30 MCV 90.4 fl (80.0-105.0) 12/28/16 06:30 MCH 29.9 pg (25.0-35.0) 12/28/16 06:30 MCHC 33.1 g/dl (31.0-37.0) 12/28/16 06:30 RDW 12.4 % (11.5-14.5) 12/28/16 06:30 Plt Count 240 10^3/uL (120.0-450.0) 12/28/16 06:30 MPV 9.3 fl (7.0-11.0) 12/28/16 06:30 Gran % 60.1 % (50.0-68.0) 12/28/16 06:30 Lymph % (Auto) 30.8 % (22.0-35.0) 12/28/16 06:30 [place] % (Auto) 7.9 % (1.0-6.0) H 12/28/16 06:30 Eos % (Auto) 1.0 % (1.5-5.0) L 12/28/16 06:30 Baso % (Auto) 0.2 % (0.0-3.0) 12/28/16 06:30 Gran # 4.87 (1.4-6.5) 12/28/16 06:30 Lymph # 2.5 (1.2-3.4) 12/28/16 06:30 [place] # 0.6 (0.1-0.6) 12/28/16 06:30 Eos # 0.1 (0.0-0.7) 12/28/16 06:30 Baso # 0.02 K/mm3 (0.0-2.0) 12/28/16 06:30 Sodium 141 mmol/L (132-148) 12/28/16 06:30 Potassium 3.8 mmol/L (3.6-5.0) 12/28/16 06:30 Chloride 108 mmol/L (95-110) 12/28/16 06:30 Carbon Dioxide 22 mmol/L (21-33) 12/28/16 06:30 Anion Gap 15 (10-20) 12/28/16 06:30 BUN 11 mg/dL (7-21) 12/28/16 06:30 Creatinine 0.6 mg/dL (0.5-1.4) 12/28/16 06:30 Est GFR ( Amer) > 60 12/28/16 06:30 Est GFR (Non-Af Amer) > 60 12/28/16 06:30 Random Glucose 96 mg/dL (70-110) 12/28/16 06:30 Hemoglobin A1c 5.2 % (4.2-6.5) 12/27/16 13:55 Calcium 8.6 mg/dL (8.4-10.5) 12/28/16 06:30 Phosphorus 2.8 mg/dL (2.5-4.5) 12/28/16 06:30 Magnesium 1.8 mg/dL (1.7-2.2) 12/28/16 06:30 Total Bilirubin 0.6 mg/dL (0.2-1.3) 12/28/16 06:30 AST 23 U/L (15-39) 12/28/16 06:30 ALT 24 U/L (7-56) 12/28/16 06:30 Alkaline Phosphatase 64 U/L (38-133) 12/28/16 06:30 Lactate Dehydrogenase 346 U/L (333-699) 12/27/16 01:05 Total Creatine Kinase 33 U/L (35-230) L 12/27/16 01:05 Troponin I < 0.01 ng/mL 12/27/16 01:05 Total Protein 6.6 g/dL (5.8-8.3) 12/28/16 06:30 Albumin 3.5 g/dL (3.0-4.8) 12/28/16 06:30 Globulin 3.1 gm/dL 12/28/16 06:30 Albumin/Globulin Ratio 1.1 (1.1-1.8) 12/28/16 06:30 Triglycerides 183 mg/dL (35-160) H 12/27/16 13:55 Cholesterol 163 mg/dL (130-200) 12/27/16 13:55 LDL Cholesterol Direct 106 mg/dL (0-129) 12/27/16 13:55 HDL Cholesterol 30 mg/dL (29-60) 12/27/16 13:55 Lipase 105 U/L (23-300) 12/27/16 01:05 Urine Color Light yellow (YELLOW) 12/27/16 17:40 Urine Appearance Clear (CLEAR) 12/27/16 17:40 Urine pH 6.0 (4.7-8.0) 12/27/16 17:40 Ur Specific [place] 1.010 (1.005-1.035) 12/27/16 17:40 Urine Protein Negative mg/dL (<30 mg/dL) 12/27/16 17:40 Urine Glucose (UA) Negative mg/dL (NEGATIVE) 12/27/16 17:40 Urine Ketones Negative mg/dL (NEGATIVE) 12/27/16 17:40 Urine Blood Trace-lysed (NEGATIVE) H 12/27/16 17:40 Urine Nitrate Negative (NEGATIVE) 12/27/16 17:40 Urine Bilirubin Negative (NEGATIVE) 12/27/16 17:40 Urine Urobilinogen 0.2 E.U./dL (<1 E.U./dL) 12/27/16 17:40 Ur Leukocyte Esterase Trace Eamon/uL (NEGATIVE) H 12/27/16 17:40 Urine RBC 0 - 2 /hpf (0-2) 12/27/16 17:40 Urine WBC Negative /hpf (0-6) 12/27/16 17:40 Ur Epithelial Cells 0 - 2 /hpf (0-5) 12/27/16 17:40 Urine Bacteria Mod (NEG) 12/27/16 17:40 Attending/Attestation - Attestation I have personally seen and examined this patient.: Yes I have fully participated in the care of the patient.: Yes I have reviewed all pertinent clinical information, including history, physical exam and plan: Yes Notes (Text): 12/28/16 16:44 Attending note; Patient seen and examined with resident. Patient is a 66-year-old female with a past medical history of gastritis, C. difficile, hepatitis B, COPD is admitted with abdominal pain. GI evaluation with DR. Craig appreciated. Patient is tolerating diet. advised to continue Protonix. needs outpatient GI follow up. COPD; stable. Follow up with pulmonary as outpatient. Follow-up with PMD . Diagnosis; Abdominal pain Hepatitis B COPD
--- NOTE | 2016-12-29 07:31 | PN ---
SUBJECTIVE: The patient is laying in bed. She appears comfortable. She denies any nausea and vomiting. She is tolerating solid food. PHYSICAL EXAMINATION: VITAL SIGNS: Reveal temperature of 98.7, blood pressure 104/61, heart rate of 84. HEENT: Reveal sclerae to be white, conjunctivae pink. CHEST: Reveals lungs to be clear. HEART: Reveals regular rate and rhythm. ABDOMEN: Soft, mild diffuse tenderness. No rebound, no guarding. EXTREMITIES: Show no edema. LABORATORY DATA: Revealed hemoglobin 12.5, white blood cell count 8.1. Chemistries reveal normal electrolytes. MRI of the abdomen with and without contrast suggests an enhancing lesion most likely representing a hemangioma. I have reviewed the patient's prior records. She has had abdominal pain dating back to last December when she was hospitalized. She had an upper endoscopy at that time which revealed mild gastritis without any other abnormalities. She has had multiple CT imaging studies over the last year, again with no acute findings. She does have a history of chronic hepatitis B. An MRI today suggests that the liver lesion which has been stable over the last 6 months is a hemangioma. Her abdominal pain may be functional. RECOMMENDATIONS: 1. No new invasive testing is planned at this time. 2. Continue PPI. 3. The patient will be discharged home without patient follow-up. Venkat Craig MD
== END 2016-12-28 17:32 | disposition home or self-care (01) ==
LOC: ED 21:58 → ERH 12-27 02:02 → 3RNO 12-27 04:05
PROVIDERS: ADMIT Internal Medicine; ATTEND Internal Medicine
DX: R10.9 Unspecified abdominal pain (principal); B19.10 Unspecified viral hepatitis B without hepatic coma; J44.9 Chronic obstructive pulmonary disease, unspecified; D18.03 Hemangioma of intra-abdominal structures; E78.5 Hyperlipidemia, unspecified; I12.9 Hypertensive chronic kidney disease with stage 1 through stage 4 chronic kidney disease, or unspecified chronic kidney disease; N18.9 Chronic kidney disease, unspecified; L29.9 Pruritus, unspecified; Z87.442 Personal history of urinary calculi; M54.9 Dorsalgia, unspecified; Z88.1 Allergy status to other antibiotic agents; R40.2412 Glasgow coma scale score 13-15, at arrival to emergency department; F17.210 Nicotine dependence, cigarettes, uncomplicated; R30.0 Dysuria; R16.0 Hepatomegaly, not elsewhere classified
CPT/HCPCS: 36415; 71010; 74176; 74183; 80053; 80061; 81001; 82550; 83036; 83615; 83690; 83735; 84100; 84484; 85025; 85027; 87040; 87086; 93005; 96372; 96374; 99283; A9579; C9113; G0378; J1650; J1885; J2405; J7040

== ENCOUNTER 2017-05-11 11:14 | Inpatient (IN) | payer MEDICAID, MEDICARE ==
[2017-05-11 11:15] VITALS: BMI 19.5
[2017-05-11] MEDS: Albuterol-Ipratrop 3 mg / 0.5 (3 ml) UD IH SCH ×4 (11:30→19:58)
--- NOTE | 2017-05-11 11:39 | ED PDOC ---
Arrival/HPI - General Chief Complaint: Shortness Of Breath Time Seen by Provider: 05/11/17 11:19 Historian: Patient - History of Present Illness Narrative History of Present Illness (Text): 05/11/17 11:39 A 67 year old female, whose past medical history includes COPD and hyperlipidemia, presents to the emergency department accompanied by son-in-law complaining of shortness of breath for 1 week. Patient is Lithuanian speaking, history obtained through community planning technician [employer] N. #[id number]. Son-in-law reports productive cough and posttussive midsternal chest pain. Patient has been using her inhaler and nebulizer treatments at home, with no improvement. Patient denies any fever, chills, nausea, vomiting, abdominal pain, appetite changes or any other complaints. PMD. Dr. Gregg Time/Duration: 1 week Symptom Course: Worsening Quality: Other Context: Home Past Medical History - Provider Review Nursing Documentation Reviewed: Yes - Infectious Disease Hx of Infectious Diseases: None - Tetanus Immunization Tetanus Immunization: Unknown - Reproductive Menopause: Yes - Cardiac Hx Cardiac Disorders: No - Pulmonary Hx Respiratory Disorders: Yes Hx Chronic Obstructive Pulmonary Disease (COPD): Yes - Neurological Hx Neurological Disorder: No - HEENT Hx HEENT Disorder: No - Renal Hx Renal Disorder: Yes (kidney stones) - Endocrine/Metabolic Hx Endocrine Disorders: No - Hematological/Oncological Hx Blood Disorders: Yes Hx Hepatitis B: Yes - Integumentary Hx Dermatological Disorder: No - Musculoskeletal/Rheumatological Hx Musculoskeletal Disorders: Yes Hx Back Pain: Yes Hx Falls: No - Gastrointestinal Hx Gastrointestinal Disorders: No - Genitourinary/Gynecological Hx Genitourinary Disorders: No - Psychiatric Hx Psychophysiologic Disorder: No Hx Substance Use: No - Anesthesia Hx Anesthesia: No Hx Anesthesia Reactions: No Hx Malignant Hyperthermia: No Family/Social History - Physician Review Nursing Documentation Reviewed: Yes Family/Social History: No Known Family HX Smoking Status: Former Smoker Hx Alcohol Use: No Hx Substance Use: No Allergies/Home Meds Allergies/Adverse Reactions: Allergies ceftriaxone Allergy (Verified 05/11/17 11:27) RASH Home Medications: Home Meds Medication Instructions Recorded Confirmed Fenofibrate [Tricor] 48 mg PO DAILY 05/11/17 05/11/17 Ibuprofen [Motrin] 400 mg PO BID 05/11/17 05/11/17 Naproxen 500 mg PO BID 05/11/17 05/11/17 Review of Systems - Physician Review All systems were reviewed & negative as marked: Yes - Review of Systems Constitutional: absent: Fevers, Night Sweats Respiratory: SOB, Cough, Sputum Cardiovascular: Chest Pain Gastrointestinal: absent: Abdominal Pain, Nausea, Vomiting, Appetite Changes Physical Exam Vital Signs Reviewed: Yes Vital Signs Temp Pulse Resp BP Pulse Ox 05/11/17 17:18 97.8 F 88 16 104/69 98 05/11/17 16:00 94 H 20 106/72 97 05/11/17 14:47 110 H 20 116/84 95 05/11/17 13:15 102 H 126/68 96 05/11/17 12:04 22 05/11/17 11:21 97.5 F L 134 H 26 H 156/82 H 94 L Temperature: Afebrile Blood Pressure: Hypertensive Pulse: Tachycardic Respiratory Rate: Tachypneic Appearance: Positive for: Well-Appearing, Non-Toxic, Comfortable Pain Distress: None Mental Status: Positive for: Alert and Oriented X 3 - Systems Exam Head: Present: Atraumatic, Normocephalic Pupils: Present: PERRL Extroacular Muscles: Present: EOMI Conjunctiva: Present: Normal Mouth: Present: Moist Mucous Membranes Neck: Present: Normal Range of Motion Respiratory/Chest: Present: Good Air Exchange, Wheezes, Retracting (+1), Rhonchi. No: Respiratory Distress, Accessory Muscle Use Cardiovascular: Present: Regular Rate and Rhythm, Normal S1, S2. No: Murmurs Abdomen: Present: Normal Bowel Sounds. No: Tenderness, Distention, Peritoneal Signs Back: Present: Normal Inspection Upper Extremity: Present: Normal Inspection. No: Cyanosis, Edema Lower Extremity: Present: Normal Inspection. No: Edema, CALF TENDERNESS Neurological: Present: GCS=15, CN II-XII Intact, Speech Normal Skin: Present: Warm, Dry, Normal Color. No: Rashes Psychiatric: Present: Alert, Oriented x 3, Normal Insight, Normal Concentration Medical Decision Making ED Course and Treatment: 05/11/17 11:39 Impression: A 67 year old female with shortness of breath, productive cough and posttussive chest pain Differential Diagnosis included but are not limited to: COPD Asthma exacerbation , rule out PNA Plan: -- Chest xray -- EKG -- Labs -- Blood culture -- Duoneb and Solumedrol -- Reassess and disposition Progress Notes: EKG shows sinus tachycardia at 123 BPM with PAC's. Interpreted by me. Report Date : 05/11/2017 12:27:13 Procedure: Chest xray Dictator : Shea Bhatia MD IMPRESSION: No active pulmonary disease. COPD. 05/11/17 14:01 Patient treated with duonebs x 3 and then one albuterol x 1 in the ED with only mild improvement. She also attempted treatments at home without improvement. She was given Solumedrol and then Magnesium during her course of treatment. She improved more but still having symptoms. Case was discussed with Dr. Davey who is covering for Dr. Johnston. She agrees to place the patient on her service. CXR was negative for PNA. - Lab Interpretations Lab Results: 05/11/17 11:00 05/11/17 11:00 Lab Results 05/11/17 13:15: pCO2 31 L, pO2 55.0 L, HCO3 22.0, ABG pH 7.46 H, ABG Total CO2 23.0, ABG O2 Saturation 94.2 L, ABG Base Excess -0.8, ABG Potassium 3.8, Glucose 141 H, Lactate 2.3 H, FiO2 21.0, Sodium 137.0, Chloride 105.0, Arterial Blood Potassium 3.8 05/11/17 11:00: Magnesium 1.9 05/11/17 11:00: Sodium 140, Potassium 3.8, Chloride 102, Carbon Dioxide 25, Anion Gap 18, BUN 14, Creatinine 0.7, Est GFR ( Amer) > 60, Est GFR (Non- Af Amer) > 60, Random Glucose 143 H, Calcium 10.1, Lactate Dehydrogenase 504, Total Creatine Kinase 50, Troponin I < 0.01, NT-Pro-B Natriuret Pep 62.5 05/11/17 11:00: WBC 9.4, RBC 4.82, Hgb 14.7 D, Hct 43.4, MCV 90.0, MCH 30.5, MCHC 33.9, RDW 12.9, Plt Count 194, MPV 9.5, Gran % 49.5 L, Lymph % (Auto) 38.0 H, [place] % (Auto) 11.0 H, Eos % (Auto) 1.3 L, Baso % (Auto) 0.2, Gran # 4.65, Lymph # 3.6 H, Ross # 1.0 H, Eos # 0.1, Baso # 0.02 I have reviewed the lab results: Yes Interpretation: No clinic. lab abnormalty - RAD Interpretation Radiology Orders: 05/11/17 11:28 CHEST PORTABLE [RAD] Stat Sash Sticker: ED Physician - Medication Orders Current Medication Orders: Albuterol/Ipratropium (Duoneb 3 Mg/0.5 Mg (3 Ml) Ud) 3 ml IH QID ELISEO Stop: 05/12/17 10:01 Fenofibrate (Tricor) 48 mg PO DAILY ELISEO Sodium Chloride (Sodium Chloride 0.9%) 1,000 mls @ 100 mls/hr IV .Q10H ELISEO Last Admin: 05/11/17 15:25 Dose: 100 mls/hr eMAR Start Stop Document 05/11/17 15:25 MS (Rec: 05/11/17 15:26 MS [id number]) Intravenous Solution Start Date 05/11/17 Start Time 15:25 Levofloxacin/Dextrose (Levaquin 500mg) 500 mg in 100 mls @ 100 mls/hr IVPB DAILY ELISEO PRN Reason: Protocol Last Admin: 05/11/17 16:06 Dose: 100 mls/hr eMAR Start Stop Document 05/11/17 16:06 MS (Rec: 05/11/17 16:07 MS [id number]) Intravenous Solution Start Date 05/11/17 Start Time 16:07 End Date 05/11/17 End time 17:07 Total Infusion Time 60 Methylprednisolone (Solu-Medrol) 20 mg IVP Q12 ELISEO Discontinued Medications Albuterol Sulfate (Albuterol 0.083% Inhal [place] (2.5 Mg/3 Ml) Ud) 2.5 mg IH STAT STA Stop: 05/11/17 13:00 Last Admin: 05/11/17 13:42 Dose: 2.5 mg Albuterol/Ipratropium (Duoneb 3 Mg/0.5 Mg (3 Ml) Ud) 3 ml IH Q15M ELISEO Stop: 05/11/17 12:01 Last Admin: 05/11/17 12:01 Dose: 3 ml Albuterol/Ipratropium (Duoneb 3 Mg/0.5 Mg (3 Ml) Ud) 3 ml IH Q15M PRN PRN Reason: Wheezing Stop: 05/11/17 16:16 Magnesium Sulfate 2 gm/ Sodium (Chloride) 104 mls @ 102 mls/hr IVPB ONCE ONE Stop: 05/11/17 14:00 Last Admin: 05/11/17 13:41 Dose: 102 mls/hr eMAR Start Stop Document 05/11/17 13:41 MS (Rec: 05/11/17 13:42 MS [id number]) Intravenous Solution Start Date 05/11/17 Start Time 13:41 End Date 05/11/17 End time 14:41 Total Infusion Time 60 Methylprednisolone (Solu-Medrol) 125 mg IVP STAT STA Stop: 05/11/17 11:28 Last Admin: 05/11/17 11:55 Dose: 125 mg IVP Administration Document 05/11/17 11:55 MS (Rec: 05/11/17 11:56 MS [id number]) Charges for Administration # of IVP Administrations 1 - Scribe Statement The provider has reviewed the documentation as recorded by the Mary Flores Provider Scribe Attestation: All medical record entries made by the Scribe were at my direction and personally dictated by me. I have reviewed the chart and agree that the record accurately reflects my personal performance of the history, physical exam, medical decision making, and the department course for this patient. I have also personally directed, reviewed, and agree with the discharge instructions and disposition. Disposition/Present on Arrival - Present on Arrival Any Indicators Present on Arrival: No History of DVT/PE: No History of Uncontrolled Diabetes: No Urinary Catheter: No History of Decub. Ulcer: No History Surgical Site Infection Following: None - Disposition Have Diagnosis and Disposition been Completed?: Yes Diagnosis: COPD (chronic obstructive pulmonary disease) Disposition: HOSPITALIZED Disposition Time: 14:01 Patient Plan: Observation Condition: FAIR
[2017-05-11 12:15] LABS: BASO # 0.02 K/mm3 (0.0-2.0); BASO % 0.2 % (0.0-3.0); EOS # 0.1 (0.0-0.7); EOS % 1.3 % (1.5-5.0); GRAN # 4.65 (1.4-6.5); GRAN % 49.5 % (50.0-68.0); HEMOGLOBIN 14.7 g/dL (12.0-16.0); LYMPH # 3.6 (1.2-3.4); MEAN CORPUSCULAR HEMOGLOBIN 30.5 pg (25.0-35.0); MEAN CORPUSCULAR HGB CONC 33.9 g/dl (31.0-37.0); MEAN PLATELET VOLUME 9.5 fl (7.0-11.0); RBC 4.82 10^6/uL (3.5-6.1); RED CELL DISTRIBUTION WIDTH 12.9 % (11.5-14.5); WHITE BLOOD COUNT 9.4 10^3/ul (4.5-11.0)
[2017-05-11 12:18] LABS: BLOOD UREA NITROGEN 14 mg/dL (7-21); CALCIUM 10.1 mg/dL (8.4-10.5); GFR AFRICAN-AMERICAN > 60; GFR NON-AFRICAN AMERICAN > 60
--- NOTE | 2017-05-11 12:29 | RAD ---
HISTORY: Cough, r/o pna COMPARISON: 12/26/2016. FINDINGS: LUNGS: The lungs are hyperinflated and there is peribronchial thickening with chronic changes in both lungs. No focal consolidation. PLEURA: No significant pleural effusion identified, no pneumothorax apparent. CARDIOVASCULAR: Normal. OSSEOUS STRUCTURES: No significant abnormalities. VISUALIZED UPPER ABDOMEN: Normal. OTHER FINDINGS: None. IMPRESSION: No active pulmonary disease. COPD.
[2017-05-11 12:30] LABS: B-TYPE NATRIURETIC PEPTIDE 62.5 pg/mL (0-450); TROPONIN I < 0.01 ng/mL
[2017-05-11] MEDS ORDERED: Magnesium Sulfate 2 GM in Sodium Chloride 0.9% 100 ML IVPB ONE (12:59)
[2017-05-11] MEDS ORDERED: Albuterol 0.083% Inhal Sol (2.5 mg/3 mL) UD IH STA (12:59)
[2017-05-11 13:25] LABS: ARTERIAL BLOOD GAS O2 SAT 94.2 % (95-98); ARTERIAL BLOOD GAS PCO2 31 mm/Hg (35-45); ARTERIAL BLOOD GAS PH 7.46 (7.35-7.45)
[2017-05-11] MEDS: Sodium Chloride 0.9% 1,000 ML IV SCH (15:25)
[2017-05-11] MEDS ORDERED: Albuterol-Ipratrop 3 mg / 0.5 (3 ml) UD IH PRN (15:34)
[2017-05-11] MEDS: levoFLOXacin 500 mg in D5W 500 MG/100 ML BAG IVPB SCH (16:06)
--- NOTE | 2017-05-11 17:21 | CARD ---
APPROVED REPORT EKG Measurement Heart [id number] <Conclusion> Sinus tachycardia with premature atrial complexes Nonspecific ST abnormality Abnormal ECG
[2017-05-11 17:26] LABS: VENOUS BLOOD GAS BASE EXCESS 0.1 mmol/L (0.0-2.0); VENOUS BLOOD GAS PO2 147 mm/Hg (30-55); VENOUS BLOOD PH 7.41 (7.32-7.43)
[2017-05-11] MEDS ORDERED: guaiFENesin 100 mg/5 ml Syrup UD PO ONE (22:40)
--- NOTE | 2017-05-11 23:06 | HP ---
HISTORY OF PRESENT ILLNESS: Ms. Lionel Begum is a 67-year-old female, presented to the ED with shortness of breath, she has history of COPD. She has been admitted multiple times in the past with a similar complaint, she was using inhaler at home with no improvement, no fever, no cough with expectoration. Blood count showed granulocytosis, she also has history of hepatitis B. PAST MEDICAL HISTORY: Hepatitis B, COPD, CHF, history of renal stones, chronic back pain. PAST SURGICAL HISTORY: None. ALLERGIES: CEFTRIAXONE CAUSES RASH. FAMILY HISTORY: No positive family history. PERSONAL HISTORY: Former smoker. No history of alcohol abuse. HOME MEDICATIONS: Naproxen, TriCor. REVIEW OF SYSTEMS: As per HPI. Rest of 12-point review of systems reviewed negative. PHYSICAL EXAMINATION: GENERAL: In mild respiratory distress, comfortable in bed. VITAL SIGNS: Temperature 97.5, heart rate is 88 per minute, respiratory rate 20 per minute, blood pressure 104/69, pulse oximetry is 98% on oxygen by nasal cannula. HEENT: Pallor positive. NECK: No lymphadenopathy. CHEST: Air entry present and equal bilaterally. No added sounds. CARDIOVASCULAR EXAM: S1 and S2 normal. No murmur. No gallop. ABDOMEN: Soft, nontender. No hepatosplenomegaly. EXTREMITIES: No edema. ACID CUTTER: Alert, oriented x3. No focal sensory motor deficit. LABORATORY DATA: White count 9.4, hemoglobin 14.7, hematocrit 43.4, platelets 194. Sodium 140, potassium 3.8, BUN 14, creatinine 0.7, glucose 143. Troponin negative. LDH 504. Chest x-ray, no infiltrate. ASSESSMENT AND PLAN 1. Chronic obstructive pulmonary disease acute exacerbation. 2. Hepatitis B. 3. Granulocytosis. 4. Chronic back pain. PLAN: She will be admitted to the hospital tele monitoring, cardiac enzymes are negative. She received one dose of Solu-Medrol in the ER. We will give 20 mg IV q.12 hours methylprednisolone. IV fluid at 100 mL an hour, antibiotic with levofloxacin 500 mg daily. We will continue DuoNeb three times a day and p.r.n. as needed, continue TriCor 48 mg p.o. daily. We will continue to monitor closely. She is already feeling better after treatment in the ER. Angelia Davey MD [facility] # [id number]
[2017-05-12] MEDS: Sodium Chloride 0.9% 1,000 ML IV SCH (03:08)
[2017-05-12 06:42] LABS: BASO # 0.01 K/mm3 (0.0-2.0); BASO % 0.2 % (0.0-3.0); GRAN # 4.5 (1.4-6.5); GRAN % 69.3 % (50.0-68.0); HEMOGLOBIN 12.8 g/dL (12.0-16.0); LYMPH # 1.5 (1.2-3.4); LYMPH % 22.3 % (22.0-35.0); MEAN CELL VOLUME 88.3 fl (80.0-105.0); MEAN CORPUSCULAR HEMOGLOBIN 29.8 pg (25.0-35.0); MEAN CORPUSCULAR HGB CONC 33.8 g/dl (31.0-37.0); MEAN PLATELET VOLUME 9.5 fl (7.0-11.0); MONO # 0.5 (0.1-0.6); MONO % 8.2 % (1.0-6.0); RBC 4.29 10^6/uL (3.5-6.1); RED CELL DISTRIBUTION WIDTH 12.9 % (11.5-14.5); WHITE BLOOD COUNT 6.5 10^3/ul (4.5-11.0)
[2017-05-12 07:38] LABS: BLOOD UREA NITROGEN 18 mg/dL (7-21); CALCIUM 9.3 mg/dL (8.4-10.5); GFR AFRICAN-AMERICAN > 60; GFR NON-AFRICAN AMERICAN > 60
[2017-05-12] MEDS: Albuterol-Ipratrop 3 mg / 0.5 (3 ml) UD IH SCH ×2 (08:10→12:00)
[2017-05-12] MEDS: levoFLOXacin 500 mg in D5W 500 MG/100 ML BAG IVPB SCH (09:01)
[2017-05-12] MEDS: Menthol/Phenol (Cepastat) Lozenge MT PRN ×2 (15:34→21:40)
[2017-05-12] MEDS: MethylPREDNISolone 40 mg Vial IVP SCH (21:36)
[2017-05-13] MEDS: Sodium Chloride 0.9% 1,000 ML IV SCH ×2 (00:59→10:01)
[2017-05-13] MEDS: levoFLOXacin 500 MG TAB PO SCH (10:00)
[2017-05-13] MEDS: MethylPREDNISolone 40 mg Vial IVP SCH ×2 (10:02→22:08)
[2017-05-13] MEDS: Albuterol 0.083% Inhal Sol (2.5 mg/3 mL) UD INH PRN (13:52)
[2017-05-14] MEDS: levoFLOXacin 500 MG TAB PO SCH (09:15)
[2017-05-14] MEDS: MethylPREDNISolone 40 mg Vial IVP SCH ×2 (09:15→22:44)
[2017-05-14] MEDS: Albuterol 0.083% Inhal Sol (2.5 mg/3 mL) UD INH PRN (09:23)
[2017-05-14 16:33] VITALS: RESP 20
[2017-05-14] MEDS: Sodium Chloride 0.9% 1,000 ML IV SCH (16:40)
--- NOTE | 2017-05-14 22:16 | CP.PCM.PN ---
Subjective - Date & Time of Evaluation Date of Evaluation: 05/14/17 Time of Evaluation: 22:15 - Subjective Subjective: 157/85,52/min 97.5*F, 95% on 2L/min. Patient was seen at bedside because she complained of epigastric pain, she received pepcid with no relief in pain. Spoke to her with help of her daughter. Pain is sharp, since 6 PM this evening.No radiation of pain, but earlier , she had pain in lower back. Denies nausea, vomiting, constipation, diarrhoea, chest pain, sob. This 67 year old woman was admitted for sob of one week duration, productive cough and chest pain/exacerbation of COPD. Has PMH of renal calculus, hepatitis B, back pain,former smoker. Objective - Vital Signs/Intake and Output Vital Signs (last 24 hours): Temp Pulse Resp BP Pulse Ox 97.3 F L 53 L 20 146/79 98 05/14/17 16:32 05/14/17 16:32 05/14/17 16:32 05/14/17 16:32 05/14/17 16:32 Intake and Output: 05/14/17 05/15/17 18:59 06:59 Intake Total 480 Balance 480 - Medications Medications: Current Medications Albuterol Sulfate (Albuterol 0.083% Inhal Clara (2.5 Mg/3 Ml) Ud) 2.5 mg INH Q4 PRN PRN Reason: Shortness of Breath Last Admin: 05/14/17 09:23 Dose: 2.5 mg Fenofibrate (Tricor) 48 mg PO DAILY [facility] Last Admin: 05/14/17 09:15 Dose: 48 mg Sodium Chloride (Sodium Chloride 0.9%) 1,000 mls @ 100 mls/hr IV .Q10H EILSEO Last Admin: 05/14/17 16:40 Dose: 100 mls/hr Levofloxacin (Levaquin) 500 mg PO DAILY ELISE[facility] Last Admin: 05/14/17 09:15 Dose: 500 mg Methylprednisolone (Solu-Medrol) 20 mg IVP Q12 [facility] Last Admin: 05/14/17 09:15 Dose: 20 mg Throat Lozenges (Cepastat) 1 cira MT Q4H PRN PRN Reason: Sore Throat Last Admin: 05/12/17 21:40 Dose: 1 cira - Labs Labs: Micro Results 05/11/17 12:30 Blood-Venous Blood Culture - Preliminary NO GROWTH AFTER 3 DAYS 05/11/17 11:00 Blood-Venous Blood Culture - Preliminary NO GROWTH AFTER 3 DAYS Most Recent Lab Values WBC 9.2 10^3/ul (4.5-11.0) D 05/14/17 22:35 RBC 3.97 10^6/uL (3.5-6.1) 05/14/17 22:35 Hgb 11.9 g/dL (12.0-16.0) L 05/14/17 22:35 Hct 35.3 % (36.0-48.0) L 05/14/17 22:35 MCV 88.9 fl (80.0-105.0) 05/14/17 22:35 MCH 30.0 pg (25.0-35.0) 05/14/17 22:35 MCHC 33.7 g/dl (31.0-37.0) 05/14/17 22:35 RDW 13.1 % (11.5-14.5) 05/14/17 22:35 Plt Count 236 10^3/uL (120.0-450.0) 05/14/17 22:35 MPV 9.4 fl (7.0-11.0) 05/14/17 22:35 Gran % 61.7 % (50.0-68.0) 05/14/17 22:35 Lymph % (Auto) 27.7 % (22.0-35.0) 05/14/17 22:35 Coleman % (Auto) 10.5 % (1.0-6.0) H 05/14/17 22:35 Eos % (Auto) 0.0 % (1.5-5.0) L 05/14/17 22:35 Baso % (Auto) 0.1 % (0.0-3.0) 05/14/17 22:35 Gran # 5.69 (1.4-6.5) 05/14/17 22:35 Lymph # 2.6 (1.2-3.4) 05/14/17 22:35 Coleman # 1.0 (0.1-0.6) H 05/14/17 22:35 Eos # 0.0 (0.0-0.7) 05/14/17 22:35 Baso # 0.01 K/mm3 (0.0-2.0) 05/14/17 22:35 pCO2 31 mm/Hg (35-45) L 05/11/17 13:15 pO2 147 mm/Hg (30-55) H 05/11/17 17:15 HCO3 22.0 mmol/L (21-28) 05/11/17 13:15 ABG pH 7.46 (7.35-7.45) H 05/11/17 13:15 ABG Total CO2 23.0 mmol.L (22-28) 05/11/17 13:15 ABG O2 Saturation 94.2 % (95-98) L 05/11/17 13:15 ABG Base Excess -0.8 mmol/L (-2.0-3.0) 05/11/17 13:15 ABG Potassium 3.8 mmol/L (3.6-5.2) 05/11/17 13:15 VBG pH 7.41 (7.32-7.43) 05/11/17 17:15 VBG pCO2 39.0 (40-60) L 05/11/17 17:15 VBG HCO3 24.7 mmol/l (21-28) 05/11/17 17:15 VBG Total CO2 25.9 mmol.L (22-28) 05/11/17 17:15 VBG O2 Sat (Calc) 99.9 % (40-65) H 05/11/17 17:15 VBG Base Excess 0.1 mmol/L (0.0-2.0) 05/11/17 17:15 VBG Potassium 4.0 mmol/L (3.6-5.2) 05/11/17 17:15 Sodium 137.0 mmol/L (132-148) 05/11/17 17:15 Chloride 104.0 mmol/L (98-107) 05/11/17 17:15 Glucose 169 mg/dl (65-105) H 05/11/17 17:15 Lactate 2.2 mmol/L (0.7-2.1) H 05/11/17 17:15 FiO2 21.0 % 05/11/17 17:15 Sodium 140 mmol/L (132-148) 05/14/17 22:35 Potassium 3.7 mmol/L (3.6-5.0) 05/14/17 22:35 Chloride 106 mmol/L (98-107) 05/14/17 22:35 Carbon Dioxide 27 mmol/L (21-33) 05/14/17 22:35 Anion Gap 11 (10-20) 05/14/17 22:35 BUN 20 mg/dL (7-21) 05/14/17 22:35 Creatinine 0.7 mg/dl (0.7-1.2) 05/14/17 22:35 Est GFR ( Amer) > 60 05/14/17 22:35 Est GFR (Non-Af Amer) > 60 05/14/17 22:35 Random Glucose 99 mg/dL (70-110) 05/14/17 22:35 Calcium 9.1 mg/dL (8.4-10.5) 05/14/17 22:35 Magnesium 1.9 mg/dL (1.7-2.2) 05/11/17 11:00 Lactate Dehydrogenase 504 U/L (333-699) 05/11/17 11:00 Total Creatine Kinase 50 U/L (35-230) 05/11/17 11:00 Troponin I < 0.01 ng/mL 05/11/17 11:00 NT-Pro-B Natriuret Pep 62.5 pg/mL (0-450) 05/11/17 11:00 Amylase 48 U/L (35-125) 05/14/17 22:35 Lipase 73 U/L (23-300) 05/14/17 22:35 Arterial Blood Potassium 3.8 mmol/L (3.6-5.2) 05/11/17 13:15 Venous Blood Potassium 4.0 mmol/L (3.6-5.2) 05/11/17 17:15 - Constitutional Appears: Well, No Acute Distress - Head Exam Head Exam: ATRAUMATIC, NORMAL INSPECTION, NORMOCEPHALIC - Eye Exam Eye Exam: Normal appearance - ENT Exam ENT Exam: Normal External Ear Exam - Neck Exam Neck Exam: Normal Inspection - Respiratory Exam Respiratory Exam: NORMAL BREATHING PATTERN - Cardiovascular Exam Cardiovascular Exam: +S1 (Normal.), +S2 (Normla.). absent: JVD - GI/Abdominal Exam GI & Abdominal Exam: Soft, Tenderness (Mild epigastric tenderness present.), Normal Bowel Sounds. absent: Bruit, Distended, Firm, Guarding, Rigid, Hernia, Mass, Pulsatile Mass, Rebound - Rectal Exam Rectal Exam: Deferred - Exam Additional comments: Deferred. - Extremities Exam Extremities Exam: Normal Inspection - Back Exam Back Exam: NORMAL INSPECTION - Neurological Exam Neurological Exam: Alert, Oriented x3 - Psychiatric Exam Psychiatric exam: Normal Affect, Normal Mood - Skin Skin Exam: Normal Color Assessment and Plan - Assessment and Plan (Free Text) Assessment: Epigastric pain.1.On steroids. 2.Was on antiinfalmmatory at home. Gastritis. R/O cardiac pathology. R/O Acute abdominal condition. COPD exacerbation. Hx renal calculus. Plan: Mylanta 30 CC PO x 1. Protonix 40 mg PO x 1. EKG--------------->Sinus bradycardia.(Previous EKG was sinus tachycardia.) Troponin. Amylase,lipase level. BMP. CT abdomen/pelvis withou PO / IV contrast as per PMD.
[2017-05-14] MEDS ORDERED: Pantoprazole 40 mg EC Tab PO STA (22:32)
[2017-05-14] MEDS ORDERED: Alum-Mag Hydrox-Simethicone Susp (30 mL) PO STA (22:32)
[2017-05-14 22:47] LABS: BASO # 0.01 K/mm3 (0.0-2.0); BASO % 0.1 % (0.0-3.0); GRAN # 5.69 (1.4-6.5); GRAN % 61.7 % (50.0-68.0); HEMOGLOBIN 11.9 g/dL (12.0-16.0); LYMPH # 2.6 (1.2-3.4); LYMPH % 27.7 % (22.0-35.0); MEAN CELL VOLUME 88.9 fl (80.0-105.0); MEAN CORPUSCULAR HGB CONC 33.7 g/dl (31.0-37.0); MEAN PLATELET VOLUME 9.4 fl (7.0-11.0); MONO % 10.5 % (1.0-6.0); RBC 3.97 10^6/uL (3.5-6.1); RED CELL DISTRIBUTION WIDTH 13.1 % (11.5-14.5); WHITE BLOOD COUNT 9.2 10^3/ul (4.5-11.0)
[2017-05-14 22:53] LABS: AMYLASE 48 U/L (35-125); BLOOD UREA NITROGEN 20 mg/dL (7-21); CALCIUM 9.1 mg/dL (8.4-10.5); GFR AFRICAN-AMERICAN > 60; GFR NON-AFRICAN AMERICAN > 60; LIPASE 73 U/L (23-300)
[2017-05-14 23:04] LABS: TROPONIN I < 0.01 ng/mL
--- NOTE | 2017-05-15 01:47 | CT ---
EXAM: CT Abdomen and Pelvis Without Intravenous Contrast EXAM DATE/TIME: 05/14/2017 10:31 PM CLINICAL HISTORY: 67 years old, female; Pain; Abdominal pain; Additional info: R/O acute abdomen, pain abdomen TECHNIQUE: Axial computed tomography images of the abdomen and pelvis without intravenous contrast. All CT scans at this facility use one or more dose reduction techniques, viz.: automated exposure control; ma/kV adjustment per patient size (including targeted exams where dose is matched to indication; i.e. head); or iterative reconstruction technique. COMPARISON: CT - ABD PELVIS W/O PO OR IV CONT 2016-12-26 23:20 FINDINGS: Artifacts: Motion artifact degrades image quality. Lower thorax: Heart size is normal. There is hiatal hernia. There is scarring at the lung bases. There is a right pleural. There is airspace disease at the right base. There continues to be a 7.7 mm nodular pleural-based opacity in the right lower lobe. There is a small hiatal hernia. ABDOMEN: Liver: Streak and motion limits evaluation of the liver. Gallbladder and bile ducts: unremarkable Pancreas: Pancreas is mildly atrophic. Spleen: unremarkable Adrenals: unremarkable Kidneys and ureters: Kidneys are unremarkable. There are extrarenal pelves bilaterally. Stomach and bowel: Stomach is incompletely distended which accentuates the gastric wall.Rotation is normal. Small bowel is mildly distended with fluid and air. There is no obstruction. Ileocecal region is unremarkable. Appendix and terminal ileum are unremarkable. Colon is incompletely distended which limits evaluation. Streak and motion limits evaluation of the transverse colon. Appendix: See stomach and bowel PELVIS: Bladder: Urinary bladder is partially distended. Reproductive: Uterus and adnexal structures are unremarkable. ABDOMEN and PELVIS: Intraperitoneal space: There is no significant fluid.There is no free air. Bones/joints: There are degenerative changes in the osseus structures. Soft tissues: unremarkable Vasculature: There are vascular calcifications. Lymph nodes: There is no pathologic adenopathy. IMPRESSION: Limited evaluation of the abdomen and pelvis due to patient motion and lack of contrast material; no acute solid visceral abnormality, possible ileus, no obstruction; small right pleural effusion with minimal compressive atelectasis; scarring at the lung bases Additional findings as described above.
[2017-05-15] MEDS: Albuterol 0.083% Inhal Sol (2.5 mg/3 mL) UD INH PRN ×2 (07:26→14:04)
[2017-05-15 07:41] LABS: BASO # 0.01 K/mm3 (0.0-2.0); BASO % 0.1 % (0.0-3.0); GRAN # 6.1 (1.4-6.5); GRAN % 74.7 % (50.0-68.0); HEMOGLOBIN 12.1 g/dL (12.0-16.0); LYMPH # 1.6 (1.2-3.4); LYMPH % 19.9 % (22.0-35.0); MEAN CELL VOLUME 88.8 fl (80.0-105.0); MEAN CORPUSCULAR HEMOGLOBIN 29.6 pg (25.0-35.0); MEAN CORPUSCULAR HGB CONC 33.3 g/dl (31.0-37.0); MEAN PLATELET VOLUME 9.6 fl (7.0-11.0); MONO # 0.4 (0.1-0.6); MONO % 5.3 % (1.0-6.0); RBC 4.09 10^6/uL (3.5-6.1); RED CELL DISTRIBUTION WIDTH 13.1 % (11.5-14.5); WHITE BLOOD COUNT 8.2 10^3/ul (4.5-11.0)
[2017-05-15 08:19] VITALS: BP 126/64; PULSE 60; TEMP 98.6; O2SAT 100
[2017-05-15] MEDS: MethylPREDNISolone 40 mg Vial IVP SCH (09:43)
[2017-05-15] MEDS: levoFLOXacin 500 MG TAB PO SCH (09:43)
--- NOTE | 2017-05-15 14:48 | CARD ---
APPROVED REPORT EKG Measurement Heart [id number] <Conclusion> Marked sinus bradycardia Abnormal ECG
== END 2017-05-15 18:17 | disposition home or self-care (01) | DRG 191 ==
LOC: ED 11:14 → ERH 14:01 → UNDOADMOB 14:01 → INTOOBSV 14:01 → OBSVTOIN 14:01 → ERH 16:49 → 3RSO 17:50 → INTOOBSV 05-12 14:01 → 3RSO 05-12 14:01 → OBSVTOIN 05-12 14:01 → UNDOADMOB 05-12 14:01 → ERH 05-12 14:01 → 5RNO 05-13 18:38
PROVIDERS: ADMIT Internal Medicine Medical Oncology; ATTEND Internal Medicine Medical Oncology
DX: J44.1 Chronic obstructive pulmonary disease with (acute) exacerbation (principal); B19.10 Unspecified viral hepatitis B without hepatic coma; I50.9 Heart failure, unspecified; E78.5 Hyperlipidemia, unspecified; G89.29 Other chronic pain; K29.70 Gastritis, unspecified, without bleeding; Z87.442 Personal history of urinary calculi; Z87.891 Personal history of nicotine dependence; Z88.1 Allergy status to other antibiotic agents; R40.2412 Glasgow coma scale score 13-15, at arrival to emergency department; M54.9 Dorsalgia, unspecified

== ENCOUNTER 2018-03-04 11:34 | Inpatient (IN) | payer MEDICAID, MEDICARE ==
[2018-03-04 11:41] VITALS: BMI 20.7
[2018-03-04] MEDS ORDERED: Levalbuterol 1.25 MG/3 ML Inhal Soln UD IH STA ×3 (11:42→11:46)
[2018-03-04] MEDS ORDERED: Magnesium Sulfate 2 gm/50 ml 2 GM/50 ML BAG IVPB ONE (11:45)
--- NOTE | 2018-03-04 11:51 | ED PDOC ---
Arrival/HPI - General Chief Complaint: Respiratory Distress Time Seen by Provider: 03/04/18 11:36 Historian: Patient - History of Present Illness Narrative History of Present Illness (Text): 03/04/18 11:47 67yo female with pmhx of COPD and hyperlipdemia who was bib EMS for complaint of SOB x 2days. Patient is Lao speaking. The son -in law by the bedside states patient was able to control the SOB and wheezing yesterday with her neb treatment and albuterol inhaler. Notes previous history of same complaint with her COPD exacerbation. Admits to previous history of intubation and hospitalizations secondary to COPD exacerbation. Denies fever, chills, nausea, vomiting, sick contact, travel, Le edema, calf pain, any other complaint. she is not steroid dependent. Past Medical History - Provider Review Nursing Documentation Reviewed: Yes - Infectious Disease Hx of Infectious Diseases: None - Tetanus Immunization Tetanus Immunization: Unknown - Reproductive Menopause: No - Cardiac Hx Hypertension: Yes - Pulmonary Hx Chronic Obstructive Pulmonary Disease (COPD): Yes - Neurological Hx Neurological Disorder: No - HEENT Hx HEENT Disorder: No - Renal Hx Renal Disorder: Yes (kidney stones) - Endocrine/Metabolic Hx Endocrine Disorders: No - Hematological/Oncological Hx Blood Disorders: Yes Hx Hepatitis B: Yes - Integumentary Hx Dermatological Disorder: No - Musculoskeletal/Rheumatological Hx Arthritis: Yes - Gastrointestinal Hx Gastrointestinal Disorders: No - Genitourinary/Gynecological Hx Genitourinary Disorders: No - Psychiatric Hx Psychophysiologic Disorder: No Hx Substance Use: No - Anesthesia Hx Anesthesia: No Hx Anesthesia Reactions: No Hx Malignant Hyperthermia: No Family/Social History - Physician Review Nursing Documentation Reviewed: Yes Family/Social History: Unknown Family HX Smoking Status: Former Smoker Hx Alcohol Use: No Hx Substance Use: No Allergies/Home Meds Allergies/Adverse Reactions: Allergies ceftriaxone Allergy (Verified 05/11/17 11:27) RASH Home Medications: Home Meds Medication Instructions Recorded Confirmed Fenofibrate [Tricor] 48 mg PO DAILY 05/11/17 05/11/17 Ibuprofen [Motrin Tab] 400 mg PO BID 05/11/17 05/11/17 Naproxen 500 mg PO BID 05/11/17 05/11/17 Review of Systems - Physician Review All systems were reviewed & negative as marked: Yes - Review of Systems Constitutional: Normal Eyes: Normal ENT: Normal Respiratory: SOB Cardiovascular: Normal Gastrointestinal: Normal Genitourinary Female: Normal Musculoskeletal: Normal Skin: Normal Neurological: Normal Endocrine: Normal Hemo/Lymphatic: Normal Psychiatric: Normal Physical Exam Vital Signs Reviewed: Yes Vital Signs Temp Pulse Resp BP Pulse Ox 03/04/18 11:43 97.9 F 127 H 20 133/83 98 Temperature: Afebrile Blood Pressure: Normal Pulse: Tachycardic Respiratory Rate: Normal Appearance: Positive for: Well-Appearing, Non-Toxic, Comfortable Pain Distress: None Mental Status: Positive for: Alert and Oriented X 3 - Systems Exam Head: Present: Atraumatic, Normocephalic Pupils: Present: PERRL Extroacular Muscles: Present: EOMI Conjunctiva: Present: Normal Mouth: Present: Moist Mucous Membranes Neck: Present: Normal Range of Motion Respiratory/Chest: Present: Good Air Exchange, Decreased Breath Sounds, Retracting (supraclavicular retraction). No: Respiratory Distress, Accessory Muscle Use (S), Wheezes, Rales, Rhonchi Cardiovascular: Present: Regular Rate and Rhythm, Normal S1, S2. No: Murmurs Abdomen: No: Tenderness, Distention, Peritoneal Signs Back: Present: Normal Inspection Upper Extremity: Present: Normal Inspection. No: Cyanosis, Edema Lower Extremity: Present: Normal Inspection. No: Edema Neurological: Present: GCS=15, CN II-XII Intact, Speech Normal Skin: Present: Warm, Dry, Normal Color. No: Rashes Psychiatric: Present: Alert, Oriented x 3, Normal Insight, Normal Concentration Medical Decision Making ED Course and Treatment: 03/04/18 13:12 67yo female bib EMS for SOB x 2days. Pt appeared in moderate respiratory distress on arrival with supraclavicular retraction and decreased BS She was seen as soon as she arrived in ED. Labs EKG CXR Xopenex X3 Solu medrol 125mg Mag sulfate 2mg She was placed on biparp secondary to her presentation. On re evaluation she reprots improvement of her symptoms, but still having symptoms. Her lab was unremarkable. Chest xray - NAD EKG Sinus tachy with PAC @ 128bpm NSTEMI. Secondary to her persistent symptom pt was admitted Case was KJ yo and pt was admitted to his service. He requested Dr. Bradford consult and it was place. Result and plan was DW both pt and the son -conner and he agreed - Critical Care Critical Care Minutes: 45 minutes - RAD Interpretation Radiology Orders: 03/04/18 11:42 CHEST PORTABLE [RAD] Stat - Medication Orders Current Medication Orders: Magnesium Sulfate (Magnesium Sulfate 2 Gm/50 Ml Water) 2 gm in 50 mls @ 50 mls/hr IVPB ONCE ONE Stop: 03/04/18 12:44 Levalbuterol HCl (Xopenex) 1.25 mg IH STAT STA Stop: 03/04/18 11:47 Discontinued Medications Levalbuterol HCl (Xopenex) 1.25 mg IH STAT STA Stop: 03/04/18 11:43 Levalbuterol HCl (Xopenex) 1.25 mg IH STAT STA Stop: 03/04/18 11:44 Methylprednisolone (Solu-Medrol) 125 mg IVP STAT STA Stop: 03/04/18 11:42 Disposition/Present on Arrival - Present on Arrival Any Indicators Present on Arrival: No History of DVT/PE: No History of Uncontrolled Diabetes: No Urinary Catheter: No History of Decub. Ulcer: No History Surgical Site Infection Following: None - Disposition Have Diagnosis and Disposition been Completed?: Yes Diagnosis: Acute exacerbation of chronic obstructive pulmonary disease (COPD) Disposition: HOSPITALIZED Disposition Time: 13:00 Patient Plan: Admission Patient Problems: Current Active Problems Problem Status Onset Acute exacerbation of chronic obstructive pulmonary disease (COPD) Acute Condition: FAIR
[2018-03-04 12:07] LABS: VENOUS BLOOD GAS BASE EXCESS 3.6 mmol/L (0.0-2.0); VENOUS BLOOD GAS PO2 32 mm/Hg (30-55); VENOUS BLOOD PH 7.23 (7.32-7.43)
[2018-03-04 12:16] LABS: ARTERIAL BLOOD GAS HCO3 24.3 mmol/L (21-28); ARTERIAL BLOOD GAS HEMOGLOBIN 15.4 g/dL (11.7-17.4); ARTERIAL BLOOD GAS O2 CONTENT 20.5 ML/dl (15-23); ARTERIAL BLOOD GAS O2 SAT 97.4 % (95-98); ARTERIAL BLOOD GAS PCO2 45 mm/Hg (35-45); ARTERIAL BLOOD GAS PH 7.34 (7.35-7.45); ARTERIAL BLOOD GAS TCO2 25.7 mmol.L (22-28)
[2018-03-04 12:22] LABS: ALBUMIN 4.5 g/dL (3.0-4.8); BLOOD UREA NITROGEN 13 mg/dL (7-21); CALCIUM 9.8 mg/dL (8.4-10.5); GFR NON-AFRICAN AMERICAN > 60
[2018-03-04 12:23] LABS: ALB/GLOB RATIO 1.1 (1.1-1.8); ALT/SGPT 28 U/L (7-56); AST/SGOT 32 U/L (14-36)
[2018-03-04 12:27] LABS: INR 1.03; PARTIAL THROMBOPLASTIN TIME 29.6 Seconds (25.1-36.5); PROTHROMBIN TIME 11.8 SECONDS (9.4-12.5)
[2018-03-04 12:30] LABS: HEMOGLOBIN 15.4 g/dL (12.0-16.0); MEAN CELL VOLUME 88.7 fl (80.0-105.0); RBC 5.14 10^6/uL (3.5-6.1); WHITE BLOOD COUNT 8.7 10^3/ul (4.5-11.0)
[2018-03-04 12:31] LABS: BASO # 0.04 K/mm3 (0.0-2.0); BASO % 0.5 % (0.0-3.0); EOS # 0.3 (0.0-0.7); EOS % 3.3 % (1.5-5.0); GRAN # 2.96 (1.4-6.5); LYMPH # 4.8 (1.2-3.4); MEAN CORPUSCULAR HGB CONC 33.8 g/dl (31.0-37.0); MEAN PLATELET VOLUME 9.5 fl (7.0-11.0); MONO # 0.6 (0.1-0.6); MONO % 7.2 % (1.0-6.0); RED CELL DISTRIBUTION WIDTH 13.3 % (11.5-14.5)
[2018-03-04 12:34] LABS: TROPONIN I < 0.01 ng/mL
--- NOTE | 2018-03-04 12:56 | RAD ---
Date of service: 03/04/2018 HISTORY: SOB COMPARISON: 05/11/2017 FINDINGS: LUNGS: No active pulmonary disease. PLEURA: No significant pleural effusion identified, no pneumothorax apparent. CARDIOVASCULAR: No atherosclerotic calcification present Normal. OSSEOUS STRUCTURES: No significant abnormalities. VISUALIZED UPPER ABDOMEN: Normal. OTHER FINDINGS: None. IMPRESSION: No active disease.
[2018-03-04] MEDS ORDERED: Pneumococcal 23-Valent Vaccine IM ONE (17:13)
[2018-03-04] MEDS ORDERED: Influenza Vaccine 60 mcg/0.5 mL SYR (4YR UP) IM ONE (17:13)
[2018-03-04] MEDS ORDERED: Albuterol-Ipratrop 3 mg / 0.5 (3 ml) UD IH PRN (18:39)
[2018-03-04] MEDS: Albuterol-Ipratrop 3 mg / 0.5 (3 ml) UD IH SCH (20:30)
[2018-03-04] MEDS: MethylPREDNISolone 40 mg Vial IVP SCH (22:45)
--- NOTE | 2018-03-05 04:10 | CON ---
DATE: 03/04/2018 REFERRING PHYSICIAN: Alissa Castellon MD REASON FOR CONSULT: Chronic obstructive lung disease with cough and shortness of breath. HISTORY OF PRESENT ILLNESS: This is a 67-year-old female known to me remotely, from the last 2-3 years did not see her, has a chronic obstructive lung disease, hyperlipidemia, comes in to emergency room with wheezing, shortness of breath which did not get released at home nebulizer treatment. She comes to ER, admitted with diagnosis of exacerbation of chronic lung disease. She does have a cough, sputum production. No nausea, no vomiting, no diarrhea, leg pain or leg swelling. PAST MEDICAL HISTORY: Chronic obstructive lung disease, hyperlipidemia, hypertension, history of kidney stone, history of hepatitis B, degenerative joint disease. FAMILY HISTORY: No significant cardiopulmonary disease reported. SOCIAL HISTORY: Former smoker. Denies any alcohol use. ALLERGIES: TO CEFTRIAXONE, DEVELOPED RASH. MEDICATIONS: She is on DuoNeb every 2 hours p.r.n. and every 8 hours [id number], Singulair 10 mg daily, Solu-Medrol 40 mg one dose was given. REVIEW OF SYSTEMS: No headache. No rhinitis. Has cough, shortness of breath, sputum production. No chest pain. No nausea, no vomiting, no diarrhea, no dysuria, no leg pain or leg swelling. PHYSICAL EXAMINATION GENERAL: Lying in the bed, mild distress secondary to shortness of breath. VITAL SIGNS: Temperature is 98.5, heart rate is 92, respiratory rate is 18, blood pressure is 108/67, pulse 97% on 2 liters nasal cannula. HEENT: Moist mucous membranes. Small oral cavity. NECK: Supple. No JVD. LUNGS: Have a few crackles and scattered rhonchi. Few wheezing. HEART: S1 and S2. ABDOMEN: Soft, nontender, no organomegaly. EXTREMITIES: No edema. NEUROLOGIC: Awake and follows simple commands. LABORATORY DATA: Shows hemoglobin 15.4, hematocrit 45.6, WBC 8.7, platelet is 251. INR 1.03. PTT is 30, D-dimer is 229. ABG show pH 7.34, pCO2 is 45, O2 is 78 that is on nasal cannula oxygen. Sodium 143, potassium 4.1, chloride 104, bicarbonate 31, BUN 13, creatinine 0.6, glucose 118, calcium 9.8, magnesium 2.1, AST 32, ALT 28, alk phos is 93. LDH 456. Troponin less than 0.01. ProBNP 62, total protein 8.5. Albumin 4.5. Chest x-ray shows there is no active disease. A CT of the abdomen and pelvis done last year which shows limited evaluation, at that time she had an ileus, right pleural effusion and minimal compressive atelectasis, scarring at the lung bases. A CAT scan of the chest done about a year and a half ago in October 2016 which shows no evidence of pulmonary embolism with small bilateral pleural effusions with subsegmental atelectasis changes, and an 8 mm pleural based nodule in the right lateral lung base. She had an echocardiogram done also in September 2016 which shows that left ventricle is normal in size, borderline concentric left ventricular hypertrophy, ejection fraction within normal limits, mild tricuspid and mild pulmonic regurg. Reported mild pulmonary hypertension. ASSESSMENT AND PLAN: Exacerbation of chronic obstructive lung disease, history of hepatitis C, hypertension, hyperlipidemia, gastritis, recurrent constipation. This may be component of mild cardiac diastolic dysfunction, so we have changed IV Solu-Medrol 40 mg twice a day, add doxycycline 100 mg twice a day. We will add Lasix 20 mg daily, add MiraLax p.o. daily. Gastric and DVT prophylaxis. Thank you and we will follow with you. Alissa Bradford MD
[2018-03-05] MEDS: MethylPREDNISolone 40 mg Vial IVP SCH ×3 (06:11→21:57)
[2018-03-05] MEDS: Albuterol-Ipratrop 3 mg / 0.5 (3 ml) UD IH SCH ×3 (07:19→20:24)
--- NOTE | 2018-03-05 09:47 | CT ---
Date of service: 03/05/2018 PROCEDURE: CT Chest without contrast HISTORY: follow up lung nodule COMPARISON: None available. TECHNIQUE: Contiguous axial images were obtained through the chest without intravenous contrast enhancement. Sagittal and coronal reconstructions were performed. Radiation dose: Total exam DLP = 155.66 mGy-cm. This CT exam was performed using one or more of the following dose reduction techniques: Automated exposure control, adjustment of the mA and/or kV according to patient size, and/or use of iterative reconstruction technique. FINDINGS: LUNGS: Stable pleural base mass adjacent to the minor fissure originating in the right lower lobe. 6 mm pulmonary nodule right upper lobe. 5 mm pulmonary nodule pleural-based left upper lobe. Underlying manifestations COPD. Parabronchial thickening noted without evidence of mucous plugging. MEDIASTINUM: Unremarkable thoracic aorta. No aneurysm. Normal sized heart. Main pulmonary artery unremarkable. No vascular congestion. No lymphadenopathy. No atherosclerotic calcification or mural plaque present. PLEURA: No pleural fluid. No pneumothorax. BONES: No fracture. No destructive lesion. UPPER ABDOMEN: Grossly unremarkable. OTHER FINDINGS: None. IMPRESSION: Multiple pulmonary nodules including a stable finding in the right lower lobe. Additional smaller pulmonary nodules. The overall findings suggest an inflammatory/infectious etiology rather than neoplastic process.
[2018-03-05] MEDS ORDERED: MethylPREDNISolone 40 mg Vial IVP SCH (10:00)
[2018-03-05] MEDS ORDERED: POLYETHYLENE GLYCOL 3350 17 GM/Dose PACKET PO SCH (10:00)
[2018-03-05] MEDS: Enoxaparin 40 mg Syringe SC SCH (10:36)
[2018-03-05 22:37] VITALS: RESP 20
--- NOTE | 2018-03-06 00:20 | PN ---
DATE: 03/05/2018 PULMONARY PROGRESS NOTE REFERRING PHYSICIAN: Alissa Castellon MD. SUBJECTIVE: The patient feels okay. No headache, no rhinitis. Still has some cough and shortness of breath. No chest pain. No nausea, no vomiting. No leg pain, no leg swelling. No overnight events reported. PHYSICAL EXAMINATION: VITAL SIGNS: Temperature 97.6, pulse 77, blood pressure 106/69, respirations 18, pulse ox 96%. GENERAL: No acute distress. HEENT: Moist mucous membranes. Small crowded airway. NECK: Supple. No JVD. LUNGS: Few scattered rhonchi. CARDIAC: S1 and S2. ABDOMEN: Soft, nontender, no organomegaly. EXTREMITIES: No edema. NEUROLOGIC: Awake, alert, follows simple commands. LABORATORY DATA: Laboratory results reviewed. Chest CT scan shows multiple pulmonary nodules including a stable finding in the right lower lobe. Additional smaller nodules. The findings suggest inflammatory infectious etiology rather than neoplastic process. MEDICATIONS: Reviewed. MiraLax daily, Singulair daily, Lasix 20 mg daily, Lovenox 20 mg daily. IMPRESSION AND PLAN: Exacerbation of chronic obstructive lung disease, history of hepatitis C, stable lung nodule, hypertension, hyperlipidemia, gastritis, recurrent constipation, diastolic dysfunction, pulmonary hypertension. Continue IV steroids, leukotriene inhibitors, antibiotics, diuretics, bowel regimen routinely, gastric prophylaxis, deep vein thrombosis prophylaxis. This patient was examined with Dr. Bradford and discussed assessment and plan as described above. Thank you for this consult. We will follow with you. Mandi Ratliff APN Alissa Bradford MD. ARIELLE
--- NOTE | 2018-03-06 00:40 | HP ---
DATE OF EXAM: 03/05/2018 HISTORY OF PRESENT ILLNESS: Ms. Flowers is a 67-year-old female, presented to the ED with shortness of breath. She has underlying COPD. CAT scan of the chest done in the ED showed multiple right-sided lung nodules, subcentimeter. Scans compared with the scan done a year ago, 2017. Stable appearance of right lower lobe lung nodule, likely thought to be inflammatory rather than malignant. Shortness of breath has markedly improved. She is comfortable in her bed. Denies any chest pain. Son at bedside. PAST MEDICAL HISTORY: Hypertension, COPD, kidney stones, osteoarthritis. PAST SURGICAL HISTORY: None. FAMILY HISTORY: Noncontributory. ALLERGIES: CEFTRIAXONE CAUSES RASH. TRICOR: Tricor 40 mg daily, Motrin, naproxen p.r.n. REVIEW OF SYSTEMS: As per HPI. Rest of 12-point review of systems reviewed negative. PHYSICAL EXAMINATION: GENERAL: Comfortable in bed, in no acute distress. VITAL SIGNS: Temperature 97.9, heart rate 100 per minute, respiratory rate 20 per minute, blood pressure 130/80, pulse ox is 98% on room air. HEENT: Pallor positive. NECK: No lymphadenopathy. CHEST: Air entry present and equal, bilateral. No added sound. CARDIOVASCULAR: S1, S2 normal. No murmur. No gallop. ABDOMEN: Soft, nontender. No hepatosplenomegaly. EXTREMITY: No edema. SKIN: No petechiae. No rash. SPINE: Nontender. Chest x-ray: No infiltrate. CT chest: As per HPI. ASSESSMENT AND PLAN: Hypertension, COPD, kidney stones, osteoarthritis, right lung nodules. She will be admitted to the hospital. Bronchodilators. DuoNeb every 6 hours p.r.n., doxycycline 100 mg every 12 hours, Lovenox 40 mg subcu daily, Pepcid 40 mg daily, Lasix 20 mg daily, Solu-Medrol 40 mg every 8, Singulair 10 mg daily, MiraLax 17 g daily. Pulmonary consultation, Dr. Bradford requested. Note reviewed. I appreciate the consult. Discussed with the son at bedside. Discharge planning maybe possible tomorrow if remains stable. No evidence of pneumonia. right lung nodules stable . Angelia Davey MD [facility]
[2018-03-06] MEDS: MethylPREDNISolone 40 mg Vial IVP SCH (05:39)
[2018-03-06] MEDS: Albuterol-Ipratrop 3 mg / 0.5 (3 ml) UD IH SCH ×2 (07:23→13:50)
[2018-03-06 08:07] VITALS: PULSE 65; TEMP 97.6; O2SAT 100
[2018-03-06] MEDS: Enoxaparin 40 mg Syringe SC SCH (09:32)
[2018-03-06 09:33] VITALS: BP 111/64
[2018-03-06] MEDS ORDERED: guaiFENesin DM 100 mg-10 mg/5 ml UD PO STA (10:53)
--- NOTE | 2018-03-06 16:30 | DS ---
DISCHARGE DIAGNOSES: 1. Chronic obstructive pulmonary disease exacerbation. 2. Right lung nodules. 3. Hypertension. HOSPITAL COURSE: The patient was admitted with COPD exacerbation. She was treated with bronchodilators. Shortness of breath improved during hospitalization. She also received IV steroids. Evaluated by Pulmonary, Dr. Bradford. She is being discharged home in stable condition. Right lung nodules, upper lobe, lower lobe. Compared to the last year scans, nodules stable. PHYSICAL EXAMINATION ON DISCHARGE: GENERAL: Comfortable in bed, in no acute distress. VITAL SIGNS: Temperature 97.6, heart rate is 65 per minute, blood pressure 107/63, respiratory rate 20 per minute, oxygen saturation 100% on room air. HEENT: No pallor. NECK: No lymphadenopathy. CHEST: Air entry present and equal, bilateral. No added sounds. CARDIOVASCULAR: S1, S2 normal. No murmur. No gallop. ABDOMEN: Soft, nontender. No hepatosplenomegaly. EXTREMITY: No edema. CUSTOMER ACCOUNT COORDINATOR: Alert and oriented x3. No focal sensorimotor deficits. CONDITION ON DISCHARGE: Stable. DISPOSITION: Discharge home. DISCHARGE MEDICATIONS: Medrol Marcellus, doxycycline 100 mg p.o. b.i.d. for 5 days. Resume home meds. FOLLOWUP: Follow up with in 1 week. Follow up with Dr. Davey in 1 week for pulmonary nodules. Discussed with the son. Discussed with the staff nurse. All prescriptions given. Time spent in preparing discharge, coordinating care 55 minutes. Angelia Davey MD
== END 2018-03-06 14:02 | disposition home or self-care (01) | DRG 192 ==
LOC: ED 11:34 → ERH 13:00 → 5RNO 16:01
PROVIDERS: ADMIT Internal Medicine; ATTEND Internal Medicine Nephrology
DX: J44.1 Chronic obstructive pulmonary disease with (acute) exacerbation (principal); I10 Essential (primary) hypertension; M19.90 Unspecified osteoarthritis, unspecified site; I27.20 Pulmonary hypertension, unspecified; K29.70 Gastritis, unspecified, without bleeding; N20.0 Calculus of kidney; K59.00 Constipation, unspecified; E78.5 Hyperlipidemia, unspecified; R91.1 Solitary pulmonary nodule; Z87.891 Personal history of nicotine dependence; Z86.19 Personal history of other infectious and parasitic diseases

== ENCOUNTER 2018-03-18 09:05 | Inpatient (IN) | payer MEDICAID, MEDICARE ==
[2018-03-18 09:06] VITALS: BMI 20.7
[2018-03-18] MEDS ORDERED: Albuterol-Ipratrop 3 mg / 0.5 (3 ml) UD IH STA (09:18)
--- NOTE | 2018-03-18 09:42 | ED PDOC ---
Arrival/HPI - General Chief Complaint: Shortness Of Breath Time Seen by Provider: 03/18/18 09:12 Historian: Patient - Critical Care Critical Care Minutes: 30 minutes - History of Present Illness Narrative History of Present Illness (Text): 68 year old female w/ h/o COPD and hyperlipidemia, is brought into the emergency department by her son for a complaint of shortness of breath and chest pain. 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 She notes that she has been coughing with green sputum production. He reports that she felt diaphoretic last night. The patient's son states that she is on 2L of oxygen around the clock at home. She reports that she ran out of one of her nebulizer treatments (ANORO ELLIPTA) a few days ago. She denies fevers, chills, headache, dizziness, abdominal pain, nausea, vomiting, diarrhea, back pain, neck pain, urinary/bowel changes, or any other complaint. *Patient is primariky Slovenian speaking and used her son as a fur buyer* PMD: Dr. Kin Gregg Time/Duration: Prior to Arrival Symptom Onset: Sudden Symptom Course: Unchanged Activities at Onset: Light Context: Home Past Medical History - Provider Review Nursing Documentation Reviewed: Yes - Travel History Have you recently traveled outside [place] w/in the past 3 mons?: No - Infectious Disease Hx of Infectious Diseases: None - Tetanus Immunization Tetanus Immunization: Unknown - Cardiac Hx Cardiac Disorders: Yes Hx Hypertension: Yes - Pulmonary Hx Respiratory Disorders: Yes (respiratory failure, intubated i n past) Hx Asthma: Yes Hx Chronic Obstructive Pulmonary Disease (COPD): Yes Other/Comment: home o2/home nebulizer machine - Neurological Hx Neurological Disorder: No - HEENT Hx HEENT Disorder: No - Renal Hx Renal Disorder: Yes Hx Kidney Stones: Yes - Endocrine/Metabolic Hx Hyperthyroidism: Yes - Hematological/Oncological Hx Blood Disorders: Yes Hx Hepatitis B: Yes Other/Comment: transaminitis - Integumentary Hx Dermatological Disorder: Yes Other/Comment: slight dry skin to bottom of feet - Musculoskeletal/Rheumatological Hx Musculoskeletal Disorders: Yes Hx Arthritis: Yes (c spine) Hx Back Pain: Yes (lower back) Hx Falls: No Hx Osteoarthritis: Yes Hx Unsteady Gait: Yes (walker) - Gastrointestinal Hx Gastrointestinal Disorders: No - Genitourinary/Gynecological Hx Genitourinary Disorders: No - Psychiatric Hx Psychophysiologic Disorder: No Hx Substance Use: No - Anesthesia Hx Anesthesia: No Hx Anesthesia Reactions: No Hx Malignant Hyperthermia: No Family/Social History - Physician Review Nursing Documentation Reviewed: Yes Family/Social History: No Known Family HX Smoking Status: Former Smoker Hx Alcohol Use: No Hx Substance Use: No Allergies/Home Meds Allergies/Adverse Reactions: Allergies ceftriaxone Allergy (Verified 05/11/17 11:27) RASH Home Medications: Home Meds Medication Instructions Recorded Confirmed Albuterol Sulfate [Ventolin Hfa] 2 puff IH QID PRN 03/04/18 03/18/18 Guaifenesin [Mucinex ER] 600 mg PO BID 03/04/18 03/18/18 Montelukast [Singulair] 10 mg PO DAILY 03/04/18 03/18/18 [id number] Ethyl Esters 1 GM 1 gm PO BID 03/04/18 03/18/18 [Lovaza] Omeprazole 40 mg PO DAILY 03/04/18 03/18/18 Umeclidinium Brm/Vilanterol Tr 1 puff IH DAILY 03/04/18 03/18/18 [Anoro Ellipta 62.5-25 Mcg INH] Virtussin AC Liquid 1 tsp PO HS 03/04/18 03/18/18 Zithromycin 500 mg PO DAILY 03/04/18 03/18/18 Review of Systems - Physician Review All systems were reviewed & negative as marked: Yes - Review of Systems Constitutional: absent: Fevers Respiratory: SOB, Cough, Sputum (Green) Cardiovascular: Chest Pain Gastrointestinal: absent: Abdominal Pain, Diarrhea, Nausea, Vomiting Genitourinary Female: absent: Urine Output Changes Musculoskeletal: absent: Back Pain Neurological: absent: Headache, Dizziness Physical Exam Vital Signs Reviewed: Yes Vital Signs Temp Pulse Resp BP Pulse Ox 03/18/18 09:22 98.0 F 100 H 20 101/63 98 Temperature: Afebrile Blood Pressure: Normal Pulse: Tachycardic Respiratory Rate: Normal Appearance: Positive for: Well-Appearing, Non-Toxic, Comfortable Pain Distress: None Mental Status: Positive for: Alert and Oriented X 3 - Systems Exam Head: Present: Atraumatic, Normocephalic Pupils: Present: PERRL Extroacular Muscles: Present: EOMI Conjunctiva: Present: Normal Mouth: Present: Moist Mucous Membranes Neck: Present: Normal Range of Motion Respiratory/Chest: Present: Wheezes (Mild expiratory wheezes), Decreased Breath Sounds (Diminished breath sounds bilaterally.), Tachypneic. No: Respiratory Distress, Accessory Muscle Use, Rales Cardiovascular: Present: Normal S1, S2, Tachycardic. No: Murmurs Abdomen: No: Tenderness, Distention, Peritoneal Signs Back: Present: Normal Inspection Upper Extremity: Present: Normal Inspection. No: Cyanosis, Edema Lower Extremity: Present: Normal Inspection. No: Edema (No pedal edema) Neurological: Present: GCS=15, CN II-XII Intact, Speech Normal Skin: Present: Warm, Dry, Normal Color. No: Rashes Psychiatric: Present: Alert, Oriented x 3, Lethargic Medical Decision Making ED Course and Treatment: Impression: A 68 year old female is brought into the emergency department by son for further evaluation of shortness of breath and chest pain. Differential Diagnosis included but are not limited to: COPD exacerbation Nosocomial PNA Sepsis Plan: -- EKG -- Chest X-ray --Merrem --Urine Culture -- Labs -- Blood Culture -- Urinalysis -- Duonebs --Solumedrol --Albuterol -- Reassess and disposition Prior Visits: Notes and results from previous visits were reviewed. Progress Notes: 03/18/18 10:38: Leukocytosis of 18.5 with shift. Troponin and BNP WNL. Patient noted to still be tachycardic to low 100s. Code sepsis called. Merrem and IV fluids ordered for patient. 03/18/18 10:58: Case discussed in detail with Dr. Johnston who accepts patient to his service for admission to Telemetry Unit. He requests Dr. Bradford(pulmonary) for consult. - Lab Interpretations I have reviewed the lab results: Yes - RAD Interpretation Narrative RAD Interpretations (Text): Chest X-ray Dictator : Campos Douglas MD Report Date : 03/18/2018 10:42:58 IMPRESSION: No active disease. Radiology Orders: 03/18/18 09:19 CHEST PORTABLE [RAD] Stat - EKG Interpretation EKG Interpretation (Text): 03/18/18 09:15 EKG: Ordered, reviewed, and independently interpreted the EKG. Rate : 108 BPM Rhythm : Sinus Tachycardia Interpretation : LAE. No T wave inversions. Slight QT prolongations. Interpreted by ED Physician: Yes Type: 12 lead EKG - Medication Orders Current Medication Orders: Discontinued Medications Albuterol/Ipratropium (Duoneb 3 Mg/0.5 Mg (3 Ml) Ud) 3 ml IH STAT STA Stop: 03/18/18 09:19 - Scribe Statement The provider has reviewed the documentation as recorded by the Scribe Adrienne Reynaga Provider Scribe Attestation: All medical record entries made by the Scribe were at my direction and personally dictated by me. I have reviewed the chart and agree that the record accurately reflects my personal performance of the history, physical exam, medical decision making, and the department course for this patient. I have also personally directed, reviewed, and agree with the discharge instructions and disposition. Disposition/Present on Arrival - Present on Arrival Any Indicators Present on Arrival: No History of DVT/PE: No History of Uncontrolled Diabetes: No Urinary Catheter: No History of Decub. Ulcer: No History Surgical Site Infection Following: None - Disposition Have Diagnosis and Disposition been Completed?: Yes Diagnosis: COPD exacerbation, Sepsis Disposition: HOME/ ROUTINE Disposition Time: 10:54 Patient Plan: Admission Patient Problems: Current Active Problems Problem Status Onset Sepsis Acute COPD exacerbation Acute Condition: GUARDED
[2018-03-18 09:56] LABS: BASO # 0.02 K/mm3 (0.0-2.0); BASO % 0.1 % (0.0-3.0); EOS # 0.1 (0.0-0.7); EOS % 0.3 % (1.5-5.0); GRAN # 14.4 (1.4-6.5); HEMOGLOBIN 14.1 g/dL (12.0-16.0); LYMPH # 2.8 (1.2-3.4); LYMPH % 14.9 % (22.0-35.0); MEAN CELL VOLUME 90.6 fl (80.0-105.0); MEAN CORPUSCULAR HGB CONC 33.1 g/dl (31.0-37.0); MEAN PLATELET VOLUME 9.3 fl (7.0-11.0); MONO # 1.2 (0.1-0.6); MONO % 6.7 % (1.0-6.0); RBC 4.7 10^6/uL (3.5-6.1); WHITE BLOOD COUNT 18.5 10^3/uL (4.5-11.0)
[2018-03-18 10:05] LABS: INR 1.14; PARTIAL THROMBOPLASTIN TIME 30.3 Seconds (25.1-36.5); PROTHROMBIN TIME 13.1 SECONDS (9.4-12.5)
[2018-03-18 10:16] LABS: B-TYPE NATRIURETIC PEPTIDE 129 pg/mL (0-450); TROPONIN I < 0.01 ng/mL
[2018-03-18 10:20] LABS: ARTERIAL BLOOD GAS HCO3 21.5 mmol/L (21-28); ARTERIAL BLOOD GAS HEMOGLOBIN 13.3 g/dL (11.7-17.4); ARTERIAL BLOOD GAS O2 CONTENT 17.8 ML/dl (15-23); ARTERIAL BLOOD GAS O2 SAT 99.1 % (95-98); ARTERIAL BLOOD GAS PCO2 31 mm/Hg (35-45); ARTERIAL BLOOD GAS PH 7.45 (7.35-7.45); ARTERIAL BLOOD GAS TCO2 22.5 mmol.L (22-28)
[2018-03-18 10:27] LABS: VENOUS BLOOD GAS BASE EXCESS -1.8 mmol/L (0.0-2.0); VENOUS BLOOD GAS PO2 87 mm/Hg (30-55); VENOUS BLOOD PH 7.32 (7.32-7.43)
[2018-03-18] MEDS ORDERED: MEROPENEM 500 MG in NS 500 MG/50 ML BAG IVPB ONE (10:39)
[2018-03-18] MEDS ORDERED: Sodium Chloride 0.9% 1,000 ML IV STA (10:43)
--- NOTE | 2018-03-18 10:46 | RAD ---
Date of service: 03/18/2018 HISTORY: sob COMPARISON: 03/04/2018 FINDINGS: LUNGS: No active pulmonary disease. PLEURA: No significant pleural effusion identified, no pneumothorax apparent. CARDIOVASCULAR: Minimal aortic calcification Normal cardiac size. No pulmonary vascular congestion. OSSEOUS STRUCTURES: No significant abnormalities. VISUALIZED UPPER ABDOMEN: Normal. OTHER FINDINGS: None. IMPRESSION: No active disease.
[2018-03-18] MEDS ORDERED: Albuterol 0.083% Inhal Sol (2.5 mg/3 mL) UD INH STA (11:00)
[2018-03-18 11:39] LABS: URINE BILIRUBIN NEGATIVE (NEGATIVE); URINE BLOOD SMALL (NEGATIVE); URINE GLUCOSE (UA) NEGATIVE (NEGATIVE); URINE LEUKOCYTE ESTERASE LARGE Leu/uL (NEGATIVE); URINE PROTEIN NEGATIVE mg/dL (<30 mg/dL); URINE UROBILINOGEN 0.2 E.U./dL (<1 E.U./dL)
[2018-03-18 11:51] LABS: URINE APPEARANCE CLEAR (CLEAR); URINE COLOR YELLOW (YELLOW)
[2018-03-18 11:54] LABS: URINE BACTERIA MANY (NEG); URINE WBC 25 - 30 /hpf (0-6)
[2018-03-18 11:55] LABS: URINE AMORPHOUS SEDIMENT FEW
[2018-03-18 13:12] LABS: VENOUS BLOOD GAS BASE EXCESS -3.3 mmol/L (0.0-2.0); VENOUS BLOOD GAS PO2 46 mm/Hg (30-55); VENOUS BLOOD PH 7.28 (7.32-7.43)
[2018-03-18] MEDS: Meropenem IV 1 gm in NS 1 GM/50 ML BAG IVPB SCH ×2 (14:14→21:55)
--- NOTE | 2018-03-18 15:32 | PCM.SEPTIC ---
Sepsis Progress Note - Reassessment Type Date of Evaluation: 03/18/18 Time of Evaluation: 15:29 Reassessment Type: Non-invasive reassessment - Non Invasive Reassessment Were the most recent vital sign reviewed: Yes Vital Sign (Latest): Temp Pulse Resp BP Pulse Ox 100.8 F H 94 H 18 110/67 99 03/18/18 14:00 03/18/18 14:00 03/18/18 14:00 03/18/18 14:00 03/18/18 14:00 Cardiovascular: Yes: Regular Rate, Rhythm. No: Gallop, JVD, Murmur Respiratory: Yes: Decreased Breath Sounds (b/l), Rhonchi (coarse breath sounds b/l), Wheezing (faint expiratory wheezes b/l). No: Rales Capillary Refill: Normal (Less than 2 sec) Pulses: Normal Radial, Normal Dorsalis Pedis, Normal Posterior Tibialis Skin: Warm, Dry
[2018-03-18] MEDS: MethylPREDNISolone 40 mg Vial IVP SCH (22:16)
--- NOTE | 2018-03-19 00:05 | CON ---
DATE: 03/18/2018 The patient was seen in the emergency room. CHIEF COMPLAINT: Shortness of breath x1 day duration. HISTORY OF PRESENT ILLNESS: This is a 68-year-old female with a history of chronic obstructive lung disease, hyperlipidemia, a [place] woman, whose son serves as a store stocker, who was admitted with shortness of breath with a cough, mild shortness of breath. No chest pain now. She states she did have chest pain earlier and she has no abdominal pain, questionable dysuria or frequency. There has been no fevers or chills. No nausea, and no diarrhea or constipation. REVIEW OF SYSTEMS: A 14-point review of systems performed. PAST MEDICAL HISTORY: Significant for high cholesterol, hypertension, chronic obstructive lung disease, hyperthyroid disease, kidney disease, kidney stones, arthritis and hepatitis B. PAST SURGICAL HISTORY: Noncontributory. ALLERGIES: THE PATIENT IS ALLERGIC TO CEFTRIAXONE, TYPE OF ALLERGY IS NOT QUITE CLEAR. HOME MEDICATIONS: Omeprazole, Singulair, and Medrol Marcellus. PHYSICAL EXAMINATION: GENERAL: She is in bed, in no acute distress, nontoxic. VITAL SIGNS: Temperature of 99.4, heart rate of 105, respiratory rate of 24 and blood pressure is 94/45. The patient's BMI is 20 and she is saturating at 99% on room air. HEENT: Unremarkable. NECK: Supple. LUNGS: Have decreased breath sounds. HEART: Normal S1, S2. ABDOMEN: Soft, nontender and no rebound or guarding. No CVA tenderness. LABORATORY EXAMINATION: Reveals a white count of 18,500, hemoglobin of 14, platelets of 187, and 78% granulocytosis. Coagulation is noted and chemistries are noted. Urinalysis is reviewed, 25 to 30 wbc's and many bacteria and yeast. Microbiology is noted from the past. Chest x-ray is negative. Only information at this time is chest x-ray in the emergency room chart. ASSESSMENT AND PLAN: This is a 68-year-old Samoan woman with chronic obstructive pulmonary disease, hyperlipidemia, hypertension, hyperthyroidism, kidney disease, kidney stones, arthritis, admitted with low-grade fevers, tachycardia, shortness of breath and cough with a negative chest x-ray, positive urinalysis. Leukocytosis of 18,500. 1. Sepsis with the urine as the source. We will treat the patient with meropenem since she is ALLERGIC TO THE CEFTRIAXONE pending blood cultures, urine cultures and we will order a procalcitonin also, and we will make further recommendations upon availability of initial results and follow with you. Manfred Aburto MD
[2018-03-19] MEDS: Pantoprazole 40 mg EC Tab PO SCH (05:59)
[2018-03-19] MEDS: Meropenem IV 1 gm in NS 1 GM/50 ML BAG IVPB SCH ×3 (05:59→22:19)
--- NOTE | 2018-03-19 07:08 | CON ---
DATE: 03/18/2018 PULMONARY CONSULTATION REFERRING PHYSICIAN: Dr. Johnston. REASON FOR CONSULTATION: Chronic obstructive lung disease. HISTORY OF PRESENT ILLNESS: This is a 68-year-old female known to have chronic obstructive lung disease, hyperlipidemia, does have a hypotension, oxygen dependent, history of renal insufficiency, hyperthyroidism, history of hepatitis B, brought to emergency room by her son because of persistent cough, shortness of breath, discolored sputum production. No fever. No hemoptysis. No emesis. No hematuria or diarrhea reported. PAST MEDICAL HISTORY: As per history of present illness. FAMILY HISTORY: No significant cardiopulmonary disease reported. SOCIAL HISTORY: Former smoker. ALLERGIES: TO ROCEPHIN, DEVELOPED RASH. REVIEW OF SYSTEMS: No headache. No rhinitis. Does have a cough, shortness of breath. No chest pain. No nausea, vomiting, diarrhea, leg pain, or leg swelling. PHYSICAL EXAMINATION: GENERAL: No acute distress. VITAL SIGNS: T-max is 100, heart rate is 95, respiratory rate is 20, blood pressure 105/64, pulse ox 99% on 2 L nasal cannula. HEENT: Small oral cavity. Crowded airway. NECK: Supple. No JVD. No maxillary sinus tenderness. HEART: S1 and S2. LUNGS: Prolonged expiratory phase, wheezing with scattered rhonchi. ABDOMEN: Soft, nontender. No organomegaly. EXTREMITIES: There is no edema. NEUROLOGIC: Awake, alert. Follows simple commands. MEDICATIONS: She is on meropenem 1 g IV every 8 hours, Singulair 10 mg daily. Chest x-ray, there is no infiltrate. IMPRESSION AND PLAN: Exacerbation of chronic obstructive lung disease, hyperlipidemia, history of hyperthyroidism, not very compliant with followup, home O2 dependent. We will place her on Solu-Medrol, inhaled bronchodilator, antibiotics, gastric prophylaxis, deep venous thrombosis prophylaxis, out of bed to chair, aspiration precaution. We recommended outpatient PFT and attended sleep study, has a history of snoring, daytime sleepy, and tired. Thank you and we will follow with you. Alissa Bradford MD
[2018-03-19] MEDS ORDERED: Pantoprazole 40 mg EC Tab PO SCH (07:30)
[2018-03-19] MEDS: Arformoterol 15 mcg/2 ml Inh Sol IH SCH ×2 (07:36→19:03)
[2018-03-19] MEDS: Budesonide 0.5 mg/2 ml Inhal Susp UD IH SCH ×2 (07:36→19:03)
--- NOTE | 2018-03-19 08:12 | CARD ---
APPROVED REPORT Date of service: 03/18/2018 EKG Measurement Heart [id number] <Conclusion> Sinus tachycardia Otherwise normal ECG
[2018-03-19] MEDS: MethylPREDNISolone 40 mg Vial IVP SCH ×2 (09:24→22:19)
[2018-03-19] MEDS: Enoxaparin 40 mg Syringe SC SCH (09:24)
[2018-03-19] MEDS: guaiFENesin 600 mg ER Tab PO SCH ×2 (09:25→17:23)
[2018-03-19] MEDS ORDERED: Non Formulary Medication (Omeprazole [Omeprazole] 40 MG) PO SCH (10:00)
[2018-03-19] MEDS ORDERED: AZITHROMYCIN 500 MG PO SCH (10:00)
[2018-03-19 10:31] LABS: HEMOGLOBIN 13.2 g/dL (12.0-16.0); MEAN CELL VOLUME 89.8 fl (80.0-105.0); MEAN CORPUSCULAR HEMOGLOBIN 30.5 pg (25.0-35.0); MEAN CORPUSCULAR HGB CONC 33.9 g/dl (31.0-37.0); MEAN PLATELET VOLUME 9.4 fl (7.0-11.0); RBC 4.33 10^6/uL (3.5-6.1); RED CELL DISTRIBUTION WIDTH 12.9 % (11.5-14.5); WHITE BLOOD COUNT 10.8 10^3/uL (4.5-11.0)
[2018-03-19 10:49] LABS: ALB/GLOB RATIO 1.2 (1.1-1.8); ALBUMIN 3.6 g/dL (3.0-4.8); ALT/SGPT 27 U/L (7-56); AST/SGOT 27 U/L (14-36); BLOOD UREA NITROGEN 14 mg/dL (7-21); CALCIUM 8.9 mg/dL (8.4-10.5); GFR NON-AFRICAN AMERICAN > 60
--- NOTE | 2018-03-19 12:42 | PN ---
DATE: 03/19/2018 SUBJECTIVE: The patient is in bed, in no acute distress, nontoxic. PHYSICAL EXAMINATION: VITAL SIGNS: On exam, temperature is 98, blood pressure is 92/60, respiratory rate of 72. HEENT: Examination of HEENT is unremarkable. NECK: Supple. LUNGS: Have decreased breath sounds. HEART: Normal S1, S2. ABDOMEN: Soft, nontender. LABORATORY DATA: Laboratory examination reveals the patient's white count of 18,500, hemoglobin of 14, platelets of 187. Chemistries are noted and urinalysis is reviewed. Blood cultures have no growth. Urine cultures are pending. Review of orders reveals there is no full chemistries or CBC ordered for today and the patient's chest x-ray has no active lung disease.. Review of orders reveals the patient's procalcitonin is pending. Urine and blood cultures are pending and the patient is on meropenem and Solu-Medrol and p.o. Zithromax. ASSESSMENT AND PLAN: A 68-year-old female who was seen earlier today with chronic obstructive lung disease, hyperlipidemia, Greek woman who was admitted with shortness of breath, cough and chest pain earlier on and essentially admitted with sepsis with urine as the source, currently on meropenem since the PATIENT IS ALLERGIC TO CEFTRIAXONE and Zithromax was added by Dr. Bradford whose consultation is reviewed and he states that the chest x-ray has no infiltrate and he is adding the Zithromax because of the chronic obstructive pulmonary disease. The patient is on home O2 therapy. We will make further recommendations upon availability of the culture results and workup results. We will follow the chemistries and CBC. Manfred Aburto MD
--- NOTE | 2018-03-19 16:24 | HP ---
HISTORY OF PRESENT ILLNESS: Patient is 68 years old female who was brought to emergency room because of increasing cough, congestion, she has mild shortness of breath. Denies any chest pain, did have some chills at home. However, there is no history of nausea or vomiting. No diarrhea. No hemoptysis, no hematemesis. PAST MEDICAL HISTORY: Significant for: 1. COPD. 2. Hypertension. 3. Hyperlipidemia. 4. History of nephrolithiasis. 5. History of generalized osteoarthritis. 6. History of hepatitis B. SOCIAL HISTORY: Lives with her son, history of smoking in the past. ALLERGIES: SHE IS ALLERGIC TO ROCEPHIN CAUSING A GENERALIZED RASH. PHYSICAL EXAMINATION: GENERAL: She is awake and alert, not in any distress. VITAL SIGNS: She is afebrile, pulse 69, respirations 18, blood pressure 92/62. LUNGS: Bilateral fair airflow. No significant rhonchi or crackle. HEART: S1 and S2 audible. ABDOMEN: Soft, nontender. No rebound, no guarding. NEUROLOGICAL: She is awake and alert, able to communicate, but there is language barrier. LABORATORY DATA: Upon admission, WBC 18.5, hemoglobin 14 and today it is 10.8, 13.2, hematocrit 38.9, platelets 171. PT 13.1, INR 1.14. Chemistry: Sodium 139, potassium 4.1, chloride 106, CO2 of 23, BUN 14, creatinine 0.5, blood sugar of 279. Urine shows large leukocyte with wbc's 25-30. X-ray of chest is unremarkable. ASSESSMENT: 1. History of chronic obstructive pulmonary disease. 2. Chronic obstructive pulmonary disease exacerbation. 3. History of hypertension but currently hypotensive. 4. History of gastritis. So plan is currently patient is on nebulizer treatment. She is on DVT prophylaxis. Currently, she is on meropenem every 8 as per ID. She is getting IV steroid, we will continue that. She will get Zithromax, also. We will request for physical therapy evaluation and slowly taper down steroids and make discharge plans from there. Carlos Ibanez MD [facility] # [id number]
--- NOTE | 2018-03-20 00:42 | PN ---
DATE: 03/19/2018 PULMONARY PROGRESS NOTE REFERRING PHYSICIAN: . SUBJECTIVE: The patient is sitting up in a bed, feels little better. Still having cough, shortness of breath. No nausea, vomiting, diarrhea, leg pain or leg swelling. OBJECTIVE: GENERAL: In no acute distress. VITAL SIGNS: Temp is 98, heart rate is 80, respiratory rate is 20, blood pressure 100/62, pulse ox is 95% on room air. HEENT: Moist mucous membrane. Crowded airway. NECK: Supple. No JVD. LUNGS: Have a prolonged expiratory phase with expiratory rhonchi. HEART: S1 and S2. ABDOMEN: Soft, nontender. No organomegaly. EXTREMITIES: No edema. NEUROLOGIC: Awake, alert, follows simple commands. MEDICATIONS: She is on Brovana inhaled twice a day, mcg daily, omega-3 1 g twice a day, Lovenox 40 mg subcutaneous daily, meropenem 1 g IV every 8 hours, Mucinex LA 600 mg twice a day, Protonix 40 mg daily, Pulmicort inhaled twice a day, Singulair 10 mg daily, Solu-Medrol 40 mg twice a day, Zithromax 500 mg daily. LABORATORY DATA: Shows hemoglobin 13.2, hematocrit 38.9, WBC 10.8, platelet is 171. Sodium 139, potassium 4.1, chloride 106, bicarbonate 23. BUN 14, creatinine 0.5, glucose 279, calcium is 8.9. AST is 27, ALT 27, alk phos is 57, albumin is 3.6. Procalcitonin is 0.11. Microbiology, blood culture has been negative. IMPRESSION AND PLAN: Exacerbation of chronic obstructive lung disease, hyperlipidemia, history of hyperthyroidism, noncompliance with followup. Pulmonary point of view, doing okay. Continue IV and inhaled bronchodilator, antibiotics, gastric prophylaxis and deep vein thrombosis prophylaxis. We will re-consult Speech Therapy to assure she does not have oropharyngeal dysphagia and aspiration. Incentive spirometer. Thank you and we will follow with you. Alissa Bradford MD
[2018-03-20] MEDS: Pantoprazole 40 mg EC Tab PO SCH (05:35)
[2018-03-20] MEDS: Meropenem IV 1 gm in NS 1 GM/50 ML BAG IVPB SCH ×3 (05:35→22:27)
[2018-03-20] MEDS: Budesonide 0.5 mg/2 ml Inhal Susp UD IH SCH ×2 (07:25→20:58)
[2018-03-20] MEDS: Arformoterol 15 mcg/2 ml Inh Sol IH SCH ×2 (07:25→20:58)
[2018-03-20] MEDS: Omega-3-Acid Ethyl Esters 1 GM Cap PO SCH ×2 (09:44→17:00)
[2018-03-20] MEDS: guaiFENesin 600 mg ER Tab PO SCH ×2 (09:44→17:00)
[2018-03-20] MEDS: Enoxaparin 40 mg Syringe SC SCH (09:44)
[2018-03-20] MEDS: MethylPREDNISolone 40 mg Vial IVP SCH ×2 (10:51→22:28)
--- NOTE | 2018-03-20 17:53 | PN ---
DATE: 03/20/2018 SUBJECTIVE: The patient is in bed in no acute distress, nontoxic. PHYSICAL EXAMINATION: Temperature is 97, blood pressure is 100/50, respiratory rate of 88. Examination of HEENT is unremarkable. Neck is supple. Lungs show decreased breath sounds. Heart exam is normal S1 and S2. Abdominal examination is soft. LABORATORY EXAMINATION: White count is down to 10,000, hemoglobin of 13. Chemistries are noted. Procalcitonin 0.11. Urinalysis is noted. Microbiology reveals urine cultures negative, blood cultures are negative. Review of orders reveals the patient to be on meropenem and p.o. Zithromax. ASSESSMENT/PLAN: This is a 68-year-old female who has a history of chronic obstructive pulmonary disease, hyperlipidemia, she is from [place], shortness of breath, cough, and pain, admitted with sepsis with urine as the source, but the urine culture is negative. The patient is currently on home O2 therapy, on p.o. Zithromax and IV meropenem. The patient is allergic to the ceftriaxone. Unfortunately, the urine culture was collected after the antibiotics were given and today is day #3, would give 5-7 days of antibiotics, meropenem. Manfred Aburto MD
--- NOTE | 2018-03-20 19:47 | PN ---
DATE: 03/20/2018 SUBJECTIVE: The patient is a 68-year-old, seen and examined, sitting in chair, seems to be comfortable, still has cough, congestion, and audible wheezing. PHYSICAL EXAMINATION: VITAL SIGNS: She is afebrile, pulse 65, respirations 18, and blood pressure 100/55. LUNGS: Bilateral fair airflow. No rhonchi or crackles. On auscultation on the back of the lungs, she has upper lung soft rhonchi. HEART: S1 and S2 audible. ABDOMEN: Soft and nontender. No rebound. No guarding. NEUROLOGIC: She is awake, alert, oriented, and able to communicate. ASSESSMENT: 1. Chronic obstructive pulmonary disease exacerbation. 2. Asthmatic bronchitis. 3. Hypertension. 4. Hyperlipidemia. 5. History of nephrolithiasis. 6. Osteoarthritis. 7. Gastritis. PLAN: Currently, the patient is on IV steroid. She is on Brovana and Daliresp. She is on DVT prophylaxis. She is receiving meropenem since she is ALLERGIC TO ROCEPHIN and she is on Zithromax. Steroid will be tapered down in a.m. and possible discharge in a.m. Carlos Ibanez MD
--- NOTE | 2018-03-20 20:02 | PN ---
DATE: 03/20/2018 PULMONARY PROGRESS NOTE REFERRING PHYSICIAN: Nael Johnston MD. SUBJECTIVE: She is lying in the bed, head at 45 degrees. Night was unremarkable. Feels better. Still has cough and sputum production. No nausea, vomiting, diarrhea, leg pain, or leg swelling. PHYSICAL EXAMINATION: GENERAL: In no acute distress. VITAL SIGNS: Temp is 98, heart rate is 65, respiratory rate is 18, blood pressure 100/55, pulse ox is 97% on room air. HEENT: Moist mucous membranes. Small oral cavity. Crowded airway. NECK: Supple. No JVD. LUNGS: Have a prolonged expiratory phase with some expiratory rhonchi. HEART: S1 and S2. ABDOMEN: Soft, nontender. No organomegaly. EXTREMITIES: No edema. NEUROLOGIC: Awake, alert, follows simple commands. MEDICATIONS: She is on Brovana 15 mcg inhaled twice a day, Daliresp 500 mcg daily, Lovaza 1 g p.o. twice a day, Lovenox 40 mg subcutaneous daily, meropenem 1 g IV every 8 hours, Mucinex LA 600 mg twice a day, Protonix 40 mg daily, Pulmicort inhaled twice a day, Singulair 10 mg daily, Solu-Medrol 40 mg every 12 hours, Zithromax 500 mg daily. LABORATORY DATA: Reviewed and noted. Blood sugar this morning is 83. Microbiology: Blood culture and urine culture, there is no growth. IMPRESSION AND PLAN: Exacerbation of chronic obstructive lung disease, hyperlipidemia, hyperthyroidism, rule out oropharyngeal dysphagia. Speech Therapy has been re-consulted. Pulmonary point of view, continue steroids, antibiotics, inhaled bronchodilator, gastric prophylaxis, and deep vein thrombosis prophylaxis. Thank you and we will follow with you. Alissa Bradford MD
[2018-03-20] MEDS ORDERED: Sodium Chloride 0.9% 1,000 ML IV SCH (22:00)
[2018-03-20 23:01] VITALS: RESP 18; O2SAT 97
[2018-03-21] MEDS: Meropenem IV 1 gm in NS 1 GM/50 ML BAG IVPB SCH ×3 (05:35→21:45)
[2018-03-21] MEDS: Pantoprazole 40 mg EC Tab PO SCH (05:35)
[2018-03-21] MEDS: Omega-3-Acid Ethyl Esters 1 GM Cap PO SCH ×2 (09:59→19:17)
[2018-03-21] MEDS: guaiFENesin 600 mg ER Tab PO SCH ×2 (10:00→18:16)
[2018-03-21] MEDS: Enoxaparin 40 mg Syringe SC SCH (10:00)
[2018-03-21] MEDS: MethylPREDNISolone 40 mg Vial IVP SCH (10:02)
--- NOTE | 2018-03-21 11:51 | CP.PCM.PN ---
<Neo Chacon - Last Filed: 03/21/18 13:32> Subjective - Date & Time of Evaluation Date of Evaluation: 03/21/18 Time of Evaluation: 07:44 - Subjective Subjective: Neo Chacon PGY2 IM Progress Note for Dr. Johnston Patient was seen and examined at bedside. Translation was provided by [email or web address], as patient is Czech. the patient states that her cough has improved but she is complaining of pain at the site of her IV access site. She denies any chest pain, shortness of breath, dysuria, urinary frequency, headaches or instability. The patient is stable on her feet, and is noted to be walking around the nursing station without instability. Objective - Vital Signs/Intake and Output Vital Signs (last 24 hours): Temp Pulse Resp BP Pulse Ox 97.7 F 60 18 93/56 L 97 03/20/18 23:00 03/20/18 23:00 03/20/18 23:00 03/20/18 23:00 03/20/18 23:00 Intake and Output: 03/21/18 03/21/18 06:59 18:59 Intake Total 250 Balance 250 - Medications Medications: Current Medications Arformoterol Tartrate (Brovana) 15 mcg IH [id number] [facility] Last Admin: 03/20/18 20:58 Dose: 15 mcg Azithromycin (Zithromax) 500 mg PO DAILY [facility] Last Admin: 03/21/18 10:02 Dose: 500 mg Budesonide (Pulmicort Respules) 0.5 mg IH [id number] [facility] Last Admin: 03/20/18 20:58 Dose: 0.5 mg Enoxaparin Sodium (Lovenox) 40 mg SC DAILY [facility]; Protocol Last Admin: 03/21/18 10:00 Dose: 40 mg Guaifenesin (Mucinex La) 600 mg PO BID [facility] Last Admin: 03/21/18 10:00 Dose: 600 mg Meropenem (Merrem Iv 1 Gm Premix) 1 gm in 50 mls @ 100 mls/hr IVPB Q8 [facility]; Protocol Stop: 03/27/18 14:01 Last Admin: 03/21/18 05:35 Dose: 100 mls/hr Methylprednisolone (Solu-Medrol) 40 mg IVP Q12 [facility] Last Admin: 11/05/18 10:02 Dose: 40 mg Montelukast Sodium (Singulair) 10 mg PO DAILY [facility] Last Admin: 03/21/18 10:02 Dose: 10 mg [id number]-[id number] Ethyl Esters (Lovaza) 1 gm PO BID [facility] Last Admin: 03/21/18 09:59 Dose: 1 gm Pantoprazole Sodium (Protonix Ec Tab) 40 mg PO 0600 [facility] Last Admin: 03/21/18 05:35 Dose: 40 mg Roflumilast (Daliresp) 500 mcg PO DAILY [facility] Last Admin: 03/21/18 09:59 Dose: 500 mcg - Labs Labs: 03/19/18 10:20 03/19/18 10:20 PT 13.1 SECONDS (9.4-12.5) H 03/18/18 09:40 INR 1.14 03/18/18 09:40 APTT 30.3 Seconds (25.1-36.5) 03/18/18 09:40 - Constitutional Appears: Well, Non-toxic, No Acute Distress - Head Exam Head Exam: ATRAUMATIC, NORMAL INSPECTION, NORMOCEPHALIC - Eye Exam Eye Exam: EOMI, Normal appearance, PERRL - ENT Exam ENT Exam: Mucous Membranes Moist, Normal Oropharynx - Neck Exam Neck Exam: Full ROM, Normal Inspection. absent: Lymphadenopathy, Tenderness - Respiratory Exam Respiratory Exam: NORMAL BREATHING PATTERN. absent: Rales, Rhonchi, Wheezes - Cardiovascular Exam Cardiovascular Exam: RRR, +S1, +S2. absent: Murmur - GI/Abdominal Exam GI & Abdominal Exam: Soft, Normal Bowel Sounds. absent: Distended, Tenderness - Extremities Exam Extremities Exam: Full ROM, Normal Inspection. absent: Pedal Edema - Back Exam Back Exam: NORMAL INSPECTION - Neurological Exam Neurological Exam: Alert, Awake, Normal Gait, Oriented x3. absent: Motor Sensory Deficit - Psychiatric Exam Psychiatric exam: Normal Affect, Normal Mood - Skin Skin Exam: Normal Color, Warm Assessment and Plan - Assessment and Plan (Free Text) Assessment: 68 year old female with a PMH of COPD on 2L NC at home, HTN, HLD, OA, and hepatitis B who was admitted for sepsis likely secondary to UTI. Urine culture is negative, however, urine was collected after patient was treated with antibiotics. COPD exacerbation is also present. Hx of HTN is noted but patient is not on meds and is currently hypotensive, but orthostasis is negative. HLD, OA and hepatitis B are stable. Plan: - follow-up final blood cx - cont Brovana, Pulmicort, Singulair - cont Zithromax for 3 more days - cont Meropenem for 1 more day per ID recs for 5 total days of treatment - cont Mucinex - cont Solumedrol taper - cont Lovaza - cont O2 NC - cont Lovenox for DVT ppx - cont PTX for GI ppx - HHD - further recs per ID and Pulm - further recs per Dr. Johnston Case was reviewed and discussed with attending, Dr. Vickie Chacon PGY2 <Nael Johnston S - Last Filed: 03/21/18 19:24> Objective - Vital Signs/Intake and Output Vital Signs (last 24 hours): Temp Pulse Resp BP Pulse Ox 97.7 F 60 18 93/56 L 97 03/21/18 14:00 03/21/18 14:00 03/21/18 14:00 03/21/18 14:00 03/21/18 14:00 Intake and Output: 03/21/18 03/22/18 18:59 06:59 Intake Total 250 Balance 250 - Medications Medications: Current Medications Arformoterol Tartrate (Brovana) 15 mcg IH [id number] [facility] Last Admin: 03/20/18 20:58 Dose: 15 mcg Azithromycin (Zithromax) 500 mg PO DAILY [facility] Last Admin: 03/21/18 10:02 Dose: 500 mg Budesonide (Pulmicort Respules) 0.5 mg IH [id number] [facility] Last Admin: 03/20/18 20:58 Dose: 0.5 mg Enoxaparin Sodium (Lovenox) 40 mg SC DAILY [facility]; Protocol Last Admin: 03/21/18 10:00 Dose: 40 mg Guaifenesin (Mucinex La) 600 mg PO BID [facility] Last Admin: 03/21/18 18:16 Dose: 600 mg Meropenem (Merrem Iv 1 Gm Premix) 1 gm in 50 mls @ 100 mls/hr IVPB Q8 [facility]; Protocol Stop: 03/27/18 14:01 Last Admin: 03/21/18 13:42 Dose: 100 mls/hr Methylprednisolone (Solu-Medrol) 40 mg IVP DAILY [facility] Montelukast Sodium (Singulair) 10 mg PO DAILY [facility] Last Admin: 03/21/18 10:02 Dose: 10 mg [id number]-1-[id number] Ethyl Esters (Lovaza) 1 gm PO BID [facility] Last Admin: 03/21/18 19:17 Dose: 1 gm Pantoprazole Sodium (Protonix Ec Tab) 40 mg PO 0600 [facility] Last Admin: 03/21/18 05:35 Dose: 40 mg Roflumilast (Daliresp) 500 mcg PO DAILY [facility] Last Admin: 03/21/18 09:59 Dose: 500 mcg - Labs Labs: 03/19/18 10:20 03/19/18 10:20 PT 13.1 SECONDS (9.4-12.5) H 03/18/18 09:40 INR 1.14 03/18/18 09:40 APTT 30.3 Seconds (25.1-36.5) 03/18/18 09:40 Assessment and Plan - Assessment and Plan (Free Text) Plan: Pt seen and examined. I have reviewed the note of the medical affairs director and agree with it. I have discussed the assessment and plan with the resident. I have reviewed the patient's labs and medications. Pt with acute COPD and is on ZIthroman, Solumedrol and Duoneb. She is on Meropenem for UTI. UCx was taken after Abx was started.
--- NOTE | 2018-03-21 18:58 | CP.PCM.PN ---
Subjective - Date & Time of Evaluation Date of Evaluation: 03/21/18 Time of Evaluation: 10:55 - Subjective Subjective: Comfortable in bed, no fevers. Objective - Vital Signs/Intake and Output Vital Signs (last 24 hours): Temp Pulse Resp BP Pulse Ox 97.7 F 60 18 93/56 L 97 03/20/18 23:00 03/20/18 23:00 03/20/18 23:00 03/20/18 23:00 03/20/18 23:00 - Medications Medications: Current Medications Arformoterol Tartrate (Brovana) 15 mcg IH [id number] [facility] Last Admin: 03/20/18 20:58 Dose: 15 mcg Azithromycin (Zithromax) 500 mg PO DAILY [facility] Last Admin: 03/20/18 12:10 Dose: 500 mg Budesonide (Pulmicort Respules) 0.5 mg IH [id number] [facility] Last Admin: 03/20/18 20:58 Dose: 0.5 mg Enoxaparin Sodium (Lovenox) 40 mg SC DAILY [facility]; Protocol Last Admin: 03/20/18 09:44 Dose: 40 mg Guaifenesin (Mucinex La) 600 mg PO BID [facility] Last Admin: 03/20/18 17:00 Dose: 600 mg Meropenem (Merrem Iv 1 Gm Premix) 1 gm in 50 mls @ 100 mls/hr IVPB Q8 [facility]; Protocol Stop: 03/27/18 14:01 Last Admin: 03/21/18 05:35 Dose: 100 mls/hr Methylprednisolone (Solu-Medrol) 40 mg IVP Q12 [facility] Last Admin: 03/20/18 22:28 Dose: 40 mg Montelukast Sodium (Singulair) 10 mg PO DAILY [facility] Last Admin: 03/20/18 09:44 Dose: 10 mg Swler-8-[id number] Ethyl Esters (Lovaza) 1 gm PO BID [facility] Last Admin: 03/20/18 17:00 Dose: 1 gm Pantoprazole Sodium (Protonix Ec Tab) 40 mg PO 0600 [facility] Last Admin: 03/21/18 05:35 Dose: 40 mg Roflumilast (Daliresp) 500 mcg PO DAILY [facility] Last Admin: 03/20/18 09:44 Dose: 500 mcg - Labs Labs: 03/19/18 10:20 03/19/18 10:20 PT 13.1 SECONDS (9.4-12.5) H 03/18/18 09:40 INR 1.14 03/18/18 09:40 APTT 30.3 Seconds (25.1-36.5) 03/18/18 09:40 - Constitutional Appears: Chronically Ill - Head Exam Head Exam: NORMAL INSPECTION - Respiratory Exam Respiratory Exam: Decreased Breath Sounds - Cardiovascular Exam Cardiovascular Exam: +S1, +S2 - GI/Abdominal Exam GI & Abdominal Exam: Soft. absent: Tenderness Assessment and Plan - Assessment and Plan (Free Text) Plan: Assessment Sepsis with UTI COPD exacerbation chronic active Hepatitis B HTN COPD dyslipidemia Plan continue Merrem and Zithromax day 5 to complete 5-7 days patient was on Tenofovir on previous admission - will get HBV DNA PCR and will need follow up as outpatient with a liver or GI specialist
[2018-03-21] MEDS: Arformoterol 15 mcg/2 ml Inh Sol IH SCH (20:32)
[2018-03-21] MEDS: Budesonide 0.5 mg/2 ml Inhal Susp UD IH SCH (20:32)
--- NOTE | 2018-03-22 03:01 | PN ---
DATE: 03/21/2018 PULMONARY PROGRESS NOTE REFERRING PHYSICIAN: Nael Johnston MD SUBJECTIVE: The patient is out of bed to chair. Feels better. Decreased cough. Decreased shortness of breath. No nausea. No vomiting, diarrhea, leg pain. No leg swelling. PHYSICAL EXAMINATION: GENERAL: In no acute distress. VITAL SIGNS: Temperature is 98, heart rate is 60, respiratory rate is 18, blood pressure 93/56, pulse ox 97% on 2 L nasal cannula. HEENT: Moist mucous membrane. No ulcer or thrush noted.. NECK: Supple. No JVD. LUNGS: Has a better airflow. Prolonged expiratory phase. No wheezing today. HEART: S1 and S2. ABDOMEN: Soft and nontender. No organomegaly. EXTREMITIES: There is no edema. NEUROLOGIC: Awake and alert. Follows simple commands. MEDICATIONS: She is on Brovana inhaled twice a day, Daliresp 500 mcg daily, Hinckley-3 1 g twice a day, Lovenox 40 mg daily, meropenem 1 g IV every 8 hours, Mucinex LA 600 mg twice a day, Protonix 40 mg daily, Pulmicort inhaled twice a day, Singulair 10 mg daily, Solu-Medrol 40 mg daily, Zithromax 500 mg daily. LABORATORY DATA: Reviewed. Blood sugar this morning 138. Microbiology, blood culture and urine culture, there is no growth. IMPRESSION AND PLAN: Exacerbation of chronic obstructive lung disease, hyperlipidemia, hyperthyroidism, rule out oropharyngeal dysphagia. Pulmonary point of view, doing okay. Continue inhaled bronchodilator. Decrease steroids. Gastric and deep vein thrombosis prophylaxis. Fall precaution. Thank you and we will follow with you. Alissa Bradford MD
[2018-03-22] MEDS: Pantoprazole 40 mg EC Tab PO SCH (05:23)
[2018-03-22] MEDS: Meropenem IV 1 gm in NS 1 GM/50 ML BAG IVPB SCH (05:23)
[2018-03-22] MEDS: Arformoterol 15 mcg/2 ml Inh Sol IH SCH (07:30)
[2018-03-22] MEDS: Budesonide 0.5 mg/2 ml Inhal Susp UD IH SCH (07:30)
[2018-03-22 08:45] VITALS: BP 96/55; PULSE 58; TEMP 98
[2018-03-22] MEDS ORDERED: MethylPREDNISolone 40 mg Vial IVP SCH (10:00)
[2018-03-22] MEDS: Enoxaparin 40 mg Syringe SC SCH (10:50)
[2018-03-22] MEDS: guaiFENesin 600 mg ER Tab PO SCH (10:51)
[2018-03-22] MEDS: Omega-3-Acid Ethyl Esters 1 GM Cap PO SCH (10:51)
--- NOTE | 2018-03-22 13:22 | CP.PCM.DIS ---
<Neo Chacon - Last Filed: 03/22/18 17:59> Provider - Provider Date of Admission: 03/18/18 11:02 Attending physician: Nael Johnston MD Time Spent in preparation of Discharge (in minutes): 40 Diagnosis - Discharge Diagnosis (1) Sepsis Status: Acute (2) Urinary tract infection Status: Acute (3) COPD exacerbation Status: Acute Hospital Course - Lab Results Lab Results: Micro Results 03/18/18 10:00 Blood-Venous Blood Culture - Preliminary NO GROWTH AFTER 4 DAYS 03/18/18 09:40 Blood-Venous Blood Culture - Preliminary NO GROWTH AFTER 4 DAYS 03/18/18 21:58 Urine,Clean Catch Urine Culture - Final No Growth (<1,000 CFU/ML) Most Recent Lab Values WBC 10.8 10^3/uL (4.5-11.0) D 03/19/18 10:20 RBC 4.33 10^6/uL (3.5-6.1) 03/19/18 10:20 Hgb 13.2 g/dL (12.0-16.0) 03/19/18 10:20 Hct 38.9 % (36.0-48.0) 03/19/18 10:20 MCV 89.8 fl (80.0-105.0) 03/19/18 10:20 MCH 30.5 pg (25.0-35.0) 03/19/18 10:20 MCHC 33.9 g/dl (31.0-37.0) 03/19/18 10:20 RDW 12.9 % (11.5-14.5) 03/19/18 10:20 Plt Count 171 10^3/uL (120.0-450.0) 03/19/18 10:20 MPV 9.4 fl (7.0-11.0) 03/19/18 10:20 Gran % 78.0 % (50.0-68.0) H 03/18/18 09:40 Lymph % (Auto) 14.9 % (22.0-35.0) L 03/18/18 09:40 [place] % (Auto) 6.7 % (1.0-6.0) H 03/18/18 09:40 Eos % (Auto) 0.3 % (1.5-5.0) L 03/18/18 09:40 Baso % (Auto) 0.1 % (0.0-3.0) 03/18/18 09:40 Gran # 14.40 (1.4-6.5) H 03/18/18 09:40 Lymph # (Auto) 2.8 (1.2-3.4) 03/18/18 09:40 [place] # (Auto) 1.2 (0.1-0.6) H 03/18/18 09:40 Eos # (Auto) 0.1 (0.0-0.7) 03/18/18 09:40 Baso # (Auto) 0.02 K/mm3 (0.0-2.0) 03/18/18 09:40 PT 13.1 SECONDS (9.4-12.5) H 03/18/18 09:40 INR 1.14 03/18/18 09:40 APTT 30.3 Seconds (25.1-36.5) 03/18/18 09:40 pCO2 31 mm/Hg (35-45) L 03/18/18 10:17 pO2 46 mm/Hg (30-55) 03/18/18 13:01 HCO3 21.5 mmol/L (21-28) 03/18/18 10:17 ABG pH 7.45 (7.35-7.45) 03/18/18 10:17 ABG Total CO2 22.5 mmol.L (22-28) 03/18/18 10:17 ABG O2 Saturation 99.1 % (95-98) H 03/18/18 10:17 ABG O2 Content 17.8 ML/dl (15-23) 03/18/18 10:17 ABG Base Excess -1.6 mmol/L (-2.0-3.0) 03/18/18 10:17 ABG Hemoglobin 13.3 g/dL (11.7-17.4) 03/18/18 10:17 ABG Carboxyhemoglobin 2.4 % (0.5-1.5) H 03/18/18 10:17 POC ABG HHb (Measured) 0.9 % (0-5) 03/18/18 10:17 ABG Methemoglobin 1.6 % (0.0-3.0) 03/18/18 10:17 ABG O2 Capacity 18.0 mL/dl (16-24) 03/18/18 10:17 VBG pH 7.28 (7.32-7.43) L 03/18/18 13:01 VBG pCO2 51.0 (40-60) 03/18/18 13:01 VBG HCO3 24.0 mmol/l (21-28) 03/18/18 13:01 VBG Total CO2 25.6 mmol.L (22-28) 03/18/18 13:01 VBG O2 Sat (Calc) 83.3 % (40-65) H 03/18/18 13:01 VBG Base Excess -3.3 mmol/L (0.0-2.0) L 03/18/18 13:01 VBG Potassium 3.4 mmol/L (3.6-5.2) L 03/18/18 13:01 Hgb O2 Saturation 95.1 % (95.0-98.0) 03/18/18 10:17 Sodium 139.0 mmol/L (132-148) 03/18/18 13:01 Chloride 106.0 mmol/L (98-107) 03/18/18 13:01 Glucose 95 mg/dl (65-105) 03/18/18 13:01 Lactate 2.8 mmol/L (0.7-2.1) H 03/18/18 13:01 FiO2 21.0 % 03/18/18 13:01 Sodium 139 mmol/L (132-148) 03/19/18 10:20 Potassium 4.1 mmol/L (3.6-5.0) 03/19/18 10:20 Chloride 106 mmol/L (98-107) 03/19/18 10:20 Carbon Dioxide 23 mmol/L (21-33) 03/19/18 10:20 Anion Gap 14 (10-20) 03/19/18 10:20 BUN 14 mg/dL (7-21) 03/19/18 10:20 Creatinine 0.5 mg/dl (0.7-1.2) L 03/19/18 10:20 Est GFR ( Amer) > 60 03/19/18 10:20 Est GFR (Non-Af Amer) > 60 03/19/18 10:20 POC Glucose (mg/dL) 75 mg/dL (65-110) 03/22/18 11:11 Random Glucose 279 mg/dL (70-110) H 03/19/18 10:20 Calcium 8.9 mg/dL (8.4-10.5) 03/19/18 10:20 Magnesium 1.9 mg/dL (1.7-2.2) 03/18/18 09:40 Total Bilirubin 0.7 mg/dL (0.2-1.3) 03/19/18 10:20 AST 27 U/L (14-36) 03/19/18 10:20 ALT 27 U/L (7-56) 03/19/18 10:20 Alkaline Phosphatase 57 U/L (38-126) 03/19/18 10:20 Troponin I < 0.01 ng/mL 03/18/18 09:40 NT-Pro-B Natriuret Pep 129 pg/mL (0-450) 03/18/18 09:40 Total Protein 6.8 g/dL (5.8-8.3) 03/19/18 10:20 Albumin 3.6 g/dL (3.0-4.8) 03/19/18 10:20 Globulin 3.1 gm/dL 03/19/18 10:20 Albumin/Globulin Ratio 1.2 (1.1-1.8) 03/19/18 10:20 Procalcitonin 0.11 NG/ML (0.19-0.49) L 03/18/18 09:40 Venous Blood Potassium 3.4 mmol/L (3.6-5.2) L 03/18/18 13:01 Urine Color Yellow (YELLOW) 03/18/18 11:30 Urine Appearance Clear (CLEAR) 03/18/18 11:30 Urine pH 7.0 (4.7-8.0) 03/18/18 11:30 Ur Specific [place] 1.010 (1.005-1.035) 03/18/18 11:30 Urine Protein Negative mg/dL (<30 mg/dL) 03/18/18 11:30 Urine Glucose (UA) Negative mg/dL (NEGATIVE) 03/18/18 11:30 Urine Ketones Negative mg/dL (NEGATIVE) 03/18/18 11:30 Urine Blood Small (NEGATIVE) H 03/18/18 11:30 Urine Nitrate Negative (NEGATIVE) 03/18/18 11:30 Urine Bilirubin Negative (NEGATIVE) 03/18/18 11:30 Urine Urobilinogen 0.2 E.U./dL (<1 E.U./dL) 03/18/18 11:30 Ur Leukocyte Esterase Large Eamon/uL (NEGATIVE) H 03/18/18 11:30 Urine RBC 5 - 10 /hpf (0-2) 03/18/18 11:30 Urine WBC 25 - 30 /hpf (0-6) 03/18/18 11:30 Ur Epithelial Cells 4 - 5 /hpf (0-5) 03/18/18 11:30 Amorphous Sediment Few 03/18/18 11:30 Urine Bacteria Many (NEG) 03/18/18 11:30 Urine Other Uyeast 03/18/18 11:30 - Hospital Course Hospital Course: 68 year old female with a PMH of COPD on 2L NC at home, HTN, HLD, OA, and hepatitis B who was admitted for sepsis likely secondary to UTI. Urine culture is negative, however, urine was collected after patient was treated with antibiotics. Patient also had COPD exacerbation. Patient met sepsis criteria so code sepsis was called. CXR and EKG were unremarkable. ID and pulmonology were consulted. Patient completed 6 day course of Meropenem empirically for UTI. Pulm started patient on Zithromax and patient completed 6 days of inpatient antibiotics for it as well. Patient was also started on Brovana, Pulmicort, Singulair, Daliresp, as well as solu-medrol taper. PT evaluated the patient and O2 sats were noted to be satisfactory off supplemental O2. I discussed with Mr Lobo (son-in-law) the patient's condition and he understood the recommendations. Per Dr. Bradford, the patient is to be continued on the full spectrum of COPD medications, a medrol dose pack and a few days of Zithromax. ID also ordered HBV quantification as patient has hx of HBV, unclear if treated or not. On day of discharge, the patient states that her cough has improved and denies any fevers, chills, nausea/vomiting, diarrhea/constipation, weakness, unsteady gait. She will follow-up with PMD and with GI/hepatology regarding HBV status. Discharge Exam - Head Exam Head Exam: ATRAUMATIC, NORMAL INSPECTION, NORMOCEPHALIC - Eye Exam Eye Exam: EOMI, Normal appearance, PERRL - ENT Exam ENT Exam: Mucous Membranes Moist, Normal External Ear Exam, Normal Oropharynx - Neck Exam Neck exam: Full Rom, Normal Inspection - Respiratory Exam Respiratory Exam: NORMAL BREATHING PATTERN. absent: Rales, Rhonchi, Wheezes, Respiratory Distress - Cardiovascular Exam Cardiovascular Exam: RRR, +S1, +S2. absent: JVD, Systolic Murmur - GI/Abdominal Exam GI & Abdominal Exam: Soft. absent: Distended, Tenderness - Extremities Exam Extremities exam: full ROM, normal inspection - Back Exam Back exam: NORMAL INSPECTION. absent: tenderness - Neurological Exam Neurological exam: Alert, CN II-XII Intact, Normal Gait, Oriented x3 - Psychiatric Exam Psychiatric exam: Normal Affect, Normal Mood - Skin Skin Exam: Normal Color, Warm Discharge Plan - Discharge Medications Prescriptions: RX: Umeclidinium Brm/Vilanterol Tr [Anoro Ellipta 62.5-25 Mcg INH] 1 puff IH DAILY 30 Days blst.w.dev RX: Roflumilast [Daliresp] 500 mcg PO DAILY #30 tab RX: Methylprednisolone [Medrol Dose Pack (21 tabs)] 4 mg PO DAILY #21 mg RX: Budesonide [Pulmicort Respules] 0.5 mg IH [id number] 30 Days neb RX: Montelukast [Singulair] 10 mg PO DAILY #30 tab Benzonatate [Tessalon Perles] 100 mg PO TID PRN #30 sgl PRN Reason: Cough RX: Albuterol Sulfate [Ventolin Hfa] 2 puff IH QID PRN 30 Days hfa.aer.ad PRN Reason: Shortness Of Breath RX: Azithromycin [Zithromax] 500 mg PO DAILY #3 tab - Follow Up Plan Condition: FAIR Disposition: HOME/ ROUTINE Instructions: Roflumilast, Exacerbation of COPD (DC), Albuterol, Methylprednisolone, Breathing Exercises, Budesonide (Oral Inhalation), Sepsis (ED) Additional Instructions: - please take Zithromax daily for 3 days - please take Medrol dose pack as prescribed - please take anoro ellipta 1 puff daily, singular 1 pill daily, pulmicort 1 inh every 12 hours, daliresp 1 pill daily - please take ventolin 2 puffs every 4 hours as needed for shortness of breath - please follow-up with PMD or Dr. Johnston within 1 week - please follow-up with Dr. Bradford (lung doctor) within 2 weeks - if you experience shortness of breath, fevers/chills, or worsening cough, please return to ER for further evaluation Referrals: Marilyn Gregg DO [Doctor Osteopathy] - Nael Johnston MD [Staff Provider] - Alissa Bradford MD [Staff Provider] - <Nael Johnston - Last Filed: 03/22/18 18:47> Provider - Provider Date of Admission: 03/18/18 11:02 Attending physician: Nael Johnston MD Hospital Course - Lab Results Lab Results: Micro Results 03/18/18 10:00 Blood-Venous Blood Culture - Preliminary NO GROWTH AFTER 4 DAYS 03/18/18 09:40 Blood-Venous Blood Culture - Preliminary NO GROWTH AFTER 4 DAYS 03/18/18 21:58 Urine,Clean Catch Urine Culture - Final No Growth (<1,000 CFU/ML) Most Recent Lab Values WBC 10.8 10^3/uL (4.5-11.0) D 03/19/18 10:20 RBC 4.33 10^6/uL (3.5-6.1) 03/19/18 10:20 Hgb 13.2 g/dL (12.0-16.0) 03/19/18 10:20 Hct 38.9 % (36.0-48.0) 03/19/18 10:20 MCV 89.8 fl (80.0-105.0) 03/19/18 10:20 MCH 30.5 pg (25.0-35.0) 03/19/18 10:20 MCHC 33.9 g/dl (31.0-37.0) 03/19/18 10:20 RDW 12.9 % (11.5-14.5) 03/19/18 10:20 Plt Count 171 10^3/uL (120.0-450.0) 03/19/18 10:20 MPV 9.4 fl (7.0-11.0) 03/19/18 10:20 Gran % 78.0 % (50.0-68.0) H 03/18/18 09:40 Lymph % (Auto) 14.9 % (22.0-35.0) L 03/18/18 09:40 [place] % (Auto) 6.7 % (1.0-6.0) H 03/18/18 09:40 Eos % (Auto) 0.3 % (1.5-5.0) L 03/18/18 09:40 Baso % (Auto) 0.1 % (0.0-3.0) 03/18/18 09:40 Gran # 14.40 (1.4-6.5) H 03/18/18 09:40 Lymph # (Auto) 2.8 (1.2-3.4) 03/18/18 09:40 [place] # (Auto) 1.2 (0.1-0.6) H 03/18/18 09:40 Eos # (Auto) 0.1 (0.0-0.7) 03/18/18 09:40 Baso # (Auto) 0.02 K/mm3 (0.0-2.0) 03/18/18 09:40 PT 13.1 SECONDS (9.4-12.5) H 03/18/18 09:40 INR 1.14 03/18/18 09:40 APTT 30.3 Seconds (25.1-36.5) 03/18/18 09:40 pCO2 31 mm/Hg (35-45) L 03/18/18 10:17 pO2 46 mm/Hg (30-55) 03/18/18 13:01 HCO3 21.5 mmol/L (21-28) 03/18/18 10:17 ABG pH 7.45 (7.35-7.45) 03/18/18 10:17 ABG Total CO2 22.5 mmol.L (22-28) 03/18/18 10:17 ABG O2 Saturation 99.1 % (95-98) H 03/18/18 10:17 ABG O2 Content 17.8 ML/dl (15-23) 03/18/18 10:17 ABG Base Excess -1.6 mmol/L (-2.0-3.0) 03/18/18 10:17 ABG Hemoglobin 13.3 g/dL (11.7-17.4) 03/18/18 10:17 ABG Carboxyhemoglobin 2.4 % (0.5-1.5) H 03/18/18 10:17 POC ABG HHb (Measured) 0.9 % (0-5) 03/18/18 10:17 ABG Methemoglobin 1.6 % (0.0-3.0) 03/18/18 10:17 ABG O2 Capacity 18.0 mL/dl (16-24) 03/18/18 10:17 VBG pH 7.28 (7.32-7.43) L 03/18/18 13:01 VBG pCO2 51.0 (40-60) 03/18/18 13:01 VBG HCO3 24.0 mmol/l (21-28) 03/18/18 13:01 VBG Total CO2 25.6 mmol.L (22-28) 03/18/18 13:01 VBG O2 Sat (Calc) 83.3 % (40-65) H 03/18/18 13:01 VBG Base Excess -3.3 mmol/L (0.0-2.0) L 03/18/18 13:01 VBG Potassium 3.4 mmol/L (3.6-5.2) L 03/18/18 13:01 Hgb O2 Saturation 95.1 % (95.0-98.0) 03/18/18 10:17 Sodium 139.0 mmol/L (132-148) 03/18/18 13:01 Chloride 106.0 mmol/L (98-107) 03/18/18 13:01 Glucose 95 mg/dl (65-105) 03/18/18 13:01 Lactate 2.8 mmol/L (0.7-2.1) H 03/18/18 13:01 FiO2 21.0 % 03/18/18 13:01 Sodium 139 mmol/L (132-148) 03/19/18 10:20 Potassium 4.1 mmol/L (3.6-5.0) 03/19/18 10:20 Chloride 106 mmol/L (98-107) 03/19/18 10:20 Carbon Dioxide 23 mmol/L (21-33) 03/19/18 10:20 Anion Gap 14 (10-20) 03/19/18 10:20 BUN 14 mg/dL (7-21) 03/19/18 10:20 Creatinine 0.5 mg/dl (0.7-1.2) L 03/19/18 10:20 Est GFR ( Amer) > 60 03/19/18 10:20 Est GFR (Non-Af Amer) > 60 03/19/18 10:20 POC Glucose (mg/dL) 95 mg/dL (65-110) 03/22/18 16:38 Random Glucose 279 mg/dL (70-110) H 03/19/18 10:20 Calcium 8.9 mg/dL (8.4-10.5) 03/19/18 10:20 Magnesium 1.9 mg/dL (1.7-2.2) 03/18/18 09:40 Total Bilirubin 0.7 mg/dL (0.2-1.3) 03/19/18 10:20 AST 27 U/L (14-36) 03/19/18 10:20 ALT 27 U/L (7-56) 03/19/18 10:20 Alkaline Phosphatase 57 U/L (38-126) 03/19/18 10:20 Troponin I < 0.01 ng/mL 03/18/18 09:40 NT-Pro-B Natriuret Pep 129 pg/mL (0-450) 03/18/18 09:40 Total Protein 6.8 g/dL (5.8-8.3) 03/19/18 10:20 Albumin 3.6 g/dL (3.0-4.8) 03/19/18 10:20 Globulin 3.1 gm/dL 03/19/18 10:20 Albumin/Globulin Ratio 1.2 (1.1-1.8) 03/19/18 10:20 Procalcitonin 0.11 NG/ML (0.19-0.49) L 03/18/18 09:40 Venous Blood Potassium 3.4 mmol/L (3.6-5.2) L 03/18/18 13:01 Urine Color Yellow (YELLOW) 03/18/18 11:30 Urine Appearance Clear (CLEAR) 03/18/18 11:30 Urine pH 7.0 (4.7-8.0) 03/18/18 11:30 Ur Specific [place] 1.010 (1.005-1.035) 03/18/18 11:30 Urine Protein Negative mg/dL (<30 mg/dL) 03/18/18 11:30 Urine Glucose (UA) Negative mg/dL (NEGATIVE) 03/18/18 11:30 Urine Ketones Negative mg/dL (NEGATIVE) 03/18/18 11:30 Urine Blood Small (NEGATIVE) H 03/18/18 11:30 Urine Nitrate Negative (NEGATIVE) 03/18/18 11:30 Urine Bilirubin Negative (NEGATIVE) 03/18/18 11:30 Urine Urobilinogen 0.2 E.U./dL (<1 E.U./dL) 03/18/18 11:30 Ur Leukocyte Esterase Large Eamon/uL (NEGATIVE) H 03/18/18 11:30 Urine RBC 5 - 10 /hpf (0-2) 03/18/18 11:30 Urine WBC 25 - 30 /hpf (0-6) 03/18/18 11:30 Ur Epithelial Cells 4 - 5 /hpf (0-5) 03/18/18 11:30 Amorphous Sediment Few 03/18/18 11:30 Urine Bacteria Many (NEG) 03/18/18 11:30 Urine Other Uyeast 03/18/18 11:30 - Hospital Course Hospital Course: Pt seen and examined. I have reviewed the note of the director medical and agree with it. I have discussed the assessment and plan with the resident. I have reviewed the patient's labs and medications. Pt with acute COPD and has improved. She will finish her Abx as outpt. She finished her IV Abx for UTI. She will f/u with GI and PMD. D/C home.
--- NOTE | 2018-03-22 16:04 | CP.PCM.PN ---
Subjective - Date & Time of Evaluation Date of Evaluation: 03/22/18 Time of Evaluation: 11:05 - Subjective Subjective: Afebrile, comfortable. Objective - Vital Signs/Intake and Output Vital Signs (last 24 hours): Temp Pulse Resp BP Pulse Ox 97.7 F 60 18 93/56 L 97 03/21/18 14:00 03/21/18 14:00 03/21/18 14:00 03/21/18 14:00 03/21/18 14:00 Intake and Output: 03/21/18 03/21/18 06:59 18:59 Intake Total 250 Balance 250 - Medications Medications: Current Medications Arformoterol Tartrate (Brovana) 15 mcg IH [id number] [facility] Last Admin: 03/20/18 20:58 Dose: 15 mcg Azithromycin (Zithromax) 500 mg PO DAILY [facility] Last Admin: 03/21/18 10:02 Dose: 500 mg Budesonide (Pulmicort Respules) 0.5 mg IH [id number] [facility] Last Admin: 03/20/18 20:58 Dose: 0.5 mg Enoxaparin Sodium (Lovenox) 40 mg SC DAILY [facility]; Protocol Last Admin: 03/21/18 10:00 Dose: 40 mg Guaifenesin (Mucinex La) 600 mg PO BID [facility] Last Admin: 03/21/18 10:00 Dose: 600 mg Meropenem (Merrem Iv 1 Gm Premix) 1 gm in 50 mls @ 100 mls/hr IVPB Q8 ELISEO; Protocol Stop: 03/27/18 14:01 Last Admin: 03/21/18 13:42 Dose: 100 mls/hr Methylprednisolone (Solu-Medrol) 40 mg IVP DAILY [facility] Montelukast Sodium (Singulair) 10 mg PO DAILY ELISEO Last Admin: 03/21/18 10:02 Dose: 10 mg Wynvz-2-Soih Ethyl Esters (Lovaza) 1 gm PO BID [facility] Last Admin: 03/21/18 09:59 Dose: 1 gm Pantoprazole Sodium (Protonix Ec Tab) 40 mg PO 0600 ELISEO Last Admin: 03/21/18 05:35 Dose: 40 mg Roflumilast (Daliresp) 500 mcg PO DAILY ELISEO Last Admin: 03/21/18 09:59 Dose: 500 mcg - Labs Labs: 03/19/18 10:20 03/19/18 10:20 PT 13.1 SECONDS (9.4-12.5) H 03/18/18 09:40 INR 1.14 03/18/18 09:40 APTT 30.3 Seconds (25.1-36.5) 03/18/18 09:40 - Constitutional Appears: Chronically Ill - Head Exam Head Exam: NORMAL INSPECTION - Respiratory Exam Respiratory Exam: Decreased Breath Sounds - Cardiovascular Exam Cardiovascular Exam: +S1, +S2 - GI/Abdominal Exam GI & Abdominal Exam: Soft. absent: Tenderness Assessment and Plan - Assessment and Plan (Free Text) Plan: Assessment Sepsis with UTI COPD exacerbation chronic active Hepatitis B HTN COPD dyslipidemia Plan continue Merrem and Zithromax day 6 to complete 5-7 days patient was on Tenofovir on previous admission - will get HBV DNA PCR and will need follow up as outpatient with a liver or GI specialist
--- NOTE | 2018-03-22 21:01 | PN ---
DATE: 03/22/2018 PULMONARY PROGRESS NOTE REFERRING PHYSICIAN: Nael Johnston MD. SUBJECTIVE: The patient is sitting on side of the bed, being discharged home. Feels much better. No cough. No sputum production. No nausea, vomiting, diarrhea, leg pain, leg swelling. OBJECTIVE: GENERAL: In no acute distress. VITAL SIGNS: Temperature is 98, heart rate is 58, respiratory rate is 18, blood pressure 96/55, pulse ox 97% on room air. HEENT: Moist mucous membrane. No ulcer or thrush noted. NECK: Supple. No JVD. LUNGS: Have a prolonged expiratory phase. No wheezing. Fair airflow. HEART: S1 and S2. ABDOMEN: Soft, nontender. No organomegaly. EXTREMITIES: No edema. NEUROLOGICAL: Awake, alert. Follows simple command. MEDICATIONS: Reviewed and no new changes reported. LABORATORY DATA: Reviewed. Blood sugar this morning is 95. Microbiology: Blood culture, urine culture, there is no growth. IMPRESSION AND PLAN: Exacerbation of chronic obstructive lung disease, hyperlipidemia, hyperthyroidism, rule out oropharyngeal dysphagia. Pulmonary point of view, she is doing well. Stable to discharge. My discharged home with tapered dose of steroids. Antibiotics have been discontinued. Fall precaution. Needs outpatient attended sleep study to rule out sleep apnea syndrome. Needs PFT. Thank you and we will follow. Alissa Bradford MD
== END 2018-03-22 18:05 | disposition home or self-care (01) | DRG 872 ==
LOC: ED 09:05 → ERH 11:02 → 2RNO 14:23 → 5RSO 03-19 19:54
PROVIDERS: ADMIT Internal Medicine Nephrology; ATTEND Internal Medicine Nephrology
DX: A41.9 Sepsis, unspecified organism (principal); N39.0 Urinary tract infection, site not specified; J44.1 Chronic obstructive pulmonary disease with (acute) exacerbation; B18.1 Chronic viral hepatitis B without delta-agent; E05.90 Thyrotoxicosis, unspecified without thyrotoxic crisis or storm; I10 Essential (primary) hypertension; E78.00 Pure hypercholesterolemia, unspecified; M15.9 Polyosteoarthritis, unspecified; E78.5 Hyperlipidemia, unspecified; K29.70 Gastritis, unspecified, without bleeding; N20.0 Calculus of kidney; Z99.81 Dependence on supplemental oxygen; Z87.891 Personal history of nicotine dependence; Z91.19 Patient's noncompliance with other medical treatment and regimen

== ENCOUNTER 2018-08-08 08:24 | Outpatient (CLI) | payer MEDICARE, MEDICAID | END 2018-08-08 08:25 | disposition home or self-care (01) | LOC: RAD 08:24 ==